=== PATIENT | male | born 1945 | race Caucasian/White ===

== ENCOUNTER 2021-11-25 12:41 | Outpatient (RCR) | payer MEDICARE, SELFPAY | END 2021-12-12 09:30 | disposition home or self-care (01) | LOC: HO.WCC 12:41 | PROVIDERS: PCP Internal Medicine; Visit Provider Physician Assistant | DX: E11.622 Type 2 diabetes mellitus with other skin ulcer (principal); L97.812 Non-pressure chronic ulcer of other part of right lower leg with fat layer exposed; I87.331 Chronic venous hypertension (idiopathic) with ulcer and inflammation of right lower extremity; E11.22 Type 2 diabetes mellitus with diabetic chronic kidney disease; I12.9 Hypertensive chronic kidney disease with stage 1 through stage 4 chronic kidney disease, or unspecified chronic kidney disease; N18.9 Chronic kidney disease, unspecified; L08.9 Local infection of the skin and subcutaneous tissue, unspecified; Z79.84 Long term (current) use of oral hypoglycemic drugs | CPT/HCPCS: 11042; 29580; 97597; 99211; 99212 ==

== ENCOUNTER 2022-08-22 07:20 | Inpatient (IN) | payer MEDICARE, SELFPAY ==
[2022-08-22] VITALS (10 sets, daily range): BP systolic 120–159; BP diastolic 66–83; PULSE 73–131; RESP 12–22; TEMP 36.6–38.4; O2SAT 92–98; BMI 36.9
--- NOTE | ~2022-08-22 | XR_ITS ---
EXAMINATION: XR HIP BI W PEL1V XR KNEE LT 2V XR KNEE RT 2V XR ANKLE LT 2V XR ANKLE RT 2V CLINICAL INFORMATION: Pain status post fall COMPARISON: None. TECHNIQUE: AP view of the pelvis and AP and frog-leg lateral views of each hip 2 views of each knee 3 views of each ankle FINDINGS: Pelvis/bilateral hips: No acute fracture or dislocation. Femoral heads are spherical. Moderate right hip joint space narrowing. Left hip joint space relatively preserved. Small acetabular and femoral collar marginal osteophytes. Pelvic ring intact. Mild bilateral sacroiliac arthrosis. Bilateral knees: No acute fracture or dislocation. Small tricompartmental marginal osteophytes. Moderate bilateral knee joint effusions. Diffuse soft tissue swelling/subcutaneous reticulation. Bilateral ankles: No acute fracture or dislocation. Ankle mortise is congruent. Talar dome intact. Small tibiotalar marginal osteophytes. Diffuse soft tissue swelling about both ankles. No ankle joint effusion. XR/XR ankle RT 2V IMPRESSION: * No acute fracture or dislocation. * Moderate bilateral knee joint effusions. * Degenerative changes as described. * Diffuse soft tissue swelling /edema throughout both lower extremity.
--- NOTE | ~2022-08-22 | XR_ITS ---
EXAMINATION: XR CHEST CLINICAL INFORMATION: Tachycardia. COMPARISON: None TECHNIQUE: Frontal view of the chest was obtained. FINDINGS: Mild linear markings are seen at the left lung base. The left upper lung field and right lung are clear. The heart and mediastinal structures are unremarkable. Small to moderate hiatal hernia. XR/XR chest 1V IMPRESSION: 1. Mild left basilar linear atelectasis versus scarring. No acute cardiopulmonary process. 2. Small to moderate hiatal hernia.
--- NOTE | ~2022-08-22 | XR_ITS ---
EXAMINATION: XR HIP BI W PEL1V XR KNEE LT 2V XR KNEE RT 2V XR ANKLE LT 2V XR ANKLE RT 2V CLINICAL INFORMATION: Pain status post fall COMPARISON: None. TECHNIQUE: AP view of the pelvis and AP and frog-leg lateral views of each hip 2 views of each knee 3 views of each ankle FINDINGS: Pelvis/bilateral hips: No acute fracture or dislocation. Femoral heads are spherical. Moderate right hip joint space narrowing. Left hip joint space relatively preserved. Small acetabular and femoral collar marginal osteophytes. Pelvic ring intact. Mild bilateral sacroiliac arthrosis. Bilateral knees: No acute fracture or dislocation. Small tricompartmental marginal osteophytes. Moderate bilateral knee joint effusions. Diffuse soft tissue swelling/subcutaneous reticulation. Bilateral ankles: No acute fracture or dislocation. Ankle mortise is congruent. Talar dome intact. Small tibiotalar marginal osteophytes. Diffuse soft tissue swelling about both ankles. No ankle joint effusion. XR/XR ankle LT 2V IMPRESSION: * No acute fracture or dislocation. * Moderate bilateral knee joint effusions. * Degenerative changes as described. * Diffuse soft tissue swelling /edema throughout both lower extremity.
--- NOTE | ~2022-08-22 | XR_ITS ---
EXAMINATION: XR HIP BI W PEL1V XR KNEE LT 2V XR KNEE RT 2V XR ANKLE LT 2V XR ANKLE RT 2V CLINICAL INFORMATION: Pain status post fall COMPARISON: None. TECHNIQUE: AP view of the pelvis and AP and frog-leg lateral views of each hip 2 views of each knee 3 views of each ankle FINDINGS: Pelvis/bilateral hips: No acute fracture or dislocation. Femoral heads are spherical. Moderate right hip joint space narrowing. Left hip joint space relatively preserved. Small acetabular and femoral collar marginal osteophytes. Pelvic ring intact. Mild bilateral sacroiliac arthrosis. Bilateral knees: No acute fracture or dislocation. Small tricompartmental marginal osteophytes. Moderate bilateral knee joint effusions. Diffuse soft tissue swelling/subcutaneous reticulation. Bilateral ankles: No acute fracture or dislocation. Ankle mortise is congruent. Talar dome intact. Small tibiotalar marginal osteophytes. Diffuse soft tissue swelling about both ankles. No ankle joint effusion. XR/XR knee RT 2V IMPRESSION: * No acute fracture or dislocation. * Moderate bilateral knee joint effusions. * Degenerative changes as described. * Diffuse soft tissue swelling /edema throughout both lower extremity.
--- NOTE | ~2022-08-22 | XR_ITS ---
EXAMINATION: XR HIP BI W PEL1V XR KNEE LT 2V XR KNEE RT 2V XR ANKLE LT 2V XR ANKLE RT 2V CLINICAL INFORMATION: Pain status post fall COMPARISON: None. TECHNIQUE: AP view of the pelvis and AP and frog-leg lateral views of each hip 2 views of each knee 3 views of each ankle FINDINGS: Pelvis/bilateral hips: No acute fracture or dislocation. Femoral heads are spherical. Moderate right hip joint space narrowing. Left hip joint space relatively preserved. Small acetabular and femoral collar marginal osteophytes. Pelvic ring intact. Mild bilateral sacroiliac arthrosis. Bilateral knees: No acute fracture or dislocation. Small tricompartmental marginal osteophytes. Moderate bilateral knee joint effusions. Diffuse soft tissue swelling/subcutaneous reticulation. Bilateral ankles: No acute fracture or dislocation. Ankle mortise is congruent. Talar dome intact. Small tibiotalar marginal osteophytes. Diffuse soft tissue swelling about both ankles. No ankle joint effusion. XR/XR knee LT 2V IMPRESSION: * No acute fracture or dislocation. * Moderate bilateral knee joint effusions. * Degenerative changes as described. * Diffuse soft tissue swelling /edema throughout both lower extremity.
--- NOTE | ~2022-08-22 | XR_ITS ---
EXAMINATION: XR HIP BI W PEL1V XR KNEE LT 2V XR KNEE RT 2V XR ANKLE LT 2V XR ANKLE RT 2V CLINICAL INFORMATION: Pain status post fall COMPARISON: None. TECHNIQUE: AP view of the pelvis and AP and frog-leg lateral views of each hip 2 views of each knee 3 views of each ankle FINDINGS: Pelvis/bilateral hips: No acute fracture or dislocation. Femoral heads are spherical. Moderate right hip joint space narrowing. Left hip joint space relatively preserved. Small acetabular and femoral collar marginal osteophytes. Pelvic ring intact. Mild bilateral sacroiliac arthrosis. Bilateral knees: No acute fracture or dislocation. Small tricompartmental marginal osteophytes. Moderate bilateral knee joint effusions. Diffuse soft tissue swelling/subcutaneous reticulation. Bilateral ankles: No acute fracture or dislocation. Ankle mortise is congruent. Talar dome intact. Small tibiotalar marginal osteophytes. Diffuse soft tissue swelling about both ankles. No ankle joint effusion. XR/XR hip BI w PEL1V IMPRESSION: * No acute fracture or dislocation. * Moderate bilateral knee joint effusions. * Degenerative changes as described. * Diffuse soft tissue swelling /edema throughout both lower extremity.
--- NOTE | 2022-08-22 08:02 | ECG_ITS ---
Test Reason : tachycardia Blood Pressure : / mmHG Vent. Rate : 131 BPM Atrial Rate : 131 BPM P-R Int : 122 ms QRS Dur : 098 ms QT Int : 330 ms P-R-T Axes : 045 -76 024 degrees QTc Int : 487 ms Poor data quality Sinus tachycardia Pulmonary disease pattern Left anterior fascicular block Abnormal ECG No previous ECGs available Referred By: Generic ED Physician Electronically Signed By:JESSICA YAP MD
--- NOTE | 2022-08-22 08:22 | ED.GENADULT ---
HPI - General Adult General Chief complaint: General Medical Stated complaint: WEAK,FEVER,LEG PAIN W/ FALL/DIFF AMB Time Seen by Provider: 08/22/22 08:02 Source: patient and EMS Mode of arrival: EMS Limitations: no limitations History of Present Illness HPI narrative: Patient is a 77 year old assigned male at with no reported medical history presenting to the emergency department today with a fever and general weakness. Patient states that starting this morning he has had a fever and felt generally more weak. Patient denies any dizziness, lightheadedness, abdominal pain, nausea, vomiting, chills, blurry vision, double vision, loss of vision, chest pain, difficulty breathing, shortness of breath, back pain, night sweats, pain with urination, increased urinary frequency, increased urinary urgency, blood in his urine or stool, syncope or a near syncopal episode, recent trauma or falls, bowel incontinence, bladder incontinence, bowel retention, bladder retention, or any other complaints at this time. Patient states that he normally uses his walker and today, he was unable to do so. Onset (ago): hour(s) Severity: mild Severity scale (1-10): 3 Relieving factors: none Exacerbating factors: none Associated symptoms: fever/chills and weakness Treatments prior to arrival: none Related Data Home Medications Medication Instructions Recorded Confirmed ammonium lactate 12 % lotion 1 applic topical DAILY PRN Dry Skin 08/22/22 08/22/22 ascorbic acid (vitamin C) 250 mg 250 mg PO DAILY 08/22/22 08/22/22 tablet (Vitamin C) atorvastatin 20 mg tablet 20 mg PO BEDTIME 08/22/22 08/22/22 cholecalciferol (vitamin D3) 25 25 mcg PO DAILY 08/22/22 08/22/22 mcg (1,000 unit) tablet divalproex 500 mg tablet,extended 1,500 mg PO BEDTIME 08/22/22 08/22/22 release 24 hr ferrous sulfate 324 mg (65 mg 324 mg PO DAILY 08/22/22 08/22/22 iron) tablet,delayed release levothyroxine 175 mcg tablet 175 mcg PO DAILY@0600 08/22/22 08/22/22 metformin 1,000 mg tablet 1,000 mg PO BID 08/22/22 08/22/22 omeprazole 20 mg capsule,delayed 20 mg PO DAILY@0630 08/22/22 08/22/22 release risperidone 2 mg tablet 2 mg PO BEDTIME 08/22/22 08/22/22 Allergies Allergy/AdvReac Type Severity Reaction Status Date / Time No Known Allergies Allergy Verified 08/22/22 08:22 Review of Systems Constitutional: Constitutional: Reports no additional constitutional complaints, Denies chills, Reports fever(s), Denies night sweats and Reports weakness Eyes: Eyes: Reports no additional eye complaints, Denies blurry vision, Denies change in vision, Denies diplopia, Denies eye discharge, Denies loss of vision and Denies eye pain ENT: Denies dizziness Cardiovascular: Cardiovascular: Reports no additional cardiovascular complaints, Denies chest pain, Denies lightheadedness, Denies Loss of Consciousness and Denies dyspnea Respiratory: Respiratory: Reports no additional respiratory complaints and Denies dyspnea Gastrointestinal: Gastrointestinal: Reports no additional gastrointestinal complaints, Denies abdominal pain, Denies melena, Denies hematochezia, Denies change in bowel habits and Denies change in stool character Genitourinary: Genitourinary: Reports no additional male genitourinary complaints, Denies hematuria, Denies oliguria, Denies difficulty urinating, Denies dysuria, Denies urinary frequency, Denies urinary hesitancy, Denies urinary incontinence and Denies urinary urgency Musculoskeletal: Musculoskeletal: Reports no additional musculoskeletal complaints, Denies numbness and Denies tingling Integumentary/Breasts: Comments: bilateral erythema and swelling to the dorsal aspect of both feet, specifically on the great toes Neurologic: Denies dizziness, Denies loss of vision, Denies numbness, Denies tingling and Reports weakness Psychiatric: Psychiatric: Reports no additional psychiatric complaints Endocrine: Endocrine: Reports no additional endocrine complaints Hematologic/Lymphatic: Hematologic/Lymphatic: Reports no additional hematologic/lymphatic complaints Allergic/Immunologic: Allergic/Immunologic: Reports no additional allergic/immunologic complaints [facility] Past Medical History Attestation statement: The following information was validated with the patient. Family History Family History Father Diabetes Maternal Grandmother Heart problem Social History Social History Alcohol intake: current Alcohol intake frequency: 0-2 drinks per day Smoked in Last 30 Days: No Use of substances other than those prescribed or required for medical reasons: No Advance Directives: Yes Advance Directives Information Provided: Yes Advance Directives on File: No Physical Exam ED Vital Signs: Vital Signs - 24 hr 08/22/22 07:19 08/22/22 07:28 08/22/22 07:35 Temperature 98.1 F 100.7 F H 100.7 F H Pulse Rate 73 129 H 131 H Respiratory Rate 13 18 22 H Blood Pressure 124/72 159/83 H 159/83 H Pulse Oximetry 98 92 93 Oxygen Delivery Method Room Air Room Air Room Air Oxygen Flow Rate 08/22/22 07:54 08/22/22 08:55 08/22/22 10:53 Temperature 101.1 F H 101.2 F H 98.7 F Pulse Rate 124 H 119 H Respiratory Rate 22 H 12 Blood Pressure 121/69 131/74 Pulse Oximetry 95 97 Oxygen Delivery Method Nasal Cannula Nasal Cannula Oxygen Flow Rate 2 2 BMI result Body Mass Index 36.9 Const General: cooperative, no acute distress, alert and awake Nutritional Appearance: well nourished Orientation/consciousness: patient oriented x3 Limitations: no limitations HENMT Head: Yes normal to inspection and Yes atraumatic Ears: hearing grossly normal bilaterally and external ears normal General nose exam: Normal external nose present, no nasal discharge noted and no epistaxis Face and sinus: Yes normal facial exam, No abrasion and No laceration Mouth: Normal oral and palatal mucosa present, no drooling and no muffled voice Eyes General: appearance normal, both eyes and all related structures Periorbital: periorbital findings normal Eyelids: Yes eyelids normal Conjunctivae: conjunctivae normal Pupils: Equal, round and reactive pupils present EOM: EOMs intact bilaterally Neck Neck: Yes normal visual inspection, Yes full ROM and Yes no lymphadenopathy Chest Chest palpation & inspection: normal inspection of the chest Resp Effort & Inspection: normal respiratory effort and able to speak in complete sentences Auscultation: clear to auscultation bilaterally Cardio Rate: tachycardic Rhythm: regular rhythm GI Inspection: Yes normal to inspection Neuro General: patient oriented x3 and moves all extremities Cranial nerves: Yes Equal, round and reactive pupils present Cognition (Neuro): normal cognition Motor exam (neuro): 5/5 motor strength present throughout Sensory Exam: Normal double simultaneous stimulation for sensation Coordination: [id number] test normal Extrem Other: bilateral erythema and swelling to the dorsal aspect of the feet, more so on the great toes General: Yes full ROM and Yes capillary refill normal Psych Appearance: grossly normal Mental Status: mental status grossly normal Affect: normal affect Attitude: cooperative Thought process: Normal thought process present Thought content: Normal thought content present Insight: Good insight present (Psych) Medications Administered Generic Name Dose Route Start Last Admin Trade Name Freq PRN Reason Stop Dose Admin Enoxaparin Sodium 40 mg 08/22/22 15:00 08/22/22 15:44 Enoxaparin Sodium 40 Mg/0.4 Ml Syringe SUBCUT 40 mg Q24H PRABHU Administration Vancomycin HCl 2,000 mg in 520 mls @ 260 mls/hr 08/22/22 16:00 08/22/22 15:47 Vancomycin/Ns IV 08/22/22 17:59 260 mls/hr ONCE ONE Administration Prednisone 40 mg 08/22/22 14:25 08/22/22 15:44 Prednisone 20 Mg Tablet PO 40 mg DAILY PRABHU Administration Sodium Chloride 3 ml 08/22/22 16:00 08/22/22 15:47 0.9 % Sodium Chloride Flush 3 Ml Syringe IVFLUSH 3 ml QSHIFT PRABHU Administration Discontinued Medications Generic Name Dose Route Start Last Admin Trade Name Freq PRN Reason Stop Dose Admin Acetaminophen 650 mg 08/22/22 08:21 08/22/22 08:28 Acetaminophen 325 Mg Tablet PO 08/22/22 08:22 650 mg ONCE ONE Administration Ceftriaxone Sodium 2 gm/ 50 mls @ 100 mls/hr 08/22/22 09:01 08/22/22 10:10 Sodium Chloride IV 08/22/22 09:30 Infused ONCE ONE Infusion Medical Decision Making Medical Decision Making [facility] Narrative: Patient is a 77 year old assigned male at with no reported medical history presenting to the emergency department today with increased weakness. Patient's physical exam showed tachycardia and bilateral dorsal redness of the feet. Patient's blood work showed an elevated WBC count of 12.1, an ESR of 63, a CRP of 20.61, a BNP of 209, an initial troponin of 108.1 wth a repeat of 136.3. Patient's urine showed no acute process. Patient's EKG was unremarkable. Patient's chest x-ray showed no acute process. At 0930, suspicion for sepsis occurred. IV abx, blood cultures, and lactic acid was ordered. Patient did not meet criteria for a sepsis fluid bolus given his lactic acid was only 1.8. I spoke to the hospitalist team who agreed to admission. I explained my physical exam findings as well as all test results to the patient. I answered all questions asked by the patient. Patient verbalized agreement and understanding with this treatment plan and admission. Differential Diagnoses: Differential diagnosis (sepsis, cellulitis of the feet) Differential Diagnosis: The differential diagnosis associated with the patient?s presentation includes: Consideration of admission/observation: Consideration of Admission/Observation (Consideration of admission / observation occurred and ultimately, admission was decided. ) Escalation of care admission/observation considered: Escalation of care including admission/observation considered Discussion of management with other physician/healthcare provider/other source (e.g., hospitalist, safety and health consultant, behavioral health): Discussion w/other physician/healthcare provider Management of the patient was discussed with: Hospitalist (agreed to hospital admission) Independent interpretation of EKG, rhythm strip, radiology study: Independent interp EKG,rhythm strip, radiology study (This is not my personal interpretation of this EKG. EKG was interpreted by Dr. Lund) I performed an independent interpretation of the: EKG Vent. Rate: 131 BPM ? ? Atrial Rate: 131 BPM P-R Int: 122 ms? QRS Dur: 098 ms QT Int: 330 ms ? ? ? P-R-T Axes: 045 -76 024 degrees QTc Int: 487 ms ? Poor data quality Sinus tachycardia Pulmonary disease pattern Left anterior fascicular block Abnormal ECG No previous ECGs available ? Electronically Signed By:HUY LUND MD Dictated By: Huy Lund MD Signed By: Electronically signed by Huy Lund MD 08/22/22 [id number] Discussion of test interpretation with radiology: Discussion of test interpretation with radiology (This result was not discussed directly with the radiologist however, this is their impression per their report. ) EXAMINATION: XR CHEST CLINICAL INFORMATION: Tachycardia. COMPARISON: None TECHNIQUE: Frontal view of the chest was obtained. FINDINGS: Mild linear markings are seen at the left lung base. The left upper lung field and right lung are clear. The heart and mediastinal structures are unremarkable. Small to moderate hiatal hernia. XR/XR chest 1V IMPRESSION: ? 1. Mild left basilar linear atelectasis versus scarring. No acute cardiopulmonary process. 2. Small to moderate hiatal hernia. Dictated By: Salvador Wilde MD Signed By: Electronically signed by Salvador Wilde MD 08/22/22 0852 Independent historian (e.g., spouse, EMS, friend): Independent historian (e.g., spouse, EMS, friend) Clinical information obtained from an independent historian. History obtained from or confirmed by: EMS Critical Care Time Critical Care Time Critical Care Time: Yes Total Critical Care Time: 30 Attestation: I spent 30 minutes of Critical Care Time with this patient. This does not include time spent on separately reported billable procedures. Discharge Plan Discharge Clinical Impression: Sepsis, Weakness Patient Disposition: Admitted As Inpatient
[2022-08-22] MEDS: Acetaminophen 325 MG TABLET 650 MG PO (08:28)
[2022-08-22 08:34] LABS: MANUAL DIFF FLAG NO
[2022-08-22 08:37] LABS: Basophils Absolute Auto 0.1 X10*3/uL (0.0-0.2); Basophils Percent Auto 0.5 % (0-2); Hematocrit 34.8 % (42.0-52.0); Hemoglobin 10.7 g/dl (14.0-18.0); Imm Gran Abs Auto 0.14 X10*3/uL (0.00-0.03); Imm Gran Pct Auto 1.2 % (0.0-0.4); Lymphocytes Absolute Auto 0.9 X10*3/uL (1.2-4.9); Lymphocytes Percent Auto 7.3 % (20-40); Mean Corpuscular HGB Conc 30.7 g/dl (31.0-36.0); Mean Corpuscular Hemoglobin 25.2 pg (27.0-33.0); Mean Corpuscular Volume 81.9 fL (80.0-98.0); Mean Platelet Volume 9.1 fL (9.4-12.4); Monocytes Absolute Auto 1.3 X10*3/uL (0.1-1.2); Monocytes Percent Auto 10.3 % (2-11); Neutrophils Absolute Auto 9.8 x10*3/uL (2.0-8.3); Neutrophils Percent Auto 80.7 % (45-73); Platelet Count 270 X10*3/uL (160-400); Red Blood Count 4.25 X10*6/uL (4.60-5.80); Red Cell Distribution Width 15.9 % (11.0-16.0); White Blood Count 12.1 X10*3/uL (4.8-10.8)
[2022-08-22 08:43] LABS: INTERNATIONAL NORM RATIO 1.1 (0.9-1.1); Prothrombin Time 12.5 SEC (10.0-13.1)
[2022-08-22 08:45] LABS: Partial Thromboplastin Time 26.4 SEC (26.0-36.4)
[2022-08-22 08:47] LABS: Lactic Acid 1.8 mmol/L (0.5-2.0)
[2022-08-22 08:52] LABS: Alanine Aminotransferase 13 U/L (0-40); Albumin Level 3.8 g/dL (3.5-5.0); Alkaline Phosphatase 67 U/L (39-117); Anion Gap 14 (12-20); Aspartate Amino Transferase 11 U/L (5-37); Bilirubin Total 1.3 mg/dL (0.0-1.0); Blood Urea Nitrogen 13 mg/dL (9-16); C Reactive Protein 20.61 mg/dL (< or = 0.50); Carbon Dioxide 28 mmol/L (22-29); Chloride 99 mmol/L (96-108); Creatinine Clr Calc Pharmacy 65.6; Estimated Glomerular Filt Rate > 60; Glucose Random 212 mg/dL (60-115); Lipase 11 U/L (8-78); Magnesium 1.7 mg/dL (1.6-2.6); Potassium 4.8 mmol/L (3.3-5.1); Sodium 136 mmol/L (135-145); Total Protein 6.4 g/dL (6.5-8.0)
--- NOTE | 2022-08-22 09:01 | PC.NURSE ---
PT IS A/O X 4 NO SOB/RAUL NOTED 02 SAT 92% ON R/A O2 APPLIED AT 2L/M VIA N/C 02 SAT 95%. SPEAKS IN FULL SENTENCES. LUNGS - SLIGHTLY DIMINISHED ALL LOBES. HEART SOUNDS REGULAR BUT TACHY (124). ABD ROUND OBESE, NON-TENDER SOFT. BX + 4 QUADS. AARON LOWER LEGS SWOLLEN WITH 3-4+ PITTING EDEMA, LULA, FOUL ODOUR. DRESSING REMOVED LARGE AMT OF YELLOW DRAINAGE NOTED. PT HAS VERY DRY FLAKY AARON LEGS. PT AWARE OF PLAN OF CARE.
[2022-08-22 09:18] LABS: Erythrocyte Sedimentation Rate 63 MM/HR (0-15)
[2022-08-22 09:21] LABS: Influenza A PCR NEGATIVE (Negative); Influenza B PCR NEGATIVE (Negative); Resp Syncy Virus RNA Qual PCR NEGATIVE (Negative); SARS COV2 PCR INHOUSE NEGATIVE (Negative)
--- NOTE | 2022-08-22 09:30 | PC.NURSE ---
jennifer weak pedal pulses via doppler.
[2022-08-22 09:35] LABS: B Type Natriuretic Peptide 209 pg/mL (<100)
[2022-08-22 09:37] LABS: Troponin-I High Sensitivity 108.1 ng/L (<3.5-35.0)
[2022-08-22] MEDS: cefTRIAXone sodium 2 GM in 0.9 % Sodium Chloride 50 ML IV (09:37)
[2022-08-22 10:53] LABS: Troponin-I High Sensitivity 136.3 ng/L (<3.5-35.0)
[2022-08-22 12:07] LABS: Appearance Urine Clear; Color Urine Yellow; Glucose Urine UA 500 mg/dL (Negative); Leukocyte Esterase Urine Negative (Negative); Nitrite Urine Negative (Negative); Specific Gravity - Urine 1.015 (1.005-1.025); UMIC TRIGGER UACC YES; Urine Blood Negative (Negative); Urine Ketones 15 mg/dL (Negative); Urine Protein 30 (1+) mg/dL (Neg-Trace)
[2022-08-22 12:10] LABS: Bacteria Urine None Seen (None Seen); Hyaline Casts Urine 0-2 /LPF (0-2); RBC Urine 0-2 /HPF (0-2); Squamous Epithelial Cell Urine 0-2 /HPF (0-2); WBC Urine 0-5 /HPF (0-5)
--- NOTE | 2022-08-22 12:10 | PC.NURSE ---
straight catheter removed from patient, 650ml drained. urine sample sent, patient bedding changed.
--- NOTE | 2022-08-22 13:29 | PHA.MEDREC ---
Pharmacy Consult ? Medication Reconciliation Pharmacy has completed the medication reconciliation. Patient knows most of his medications and states his doctor discontinued his lisinopril due to low blood pressure. Patient is diabetic but does not use insulin.
--- NOTE | 2022-08-22 14:50 | PM.IMHP ---
History of Present Illness Date of Service: 08/22/22 Attending physician on admission: Kevin Andujar Chief Complaint: Bilateral lower leg pain and redness Pt is a 77-year-old male with a PMH significant for bipolar disorder, DM2, hypothyroidism, HLD, HTN, GERD, and tardive dyskenisia who presents to the ED today with bilateral lower leg pain. Pt reports he was using his walker two days ago and when he went to sit he misjudged where the chair was and fell to the floor. Pt denies dizziness, lightheadedness, LOC, or striking his head. Pt complains of pain particularly in his ankles, but also knees and hips. He was unable to walk today due to pain and weakness, which prompted calling EMS. Pt denies F/C, N/V, abdominal pain. No chest pain/pressure, palpitations or SOB. Pt reports lower leg edema, which has been chronic. In the ED, pt was noted to have significant bilateral erythema and warmth of his lower legs and toes. Patient was febrile at 101.2, tachycardic with HR up to 131, and slightly tachypneic at 22. Labs were significant for WBC 12.1, ESR of 63, and CRP of 20.61. BNP was elevated at 209, and troponins were elevated at 108.1 and 136.3. CXR showed mild left basilar linear atelectasis versus scarring, and EKG showed sinus tachycardia with pulmonary disease pattern. Patient meets sepsis criteria but not severe sepsis. Patient was treated with ceftriaxone 2g but not given fluids due to elevated BNP and bilateral lower leg edema. He will be admitted for treatment of cellulitis and further workup. Review of Systems Review of Systems: Pt complains of bilateral ankle, knee, and hip pain Denies SOB No lightheadedness, dizziness, LOC or head strike No chest pain/pressure, SOB Yes all other systems are reviewed and are negative [facility] Family History Father Diabetes Maternal Grandmother Heart problem Social History Alcohol intake: current Alcohol intake frequency: 0-2 drinks per day Smoked in Last 30 Days: No Use of substances other than those prescribed or required for medical reasons: No Advance Directives: Yes Advance Directives Information Provided: Yes Advance Directives on File: No Meds Allergies Allergy/AdvReac Type Severity Reaction Status Date / Time No Known Allergies Allergy Verified 08/22/22 08:22 Active Medications: Current Medications Acetaminophen (Acetaminophen 325 Mg Tablet) 650 mg PO Q6H PRN PRN Reason: Pain, Mild (Pain Scale 1-3) Ascorbic Acid (Ascorbic Acid 250 Mg Tablet) 250 mg PO DAILY [facility] Atorvastatin Calcium (Atorvastatin Calcium 20 Mg Tablet) 20 mg PO BEDTIME [facility] Divalproex Sodium (Divalproex Sodium Er 500 Mg Tab.Er.24h) 1,500 mg PO BEDTIME [facility] Docusate Sodium (Docusate Sodium 100 Mg Capsule) 100 mg PO DAILY PRN PRN Reason: Constipation Enoxaparin Sodium (Enoxaparin Sodium 40 Mg/0.4 Ml Syringe) 40 mg SUBCUT Q24H [facility] Ferrous Sulfate (Ferrous Sulfate 324 Mg Tablet.) 324 mg PO DAILY [facility] Vancomycin HCl 1,000 mg/ (Sodium Chloride) 270 mls @ 270 mls/hr IV Q12H [facility] Levothyroxine Sodium (Levothyroxine Sodium 175 Mcg Tablet) 175 mcg PO DAILY@0600 [facility] Omeprazole (Omeprazole 20 Mg Capsule.) 20 mg PO DAILY@0630 [facility] Ondansetron HCl (Ondansetron Hcl 4 Mg/2 Ml Vial) 4 mg IVPUSH Q8H PRN PRN Reason: Nausea and Vomiting Pharmacy Consult (Consult Rx Perform Med Rec) 1 each MISCELLANE ONCE PRN PRN Reason: Consult order Pharmacy Consult (Consult Rx Vancomycin Dosing) 1 each MISCELLANE DAILY PRN PRN Reason: Consult order Prednisone (Prednisone 20 Mg Tablet) 40 mg PO DAILY [facility] Risperidone (Risperidone 2 Mg Tablet) 2 mg PO BEDTIME [facility] Sodium Chloride (0.9 % Sodium Chloride Flush 3 Ml Syringe) 3 ml IVFLUSH QSHIFT [facility] Vitamin D (Cholecalciferol (Vitamin D3) 25 Mcg Tablet) 25 mcg PO DAILY [facility] Home Medications Medication Instructions Recorded Confirmed Last Taken Type ammonium lactate 12 % lotion 1 applic topical DAILY PRN Dry Skin 08/22/22 08/22/22 Unknown History ascorbic acid (vitamin C) 250 mg 250 mg PO DAILY 08/22/22 08/22/22 08/21/22 History tablet (Vitamin C) atorvastatin 20 mg tablet 20 mg PO BEDTIME 08/22/22 08/22/22 08/21/22 History cholecalciferol (vitamin D3) 25 25 mcg PO DAILY 08/22/22 08/22/22 08/21/22 History mcg (1,000 unit) tablet divalproex 500 mg tablet,extended 1,500 mg PO BEDTIME 08/22/22 08/22/22 08/21/22 History release 24 hr ferrous sulfate 324 mg (65 mg 324 mg PO DAILY 08/22/22 08/22/22 08/21/22 History iron) tablet,delayed release levothyroxine 175 mcg tablet 175 mcg PO DAILY@0600 08/22/22 08/22/22 08/21/22 History metformin 1,000 mg tablet 1,000 mg PO BID 08/22/22 08/22/22 08/21/22 History omeprazole 20 mg capsule,delayed 20 mg PO DAILY@0630 08/22/22 08/22/22 08/21/22 History release risperidone 2 mg tablet 2 mg PO BEDTIME 08/22/22 08/22/22 08/21/22 History Physical Exam Vital Signs and Narrative: Vital Signs: Last Vital Signs Temp 98.9 F 08/22/22 14:45 Pulse 116 H 08/22/22 14:45 Resp 16 08/22/22 14:45 BP 131/78 08/22/22 14:45 Pulse Ox 97 08/22/22 14:45 O2 Del Method 08/22/22 14:45 O2 Flow Rate 2 08/22/22 14:45 BMI result Body Mass Index 36.9 Constitutional: Alert, in no acute distress. Mental Status: Oriented to person, place and time. Eyes: Pupils are equal, round, and reactive to light. Ear, Nose, and Throat: Oropharynx clear, mucous membranes moist. Ears and nose without deformities. Trachea midline. Respiratory: Bilateral diffuse rales noted. Cardiovascular: S1, S2 regular. No murmurs, rubs, or gallops. Gastrointestinal: Abdomen soft, non-tender, non-distended. Normal bowel sounds. Possible reducible, nontender umbilical hernia noted with palpation. Neurologic: Cranial nerves II-XI are grossly intact. NO focal neurological deficits. Moves all extremities spontaneously. Musculoskeletal: Ankles, knees, and hips tender to palpation bilaterally; left ankle elicited the most pain. No visible bruising or lesions of areas noted. Limited 1/5 acitve and passive ROM of ankles, knees, and hips. Extremities: Diffuse erythema of lower legs bilaterally, right worse than left. Erythema of left great toe and right second toe. Bilateral 2+ pitting edema. Psychiatric: Normal mood and affect. Results Labs CBC and Chem 7: 08/22/22 08:26 12 08:26 Labs: Laboratory Results - last 24 hr 08/22/22 08/22/22 08/22/22 08:26 08:26 08:26 MCV 81.9 MCH 25.2 L MCHC 30.7 L RDW 15.9 Plt Count 270 MPV 9.1 L Immature Gran % (Auto) 1.2 H Neut % (Auto) 80.7 H Lymph % (Auto) 7.3 L [place] % (Auto) 10.3 Eos % (Auto) 0.0 Baso % (Auto) 0.5 Lymph # (Auto) 0.9 L [place] # (Auto) 1.3 H Eos # (Auto) 0.0 Baso # (Auto) 0.1 Abs Immat Gran (auto) 0.14 H Absolute Neuts (auto) 9.8 H Absolute Nucleated RBC 0.000 Nucleated RBC % (auto) 0.0 ESR PT INR APTT Anion Gap 14 Estim Creat Clear Calc 65.6 Estimated GFR > 60 Random Glucose 212 H Lactic Acid 1.8 Calcium 9.0 Magnesium 1.7 Total Bilirubin 1.3 H AST 11 ALT 13 Alkaline Phosphatase 67 Total Creatine Kinase 70 Troponin I High Sens C-Reactive Protein 20.61 H B-Natriuretic Peptide Total Protein 6.4 L Albumin 3.8 Lipase 11 Urine Color Urine Appearance Urine pH Ur Specific [place] Urine Protein Urine Glucose (UA) Urine Ketones Urine Blood Urine Nitrite Ur Leukocyte Esterase Urine RBC Urine WBC Ur Squamous Epith Cells Urine Bacteria Hyaline Casts Influenza Type A (PCR) Influenza Type B (PCR) RSV RNA Qual (PCR) SARS-CoV-2 RNA (RT-PCR) 08/22/22 08/22/22 08/22/22 08: 08:26 08:26 MCV MCH MCHC RDW Plt Count MPV Immature Gran % (Auto) Neut % (Auto) Lymph % (Auto) [place] % (Auto) Eos % (Auto) Baso % (Auto) Lymph # (Auto) [place] # (Auto) Eos # (Auto) Baso # (Auto) Abs Immat Gran (auto) Absolute Neuts (auto) Absolute Nucleated RBC Nucleated RBC % (auto) ESR 63 H PT 12.5 INR 1.1 APTT 26.4 Anion Gap Estim Creat Clear Calc Estimated GFR Random Glucose Lactic Acid Calcium Magnesium Total Bilirubin AST ALT Alkaline Phosphatase Total Creatine Kinase Troponin I High Sens C-Reactive Protein B-Natriuretic Peptide Total Protein Albumin Lipase Urine Color Urine Appearance Urine pH Ur Specific [place] Urine Protein Urine Glucose (UA) Urine Ketones Urine Blood Urine Nitrite Ur Leukocyte Esterase Urine RBC Urine WBC Ur Squamous Epith Cells Urine Bacteria Hyaline Casts Influenza Type A (PCR) NEGATIVE Influenza Type B (PCR) NEGATIVE RSV RNA Qual (PCR) NEGATIVE SARS-CoV-2 RNA (RT-PCR) NEGATIVE 08/22/22 08/22/22 08/22/22 08:26 08:26 10:15 MCV MCH MCHC RDW Plt Count MPV Immature Gran % (Auto) Neut % (Auto) Lymph % (Auto) [place] % (Auto) Eos % (Auto) Baso % (Auto) Lymph # (Auto) [place] # (Auto) Eos # (Auto) Baso # (Auto) Abs Immat Gran (auto) Absolute Neuts (auto) Absolute Nucleated RBC Nucleated RBC % (auto) ESR PT INR APTT Anion Gap Estim Creat Clear Calc Estimated GFR Random Glucose Lactic Acid Calcium Magnesium Total Bilirubin AST ALT Alkaline Phosphatase Total Creatine Kinase Troponin I High Sens 108.1 H* 136.3 H* C-Reactive Protein B-Natriuretic Peptide 209 H Total Protein Albumin Lipase Urine Color Urine Appearance Urine pH Ur Specific [place] Urine Protein Urine Glucose (UA) Urine Ketones Urine Blood Urine Nitrite Ur Leukocyte Esterase Urine RBC Urine WBC Ur Squamous Epith Cells Urine Bacteria Hyaline Casts Influenza Type A (PCR) Influenza Type B (PCR) RSV RNA Qual (PCR) SARS-CoV-2 RNA (RT-PCR) 08/22/22 12:00 MCV MCH MCHC RDW Plt Count MPV Immature Gran % (Auto) Neut % (Auto) Lymph % (Auto) [place] % (Auto) Eos % (Auto) Baso % (Auto) Lymph # (Auto) [place] # (Auto) Eos # (Auto) Baso # (Auto) Abs Immat Gran (auto) Absolute Neuts (auto) Absolute Nucleated RBC Nucleated RBC % (auto) ESR PT INR APTT Anion Gap Estim Creat Clear Calc Estimated GFR Random Glucose Lactic Acid Calcium Magnesium Total Bilirubin AST ALT Alkaline Phosphatase Total Creatine Kinase Troponin I High Sens C-Reactive Protein B-Natriuretic Peptide Total Protein Albumin Lipase Urine Color Yellow Urine Appearance Clear Urine pH 6.0 Ur Specific [place] 1.015 Urine Protein 30 (1+) H Urine Glucose (UA) 500 H Urine Ketones 15 Urine Blood Negative Urine Nitrite Negative Ur Leukocyte Esterase Negative Urine RBC 0-2 Urine WBC 0-5 Ur Squamous Epith Cells 0-2 Urine Bacteria None Seen Hyaline Casts 0-2 Influenza Type A (PCR) Influenza Type B (PCR) RSV RNA Qual (PCR) SARS-CoV-2 RNA (RT-PCR) Imaging Radiologist's Impressions: Impressions Chest X-Ray 08/22/22 08:30 IMPRESSION: 1. Mild left basilar linear atelectasis versus scarring. No acute cardiopulmonary process. 2. Small to moderate hiatal hernia. Assessment and Plan (1) Sepsis: Status: Acute (2) Cellulitis of both lower extremities: Status: Acute (3) Diabetes mellitus type II, non insulin dependent: Status: Acute Plan Pt is a 77-year-old male with a PMH significant for bipolar disorder, DM2, hypothyroidism, HLD, HTN, GERD, and tardive dyskenisia who presents to the ED today with bilateral lower leg pain. In ED pt was noted to have significant bilateral erythema and warmth of his lower legs and toes. He will be admitted for treatment of cellulitis and further workup. # chronic venous stasis with superimposed cellulitis -- vanco IV -- prednisone 40mg PO daily for possible inflammatory response (elevated CRP, sed) -- ID consult # sepsis -- pt meets sepsis criteria: suspected infection with WBC, tachypnic, tachycardic, febrile -- does not meet severe sepsis criteria -- lactic acid 1.8 -- being treated with broad-spectrum abx -- monitor # leg pain s/p fall -- pt complains of bilateral ankle, knee, and hip pain after falling from his walker when he attempted to sit -- physical examination limited by limited ROM d/t pain -- x-ray of ankle, knee, and hip bilaterally to r/o fracture # tachycardia -- likely secondary to infectious process -- consider diltiazem drip if tachycardia persists -- monitor # bilateral edema -- pt no longer taking furosemide -- consider adding furosemide if edema persists # non-insulin diabetes -- hold metformin -- SSI # hypothyroidsim -- recently had levothyroxine dose increased -- check TSH -- continue home meds if TSH WNL # HLD -- continue home meds #HTN -- continue home meds # bipolar disorder -- continue home meds # GERD -- continue home meds Full code Attending: Dr. Andujar DVT Prophylaxis: Lovenox Due to need for IV antibiotics to treat cellulitis, pt will require a hospital stay of at least 2 nights. Quality Stroke Does the patient have a stroke diagnosis?: No VTE Prior VTE?: No VTE Risk Level:: Medical - moderate - high VTE Device Contraindication: Treatment Not Indicated VTE Drug Contraindication: N/A - Med Ordered
--- NOTE | 2022-08-22 15:08 | PHA.PROG ---
Admission Date/Time: August 22, 2022 14:14 Indication: skin Weight in k.223 kg Adjusted body weight in Kg: [place] body weight in Kg: Obesity Dosing Indication % IBW: Serum Creatinine - Last 168 Hours 08/22/22 08:26 Creatinine 1.17 Estimated CrCl and GFR - Last 168 Hours 08/22/22 08:26 Estim Creat Clear Calc 65.6 Estimated GFR > 60 Vancomycin Loading Dose: 2000mg x 1 Current Vancomycin Dosing Regimen: 1250mg Q24H Vancomycin Monitoring using AUC goal of 400 - 600 range with trough as surrogate marker: 494 mg/L Date and Time for next Vancomycin Level to be drawn: 08/25/22 @1400 Pharmacist Comments on Vancomycin Plan: Using obese model, will continue to monitor renal function Vancomycin dosing will take advantage of [email or web address] as a clinical decision support tool that uses Bayesian modeling to calculate individual patient's pharmacokinetic parameters and forecast the patient's drug concentration time course with the target goal AUC 24 range of 400 - 600 mg/L/hr.
[2022-08-22] MEDS: predniSONE 20 MG TABLET 40 MG PO (15:44)
[2022-08-22] MEDS: Enoxaparin Sodium 40 MG/0.4 ML SYRINGE SUBCUT (15:44)
[2022-08-22] MEDS: 0.9 % Sodium Chloride Flush 3 ML SYRINGE IVFLUSH (15:47)
[2022-08-22 16:22] LABS: Glucose, Whole Blood 180 mg/dL (60-115)
--- NOTE | 2022-08-22 17:26 | MHC.CM.PN ---
IMM 08/22. Lives alone. Has [employer] 3 hr/wk. Unsure of agency. Has RN and PT twice a week. Unsure of agency. ?[facility]. Uses [employer] delivery for groceries and [facility] for prescription delivery. Pt uses [employer] van for transportation. Uses walker and Wheelchair. States he has no help from family. States son/HCP Medardo Rivera ([phone]). No HCP on file. Fully vaccinated for Covid. Pfizer x2, Moderna x3 & Bival x1. D/C plan: home with existing services. Pt is not interested in STR. Did have fall 2 days ago. May need PT assessment. Pt will need transportation home. CM to follow for discharge planning.
[2022-08-22 20:55] LABS: Glucose, Whole Blood 315 mg/dL (60-115)
[2022-08-22] MEDS: Atorvastatin Calcium 20 MG TABLET PO (21:20)
[2022-08-22] MEDS: risperiDONE 2 MG TABLET PO (21:20)
[2022-08-22] MEDS: Divalproex Sodium ER 500 MG TAB.ER.24H 1500 MG PO (21:20)
[2022-08-22] MEDS: Insulin Lispro 100 UNIT/ML 3 ML VIAL SUBCUT (21:20)
[2022-08-23] MEDS: 0.9 % Sodium Chloride Flush 3 ML SYRINGE IVFLUSH ×3 (00:18→17:01)
[2022-08-23 03:12] VITALS: BP 122/70; PULSE 100; RESP 16; TEMP 36.9; O2SAT 97
[2022-08-23 05:53] LABS: Hematocrit 27.9 % (42.0-52.0); Hemoglobin 8.6 g/dl (14.0-18.0); Mean Corpuscular HGB Conc 30.8 g/dl (31.0-36.0); Mean Corpuscular Hemoglobin 25.5 pg (27.0-33.0); Mean Corpuscular Volume 82.8 fL (80.0-98.0); Mean Platelet Volume 9.1 fL (9.4-12.4); Platelet Count 228 X10*3/uL (160-400); Red Blood Count 3.37 X10*6/uL (4.60-5.80); Red Cell Distribution Width 15.7 % (11.0-16.0); White Blood Count 8.3 X10*3/uL (4.8-10.8)
[2022-08-23] MEDS: Levothyroxine Sodium 175 MCG TABLET PO (06:01)
[2022-08-23] MEDS: Omeprazole 20 MG CAPSULE.DR PO (06:01)
[2022-08-23 06:36] LABS: Anion Gap 11 (12-20); Blood Urea Nitrogen 18 mg/dL (9-16); Calcium 8.5 mg/dL (8.4-10.2); Carbon Dioxide 29 mmol/L (22-29); Chloride 104 mmol/L (96-108); Creatinine Clr Calc Pharmacy 74.6; Estimated Glomerular Filt Rate > 60; Glucose Random 169 mg/dL (60-115); Potassium 4.6 mmol/L (3.3-5.1); Sodium 139 mmol/L (135-145); Thyroid Stimulating Hormone 5.36 uIU/mL (0.32-4.0)
[2022-08-23 07:46] VITALS: BP 131/66; PULSE 88; RESP 18; TEMP 37.2; O2SAT 95
--- NOTE | 2022-08-23 07:52 | HE.PHANOTE ---
Vancomycin Dosing Renal function stable. Continue current regimen, expected AUC 526 with a trough of 16.9. Trough to be drawn 08/25 @ 1400. Jose HaynesD
[2022-08-23] MEDS: predniSONE 20 MG TABLET 40 MG PO (07:56)
[2022-08-23] MEDS: Insulin Lispro 100 UNIT/ML 3 ML VIAL SUBCUT ×4 (07:56→22:09)
[2022-08-23] MEDS: Cholecalciferol (Vitamin D3) 25 MCG TABLET PO (07:56)
[2022-08-23] MEDS: Ascorbic Acid 250 MG TABLET PO (07:57)
[2022-08-23] MEDS: Ferrous Sulfate 324 MG TABLET.DR PO (07:57)
[2022-08-23 08:02] LABS: Glucose, Whole Blood 160 mg/dL (60-115)
--- NOTE | 2022-08-23 09:16 | HO.PM.IMPN ---
Subjective Subjective Date of Service: 08/23/22 Interval History: Pt seen for f/u for cellulitis of bilateral lower legs Interval history: Pt seen resting comfortably in bed. Reports no acute concerns overnight. No leg pain at rest, though he has not yet attempted to walk. No F/C, N/V. Overall reports feeling fine. Review of Systems No leg pain at rest Denies F/C, N/V No SOB, lightheadedness, dizziness Review of Systems: Yes all other systems are reviewed and are negative Physical Exam Vital Signs: Vital Signs: Last Vital Signs Temp 98.9 F 08/23/22 07:46 Pulse 88 08/23/22 07:46 Resp 18 08/23/22 07:46 BP 131/66 08/23/22 07:46 Pulse Ox 95 08/23/22 07:46 O2 Del Method 08/23/22 07:46 O2 Flow Rate 2 08/22/22 23:55 BMI result Body Mass Index 36.9 General: AOx3, no acute distress Resp: CTA bilaterally CVS: S1, S2, RRR GI: +BS, NT, no distention. Reducible, non-tender umbilical hernia. Extremities: Diffuse erythema of lower legs bilaterally, right worse than left. Better than yesterday. Erythema of left great toe and right second toe, better than yesterday. Bilateral 2+ pitting edema. Neuro: Motor grossly intact Psych: Appropriate affect Objective Data Active Medications Acetaminophen (Acetaminophen 325 Mg Tablet) 650 mg PO Q6H PRN PRN Reason: Pain, Mild (Pain Scale 1-3) Ascorbic Acid (Ascorbic Acid 250 Mg Tablet) 250 mg PO DAILY [facility] Last Admin: 08/23/22 07:57 Dose: 250 mg Documented By: AUSTEN Atorvastatin Calcium (Atorvastatin Calcium 20 Mg Tablet) 20 mg PO BEDTIME [facility] Last Admin: 08/22/22 21:20 Dose: 20 mg Documented By: ELKIN Dextrose (Dextrose 50 % 25 Gm/50 Ml Syringe) 25 gm IVPUSH Q15M PRN; Protocol PRN Reason: per Hypoglycemia Standing Ord. Divalproex Sodium (Divalproex Sodium Er 500 Mg Tab.Er.24h) 1,500 mg PO BEDTIME [facility] Last Admin: 08/22/22 21:20 Dose: 1,500 mg Documented By: ELKIN Docusate Sodium (Docusate Sodium 100 Mg Capsule) 100 mg PO DAILY PRN PRN Reason: Constipation Enoxaparin Sodium (Enoxaparin Sodium 40 Mg/0.4 Ml Syringe) 40 mg SUBCUT Q24H [facility] Last Admin: 08/22/22 15:44 Dose: 40 mg Documented By: SOWMYA Ferrous Sulfate (Ferrous Sulfate 324 Mg Tablet.) 324 mg PO DAILY [facility] Last Admin: 08/23/22 07:57 Dose: 324 mg Documented By: AUSTEN Glucose (Glucose Gel 15 Gm Gel..Gram.) 15 gm PO Q15M PRN; Protocol PRN Reason: per Hypoglycemia Standing Ord. Vancomycin HCl 1,250 mg/ (Sodium Chloride) 250 mls @ 166.667 mls/hr IV Q24H [facility] Insulin Human Lispro (Insulin Lispro 100 Unit/Ml 3 Ml Vial) 0 unit SUBCUT QIDACHS [facility]; Protocol Last Admin: 08/23/22 07:56 Dose: 2 unit Documented By: AUSTEN Levothyroxine Sodium (Levothyroxine Sodium 175 Mcg Tablet) 175 mcg PO DAILY@0600 [facility] Last Admin: 08/23/22 06:01 Dose: 175 mcg Documented By: ELKIN Omeprazole (Omeprazole 20 Mg Capsule.) 20 mg PO DAILY@0630 [facility] Last Admin: 08/23/22 06:01 Dose: 20 mg Documented By: ELKIN Ondansetron HCl (Ondansetron Hcl 4 Mg/2 Ml Vial) 4 mg IVPUSH Q8H PRN PRN Reason: Nausea and Vomiting Pharmacy Consult (Consult Rx Perform Med Rec) 1 each MISCELLANE ONCE PRN PRN Reason: Consult order Pharmacy Consult (Consult Rx Vancomycin Dosing) 1 each MISCELLANE DAILY PRN PRN Reason: Consult order Prednisone (Prednisone 20 Mg Tablet) 40 mg PO DAILY [facility] Last Admin: 08/23/22 07:56 Dose: 40 mg Documented By: AUSTEN Risperidone (Risperidone 2 Mg Tablet) 2 mg PO BEDTIME [facility] Last Admin: 08/22/22 21:20 Dose: 2 mg Documented By: ELKIN Sodium Chloride (0.9 % Sodium Chloride Flush 3 Ml Syringe) 3 ml IVFLUSH QSHIFT [facility] Last Admin: 08/23/22 08:00 Dose: 3 ml Documented By: AUSTEN Vitamin D (Cholecalciferol (Vitamin D3) 25 Mcg Tablet) 25 mcg PO DAILY [facility] Last Admin: 08/23/22 07:56 Dose: 25 mcg Documented By: AUSTEN Labs CBC & Chem 7: 08/23/22 05:08 08/23/22 05:08 Labs: Laboratory Results - last 24 hr 08/22/22 08/22/22 08/22/22 08:26 08:26 08:26 MCV MCH MCHC RDW Plt Count MPV Absolute Nucleated RBC Nucleated RBC % (auto) ESR 63 H Anion Gap Estim Creat Clear Calc Estimated GFR POC Glucose Random Glucose Calcium Total Creatine Kinase 70 Troponin I High Sens B-Natriuretic Peptide TSH Urine Color Urine Appearance Urine pH Ur Specific [place] Urine Protein Urine Glucose (UA) Urine Ketones Urine Blood Urine Nitrite Ur Leukocyte Esterase Urine RBC Urine WBC Ur Squamous Epith Cells Urine Bacteria Hyaline Casts Influenza Type A (PCR) NEGATIVE Influenza Type B (PCR) NEGATIVE RSV RNA Qual (PCR) NEGATIVE SARS-CoV-2 RNA (RT-PCR) NEGATIVE 08/22/22 08/22/22 08/22/22 08:26 08:26 10:15 MCV MCH MCHC RDW Plt Count MPV Absolute Nucleated RBC Nucleated RBC % (auto) ESR Anion Gap Estim Creat Clear Calc Estimated GFR POC Glucose Random Glucose Calcium Total Creatine Kinase Troponin I High Sens 108.1 H* 136.3 H* B-Natriuretic Peptide 209 H TSH Urine Color Urine Appearance Urine pH Ur Specific [place] Urine Protein Urine Glucose (UA) Urine Ketones Urine Blood Urine Nitrite Ur Leukocyte Esterase Urine RBC Urine WBC Ur Squamous Epith Cells Urine Bacteria Hyaline Casts Influenza Type A (PCR) Influenza Type B (PCR) RSV RNA Qual (PCR) SARS-CoV-2 RNA (RT-PCR) 08/22/22 08/22/22 08/22/22 12:00 16:13 20:51 MCV MCH MCHC RDW Plt Count MPV Absolute Nucleated RBC Nucleated RBC % (auto) ESR Anion Gap Estim Creat Clear Calc Estimated GFR POC Glucose 180 H 315 H Random Glucose Calcium Total Creatine Kinase Troponin I High Sens B-Natriuretic Peptide TSH Urine Color Yellow Urine Appearance Clear Urine pH 6.0 Ur Specific [place] 1.015 Urine Protein 30 (1+) H Urine Glucose (UA) 500 H Urine Ketones 15 Urine Blood Negative Urine Nitrite Negative Ur Leukocyte Esterase Negative Urine RBC 0-2 Urine WBC 0-5 Ur Squamous Epith Cells 0-2 Urine Bacteria None Seen Hyaline Casts 0-2 Influenza Type A (PCR) Influenza Type B (PCR) RSV RNA Qual (PCR) SARS-CoV-2 RNA (RT-PCR) 08/23/22 08/23/22 08/23/22 05:08 05:08 05:08 MCV 82.8 MCH 25.5 L MCHC 30.8 L RDW 15.7 Plt Count 228 MPV 9.1 L Absolute Nucleated RBC 0.000 Nucleated RBC % (auto) 0.0 ESR Anion Gap 11 L Estim Creat Clear Calc 74.6 Cancelled Estimated GFR > 60 Cancelled POC Glucose Random Glucose 169 H Calcium 8.5 Total Creatine Kinase Troponin I High Sens B-Natriuretic Peptide TSH 5.36 H Urine Color Urine Appearance Urine pH Ur Specific [place] Urine Protein Urine Glucose (UA) Urine Ketones Urine Blood Urine Nitrite Ur Leukocyte Esterase Urine RBC Urine WBC Ur Squamous Epith Cells Urine Bacteria Hyaline Casts Influenza Type A (PCR) Influenza Type B (PCR) RSV RNA Qual (PCR) SARS-CoV-2 RNA (RT-PCR) 08/23/22 07:44 MCV MCH MCHC RDW Plt Count MPV Absolute Nucleated RBC Nucleated RBC % (auto) ESR Anion Gap Estim Creat Clear Calc Estimated GFR POC Glucose 160 H Random Glucose Calcium Total Creatine Kinase Troponin I High Sens B-Natriuretic Peptide TSH Urine Color Urine Appearance Urine pH Ur Specific [place] Urine Protein Urine Glucose (UA) Urine Ketones Urine Blood Urine Nitrite Ur Leukocyte Esterase Urine RBC Urine WBC Ur Squamous Epith Cells Urine Bacteria Hyaline Casts Influenza Type A (PCR) Influenza Type B (PCR) RSV RNA Qual (PCR) SARS-CoV-2 RNA (RT-PCR) Assessment and Plan (1) Cellulitis of both lower extremities: Status: Acute (2) Sepsis: Status: Acute (3) Weakness: Status: Acute Plan Pt is a 77-year-old male with a PMH significant for bipolar disorder, DM2, hypothyroidism, HLD, HTN, GERD, and tardive dyskenisia who presents to the ED today with bilateral lower leg pain. In ED pt was noted to have significant bilateral erythema and warmth of his lower legs and toes. He was admitted for treatment of cellulitis and further workup. # chronic venous stasis with superimposed cellulitis -- looking better than yesterday -- continue vanco IV -- continue prednisone 40mg PO daily for possible inflammatory response (elevated CRP, sed) -- ID consult ? # sepsis -- pt meets sepsis criteria: suspected infection with WBC, tachypnic, tachycardic, febrile -- does not meet severe sepsis criteria -- lactic acid 1.8 -- being treated with broad-spectrum abx -- monitor # leg pain s/p fall -- pt complains of bilateral ankle, knee, and hip pain after falling from his walker when he attempted to sit -- physical examination limited by limited ROM d/t pain -- x-ray of ankle, knee, and hip showed no acute fracture or dislocation # tachycardia -- likely secondary to infectious process -- HR now in 80s -- consider diltiazem drip if tachycardia returns -- monitor # bilateral edema -- pt no longer taking furosemide -- encourage walking once evaluated by PT # umbilical hernia -- reducible, non-tender, non-strangulated -- follow up with PCP # non-insulin diabetes -- hold metformin -- SSI # hypothyroidsim -- recently had levothyroxine dose increased -- TSH elevated at 5.36 -- continue home meds # HLD -- continue home meds #HTN -- continue home meds # bipolar disorder -- continue home meds # GERD -- continue home meds Full code Attending: Dr. Andujar DVT Prophylaxis: Lovenox Due to need for IV antibiotics to treat cellulitis, pt will require continued hospitalization. Quality Stroke Does the patient have a stroke diagnosis?: No VTE Prior VTE?: No VTE Risk Level:: Medical - moderate - high VTE Device Contraindication: Treatment Not Indicated VTE Drug Contraindication: N/A - Med Ordered
[2022-08-23 10:27] VITALS: BP 131/66; PULSE 88; O2SAT 95
[2022-08-23 10:49] VITALS: BP 132/75; PULSE 94; RESP 17; TEMP 37.2; O2SAT 89
[2022-08-23 11:38] LABS: Glucose, Whole Blood 250 mg/dL (60-115)
[2022-08-23 15:03] VITALS: BP 132/76; PULSE 100; RESP 20; TEMP 37.1; O2SAT 89
--- NOTE | 2022-08-23 15:19 | W.PM.IDCN ---
History of Present Illness Data of Consult Service Date: 08/23/22 Requesting physician: Kevin Andujar Primary Care Provider: Anatoly Palacios MD HPI Reason for consult: sepsis He presents with weakness and pain in legs. He has chills He has tachycardia and fever. He has bilateral erythema in legs Review of Systems Review of Systems: Yes all other systems are reviewed and are negative [facility] Family History Family History Father Diabetes Maternal Grandmother Heart problem Social History Social History Alcohol intake: current Alcohol intake frequency: 0-2 drinks per day Smoked in Last 30 Days: No Use of substances other than those prescribed or required for medical reasons: No Currently Displaying Signs/Symptoms of Drug Intoxication Withdrawal: No Advance Directives: Yes Advance Directives Information Provided: Yes Advance Directives on File: No service: No Current occupational status: retired [employer] Allergies Allergy/AdvReac Type Severity Reaction Status Date / Time No Known Allergies Allergy Verified 08/22/22 08:22 Active Medications: Current Medications Acetaminophen (Acetaminophen 325 Mg Tablet) 650 mg PO Q6H PRN PRN Reason: Pain, Mild (Pain Scale 1-3) Ascorbic Acid (Ascorbic Acid 250 Mg Tablet) 250 mg PO DAILY [facility] Last Admin: 08/23/22 07:57 Dose: 250 mg Atorvastatin Calcium (Atorvastatin Calcium 20 Mg Tablet) 20 mg PO BEDTIME [facility] Last Admin: 08/22/22 21:20 Dose: 20 mg Dextrose (Dextrose 50 % 25 Gm/50 Ml Syringe) 25 gm IVPUSH Q15M PRN; Protocol PRN Reason: per Hypoglycemia Standing Ord. Divalproex Sodium (Divalproex Sodium Er 500 Mg Tab.Er.24h) 1,500 mg PO BEDTIME [facility] Last Admin: 08/22/22 21:20 Dose: 1,500 mg Docusate Sodium (Docusate Sodium 100 Mg Capsule) 100 mg PO DAILY PRN PRN Reason: Constipation Enoxaparin Sodium (Enoxaparin Sodium 40 Mg/0.4 Ml Syringe) 40 mg SUBCUT Q24H [facility] Last Admin: 08/22/22 15:44 Dose: 40 mg Ferrous Sulfate (Ferrous Sulfate 324 Mg Tablet.Dr) 324 mg PO DAILY [facility] Last Admin: 08/23/22 07:57 Dose: 324 mg Glucose (Glucose Gel 15 Gm Gel..Gram.) 15 gm PO Q15M PRN; Protocol PRN Reason: per Hypoglycemia Standing Ord. Vancomycin HCl 1,250 mg/ (Sodium Chloride) 250 mls @ 166.667 mls/hr IV Q24H [facility] Insulin Human Lispro (Insulin Lispro 100 Unit/Ml 3 Ml Vial) 0 unit SUBCUT QIDACHS [facility]; Protocol Last Admin: 08/23/22 12:49 Dose: 4 unit Levothyroxine Sodium (Levothyroxine Sodium 175 Mcg Tablet) 175 mcg PO DAILY@0600 [facility] Last Admin: 08/23/22 06:01 Dose: 175 mcg Omeprazole (Omeprazole 20 Mg Capsule.Dr) 20 mg PO DAILY@0630 [facility] Last Admin: 08/23/22 06:01 Dose: 20 mg Ondansetron HCl (Ondansetron Hcl 4 Mg/2 Ml Vial) 4 mg IVPUSH Q8H PRN PRN Reason: Nausea and Vomiting Pharmacy Consult (Consult Rx Perform Med Rec) 1 each MISCELLANE ONCE PRN PRN Reason: Consult order Pharmacy Consult (Consult Rx Vancomycin Dosing) 1 each MISCELLANE DAILY PRN PRN Reason: Consult order Prednisone (Prednisone 20 Mg Tablet) 40 mg PO DAILY [facility] Last Admin: 08/23/22 07:56 Dose: 40 mg Risperidone (Risperidone 2 Mg Tablet) 2 mg PO BEDTIME [facility] Last Admin: 08/22/22 21:20 Dose: 2 mg Sodium Chloride (0.9 % Sodium Chloride Flush 3 Ml Syringe) 3 ml IVFLUSH QSHIFT [facility] Last Admin: 08/23/22 08:00 Dose: 3 ml Vitamin D (Cholecalciferol (Vitamin D3) 25 Mcg Tablet) 25 mcg PO DAILY [facility] Last Admin: 08/23/22 07:56 Dose: 25 mcg Home Medications Medication Instructions Recorded Confirmed Last Taken Type ammonium lactate 12 % lotion 1 applic topical DAILY PRN Dry Skin 08/22/22 08/22/22 Unknown History ascorbic acid (vitamin C) 250 mg 250 mg PO DAILY 08/22/22 08/22/22 08/21/22 History tablet (Vitamin C) atorvastatin 20 mg tablet 20 mg PO BEDTIME 08/22/22 08/22/22 08/21/22 History cholecalciferol (vitamin D3) 25 25 mcg PO DAILY 08/22/22 08/22/22 08/21/22 History mcg (1,000 unit) tablet divalproex 500 mg tablet,extended 1,500 mg PO BEDTIME 08/22/22 08/22/22 08/21/22 History release 24 hr ferrous sulfate 324 mg (65 mg 324 mg PO DAILY 08/22/22 08/22/22 08/21/22 History iron) tablet,delayed release levothyroxine 175 mcg tablet 175 mcg PO DAILY@0600 08/22/22 08/22/22 08/21/22 History metformin 1,000 mg tablet 1,000 mg PO BID 08/22/22 08/22/22 08/21/22 History omeprazole 20 mg capsule,delayed 20 mg PO DAILY@0630 08/22/22 08/22/22 08/21/22 History release risperidone 2 mg tablet 2 mg PO BEDTIME 08/22/22 08/22/22 08/21/22 History Physical Exam Vital Signs: Vital Signs: Last Vital Signs Temp 98.7 F 08/23/22 15:03 Pulse 100 08/23/22 15:03 Resp 20 08/23/22 15:03 BP 132/76 08/23/22 15:03 Pulse Ox 89 L 08/23/22 15:03 O2 Del Method 08/23/22 15:03 O2 Flow Rate 2 08/22/22 23:55 BMI result Body Mass Index 36.9 Const: General: cooperative HEENT: Head: Yes normal to inspection Face and sinus: Yes normal facial exam Mouth: Normal oral and palatal mucosa present Teeth and gingiva: dentition normal Eyes: General: appearance normal, both eyes and all related structures Pupils: Equal, round and reactive pupils present Resp: Effort & Inspection: normal respiratory effort Cardio: Rate: regular rate Rhythm: regular rhythm GI: Palpation (GI): Soft to palpation and nontender : General: Yes no CVA tenderness Back/Spine/Pelvis: Back: no CVA tenderness Skin: General skin exam: no rashes or lesions noted Neuro: General: moves all extremities Cranial nerves: Yes Equal, round and reactive pupils present Extrem: Other: redness right more than left venous stasis changes General: Yes normal to inspection Psych: Appearance: grossly normal Results Labs CBC & Chem 7: 08/23/22 05:08 08/23/22 05:08 Labs: Short CBC 08/23/22 Range/Units 05:08 WBC 8.3 (4.8-10.8) X10*3/uL Hgb 8.6 L (14.0-18.0) g/dl Hct 27.9 L (42.0-52.0) % Plt Count 228 (160-400) X10*3/uL BMP 08/23/22 08/23/22 05:08 05:08 Sodium 139 Potassium 4.6 Chloride 104 Carbon Dioxide 29 BUN 18 H Creatinine 1.03 Cancelled Calcium 8.5 Microbiology Microbiology Results: Microbiology 08/22/22 09:12 Blood - Venous Blood Culture - Preliminary No growth after 24 hours. 08/22/22 08:26 Blood - Venous Blood Culture - Preliminary No growth after 24 hours. Assessment and Plan (1) Cellulitis of both lower extremities: Status: Acute Some purulence so possible MRSA (2) Sepsis: Status: Acute Plan Vancomycin for now Await blood cultures agree steroids inflammatory topical best around legs Possible po Doxycycline for 10 d outpatient.
[2022-08-23 15:45] LABS: Glucose, Whole Blood 254 mg/dL (60-115)
[2022-08-23] MEDS: Enoxaparin Sodium 40 MG/0.4 ML SYRINGE SUBCUT (17:00)
[2022-08-23] MEDS: vancomycin HCL 1,250 MG in 0.9 % Sodium Chloride 250 ML 166.67 MG IV (17:01)
[2022-08-23 19:09] VITALS: BP 149/80; PULSE 105; RESP 18; TEMP 37.1; O2SAT 91
[2022-08-23 20:24] LABS: Glucose, Whole Blood 245 mg/dL (60-115)
[2022-08-23] MEDS: Divalproex Sodium ER 500 MG TAB.ER.24H 1500 MG PO (22:09)
[2022-08-23] MEDS: risperiDONE 2 MG TABLET PO (22:09)
[2022-08-23] MEDS: Atorvastatin Calcium 20 MG TABLET PO (22:09)
[2022-08-24] VITALS: BP 118/61; PULSE 100; RESP 18; TEMP 37.1; O2SAT 92
[2022-08-24] MEDS: 0.9 % Sodium Chloride Flush 3 ML SYRINGE IVFLUSH ×2 (00:05→09:33)
[2022-08-24 03:39] VITALS: BP 134/74; PULSE 102; RESP 18; TEMP 37.2; O2SAT 92
[2022-08-24 06:09] LABS: Estimated Glomerular Filt Rate > 60
[2022-08-24] MEDS: Omeprazole 20 MG CAPSULE.DR PO (06:10)
[2022-08-24] MEDS: Levothyroxine Sodium 175 MCG TABLET PO (06:10)
[2022-08-24 07:35] VITALS: BP 159/96; PULSE 95; RESP 17; TEMP 36.9; O2SAT 93
--- NOTE | 2022-08-24 07:42 | HE.PHANOTE ---
REBEKAH RAMSEY CONTINUE CURRENT DOSE NEXT TROUGH DUE @0800 GU[facility]
[2022-08-24 07:45] LABS: Glucose, Whole Blood 135 mg/dL (60-115)
[2022-08-24] MEDS: Ferrous Sulfate 324 MG TABLET.DR PO (09:32)
[2022-08-24] MEDS: Ascorbic Acid 250 MG TABLET PO (09:33)
[2022-08-24] MEDS: predniSONE 20 MG TABLET 40 MG PO (09:33)
[2022-08-24] MEDS: Cholecalciferol (Vitamin D3) 25 MCG TABLET PO (09:33)
[2022-08-24 11:23] VITALS: BP 132/81; PULSE 111
[2022-08-24] MEDS: Insulin Lispro 100 UNIT/ML 3 ML VIAL SUBCUT ×2 (11:33→16:59)
[2022-08-24 11:34] LABS: Glucose, Whole Blood 198 mg/dL (60-115)
--- NOTE | 2022-08-24 11:42 | PM.DS ---
DS: Providers Provider Date of Service: 08/24/22 Date of admission: 08/22/22 14:14 Primary care physician: Anatoly Palacios MD Consults: 08/22/22 14:19 Consult to Infectious Diseases Routine Consulting Provider: Eugenie Bourgeois Reason for consultation: Bilateral lower leg cellulitis Has provider been notified: No DS: Diagnosis Discharge Diagnosis (1) Cellulitis of both lower extremities: Status: Acute (2) Sepsis: Status: Acute DS: Summary Hospital Course Hospital Course: from initial hpi: Chief Complaint: Bilateral lower leg pain and redness Pt is a 77-year-old male with a PMH significant for bipolar disorder, DM2, hypothyroidism, HLD, HTN, GERD, and tardive dyskenisia who presents to the ED today with bilateral lower leg pain. Pt reports he was using his walker two days ago and when he went to sit he misjudged where the chair was and fell to the floor. Pt denies dizziness, lightheadedness, LOC, or striking his head. Pt complains of pain particularly in his ankles, but also knees and hips. He was unable to walk today due to pain and weakness, which prompted calling EMS. Pt denies F/C, N/V, abdominal pain. No chest pain/pressure, palpitations or SOB. Pt reports lower leg edema, which has been chronic. In the ED, pt was noted to have significant bilateral erythema and warmth of his lower legs and toes.? Patient was febrile at 101.2, tachycardic with HR up to 131, and slightly tachypneic at 22. Labs were significant for WBC 12.1, ESR of 63, and CRP of 20.61.? BNP was elevated at 209, and troponins were elevated at 108.1 and 136.3.? CXR showed mild left basilar linear atelectasis versus scarring, and EKG showed sinus tachycardia with pulmonary disease pattern.? Patient meets sepsis criteria but not severe sepsis.? Patient was treated with ceftriaxone 2g but not given fluids due to elevated BNP and bilateral lower leg edema. He will be admitted for treatment of cellulitis and further workup.? hospital course: Patient was admitted for sepsis secondary to bilateral lower extremity cellulitis in the background of chronic venous stasis. He was treated with IV vancomycin and sepsis resolved. Blood cultures were negative. He was seen by infectious disease recommended 10 days of doxycycline. He was also seen by wound care recommended Xeroform dressing with the elastic compression. There is also concern of possible acute inflammatory arthritis, patient was started on prednisone with improvement and will continue for 5 more days. For his diabetes he was continued on insulin. For hypothyroidism he was continue on Synthroid. Hyperlipidemia he was continued on statin. For mood disorder he was continued on Depakote And Risperdal. For GERD he was continued on PPI. patient was seen by physical therapy [facility]. patient expected to require less than 30 days at SNF Time Spent with Patient Time attestation: Total time spent providing and/or coordinating discharge services: Discharge coordination time: Greater than 30 minutes Quality: Safe Use of Opioids Does Pt have an Active Cancer Diagnosis on the Problem List?: No Quality: Stroke Does the patient have a stroke diagnosis?: No Physical Exam Vital Signs: Vital Signs: Last Vital Signs Temp 98.4 F 08/24/22 07:35 Pulse 111 H 08/24/22 11:23 Resp 17 08/24/22 07:35 BP 132/81 08/24/22 11:23 Pulse Ox 93 08/24/22 07:35 O2 Del Method 08/24/22 07:35 O2 Flow Rate 2 08/22/22 23:55 BMI result Body Mass Index 36.9 General: AO X 3, no acute distress Resp: CTA bilateral, no accessory muscles used CVS: S1,S2,RRR GI: soft, non tender, non distended Neuro: motor grossly intact, alert Psych: appropriate affect, appropriate insight bilateral lymphedema with much improved erythema and tenderness DS: Data Data Completed and Pending Labs on day of discharge: Laboratory Results - last 24 hr 08/23/22 08/23/22 08/24/22 15:06 19:11 05:40 Creatinine 1.13 Estim Creat Clear Calc 68.0 Estimated GFR > 60 POC Glucose 254 H 245 H 08/24/22 08/24/22 07:33 11:21 Creatinine Estim Creat Clear Calc Estimated GFR POC Glucose 135 H 198 H Preliminary micro results at discharge 08/22/22 09:12 Blood Culture - Preliminary Blood - Venous No growth after 48 hours. 08/22/22 08:26 Blood Culture - Preliminary Blood - Venous No growth after 48 hours. Discharge Plan Discharge Anticipated Discharge Date/Time: 08/24/22 11:40 Patient Disposition: Xfer SNF Discharge Diagnosis: cellulitis Referrals: Anatoly Palacios MD [Primary Care Provider] - 1 Week Discharge Medications: New prednisone 20 mg Tablet 40 mg PO DAILY Qty: 10 0RF doxycycline hyclate 100 mg capsule 100 mg PO BID Qty: 10 0RF Continued levothyroxine 175 mcg tablet 175 mcg PO DAILY@0600 atorvastatin 20 mg tablet 20 mg PO BEDTIME ammonium lactate 12 % lotion 1 applic topical DAILY PRN (Reason: Dry Skin) risperidone 2 mg tablet 2 mg PO BEDTIME metformin 1,000 mg tablet 1,000 mg PO BID divalproex 500 mg tablet extended release 24 hr 1,500 mg PO BEDTIME omeprazole 20 mg capsule,delayed release(DR/EC) 20 mg PO DAILY@0630 ascorbic acid (vitamin C) [Vitamin C] 250 mg Tablet 250 mg PO DAILY cholecalciferol (vitamin D3) 25 mcg (1,000 unit) Tablet 25 mcg PO DAILY ferrous sulfate 324 mg (65 mg iron) Tablet,Delayed Release (Dr/Ec) 324 mg PO DAILY Discharge Orders: Discharge Order (Routine); Ordered 08/24/22 Ordered By: Kevin Andujar Diet: Advance to usual diet Activity on Discharge: As tolerated Stand Alone Forms: Patient Portal Discharge page Care Plan Goals: recovery Health Concerns: venous stasis with cellulitis, inflammatory arthritis Plan of Treatment: 10 days doxy, local care - xeroform with gauze wrap and elastic dressings bilateral 5 more days of prednisone Assessment: see above
--- NOTE | 2022-08-24 11:54 | HO.PM.IMPN ---
Subjective Subjective Date of Service: 08/24/22 Interval History: cc: leg pain interval history: improved Cardiovascular Cardiovascular: Reports no additional cardiovascular complaints Respiratory Respiratory: Reports no additional respiratory complaints Physical Exam Vital Signs: Vital Signs: Last Vital Signs Temp 98.4 F 08/24/22 07:35 Pulse 111 H 08/24/22 11:23 Resp 17 08/24/22 07:35 BP 132/81 08/24/22 11:23 Pulse Ox 93 08/24/22 07:35 O2 Del Method 08/24/22 07:35 O2 Flow Rate 2 08/22/22 23:55 BMI result Body Mass Index 36.9 General: AO X 3, no acute distress Resp: CTA bilateral, no accessory muscles used CVS: S1,S2,RRR GI: soft, non tender, non distended Neuro: motor grossly intact, alert Psych: appropriate affect, appropriate insight bilateral lymphedema with much improved erythema and tenderness Objective Data Active Medications Acetaminophen (Acetaminophen 325 Mg Tablet) 650 mg PO Q6H PRN PRN Reason: Pain, Mild (Pain Scale 1-3) Ascorbic Acid (Ascorbic Acid 250 Mg Tablet) 250 mg PO DAILY [facility] Last Admin: 08/24/22 09:33 Dose: 250 mg Documented By: LEXUS Atorvastatin Calcium (Atorvastatin Calcium 20 Mg Tablet) 20 mg PO BEDTIME [facility] Last Admin: 08/23/22 22:09 Dose: 20 mg Documented By: JANA Dextrose (Dextrose 50 % 25 Gm/50 Ml Syringe) 25 gm IVPUSH Q15M PRN; Protocol PRN Reason: per Hypoglycemia Standing Ord. Divalproex Sodium (Divalproex Sodium Er 500 Mg Tab.Er.24h) 1,500 mg PO BEDTIME [facility] Last Admin: 08/23/22 22:09 Dose: 1,500 mg Documented By: JANA Docusate Sodium (Docusate Sodium 100 Mg Capsule) 100 mg PO DAILY PRN PRN Reason: Constipation Enoxaparin Sodium (Enoxaparin Sodium 40 Mg/0.4 Ml Syringe) 40 mg SUBCUT Q24H [facility] Last Admin: 08/23/22 17:00 Dose: 40 mg Documented By: JANA Ferrous Sulfate (Ferrous Sulfate 324 Mg Tablet.Dr) 324 mg PO DAILY [facility] Last Admin: 08/24/22 09:32 Dose: 324 mg Documented By: LEXUS Glucose (Glucose Gel 15 Gm Gel..Gram.) 15 gm PO Q15M PRN; Protocol PRN Reason: per Hypoglycemia Standing Ord. Vancomycin HCl 1,250 mg/ (Sodium Chloride) 250 mls @ 166.667 mls/hr IV Q24H [facility] Last Infusion: 08/23/22 18:52 Dose: 0 mls/hr Documented By: JANA Insulin Human Lispro (Insulin Lispro 100 Unit/Ml 3 Ml Vial) 0 unit SUBCUT QIDACHS [facility]; Protocol Last Admin: 08/24/22 11:33 Dose: 2 unit Documented By: LEXUS Levothyroxine Sodium (Levothyroxine Sodium 175 Mcg Tablet) 175 mcg PO DAILY@0600 [facility] Last Admin: 08/24/22 06:10 Dose: 175 mcg Documented By: MYNOR Omeprazole (Omeprazole 20 Mg Capsule.) 20 mg PO DAILY@0630 [facility] Last Admin: 08/24/22 06:10 Dose: 20 mg Documented By: MYNOR Ondansetron HCl (Ondansetron Hcl 4 Mg/2 Ml Vial) 4 mg IVPUSH Q8H PRN PRN Reason: Nausea and Vomiting Pharmacy Consult (Consult Rx Perform Med Rec) 1 each MISCELLANE ONCE PRN PRN Reason: Consult order Pharmacy Consult (Consult Rx Vancomycin Dosing) 1 each MISCELLANE DAILY PRN PRN Reason: Consult order Prednisone (Prednisone 20 Mg Tablet) 40 mg PO DAILY [facility] Last Admin: 08/24/22 09:33 Dose: 40 mg Documented By: LEXUS Risperidone (Risperidone 2 Mg Tablet) 2 mg PO BEDTIME [facility] Last Admin: 08/23/22 22:09 Dose: 2 mg Documented By: JANA Sodium Chloride (0.9 % Sodium Chloride Flush 3 Ml Syringe) 3 ml IVFLUSH QSHIFT [facility] Last Admin: 08/24/22 09:33 Dose: 3 ml Documented By: LEXUS Vitamin D (Cholecalciferol (Vitamin D3) 25 Mcg Tablet) 25 mcg PO DAILY [facility] Last Admin: 08/24/22 09:33 Dose: 25 mcg Documented By: LEXUS Labs CBC & Chem 7: 08/23/22 05:08 08/24/22 05:40 Labs: Laboratory Results - last 24 hr 12/07/22 12/07/22 12/08/22 15:06 19:11 05:40 Estim Creat Clear Calc 68.0 Estimated GFR > 60 POC Glucose 254 H 245 H 08/24/22 08/24/22 07:33 11:21 Estim Creat Clear Calc Estimated GFR POC Glucose 135 H 198 H Microbiology Microbiology Results: Microbiology 08/22/22 09:12 Blood Culture - Preliminary Blood - Venous No growth after 48 hours. 08/22/22 08:26 Blood Culture - Preliminary Blood - Venous No growth after 48 hours. Assessment and Plan (1) Cellulitis of both lower extremities: Status: Acute (2) Sepsis: Status: Acute (3) Weakness: Status: Acute Plan 77-year-old male with a PMH significant for bipolar disorder, DM2, hypothyroidism, HLD, HTN, GERD, and tardive dyskenisia who presented to the ED with bilateral lower leg pain Sepsis due to bilateral lower extremity cellulitis superimposed on chronic venous stasis with possible component of inflammatory arthritis. Sepsis resolved continue IV vancomycin while inpatient, transition to p.o. doxycycline for 10 days on discharge continue prednisone local care with xeroform, gauze, elastic dressing blood cultures negative DM inuslin hypohtyroid synthroid hld statin bipolar disorder depakote, risperdal GERD ppi obesity weight loss Full code DVT Prophylaxis: Lovenox reason for continued hospitalization:awaiting snf bed Quality Stroke Does the patient have a stroke diagnosis?: No VTE Prior VTE?: No VTE Risk Level:: Medical - moderate - high VTE Device Contraindication: Treatment Not Indicated VTE Drug Contraindication: N/A - Med Ordered
[2022-08-24 13:41] VITALS: BP 132/81; PULSE 111
--- NOTE | 2022-08-24 13:46 | MHC.CM.PN ---
[facility] TO TRANSPORT PATIENT TO [facility] FOR [address]00 TODAY FACILITY IS PATIENT'S ONLY GIVEN CHOICE RN, PATIENT, AND UNIT AWARE OF PLAN. IMM 08/22 PREVIOUSLY COMPLETED.
[2022-08-24] MEDS: Enoxaparin Sodium 40 MG/0.4 ML SYRINGE SUBCUT (14:29)
[2022-08-24 15:23] VITALS: BP 141/85; PULSE 88; RESP 18; TEMP 37.3; O2SAT 99
[2022-08-24 16:25] LABS: Glucose, Whole Blood 196 mg/dL (60-115)
== END 2022-08-24 17:35 | disposition skilled nursing facility (03) | DRG 872 ==
LOC: HO.ED 10:52 → HO.EDOVER 14:58 → HO.S3 20:05
PROVIDERS: Physician Assistant Medical; Admitting Provider Student in an Organized Health Care Education/Training Program; Emergency Provider Emergency Medicine; PCP Internal Medicine; Visit Provider Internal Medicine
DX: A41.9 Sepsis, unspecified organism (principal); L03.115 Cellulitis of right lower limb; L03.116 Cellulitis of left lower limb; F31.9 Bipolar disorder, unspecified; I87.323 Chronic venous hypertension (idiopathic) with inflammation of bilateral lower extremity; K42.9 Umbilical hernia without obstruction or gangrene; E03.9 Hypothyroidism, unspecified; E11.9 Type 2 diabetes mellitus without complications; I10 Essential (primary) hypertension; E78.5 Hyperlipidemia, unspecified; K21.9 Gastro-esophageal reflux disease without esophagitis; Z20.822 Contact with and (suspected) exposure to COVID-19; Z79.84 Long term (current) use of oral hypoglycemic drugs; Z79.890 Hormone replacement therapy; Z79.899 Other long term (current) drug therapy
CPT/HCPCS: 0241U; 36415; 71045; 73521; 73560; 73600; 80048; 80053; 81001; 82550; 82565; 82947; 83605; 83690; 83735; 83880; 84443; 84484; 85025; 85027; 85610; 85652; 85730; 86140; 87040; 93005; 97110; 97162; 97530; 99285; J0696; J1650; J3370

== ENCOUNTER 2022-09-09 17:39 | Inpatient (IN) | payer MEDICARE, SELFPAY ==
--- NOTE | ~2022-09-09 | US_ITS ---
EXAMINATION: US VENOUS WITH DOPPLER UPPER EXTREMITY, LEFT CLINICAL INFORMATION: Follow-up DVT COMPARISON: Previous exam 09/09/2022 TECHNIQUE: Ultrasound of the upper extremity is performed using compression sonography and color and pulse Doppler flow with assessment of augmentation of flow. There is also imaging and Doppler assessment of the jugular and subclavian veins. Spectral analysis with color-flow imaging is performed. FINDINGS: The left internal jugular, subclavian, axillary, brachial, basilic and cephalic veins are patent. Radial and ulnar veins in the forearm are patent. There is no DVT. US/US venous duplex UE LT IMPRESSION: No DVT demonstrated in the left upper extremity.
--- NOTE | 2022-09-09 17:58 | ED.EXTPRO ---
HPI - Extremity Problem General Chief complaint: General Medical Stated complaint: hand swelling Time Seen by Provider: 09/09/22 17:47 Source: patient and EMS Mode of arrival: EMS Limitations: no limitations History of Present Illness HPI Narrative: 77-year-old male presents via EMS for 3 days left hand swelling. He does not report any injury, and noted that his hand has been increasing in size over the past 3 days. He does report recent admission for bilateral lower extremity cellulitis. MD Complaint: extremity pain and extremity swelling Onset (ago): day(s) (3) Pain Consistency: constant Location: left and upper extremity Severity scale (1-10): 6 Quality: aching Relieving factors: nothing Exacerbating factors: range of motion and palpation Associated symptoms: denies other symptoms Context: recent illness Related Data Home Medications Medication Instructions Recorded Confirmed ammonium lactate 12 % lotion 1 applic topical DAILY PRN Dry Skin 08/22/22 09/09/22 ascorbic acid (vitamin C) 250 mg 250 mg PO DAILY 08/22/22 09/09/22 tablet (Vitamin C) atorvastatin 20 mg tablet 20 mg PO BEDTIME 08/22/22 09/09/22 cholecalciferol (vitamin D3) 25 25 mcg PO DAILY 08/22/22 09/09/22 mcg (1,000 unit) tablet divalproex 500 mg tablet,extended 1,500 mg PO BEDTIME 08/22/22 09/09/22 release 24 hr ferrous sulfate 324 mg (65 mg 324 mg PO DAILY 08/22/22 09/09/22 iron) tablet,delayed release levothyroxine 175 mcg tablet 175 mcg PO DAILY@0600 08/22/22 09/09/22 metformin 1,000 mg tablet 1,000 mg PO BID 08/22/22 09/09/22 omeprazole 20 mg capsule,delayed 20 mg PO DAILY@0630 08/22/22 09/09/22 release risperidone 2 mg tablet 2 mg PO BEDTIME 08/22/22 09/09/22 Allergies Allergy/AdvReac Type Severity Reaction Status Date / Time No Known Allergies Allergy Verified 08/22/22 08:22 Review of Systems Review of Systems: Constitutional: No Fever, No Chills Cardiovascular: No Chest Pain, No SOB Respiratory: No Cough, No Dyspnea Gastrointestinal: No Nausea, No Vomiting, No Diarrhea, No abdominal Pain Genitourinary: No Dysuria, No Hematuria Musculoskeletal: positive left hand swelling and pain, No Myalgias, No Joint Swelling Skin: No Skin lacerations, No rash, positive redness to bilateral lower extremities Neuro: No Weakness, No Numbness, No Paresthesias, No Loss of Consciousness, No Dizziness, No Headache Yes all other systems are reviewed and are negative [facility] Past Medical History Attestation statement: The following information was validated with the patient. Source: old records reviewed Family History Family History Father Diabetes Maternal Grandmother Heart problem Social History Social History Alcohol intake: former Smoked in Last 30 Days: No Advance Directives: Yes Advance Directives on File: Yes Advance Directives Date on File: 08/25/22 service: No Current occupational status: retired Physical Exam Vital Signs: Vital Signs: Last Vital Signs Temp 98.4 F 09/09/22 18:05 Pulse 114 H 09/09/22 18:05 Resp 18 09/09/22 18:05 BP 144/76 H 09/09/22 18:05 Pulse Ox 97 09/09/22 18:05 O2 Del Method 09/09/22 18:05 BMI result Body Mass Index 35.6 Appearance: Alert. Oriented X3. No acute distress. Eyes: Pupils equal, round and reactive to light. ENT: Pharynx normal. Neck: Normal inspection. Neck supple. CVS: Tachycardic heart rate and rhythm. Respiratory: No respiratory distress. Breath sounds normal. Abdomen: Soft and nontender. Obese. Skin: Skin warm and dry. Bilateral lower extremity cellulitis. Redness to the left hand. Normal skin turgor. Extremities: +3 pitting edema to bilateral lower extremities. Dry flaking skin. Cellulitis to the bilateral lower extremities. Left hand swollen to the midforearm. Erythematous. Decreased range of motion to the left hand digits secondary to fluid retention. Neuro: No motor deficit. No sensory deficit. Cranial nerves 2-12 intact. Course Course Course Narrative: 77-year-old male presents via EMS for swelling to the left hand that started approximately 3 days ago. States the swelling has gradually increased, he does not report any injuries or falls. Was recently admitted on 08/22/2022 for bilateral lower extremity cellulitis and sepsis. He was given vancomycin and ceftriaxone while inpatient, and discharged on a course of doxycycline which he states he has completed. He does not report any other medical concerns at this time, denies chest pain or pressure, palpitations, shortness of breath, fevers, chills, nausea and vomiting. Will order lab values, DVT study for the left upper extremity, lactic and cultures. 19:25 chest x-ray suspicious for mild vascular congestion, no acute findings. Lab values indicate H&H of 10.5/35.1, consistent with his prior values, troponin of 42.5 which is a significant decrease from his prior admission. BNP 144, again lower than his prior values. I do not feel that this patient requires diuretic at this time. COVID RSV negative. 21:00 discussion with hospitalist, plan of care to admit for cellulitis. 21:27 positive for DVT nonocclusive thrombus in the brachial vein. Will start Eliquis. I did update hospitalist. Consultations Consultation #1: Alexi Time: 20:00 Medications Administered Discontinued Medications Generic Name Dose Route Start Last Admin Trade Name Freq PRN Reason Stop Dose Admin Apixaban 10 mg 09/09/22 21:30 09/09/22 21:43 Apixaban 5 Mg Tablet PO 09/09/22 21:31 10 mg ONCE ONE Administration Ceftriaxone Sodium 1 gm/ 50 mls @ 100 mls/hr 09/09/22 19:32 09/09/22 20:58 Sodium Chloride IV 09/09/22 20:01 Infused ONCE ONE Infusion Vancomycin HCl 2,000 mg in 520 mls @ 260 mls/hr 09/09/22 19:35 09/09/22 20:55 Vancomycin/Ns IV 09/09/22 21:34 260 mls/hr ONCE ONE Administration Medical Decision Making Differential Diagnosis Differential Diagnoses: The differential diagnosis associated with the presentation includes Cellulitis, DVT, edema, abscess Admission/Observation Consideration of admission/observation: Escalation of care including admission/observation considered Patient will be admitted Consult Healthcare Provider Management of the patient was discussed with: Hospitalist Lab Data MDM Lab Attestation statement: I reviewed the patient's lab results. Result Diagrams: 09/09/22 18:32 09/09/22 18:32 Labs: Lab Results 12/24/22 12/24/22 12/24/22 Range/Units 18:32 18:32 18:32 WBC 9.3 (4.8-10.8) X10*3/uL RBC 4.34 L D (4.60-5.80) X10*6/uL Hgb 10.5 L D (14.0-18.0) g/dl Hct 35.1 L D (42.0-52.0) % MCV 80.9 (80.0-98.0) fL MCH 24.2 L (27.0-33.0) pg MCHC 29.9 L (31.0-36.0) g/dl RDW 16.5 H (11.0-16.0) % Plt Count 271 (160-400) X10*3/uL MPV 9.1 L (9.4-12.4) fL Immature Gran % (Auto) 1.6 H (0.0-0.4) % Neut % (Auto) 74.7 H (45-73) % Lymph % (Auto) 13.4 L (20-40) % Will % (Auto) 8.4 (2-11) % Eos % (Auto) 1.4 (0-4) % Baso % (Auto) 0.5 (0-2) % Lymph # (Auto) 1.3 (1.2-4.9) X10*3/uL Will # (Auto) 0.8 (0.1-1.2) X10*3/uL Eos # (Auto) 0.1 (0.0-0.4) X10*3/uL Baso # (Auto) 0.1 (0.0-0.2) X10*3/uL Abs Immat Gran (auto) 0.15 H (0.00-0.03) X10*3/uL Absolute Neuts (auto) 7.0 (2.0-8.3) x10*3/uL Absolute Nucleated RBC 0.000 (0.0-0.012) X10*3/uL Nucleated RBC % (auto) 0.0 (0.0-0.2) /100WBC PT (10.0-13.1) SEC INR (0.9-1.1) APTT 30.5 (26.0-36.4) SEC Sodium 140 (135-145) mmol/L Potassium 4.7 (3.3-5.1) mmol/L Chloride 101 (96-108) mmol/L Carbon Dioxide 30 H (22-29) mmol/L Anion Gap 14 (12-20) BUN 18 H (9-16) mg/dL Creatinine 1.10 (0.5-1.4) mg/dL Estim Creat Clear Calc 68.6 Estimated GFR > 60 Random Glucose 120 H (60-115) mg/dL Lactic Acid (0.5-2.0) mmol/L Calcium 9.4 D (8.4-10.2) mg/dL Magnesium 1.6 (1.6-2.6) mg/dL Total Bilirubin 0.3 (0.0-1.0) mg/dL Direct Bilirubin < 0.2 (0.0-0.5) mg/dL AST 10 (5-37) U/L ALT 11 (0-40) U/L Alkaline Phosphatase 54 (39-117) U/L Troponin I High Sens (<3.5-35.0) ng/L B-Natriuretic Peptide (<100) pg/mL Total Protein 6.3 L (6.5-8.0) g/dL Albumin 3.7 (3.5-5.0) g/dL Lipase 8 (8-78) U/L Influenza Type A (PCR) (Negative) Influenza Type B (PCR) (Negative) RSV RNA Qual (PCR) (Negative) SARS-CoV-2 RNA (RT-PCR) (Negative) 09/09/22 09/09/22 09/09/22 Range/Units 18:32 18:32 18:32 WBC (4.8-10.8) X10*3/uL RBC (4.60-5.80) X10*6/uL Hgb (14.0-18.0) g/dl Hct (42.0-52.0) % MCV (80.0-98.0) fL MCH (27.0-33.0) pg MCHC (31.0-36.0) g/dl RDW (11.0-16.0) % Plt Count (160-400) X10*3/uL MPV (9.4-12.4) fL Immature Gran % (Auto) (0.0-0.4) % Neut % (Auto) (45-73) % Lymph % (Auto) (20-40) % Will % (Auto) (2-11) % Eos % (Auto) (0-4) % Baso % (Auto) (0-2) % Lymph # (Auto) (1.2-4.9) X10*3/uL Will # (Auto) (0.1-1.2) X10*3/uL Eos # (Auto) (0.0-0.4) X10*3/uL Baso # (Auto) (0.0-0.2) X10*3/uL Abs Immat Gran (auto) (0.00-0.03) X10*3/uL Absolute Neuts (auto) (2.0-8.3) x10*3/uL Absolute Nucleated RBC (0.0-0.012) X10*3/uL Nucleated RBC % (auto) (0.0-0.2) /100WBC PT 11.3 (10.0-13.1) SEC INR 1.0 (0.9-1.1) APTT (26.0-36.4) SEC Sodium (135-145) mmol/L Potassium (3.3-5.1) mmol/L Chloride (96-108) mmol/L Carbon Dioxide (22-29) mmol/L Anion Gap (12-20) BUN (9-16) mg/dL Creatinine (0.5-1.4) mg/dL Estim Creat Clear Calc Estimated GFR Random Glucose (60-115) mg/dL Lactic Acid 1.0 (0.5-2.0) mmol/L Calcium (8.4-10.2) mg/dL Magnesium (1.6-2.6) mg/dL Total Bilirubin (0.0-1.0) mg/dL Direct Bilirubin (0.0-0.5) mg/dL AST (5-37) U/L ALT (0-40) U/L Alkaline Phosphatase (39-117) U/L Troponin I High Sens 42.5 H D (<3.5-35.0) ng/L B-Natriuretic Peptide (<100) pg/mL Total Protein (6.5-8.0) g/dL Albumin (3.5-5.0) g/dL Lipase (8-78) U/L Influenza Type A (PCR) (Negative) Influenza Type B (PCR) (Negative) RSV RNA Qual (PCR) (Negative) SARS-CoV-2 RNA (RT-PCR) (Negative) 09/09/22 09/09/22 Range/Units 18:32 18:32 WBC (4.8-10.8) X10*3/uL RBC (4.60-5.80) X10*6/uL Hgb (14.0-18.0) g/dl Hct (42.0-52.0) % MCV (80.0-98.0) fL MCH (27.0-33.0) pg MCHC (31.0-36.0) g/dl RDW (11.0-16.0) % Plt Count (160-400) X10*3/uL MPV (9.4-12.4) fL Immature Gran % (Auto) (0.0-0.4) % Neut % (Auto) (45-73) % Lymph % (Auto) (20-40) % Will % (Auto) (2-11) % Eos % (Auto) (0-4) % Baso % (Auto) (0-2) % Lymph # (Auto) (1.2-4.9) X10*3/uL Will # (Auto) (0.1-1.2) X10*3/uL Eos # (Auto) (0.0-0.4) X10*3/uL Baso # (Auto) (0.0-0.2) X10*3/uL Abs Immat Gran (auto) (0.00-0.03) X10*3/uL Absolute Neuts (auto) (2.0-8.3) x10*3/uL Absolute Nucleated RBC (0.0-0.012) X10*3/uL Nucleated RBC % (auto) (0.0-0.2) /100WBC PT (10.0-13.1) SEC INR (0.9-1.1) APTT (26.0-36.4) SEC Sodium (135-145) mmol/L Potassium (3.3-5.1) mmol/L Chloride (96-108) mmol/L Carbon Dioxide (22-29) mmol/L Anion Gap (12-20) BUN (9-16) mg/dL Creatinine (0.5-1.4) mg/dL Estim Creat Clear Calc Estimated GFR Random Glucose (60-115) mg/dL Lactic Acid (0.5-2.0) mmol/L Calcium (8.4-10.2) mg/dL Magnesium (1.6-2.6) mg/dL Total Bilirubin (0.0-1.0) mg/dL Direct Bilirubin (0.0-0.5) mg/dL AST (5-37) U/L ALT (0-40) U/L Alkaline Phosphatase (39-117) U/L Troponin I High Sens (<3.5-35.0) ng/L B-Natriuretic Peptide 144 H (<100) pg/mL Total Protein (6.5-8.0) g/dL Albumin (3.5-5.0) g/dL Lipase (8-78) U/L Influenza Type A (PCR) NEGATIVE (Negative) Influenza Type B (PCR) NEGATIVE (Negative) RSV RNA Qual (PCR) NEGATIVE (Negative) SARS-CoV-2 RNA (RT-PCR) NEGATIVE (Negative) Independent Interpretation I performed an independent interpretation of an: EKG and Plain X-Ray Interpretation: EKG reviewed, no ST elevation or depression. No indication of ischemia. Radiology Impression Discussion of test interpretation with radiology: I have reviewed the radiologist's reading. Radiologist Impression: EXAMINATION: XR CHEST CLINICAL INFORMATION: Edema COMPARISON: Chest radiograph 08/22/2022 TECHNIQUE: Frontal view of the chest was obtained. FINDINGS: Tortuosity of the thoracic aorta is noted. A retrocardiac density which may represent a hiatal hernia is noted. No effusions or pneumothoraces visualized. Diffuse pulmonary vascular indistinctness is noted along with prominence of the minor fissure. No focal pulmonary consolidation. XR/XR chest 1V IMPRESSION: 1.? Findings suspicious for mild pulmonary vascular congestion. No focal pulmonary consolidation. 2.? Retrocardiac density which may represent a hiatal hernia. ? EXAMINATION:? US VENOUS WITH DOPPLER UPPER EXTREMITY, LEFT CLINICAL INFORMATION:? Hand swelling COMPARISON:? None TECHNIQUE: Ultrasound of the upper extremity is performed using compression sonography and color and pulse Doppler flow with assessment of augmentation of flow. There is also imaging and Doppler assessment of the jugular and subclavian veins. Spectral analysis with color-flow imaging is performed. FINDINGS: Variously normal grayscale, color, spectral and grayscale compression views of the left internal jugular, left subclavian, left axillary left psoas, left cephalic left radial and left ulnar veins is noted. Image 14 demonstrates possible incompressible thrombus within a a nondominant second distal brachial vein. Color flow is noted in this region. No subcutaneous edema or discrete fluid collections identified. US/US venous duplex UE LT IMPRESSION: Borderline finding suspicious for a possible focal nonocclusive thrombus within the distal segment of a second left brachial vein. No additional venous thrombus noted elsewhere within the left upper extremity. ? This critical result was discussed with KATHLEEN Serrano by telephone at 09/09/2022 9:27 PM and it was ascertained that the content and urgency of the report was understood at the time of direct communication. ? Independent Historian Clinical information obtained from an independent historian. History obtained from or confirmed by: EMS External Record Review External record reviewed: Inpatient record and Outpatient record Prescription Management I considered prescription management with: Antibiotic Chronic Conditions Patient?s care impacted by: Diabetes and Hypertension Discharge Plan Discharge Clinical Impression: Cellulitis, DVT (deep venous thrombosis) Patient Disposition: Admitted As Inpatient
--- NOTE | 2022-09-09 17:59 | ECG_ITS ---
Test Reason : EDEMA Blood Pressure : / mmHG Vent. Rate : 115 BPM Atrial Rate : 115 BPM P-R Int : 144 ms QRS Dur : 084 ms QT Int : 348 ms P-R-T Axes : 042 -20 019 degrees QTc Int : 481 ms Sinus tachycardia with occasional Premature ventricular complexes Otherwise normal ECG When compared with ECG of 22-AUG-2022 08:15, Premature ventricular complexes are now Present Left anterior fascicular block is no longer Present Referred By: Africa Adan Electronically Signed By:Shaun Tanner
[2022-09-09 18:05] VITALS: BP 144/76; BP 180/108; PULSE 114; PULSE 122; RESP 18; TEMP 36.9; O2SAT 97; BMI 35.6
[2022-09-09 18:42] LABS: MANUAL DIFF FLAG NO
--- NOTE | 2022-09-09 18:45 | PC.NURSE ---
patient a/ox4 . javierrla . heart rate regular and tachycardic at 114 beats per minute . breathing even and unlabored . lungs clear throughout . left hand red and swollen with 1 plus pitting edema , warm to touch . bilaterally below the knee on patient legs the skin is red and warm to touch , patient reports that it is chronic issue . patient has continues tremors that he also says is chromic . abdomen is soft , positive bowel sounds throughout . patient placed on cardiac specialist . IV. placed in right a.c . labs sent . patient aware of plan of care .
[2022-09-09 18:48] LABS: Basophils Absolute Auto 0.1 X10*3/uL (0.0-0.2); Basophils Percent Auto 0.5 % (0-2); Eosinophils Absolute Auto 0.1 X10*3/uL (0.0-0.4); Eosinophils Percent Auto 1.4 % (0-4); Hematocrit 35.1 % (42.0-52.0); Hemoglobin 10.5 g/dl (14.0-18.0); Imm Gran Abs Auto 0.15 X10*3/uL (0.00-0.03); Imm Gran Pct Auto 1.6 % (0.0-0.4); Lymphocytes Absolute Auto 1.3 X10*3/uL (1.2-4.9); Lymphocytes Percent Auto 13.4 % (20-40); Mean Corpuscular HGB Conc 29.9 g/dl (31.0-36.0); Mean Corpuscular Hemoglobin 24.2 pg (27.0-33.0); Mean Corpuscular Volume 80.9 fL (80.0-98.0); Mean Platelet Volume 9.1 fL (9.4-12.4); Monocytes Absolute Auto 0.8 X10*3/uL (0.1-1.2); Monocytes Percent Auto 8.4 % (2-11); Neutrophils Percent Auto 74.7 % (45-73); Platelet Count 271 X10*3/uL (160-400); Red Blood Count 4.34 X10*6/uL (4.60-5.80); Red Cell Distribution Width 16.5 % (11.0-16.0); White Blood Count 9.3 X10*3/uL (4.8-10.8)
[2022-09-09 18:56] LABS: Prothrombin Time 11.3 SEC (10.0-13.1)
[2022-09-09 18:58] LABS: Partial Thromboplastin Time 30.5 SEC (26.0-36.4)
[2022-09-09 19:02] LABS: Alanine Aminotransferase 11 U/L (0-40); Albumin Level 3.7 g/dL (3.5-5.0); Alkaline Phosphatase 54 U/L (39-117); Anion Gap 14 (12-20); Aspartate Amino Transferase 10 U/L (5-37); Bilirubin Direct < 0.2 mg/dL (0.0-0.5); Bilirubin Total 0.3 mg/dL (0.0-1.0); Blood Urea Nitrogen 18 mg/dL (9-16); Calcium 9.4 mg/dL (8.4-10.2); Carbon Dioxide 30 mmol/L (22-29); Chloride 101 mmol/L (96-108); Creatinine Clr Calc Pharmacy 68.6; Estimated Glomerular Filt Rate > 60; Glucose Random 120 mg/dL (60-115); Lipase 8 U/L (8-78); Magnesium 1.6 mg/dL (1.6-2.6); Potassium 4.7 mmol/L (3.3-5.1); Sodium 140 mmol/L (135-145); Total Protein 6.3 g/dL (6.5-8.0)
[2022-09-09 19:09] LABS: B Type Natriuretic Peptide 144 pg/mL (<100); Troponin-I High Sensitivity 42.5 ng/L (<3.5-35.0)
[2022-09-09 19:33] LABS: Influenza A PCR NEGATIVE (Negative); Influenza B PCR NEGATIVE (Negative); Resp Syncy Virus RNA Qual PCR NEGATIVE (Negative); SARS COV2 PCR INHOUSE NEGATIVE (Negative)
--- NOTE | 2022-09-09 23:33 | PC.NURSE ---
next dose of abx due at 2300. Vanco is still running, d/t positional issues. Will hang cefazolin upon completion of vanco. Pt. resting in bed. Condom catheter in place.
[2022-09-10] MEDS: ceFAZolin Sodium/Dextrose,Iso 2 GM/50 ML PIGGYBACK IV ×4 (00:53→22:32)
[2022-09-10 02:19] VITALS: BP 141/80; PULSE 114; RESP 16; O2SAT 99
--- NOTE | 2022-09-10 02:29 | PC.NURSE ---
Pt. sleeping at this time. Pt. will be going to [facility] bed [id number]. Report called and given to CARRIE Talamantes.
[2022-09-10 04:00] VITALS: BP 147/68; PULSE 65; RESP 20; TEMP 36.7; O2SAT 95
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
[2022-09-10 07:12] LABS: MANUAL DIFF FLAG NO
[2022-09-10 07:19] LABS: Basophils Percent Auto 0.4 % (0-2); Eosinophils Absolute Auto 0.1 X10*3/uL (0.0-0.4); Eosinophils Percent Auto 1.1 % (0-4); Hematocrit 31.3 % (42.0-52.0); Hemoglobin 9.6 g/dl (14.0-18.0); Imm Gran Abs Auto 0.12 X10*3/uL (0.00-0.03); Imm Gran Pct Auto 1.4 % (0.0-0.4); Lymphocytes Absolute Auto 1.1 X10*3/uL (1.2-4.9); Mean Corpuscular HGB Conc 30.7 g/dl (31.0-36.0); Mean Corpuscular Hemoglobin 24.6 pg (27.0-33.0); Mean Corpuscular Volume 80.3 fL (80.0-98.0); Mean Platelet Volume 9.7 fL (9.4-12.4); Monocytes Absolute Auto 0.6 X10*3/uL (0.1-1.2); Monocytes Percent Auto 7.4 % (2-11); Neutrophils Absolute Auto 6.4 x10*3/uL (2.0-8.3); Neutrophils Percent Auto 76.7 % (45-73); Platelet Count 246 X10*3/uL (160-400); Red Cell Distribution Width 16.8 % (11.0-16.0); White Blood Count 8.4 X10*3/uL (4.8-10.8)
[2022-09-10 07:43] LABS: Anion Gap 13 (12-20); Blood Urea Nitrogen 18 mg/dL (9-16); Calcium 8.7 mg/dL (8.4-10.2); Carbon Dioxide 27 mmol/L (22-29); Chloride 104 mmol/L (96-108); Creatinine Clr Calc Pharmacy 72.5; Estimated Glomerular Filt Rate > 60; Glucose Random 150 mg/dL (60-115); Potassium 4.2 mmol/L (3.3-5.1); Sodium 140 mmol/L (135-145)
[2022-09-10 08:00] VITALS: BP 153/87; PULSE 106; RESP 18; TEMP 37.2; O2SAT 92
[2022-09-10] MEDS: Ferrous Sulfate 324 MG TABLET.DR PO (08:27)
[2022-09-10] MEDS: Apixaban 5 MG TABLET 10 MG PO ×2 (08:28→20:43)
[2022-09-10] MEDS: Omeprazole 20 MG CAPSULE.DR PO (08:28)
[2022-09-10] MEDS: Ascorbic Acid 250 MG TABLET PO (08:28)
[2022-09-10] MEDS: Levothyroxine Sodium 175 MCG TABLET PO (08:28)
[2022-09-10] MEDS: Cholecalciferol (Vitamin D3) 25 MCG TABLET PO (08:28)
[2022-09-10] MEDS: 0.9 % Sodium Chloride Flush 3 ML SYRINGE IVFLUSH ×3 (08:30→19:52)
--- NOTE | 2022-09-10 08:37 | HO.PM.IMPN ---
Subjective Subjective Date of Service: 09/10/22 Interval History: cc: left hand swelling and redness interval history: no new complaints Cardiovascular Cardiovascular: Reports no additional cardiovascular complaints Respiratory Respiratory: Reports no additional respiratory complaints Physical Exam Vital Signs: Vital Signs: Last Vital Signs Temp 99.0 F 09/10/22 08:00 Pulse 106 H 09/10/22 08:00 Resp 18 09/10/22 08:00 BP 153/87 H 09/10/22 08:00 Pulse Ox 92 09/10/22 08:00 O2 Del Method 09/10/22 08:00 BMI result Body Mass Index 35.6 General: AO X 3, no acute distress Resp: CTA bilateral, no accessory muscles used CVS: S1,S2,RRR GI: soft, non tender, non distended Neuro: motor grossly intact, alert Psych: appropriate affect, appropriate insight LUE hand swelling centered around 2nd mtp, erythema bilateral le swelling and erythema Objective Data Active Medications Acetaminophen (Acetaminophen 325 Mg Tablet) 650 mg PO Q6H PRN PRN Reason: Pain, Mild (Pain Scale 1-3) Apixaban (Apixaban 5 Mg Tablet) 10 mg PO BID [facility] Stop: 09/16/22 21:01 Last Admin: 09/10/22 08:28 Dose: 10 mg Documented By: BETHANY Ascorbic Acid (Ascorbic Acid 250 Mg Tablet) 250 mg PO DAILY [facility] Last Admin: 09/10/22 08:28 Dose: 250 mg Documented By: BETHANY Atorvastatin Calcium (Atorvastatin Calcium 20 Mg Tablet) 20 mg PO BEDTIME [facility] Dextrose (Dextrose 50 % 25 Gm/50 Ml Syringe) 25 gm IVPUSH Q15M PRN; Protocol PRN Reason: per Hypoglycemia Standing Ord. Divalproex Sodium (Divalproex Sodium Er 500 Mg Tab.Er.24h) 1,500 mg PO BEDTIME [facility] Docusate Sodium (Docusate Sodium 100 Mg Capsule) 100 mg PO DAILY PRN PRN Reason: Constipation Ferrous Sulfate (Ferrous Sulfate 324 Mg Tablet.) 324 mg PO DAILY [facility] Last Admin: 09/10/22 08:27 Dose: 324 mg Documented By: BETHANY Furosemide (Furosemide 40 Mg/4 Ml Vial) 40 mg IVPUSH BID@0900,1800 [facility]; Protocol Glucose (Glucose Gel 15 Gm Gel..Gram.) 15 gm PO Q15M PRN; Protocol PRN Reason: per Hypoglycemia Standing Ord. Cefazolin Sodium/Dextrose (Ancef) 2 gm in 50 mls @ 100 mls/hr IV Q8H [facility] Last Infusion: 09/10/22 07:22 Dose: 0 mls/hr Documented By: BETHANY Insulin Human Lispro (Insulin Lispro 100 Unit/Ml 3 Ml Vial) 0.1 - 10 unit SUBCUT QIDACHS [facility]; Protocol Last Admin: 09/10/22 08:11 Dose: Not Given Documented By: BETHANY Non-Admin Reason: No Insulin Coverage Lactic Acid (Ammonium Lactate 12 % Lotion 226 Gm Bottle) 1 appl TOPICAL DAILY PRN; Protocol PRN Reason: Dry Skin Levothyroxine Sodium (Levothyroxine Sodium 175 Mcg Tablet) 175 mcg PO DAILY@0600 [facility] Last Admin: 09/10/22 08:28 Dose: 175 mcg Documented By: BETHANY Lisinopril (Lisinopril 10 Mg Tablet) 10 mg PO DAILY [facility]; Protocol Methylprednisolone Sodium Succinate (Methylprednisolone Sod Succ 40 Mg/Ml Vial) 40 mg IVPUSH ONCE ONE Stop: 09/10/22 08:35 Omeprazole (Omeprazole 20 Mg Capsule.Dr) 20 mg PO DAILY@0630 [facility] Last Admin: 09/10/22 08:28 Dose: 20 mg Documented By: BETHANY Ondansetron HCl (Ondansetron Hcl 4 Mg/2 Ml Vial) 4 mg IVPUSH Q8H PRN PRN Reason: Nausea and Vomiting Prednisone (Prednisone 20 Mg Tablet) 40 mg PO DAILY [facility] Risperidone (Risperidone 2 Mg Tablet) 2 mg PO BEDTIME [facility] Sodium Chloride (0.9 % Sodium Chloride Flush 3 Ml Syringe) 3 ml IVFLUSH QSHIFT [facility] Last Admin: 09/10/22 08:30 Dose: 3 ml Documented By: BETHANY Vitamin D (Cholecalciferol (Vitamin D3) 25 Mcg Tablet) 25 mcg PO DAILY [facility] Last Admin: 09/10/22 08:28 Dose: 25 mcg Documented By: BETHANY Labs CBC & Chem 7: 09/10/22 06:17 09/10/22 06:17 Labs: Laboratory Results - last 24 hr 09/09/22 09/09/22 09/09/22 18:32 18:32 18:32 MCV 80.9 MCH 24.2 L MCHC 29.9 L RDW 16.5 H Plt Count 271 MPV 9.1 L Immature Gran % (Auto) 1.6 H Neut % (Auto) 74.7 H Lymph % (Auto) 13.4 L [place] % (Auto) 8.4 Eos % (Auto) 1.4 Baso % (Auto) 0.5 Lymph # (Auto) 1.3 [place] # (Auto) 0.8 Eos # (Auto) 0.1 Baso # (Auto) 0.1 Abs Immat Gran (auto) 0.15 H Absolute Neuts (auto) 7.0 Absolute Nucleated RBC 0.000 Nucleated RBC % (auto) 0.0 PT INR APTT 30.5 Anion Gap 14 Estim Creat Clear Calc 68.6 Estimated GFR > 60 POC Glucose Random Glucose 120 H Lactic Acid Calcium 9.4 D Magnesium 1.6 Total Bilirubin 0.3 Direct Bilirubin < 0.2 AST 10 ALT 11 Alkaline Phosphatase 54 Troponin I High Sens B-Natriuretic Peptide Total Protein 6.3 L Albumin 3.7 Lipase 8 Influenza Type A (PCR) Influenza Type B (PCR) RSV RNA Qual (PCR) SARS-CoV-2 RNA (RT-PCR) 09/09/22 09/09/22 09/09/22 18:32 18:32 18:32 MCV MCH MCHC RDW Plt Count MPV Immature Gran % (Auto) Neut % (Auto) Lymph % (Auto) [place] % (Auto) Eos % (Auto) Baso % (Auto) Lymph # (Auto) [place] # (Auto) Eos # (Auto) Baso # (Auto) Abs Immat Gran (auto) Absolute Neuts (auto) Absolute Nucleated RBC Nucleated RBC % (auto) PT 11.3 INR 1.0 APTT Anion Gap Estim Creat Clear Calc Estimated GFR POC Glucose Random Glucose Lactic Acid 1.0 Calcium Magnesium Total Bilirubin Direct Bilirubin AST ALT Alkaline Phosphatase Troponin I High Sens 42.5 H D B-Natriuretic Peptide Total Protein Albumin Lipase Influenza Type A (PCR) Influenza Type B (PCR) RSV RNA Qual (PCR) SARS-CoV-2 RNA (RT-PCR) 09/09/22 09/09/22 09/10/22 18:32 18:32 06:17 MCV 80.3 MCH 24.6 L MCHC 30.7 L RDW 16.8 H Plt Count 246 MPV 9.7 Immature Gran % (Auto) 1.4 H Neut % (Auto) 76.7 H Lymph % (Auto) 13.0 L [place] % (Auto) 7.4 Eos % (Auto) 1.1 Baso % (Auto) 0.4 Lymph # (Auto) 1.1 L [place] # (Auto) 0.6 Eos # (Auto) 0.1 Baso # (Auto) 0.0 Abs Immat Gran (auto) 0.12 H Absolute Neuts (auto) 6.4 Absolute Nucleated RBC 0.000 Nucleated RBC % (auto) 0.0 PT INR APTT Anion Gap Estim Creat Clear Calc Estimated GFR POC Glucose Random Glucose Lactic Acid Calcium Magnesium Total Bilirubin Direct Bilirubin AST ALT Alkaline Phosphatase Troponin I High Sens B-Natriuretic Peptide 144 H Total Protein Albumin Lipase Influenza Type A (PCR) NEGATIVE Influenza Type B (PCR) NEGATIVE RSV RNA Qual (PCR) NEGATIVE SARS-CoV-2 RNA (RT-PCR) NEGATIVE 09/10/22 09/10/22 06:17 07:56 MCV MCH MCHC RDW Plt Count MPV Immature Gran % (Auto) Neut % (Auto) Lymph % (Auto) [place] % (Auto) Eos % (Auto) Baso % (Auto) Lymph # (Auto) [place] # (Auto) Eos # (Auto) Baso # (Auto) Abs Immat Gran (auto) Absolute Neuts (auto) Absolute Nucleated RBC Nucleated RBC % (auto) PT INR APTT Anion Gap 13 Estim Creat Clear Calc 72.5 Estimated GFR > 60 POC Glucose 144 H Random Glucose 150 H Lactic Acid Calcium 8.7 D Magnesium Total Bilirubin Direct Bilirubin AST ALT Alkaline Phosphatase Troponin I High Sens B-Natriuretic Peptide Total Protein Albumin Lipase Influenza Type A (PCR) Influenza Type B (PCR) RSV RNA Qual (PCR) SARS-CoV-2 RNA (RT-PCR) Assessment and Plan (1) Cellulitis: Status: Acute Plan 77-year-old male with a PMH significant for bipolar disorder, DM2, hypothyroidism, HLD, HTN, GERD, and tardive dyskenisia who presented with LUE swelling and ertyhema, found to have possible left brachial vein DVT. LUE swelling possible left brachial vein DVT - started eliquis 10mg bid 7 days, then 5mg bid (09/17/22) suspect component of inflammatory arthritis - empiric steroids no sepsis, possible superimposed bacterial celulitis - empiric ancef bilateral lower extremity edema doubt cellulitis likely venous stasis with dermaittis compression therapy likely some component of acute on chronic diastolic chf - will diurese with iv lasix, monitor lytes DM insulin obesity weight loss hypothyroid synthroid bipolar depakore, risperdal gerd ppi full code reason for continued hospitalization: iv diuresis, monitor for decompensation. Time Spent With Patient Time: Total time managing care of this patient today ____ minutes. Quality Stroke Does the patient have a stroke diagnosis?: No VTE Prior VTE?: No VTE Risk Level:: Medical - moderate - high VTE Device Contraindication: Treatment Not Indicated VTE Drug Contraindication: N/A - Med Ordered
[2022-09-10] MEDS: lisinopriL 10 MG TABLET PO (09:23)
[2022-09-10] MEDS: Furosemide 40 MG/4 ML VIAL IVPUSH ×2 (09:23→16:51)
--- NOTE | 2022-09-10 09:59 | MHC.CM.PN ---
IMM DELIVERED PT IS IN FROM [facility] FOR STR, WOULD LIKE TO RETURN ON DC. RETURN REFERRAL SENT. USES A ROLLATOR FOR MOBILITY. + HCP +COVID [facility] [address] ETIENNE DP: PT WOULD LIKE TO RETURN TO [facility] FOR STR, WILL TRANSPORT VIA BLS. CM WILL CONTINUE TO FOLLOW.
[2022-09-10] MEDS: Insulin Lispro 100 UNIT/ML 3 ML VIAL SUBCUT ×3 (12:03→20:38)
[2022-09-10 15:30] VITALS: BP 124/74; PULSE 105; RESP 20; TEMP 36.4; O2SAT 95
[2022-09-10 19:46] VITALS: BP 122/72; PULSE 108; RESP 20; TEMP 36.8; O2SAT 95
[2022-09-10 22:42] LABS: Appearance Urine Clear; Color Urine Yellow; Glucose Urine UA 250 mg/dL (Negative); Leukocyte Esterase Urine Small (1+) (Negative); Nitrite Urine Negative (Negative); UMIC TRIGGER UACC YES; Urine Blood Negative (Negative); Urine Ketones Negative (Negative); Urine Protein Trace mg/dL (Neg-Trace)
[2022-09-10 22:53] LABS: Bacteria Urine None Seen (None Seen); Hyaline Casts Urine 0-2 /LPF (0-2); Squamous Epithelial Cell Urine 0-2 /HPF (0-2); UACC Culture Trigger YES; WBC Urine 0-5 /HPF (0-5)
[2022-09-11 03:46] VITALS: BP 135/71; PULSE 94; RESP 20; TEMP 36.3; O2SAT 93
[2022-09-11] MEDS: Omeprazole 20 MG CAPSULE.DR PO (05:09)
[2022-09-11] MEDS: Levothyroxine Sodium 175 MCG TABLET PO (05:09)
[2022-09-11] MEDS: Acetaminophen 325 MG TABLET 650 MG PO (05:09)
[2022-09-11] MEDS: ceFAZolin Sodium/Dextrose,Iso 2 GM/50 ML PIGGYBACK IV ×3 (05:55→22:13)
[2022-09-11 06:33] LABS: Hematocrit 30.7 % (42.0-52.0); Hemoglobin 9.3 g/dl (14.0-18.0); Mean Corpuscular HGB Conc 30.3 g/dl (31.0-36.0); Mean Corpuscular Hemoglobin 24.3 pg (27.0-33.0); Mean Corpuscular Volume 80.4 fL (80.0-98.0); Mean Platelet Volume 9.5 fL (9.4-12.4); Platelet Count 244 X10*3/uL (160-400); Red Blood Count 3.82 X10*6/uL (4.60-5.80); Red Cell Distribution Width 16.8 % (11.0-16.0); White Blood Count 8.3 X10*3/uL (4.8-10.8)
[2022-09-11 06:47] LABS: Anion Gap 12 (12-20); Blood Urea Nitrogen 20 mg/dL (9-16); C Reactive Protein 9.72 mg/dL (< or = 0.50); Calcium 8.5 mg/dL (8.4-10.2); Carbon Dioxide 32 mmol/L (22-29); Chloride 100 mmol/L (96-108); Creatinine Clr Calc Pharmacy 63.4; Estimated Glomerular Filt Rate 60; Glucose Fasting 130 mg/dL (60-99); Potassium 3.8 mmol/L (3.3-5.1); Sodium 140 mmol/L (135-145)
[2022-09-11 07:13] VITALS: BP 123/60; PULSE 94; RESP 18; TEMP 36.6; O2SAT 97
[2022-09-11] MEDS: Ascorbic Acid 250 MG TABLET PO (08:35)
[2022-09-11] MEDS: Apixaban 5 MG TABLET 10 MG PO ×2 (08:35→22:12)
[2022-09-11] MEDS: predniSONE 20 MG TABLET 40 MG PO (08:35)
[2022-09-11] MEDS: Cholecalciferol (Vitamin D3) 25 MCG TABLET PO (08:35)
[2022-09-11] MEDS: lisinopriL 10 MG TABLET PO (08:35)
[2022-09-11] MEDS: Furosemide 40 MG/4 ML VIAL IVPUSH ×2 (08:36→18:13)
[2022-09-11] MEDS: 0.9 % Sodium Chloride Flush 3 ML SYRINGE IVFLUSH ×3 (08:36→23:42)
[2022-09-11] MEDS: Ferrous Sulfate 324 MG TABLET.DR PO (08:36)
--- NOTE | 2022-09-11 08:36 | HO.PM.IMPN ---
Subjective Subjective Date of Service: 09/11/22 Interval History: cc: left hand swelling and redness interval history: initial significant improvement, now with pain again after overuse Cardiovascular Cardiovascular: Reports no additional cardiovascular complaints Respiratory Respiratory: Reports no additional respiratory complaints Physical Exam Vital Signs: Vital Signs: Last Vital Signs Temp 97.9 F 09/11/22 07:13 Pulse 94 09/11/22 07:13 Resp 18 09/11/22 07:13 BP 123/60 09/11/22 07:13 Pulse Ox 97 09/11/22 07:13 O2 Del Method 09/11/22 07:13 BMI result Body Mass Index 35.6 General: AO X 3, no acute distress Resp: CTA bilateral, no accessory muscles used CVS: S1,S2,RRR GI: soft, non tender, non distended Neuro: motor grossly intact, alert Psych: appropriate affect, appropriate insight LUE hand swelling centered around 2nd mtp, erythema bilateral le swelling and erythema - much improved Objective Data Active Medications Acetaminophen (Acetaminophen 325 Mg Tablet) 650 mg PO Q6H PRN PRN Reason: Pain, Mild (Pain Scale 1-3) Last Admin: 09/11/22 05:09 Dose: 650 mg Documented By: DA Apixaban (Apixaban 5 Mg Tablet) 10 mg PO BID [facility] Stop: 09/16/22 21:01 Last Admin: 09/11/22 08:35 Dose: 10 mg Documented By: LEXUS Ascorbic Acid (Ascorbic Acid 250 Mg Tablet) 250 mg PO DAILY [facility] Last Admin: 09/11/22 08:35 Dose: 250 mg Documented By: LEXUS Atorvastatin Calcium (Atorvastatin Calcium 20 Mg Tablet) 20 mg PO BEDTIME [facility] Last Admin: 09/10/22 20:43 Dose: 20 mg Documented By: DA Dextrose (Dextrose 50 % 25 Gm/50 Ml Syringe) 25 gm IVPUSH Q15M PRN; Protocol PRN Reason: per Hypoglycemia Standing Ord. Divalproex Sodium (Divalproex Sodium Er 500 Mg Tab.Er.24h) 1,500 mg PO BEDTIME [facility] Last Admin: 09/10/22 20:43 Dose: 1,500 mg Documented By: DA Docusate Sodium (Docusate Sodium 100 Mg Capsule) 100 mg PO DAILY PRN PRN Reason: Constipation Ferrous Sulfate (Ferrous Sulfate 324 Mg Tablet.Dr) 324 mg PO DAILY [facility] Last Admin: 09/11/22 08:36 Dose: 324 mg Documented By: LEXUS Furosemide (Furosemide 40 Mg/4 Ml Vial) 40 mg IVPUSH BID@0900,1800 [facility]; Protocol Last Admin: 09/11/22 08:36 Dose: 40 mg Documented By: LEXUS Glucose (Glucose Gel 15 Gm Gel..Gram.) 15 gm PO Q15M PRN; Protocol PRN Reason: per Hypoglycemia Standing Ord. Cefazolin Sodium/Dextrose (Ancef) 2 gm in 50 mls @ 100 mls/hr IV Q8H [facility] Last Infusion: 09/11/22 06:42 Dose: 0 mls/hr Documented By: DA Ibuprofen (Ibuprofen 400 Mg Tablet) 400 mg PO ONCE ONE Stop: 09/11/22 08:35 Insulin Human Lispro (Insulin Lispro 100 Unit/Ml 3 Ml Vial) 0.1 - 10 unit SUBCUT QIDACHS [facility]; Protocol Last Admin: 09/11/22 07:33 Dose: Not Given Documented By: LEXUS Non-Admin Reason: No Insulin Coverage Lactic Acid (Ammonium Lactate 12 % Lotion 226 Gm Bottle) 1 appl TOPICAL DAILY PRN; Protocol PRN Reason: Dry Skin Levothyroxine Sodium (Levothyroxine Sodium 175 Mcg Tablet) 175 mcg PO DAILY@0600 [facility] Last Admin: 09/11/22 05:09 Dose: 175 mcg Documented By: DA Lisinopril (Lisinopril 10 Mg Tablet) 10 mg PO DAILY [facility]; Protocol Last Admin: 09/11/22 08:35 Dose: 10 mg Documented By: LEXUS Omeprazole (Omeprazole 20 Mg Demetrius.) 20 mg PO DAILY@0630 [facility] Last Admin: 09/11/22 05:09 Dose: 20 mg Documented By: DA Ondansetron HCl (Ondansetron Hcl 4 Mg/2 Ml Vial) 4 mg IVPUSH Q8H PRN PRN Reason: Nausea and Vomiting Prednisone (Prednisone 20 Mg Tablet) 40 mg PO DAILY [facility] Last Admin: 09/11/22 08:35 Dose: 40 mg Documented By: LEXUS Risperidone (Risperidone 2 Mg Tablet) 2 mg PO BEDTIME [facility] Last Admin: 09/10/22 20:43 Dose: 2 mg Documented By: HO.CHOIP Sodium Chloride (0.9 % Sodium Chloride Flush 3 Ml Syringe) 3 ml IVFLUSH QSHIFT [facility] Last Admin: 09/11/22 08:36 Dose: 3 ml Documented By: LEXUS Vitamin D (Cholecalciferol (Vitamin D3) 25 Mcg Tablet) 25 mcg PO DAILY [facility] Last Admin: 09/11/22 08:35 Dose: 25 mcg Documented By: LEXUS Labs CBC & Chem 7: 09/11/22 05:21 09/11/22 05:21 Labs: Laboratory Results - last 24 hr 09/10/22 09/10/22 09/10/22 11:05 16:38 19:50 MCV MCH MCHC RDW Plt Count MPV Absolute Nucleated RBC Nucleated RBC % (auto) Anion Gap Estim Creat Clear Calc Estimated GFR POC Glucose 274 H 235 H 260 H Fasting Glucose Calcium C-Reactive Protein Urine Color Urine Appearance Urine pH Ur Specific [place] Urine Protein Urine Glucose (UA) Urine Ketones Urine Blood Urine Nitrite Ur Leukocyte Esterase Urine RBC Urine WBC Ur Squamous Epith Cells Urine Bacteria Hyaline Casts Urine Yeast 09/10/22 09/11/22 09/11/22 21:27 05:21 05:21 MCV 80.4 MCH 24.3 L MCHC 30.3 L RDW 16.8 H Plt Count 244 MPV 9.5 Absolute Nucleated RBC 0.000 Nucleated RBC % (auto) 0.0 Anion Gap 12 Estim Creat Clear Calc 63.4 Estimated GFR 60 POC Glucose Fasting Glucose 130 H Calcium 8.5 C-Reactive Protein 9.72 H Urine Color Yellow Urine Appearance Clear Urine pH 7.0 Ur Specific [place] 1.010 Urine Protein Trace Urine Glucose (UA) 250 H Urine Ketones Negative Urine Blood Negative Urine Nitrite Negative Ur Leukocyte Esterase Small (1+) H Urine RBC 3-5 H Urine WBC 0-5 Ur Squamous Epith Cells 0-2 Urine Bacteria None Seen Hyaline Casts 0-2 Urine Yeast Present 09/11/22 07:10 MCV MCH MCHC RDW Plt Count MPV Absolute Nucleated RBC Nucleated RBC % (auto) Anion Gap Estim Creat Clear Calc Estimated GFR POC Glucose 131 H Fasting Glucose Calcium C-Reactive Protein Urine Color Urine Appearance Urine pH Ur Specific [place] Urine Protein Urine Glucose (UA) Urine Ketones Urine Blood Urine Nitrite Ur Leukocyte Esterase Urine RBC Urine WBC Ur Squamous Epith Cells Urine Bacteria Hyaline Casts Urine Yeast Microbiology Microbiology Results: Microbiology 09/09/22 18:32 Blood Culture - Preliminary Blood - Venous No growth after 24 hours. 09/09/22 18:32 Blood Culture - Preliminary Blood - Venous No growth after 24 hours. Assessment and Plan (1) Cellulitis: Status: Acute Plan 77-year-old male with a PMH significant for bipolar disorder, DM2, hypothyroidism, HLD, HTN, GERD, and tardive dyskenisia who presented with LUE swelling and ertyhema, found to have possible left brachial vein DVT. LUE swelling possible left brachial vein DVT - started eliquis 10mg bid 7 days, then 5mg bid (09/17/22) - will repeat doppler 09/12/22 to confirm though suspect component of inflammatory arthritis - empiric steroids no sepsis, possible superimposed bacterial celulitis - empiric ancef bilateral lower extremity edema doubt cellulitis likely venous stasis with dermaittis compression therapy likely some component of acute on chronic diastolic chf - will diurese with iv lasix, monitor lytes DM insulin obesity weight loss hypothyroid synthroid bipolar depakore, risperdal gerd ppi full code reason for continued hospitalization: iv diuresis, monitor for decompensation. Time Spent With Patient Time: Total time managing care of this patient today ____ minutes. Quality Stroke Does the patient have a stroke diagnosis?: No VTE Prior VTE?: No VTE Risk Level:: Medical - moderate - high VTE Device Contraindication: Treatment Not Indicated VTE Drug Contraindication: N/A - Med Ordered
--- NOTE | 2022-09-11 09:16 | MHC.CLN ---
NUTRITION CONSULT FOR SKIN/CELLULITIS. NO PRESSURE AREAS. DIET=DIABETIC 1800 KCAL. NO ADDITIONAL NUTRITION INTERVENTIONS AT THIS TIME.
[2022-09-11] MEDS: Insulin Lispro 100 UNIT/ML 3 ML VIAL SUBCUT ×3 (11:37→20:31)
--- NOTE | 2022-09-11 12:48 | MHC.CM.PN ---
PLAN IS REPEAT U/S ON WEDNESDAY 09/12 AND RETURN TO [facility] MADE AWARE IN [facility]
[2022-09-11 15:50] VITALS: BP 132/64; PULSE 96; RESP 18; TEMP 37.1; O2SAT 95
[2022-09-11 19:33] VITALS: BP 124/68; PULSE 78; RESP 18; TEMP 36.3; O2SAT 97
[2022-09-12 03:17] VITALS: BP 126/71; PULSE 90; RESP 16; TEMP 36.4; O2SAT 95
[2022-09-12] MEDS: Omeprazole 20 MG CAPSULE.DR PO (06:08)
[2022-09-12] MEDS: Levothyroxine Sodium 175 MCG TABLET PO (06:08)
[2022-09-12] MEDS: ceFAZolin Sodium/Dextrose,Iso 2 GM/50 ML PIGGYBACK IV (06:10)
[2022-09-12] MEDS: Acetaminophen 325 MG TABLET 650 MG PO (06:44)
[2022-09-12 07:19] VITALS: BP 116/68; PULSE 91; RESP 18; TEMP 35.7; O2SAT 92
[2022-09-12 07:24] LABS: Glucose, Whole Blood 141 mg/dL (60-115)
[2022-09-12] MEDS: Apixaban 5 MG TABLET 10 MG PO (08:34)
[2022-09-12] MEDS: predniSONE 20 MG TABLET 40 MG PO (08:34)
[2022-09-12] MEDS: Ferrous Sulfate 324 MG TABLET.DR PO (08:34)
[2022-09-12] MEDS: Cholecalciferol (Vitamin D3) 25 MCG TABLET PO (08:34)
[2022-09-12] MEDS: Ascorbic Acid 250 MG TABLET PO (08:34)
[2022-09-12] MEDS: Furosemide 40 MG/4 ML VIAL IVPUSH (08:34)
[2022-09-12] MEDS: lisinopriL 10 MG TABLET PO (08:34)
[2022-09-12] MEDS: 0.9 % Sodium Chloride Flush 3 ML SYRINGE IVFLUSH (08:34)
--- NOTE | 2022-09-12 11:37 | P.DS_ITS ---
DS: Providers Provider Date of Service: 09/12/22 Date of admission: 09/09/22 22:04 Primary care physician: Anatoly Palacios MD DS: Diagnosis Discharge Diagnosis (1) Cellulitis: Status: Acute DS: Summary Hospital Course Hospital Course: from initial hpi: Chief Complaint: left arm swelling ?this is a pleasant 77-year-old male with past medical history of diabetes, tardive kg a, bipolar disorder, HLD, HTN, GERD, who was discharged from the hospital on 08/24 after being managed for cellulitis and was discharged home with doxycycline returns with complaints of left upper extremity swelling.? Patient reports that his symptoms started about 3 days ago, he has swelling in his hand the way to the elbow, reports redness,? And pain is his hand.? He reports no acute complaints with his legs.? Denies any fever, no chills, denies any abdominal pain nausea or vomiting, no diarrhea constipation, no urinary .? On arrival to the ED patient hemodynamically stable with an elevated blood pressure and heart rate of 114 Labs are significant for? WBC count of 9.3, hemoglobin of 10.5, hematocrit 35.1 which is around his baseline, troponin of 42.5, BNP of 144, ?left upper extremity venous duplex shows borderline size finding suspicious for possible focal not exclusive thrombus within the distal segment of a 2nd left brachial vein, with no additional venous thrombus noticed elsewhere hospital course:: Patient was admitted for left upper extremity swelling, initially thought to be due to left brachial vein DVT and was started on Eliquis, however repeat Doppler on discharge shows that this was actually nerve bundle and anticoagulation has been discontinued. Patient appears to have acute inflammatory arthritis. He was started on steroids and had significant improvement. He will be discharged on a 10 day taper. For his bilateral lower extremity edema with venous stasis and dermatitis with possible superimposed bacterial cellulitis, With acute on chronic diastolic CHF. He was diuresed with IV Lasix, given IV Ancef, compression therapy recommended. Patient had significant improvement will be discharged on empiric 5 days of doxycycline and Keflex, he will continue on maintenance Lasix. He should continue compression therapy. For his diabetes he will continue insulin. For obesity weight loss recommended. For hypothyroidism he was continue on Synthroid. For bipolar disorders continue on Depakote and Risperdal. For his GERD he was continued on PPI. Patient is feeling better will be [facility]. expected to require less than 30 days. Time Spent with Patient Time attestation: Total time managing care of this patient today ____ minutes. Discharge coordination time: Greater than 30 minutes Quality: Safe Use of Opioids Does Pt have an Active Cancer Diagnosis on the Problem List?: No Quality: Stroke Does the patient have a stroke diagnosis?: No Physical Exam Vital Signs: Vital Signs: Last Vital Signs Temp 96.2 F L 09/12/22 07:19 Pulse 91 09/12/22 07:19 Resp 18 09/12/22 07:19 BP 116/68 09/12/22 07:19 Pulse Ox 92 09/12/22 07:19 O2 Del Method 09/12/22 07:19 BMI result Body Mass Index 35.6 General: AO X 3, no acute distress Resp: CTA bilateral, no accessory muscles used CVS: S1,S2,RRR GI: soft, non tender, non distended Neuro: motor grossly intact, alert Psych: appropriate affect, appropriate insight 2+ bilateral LE edema with chornic skin changes left 2nd digit edema with much improved ROM, ertyhema DS: Data Data Completed and Pending Labs on day of discharge: Laboratory Results - last 24 hr 09/11/22 09/11/22 09/12/22 15:53 19:36 07:17 POC Glucose 240 H 276 H 141 H Preliminary micro results at discharge 09/09/22 18:32 Blood Culture - Preliminary Blood - Venous No growth after 48 hours. 09/09/22 18:32 Blood Culture - Preliminary Blood - Venous No growth after 48 hours. Discharge Plan Discharge Anticipated Discharge Date/Time: 09/12/22 11:21 Patient Disposition: Xfer SNF Discharge Diagnosis: gout flare, stasis dermatitis, celulitis [facility] - 1 Week Anatoly Palacios MD [Primary Care Provider] - 1 Week Discharge Medications: New prednisone 20 mg Tablet 40 mg PO DAILY Qty: 15 0RF Rx Instructions: 40mg daily for 5 days, then 20mg daily for 5 days furosemide [Lasix] 40 mg tablet 40 mg PO DAILY Qty: 30 0RF doxycycline hyclate 100 mg capsule 100 mg PO BID Qty: 10 0RF cephalexin 500 mg capsule 500 mg PO Q12H Qty: 10 0RF Continued levothyroxine 175 mcg tablet 175 mcg PO DAILY@0600 atorvastatin 20 mg tablet 20 mg PO BEDTIME ammonium lactate 12 % lotion 1 applic topical DAILY PRN (Reason: Dry Skin) risperidone 2 mg tablet 2 mg PO BEDTIME metformin 1,000 mg tablet 1,000 mg PO BID divalproex 500 mg tablet extended release 24 hr 1,500 mg PO BEDTIME omeprazole 20 mg capsule,delayed release(DR/EC) 20 mg PO DAILY@0630 ascorbic acid (vitamin C) [Vitamin C] 250 mg Tablet 250 mg PO DAILY cholecalciferol (vitamin D3) 25 mcg (1,000 unit) Tablet 25 mcg PO DAILY ferrous sulfate 324 mg (65 mg iron) Tablet,Delayed Release (Dr/Ec) 324 mg PO DAILY lisinopril 10 mg tablet 1 tab PO DAILY Discharge Orders: Discharge Order (Routine); Ordered 09/12/22 Ordered By: Kevin Andujar Diet: Low salt diet Activity on Discharge: As tolerated Stand Alone Forms: Patient Portal Discharge page Care Plan Goals: recovery Health Concerns: see above Plan of Treatment: prednisone taper, start maintance lasix, empiric 5 days antibiotics Assessment: see above
--- NOTE | 2022-09-12 11:51 | MHC.CM.PN ---
ANTIC PT TO BE MEDICALLY CLEARED TO RETURN TO [facility] AT 1:30PM
[2022-09-12 12:29] LABS: Glucose, Whole Blood 225 mg/dL (60-115)
[2022-09-12] MEDS: Insulin Lispro 100 UNIT/ML 3 ML VIAL SUBCUT (12:29)
== END 2022-09-12 14:30 | disposition skilled nursing facility (03) | DRG 553 ==
LOC: HO.ED 22:26 → HO.EDOVER 22:32 → HO.S3 09-10 02:12
PROVIDERS: Nurse Practitioner Family; Admitting Provider Internal Medicine; Emergency Provider Internal Medicine; PCP Internal Medicine; Visit Provider Internal Medicine
DX: M19.042 Primary osteoarthritis, left hand (principal); I50.33 Acute on chronic diastolic (congestive) heart failure; L03.114 Cellulitis of left upper limb; F31.9 Bipolar disorder, unspecified; K21.9 Gastro-esophageal reflux disease without esophagitis; E03.9 Hypothyroidism, unspecified; E66.9 Obesity, unspecified; E78.5 Hyperlipidemia, unspecified; E11.9 Type 2 diabetes mellitus without complications; I87.2 Venous insufficiency (chronic) (peripheral); Z20.822 Contact with and (suspected) exposure to COVID-19; Z68.35 Body mass index [BMI] 35.0-35.9, adult; Z79.82 Long term (current) use of aspirin; Z79.899 Other long term (current) drug therapy
CPT/HCPCS: 0241U; 36415; 71045; 80048; 80076; 81001; 82947; 83605; 83690; 83735; 83880; 84484; 85025; 85027; 85610; 85730; 86140; 87040; 87086; 93005; 93971; 99285; J0690; J0696; J1940; J2920; J3370

== ENCOUNTER 2022-12-04 23:45 | Inpatient (IN) | payer MEDICARE, SELFPAY ==
--- NOTE | ~2022-12-04 | NM_ITS ---
EXAMINATION: PULMONARY PERFUSION STUDY CLINICAL INFORMATION: Tachycardia, shortness of breath-unclear etiology. COMPARISON: No previous lung scan no previous lung scan is available for comparison. A radiographs of the chest dated 12/05/2022 is a most recent available for comparison. TECHNIQUE: Following the intravenous injection of 4.0 mCi Tc-99m MAA, the lungs were imaged in the anterior and posterior, left and right lateral and MARY, LUIS, LPO, and RPO projections using a gamma scintillation camera. FINDINGS: No segmental perfusion defects are present. There is homogeneous distribution of activity bilaterally. There are no focal anatomic appearing perfusion defects present. The cardiac silhouette is moderately dilated. NM/NM pul perfusion IMPRESSION: Very low probability of pulmonary embolism. Cardiomegaly.
--- NOTE | ~2022-12-04 | US_ITS ---
EXAMINATION: US VENOUS ULTRASOUND WITH DOPPLER LOWER EXTREMITY, BILATERAL CLINICAL INFORMATION: Shortness of breath, edema COMPARISON: 09/12/2022 TECHNIQUE: Ultrasound of the deep veins is performed from the hip to the calf with compression sonography and color and pulse Doppler assessment. Spectral analysis with color-flow imaging is performed. FINDINGS: RIGHT: There is normal venous compression and respiratory variation and augmented flow. The visualized common femoral vein, superficial femoral vein, profunda femoral vein, popliteal vein, and the trifurcation region shows no evidence of deep venous thrombosis. There is no significant popliteal fossa cyst. LEFT: There is normal venous compression and respiratory variation and augmented flow. The visualized common femoral vein, superficial femoral vein, profunda femoral vein, popliteal vein, and the trifurcation region shows no evidence of deep venous thrombosis. There is no significant popliteal fossa cyst. Diffuse soft tissue edema is evident in the right and left lower extremity subcutaneous tissues. US/US venous duplex LE BI IMPRESSION: 1. Diffuse bilateral lower extremity subcutaneous edema. 2. No evidence of deep vein thrombosis in the right or left femoral popliteal system.
--- NOTE | ~2022-12-04 | XR_ITS ---
EXAMINATION: XR CHEST CLINICAL INFORMATION: Shortness of breath. COMPARISON: 09/09/2022 TECHNIQUE: Frontal view of the chest was obtained. FINDINGS: The lungs are well expanded. Bronchial wall thickening. No dense consolidation. No edema or effusion. No pneumothorax. The cardiomediastinal silhouette remains prominent. XR/XR chest 1V IMPRESSION: No dense consolidation. Bronchial wall thickening can be seen with a small airways process such as asthma or atypical/viral infection.
[2022-12-04 23:48] VITALS: BP 136/80; PULSE 113; O2SAT 96; BMI 28.7
[2022-12-05] VITALS (7 sets, daily range): BP systolic 120–138; BP diastolic 72–90; PULSE 66–116; RESP 14–20; TEMP 36.4–37; O2SAT 86–98
--- NOTE | 2022-12-05 00:41 | PC.NURSE ---
Pt. sleeping in bed, no distress noted. Pt. is arousable to voice. Respirations are even and unlabored. Will continue to monitor.
--- OUTSIDE RECORDS SUMMARY | 2022-12-05 01:17 | XMS_ITS ---
:1945 Author Care Team Providers Name Role Phone EDITH ETIENNE MD Primary Care Provider [phone] Allergies Code Code System Name Reaction Severity Status Onset NKDA ? Medications Name Status Start Date Stop Date ? ? ammonium lactate 12 % lotion Active ? Not available atorvastatin 20 mg tablet Active ? Not av ailable divalproex ER 500 mg tablet,extended release 24 hr Active ? Not available doxycycline hyclate 100 mg tablet Completed ? 05/21/2022 TAKE 1 TABLET BY MOUTH TWICE A DAY FOR 7 DAYS furosemide 40 mg tablet Active ? Not avai lable levothyroxine 150 mcg tablet Active ? Not available lisinopril 10 mg tablet Active ? Not avai lable lisinopril 20 mg tablet Completed ? 05/27/20 22 metformin 1,000 mg tablet Active ? Not av ailable mupirocin 2 % topical ointment Active ? N ot available omeprazole 20 mg capsule,delayed release Active ? Not available risperidone 2 mg tablet Active ? Not avai lable Problems None recorded. Procedures Notes: bowel resection Results Lab Results None recorded. Past Encounters Encounter Date Diagnosis Provider 05/29/2022 Local Infection of Wound Ofeliachilo santacruz NP, S: [address], [place] [address], Ph. [address]/27/2022 Type 2 Diabetes Mellitus with Maria A parkinson [employer] APPRENTICE: [address] Peripheral Angiopathy; Multiple [address] , [place], [place] Wounds of Lower Leg; Noncompliance , Ph. [phone] with Medication Regimen; Essential Hypertension; Alcohol Abuse 05/21/2022 Bilateral Lower Limb Edema; Low Blood Ke jeanna Johnson PA: [address], Pressure; [place] [address], Ph. [phone] Social History Tobacco Smoking Status Never Smoker Vaccine List Notes: COVID x2, booster x 2 Plan of Care Patient Instructions Thank you for your visit with [facility] today. You were seen today for treatment of a wound. Please seek immediate medical attention if you develop increased pain, redness, or swelling of your wou nd. Also, you should be evaluated if the wound becomes warm to the touch, or if there is a cloudy, yellow-brown discharge from the wound. There is always the possibility of a hidden tendon injury or for eign object in the wound. If you have pr oblems moving your arm or leg, or if you see red streaks up the arm or leg, seek immediate medical attention. If you develop any new or worsening symp toms and need after hours care, please go to nearest ER and/or call 911. If you have additional concerns or develop a change in your condition between 8am-10pm, mumtaz nolan [facility] to help navigate your care. -You were seen today for bilateral lowe r extremity swelling and open wounds on right lower leg -You need to restart your lasix daily as ordered -Elevate legs in bed minimum 3-4 times a day for 15 minutes. -Decrease amount of salt and sugar intak e; decrease amount of daily alcohol to improve blood sugars and help with healing -We ordered mupirocin cream to be applie d topically to all open areas with dressing changes -We will return in 2 days for wound chec k/dressing change until [facility] can arrive for wound care -Call PCP for follow up 5-7 days, sooner if any increased redness, drainage, pain, fever continue daily dressing changes try to elevate your feet higher than you r heart to help decrease swelling try to wear some kind of compression sto cking/wrap to help with swelling Contact your primary care on Sunday Discuss blood pressure and blood pressur e medications Stop taking lisinopril 20mg. Your blood pressure is too low for this dose Repeat blood pressure in a week Follow up right away if not feeling well -shortness of breath, fatigue, dizziness, chest pain-these can be signs of low blood pressure discuss water pill with primary care. I do not recommend starting furosemide right now (your blood pressure is too low) discuss wound care again. Home wound car e would be great if available Reminders Provider Appointments None recorded. ? ? Lab None recorded. ? ? Referral None recorded. ? ? Procedures None recorded. ? ? Surgeries None recorded. ? ? Imaging None recorded. ? ? Vitals 05/27/2022 10:41AM D06 Established Patient Blood Pressure 108/62 mm[Hg] 05/21/2022 01:07PM D06 New Patient Blood Pressure (1) 106/64 mm[Hg] (2) 90/50 mm[Hg]
[2022-12-05 04:13] LABS: MANUAL DIFF FLAG NO
[2022-12-05 04:14] LABS: Basophils Percent Auto 0.6 % (0-2); Eosinophils Absolute Auto 0.1 X10*3/uL (0.0-0.4); Eosinophils Percent Auto 1.9 % (0-4); Hematocrit 35.3 % (42.0-52.0); Hemoglobin 10.9 g/dl (14.0-18.0); Imm Gran Abs Auto 0.04 X10*3/uL (0.00-0.03); Imm Gran Pct Auto 0.6 % (0.0-0.4); Lymphocytes Absolute Auto 1.5 X10*3/uL (1.2-4.9); Lymphocytes Percent Auto 22.9 % (20-40); Mean Corpuscular HGB Conc 30.9 g/dl (31.0-36.0); Mean Corpuscular Hemoglobin 25.6 pg (27.0-33.0); Mean Corpuscular Volume 83.1 fL (80.0-98.0); Mean Platelet Volume 8.2 fL (9.4-12.4); Monocytes Absolute Auto 0.8 X10*3/uL (0.1-1.2); Monocytes Percent Auto 11.5 % (2-11); Neutrophils Absolute Auto 4.2 x10*3/uL (2.0-8.3); Neutrophils Percent Auto 62.5 % (45-73); Platelet Count 184 X10*3/uL (160-400); Red Blood Count 4.25 X10*6/uL (4.60-5.80); Red Cell Distribution Width 19.4 % (11.0-16.0); White Blood Count 6.7 X10*3/uL (4.8-10.8)
[2022-12-05 04:32] LABS: Alanine Aminotransferase 24 U/L (0-40); Albumin Level 3.3 g/dL (3.5-5.0); Alkaline Phosphatase 62 U/L (39-117); Anion Gap 15 (12-20); Aspartate Amino Transferase 62 U/L (5-37); Bilirubin Total 0.7 mg/dL (0.0-1.0); Blood Urea Nitrogen 15 mg/dL (9-16); Calcium 8.6 mg/dL (8.4-10.2); Carbon Dioxide 30 mmol/L (22-29); Chloride 99 mmol/L (96-108); Creatinine Clr Calc Pharmacy 60.7; Estimated Glomerular Filt Rate 60; Ethanol < 10 mg/dL; Glucose Random 133 mg/dL (60-115); Sodium 140 mmol/L (135-145); Total Protein 5.6 g/dL (6.5-8.0)
--- NOTE | 2022-12-05 06:04 | ECG_ITS ---
Test Reason : DYSPNEA Blood Pressure : / mmHG Vent. Rate : 117 BPM Atrial Rate : 117 BPM P-R Int : 158 ms QRS Dur : 088 ms QT Int : 342 ms P-R-T Axes : 048 -49 026 degrees QTc Int : 477 ms Poor data quality Sinus tachycardia with Premature supraventricular complexes Left axis deviation Anterior infarct , age undetermined Abnormal ECG When compared with ECG of 09-SEP-2022 20:14, Poor data quality in current ECG precludes serial comparison Referred By: Tuan Hatfield Electronically Signed By:JESSICA YAP MD
--- NOTE | 2022-12-05 06:04 | ED.WEAKNESS ---
HPI - Weakness General Chief complaint: ETOH/Substance Use Stated complaint: ETOH USE,BLE SWELLING PER EMS Time Seen by Provider: 12/05/22 05:50 Source: patient Mode of arrival: EMS Limitations: no limitations History of Present Illness HPI Narrative: 77-year-old male who presents emergency department for evaluation of weakness and inability to walk. The patient states that yesterday afternoon he had gradual onset of weakness to his lower extremities to the point where he was no longer able to walk. He states that his lower extremities have become increasingly more swollen and there are no leaking fluid. He states that his lower extremities are always red but he believes the redness is worse and the leakage of fluid is also worse. The patient does admit to drinking alcohol. He states he drinks 3-4 beers per day his last drink was last night at 20:00 hours. Patient states he has had similar problems in the past and has been admitted for infections of his lower extremities. In reviewing the hospitalist notes, the patient was admitted on 09/09/2022 until 09/12/2022. Patient was treated for bilateral lower extremity edema with venous stasis and dermatitis with possible superimposed bacterial cellulitis and acute on chronic diastolic CHF. He was diuresed with IV Lasix, given IV Ancef, compression therapy with significant improvement will be discharged on empiric 5 days of doxycycline and Keflex. He denied fever, chills, rhinorrhea, sore throat, cough, chest pain. He states that he feels short of breath. He denied nausea, vomiting, diarrhea. He denied frequency, urgency or dysuria. Related Data Home Medications Medication Instructions Recorded Confirmed ammonium lactate 12 % lotion 1 applic topical DAILY PRN Dry Skin 08/22/22 09/09/22 ascorbic acid (vitamin C) 250 mg 250 mg PO DAILY 08/22/22 09/09/22 tablet (Vitamin C) atorvastatin 20 mg tablet 20 mg PO BEDTIME 08/22/22 09/09/22 cholecalciferol (vitamin D3) 25 25 mcg PO DAILY 08/22/22 09/09/22 mcg (1,000 unit) tablet divalproex 500 mg tablet,extended 1,500 mg PO BEDTIME 08/22/22 09/09/22 release 24 hr ferrous sulfate 324 mg (65 mg 324 mg PO DAILY 08/22/22 09/09/22 iron) tablet,delayed release levothyroxine 175 mcg tablet 175 mcg PO DAILY@0600 08/22/22 09/09/22 metformin 1,000 mg tablet 1,000 mg PO BID 08/22/22 09/09/22 omeprazole 20 mg capsule,delayed 20 mg PO DAILY@0630 08/22/22 09/09/22 release risperidone 2 mg tablet 2 mg PO BEDTIME 08/22/22 09/09/22 lisinopril 10 mg tablet 1 tab PO DAILY 09/10/22 09/10/22 Previous Rx's Medication Instructions Recorded cephalexin 500 mg capsule 500 mg PO Q12H #10 caps 09/12/22 doxycycline hyclate 100 mg capsule 100 mg PO BID #10 caps 09/12/22 furosemide 40 mg tablet (Lasix) 40 mg PO DAILY #30 tabs 09/12/22 prednisone 20 mg tablet 40 mg PO DAILY #15 tabs 09/12/22 Allergies Allergy/AdvReac Type Severity Reaction Status Date / Time No Known Allergies Allergy Verified 08/22/22 08:22 Review of Systems Review of Systems: Yes all other systems are reviewed and are negative [facility] Past Medical History [facility] Narrative: Social history: The patient denies tobacco use. He states that he drinks 3-4 beers per day with his last drink being at 20:00 last night. Denies drug use. Medical History Bipolar 1 disorder Diabetes mellitus type II, non insulin dependent GERD (gastroesophageal reflux disease) HLD (hyperlipidemia) HTN (hypertension) Tardive dyskinesia Family History Family History Father Diabetes Maternal Grandmother Heart problem Social History Social History Household Members: None Housing: Apartment Do you presently have visiting nurse or other home services: Yes Alcohol intake: current Alcohol intake frequency: 0-2 drinks per day Patient Tobacco Use Status: Never used Tobacco Smoked in Last 30 Days: No e-Cigarette/Vaping Use: Never Used Use of substances other than those prescribed or required for medical reasons: No Advance Directives: Yes Advance Directives on File: Yes Advance Directives Date on File: 08/25/22 service: No Current occupational status: retired Physical Exam Vital Signs: Vital Signs: Last Vital Signs Temp 98.4 F 12/05/22 07:40 Pulse 114 H 12/05/22 07:40 Resp 14 12/05/22 07:40 BP 129/81 12/05/22 07:40 Pulse Ox 92 12/05/22 07:40 O2 Del Method 12/05/22 07:40 BMI result Body Mass Index 28.7 Const: Other: Elderly male patient, he is disheveled, his clothes are on clean and it looks like he has his socks for multiple days in a row. He is awake and alert and able to answer questions without difficulty. HEENT: Head: Yes normal to inspection, Yes normocephalic and Yes atraumatic Ears: external ears normal General nose exam: Normal external nose present Face and sinus: Yes normal facial exam Mouth: Normal oral and palatal mucosa present Throat: Yes posterior oropharynx normal Eyes: General: appearance normal, both eyes and all related structures Pupils: Equal, round and reactive pupils present Neck: Neck: Yes normal visual inspection, Yes no lymphadenopathy, Yes trachea midline and Yes supple Chest: Chest palpation & inspection: normal inspection of the chest and normal palpation of entire chest wall Resp: Effort & Inspection: normal respiratory effort and able to speak in complete sentences Auscultation: clear to auscultation bilaterally Cardio: Rate: regular rate Rhythm: regular rhythm Heart sounds: S1 normal heart sound present, S2 normal heart sound present and no murmurs GI: Inspection: Yes normal to inspection and Yes obesity Palpation (GI): Soft to palpation, nontender and no guarding Auscultation: normal bowel sounds : General: Yes no CVA tenderness Back/Spine/Pelvis: Back: no CVA tenderness Skin: General skin exam: no rashes or lesions noted Neuro: Cranial nerves: Yes CN's II-XII intact bilaterally and Yes Equal, round and reactive pupils present Cognition (Neuro): normal cognition Extrem: Other: Patient's lower extremity have 1+ pitting edema which is bilaterally symmetric, he has erythema from his knees down to his feet Psych: Appearance: grossly normal Speech and movement: Normal speech and movement present Affect: normal affect Attitude: cooperative Medications Administered Discontinued Medications Generic Name Dose Route Start Last Admin Trade Name Freq PRN Reason Stop Dose Admin Furosemide 60 mg 12/05/22 06:11 12/05/22 06:46 Furosemide 100 Mg/10 Ml Vial IVPUSH 12/05/22 06:12 60 mg ONCE ONE Administration Protocol Cefazolin Sodium 2 gm/ Sodium 50 mls @ 100 mls/hr 12/05/22 06:04 12/05/22 06:40 Chloride IV 12/05/22 06:33 100 mls/hr ONCE ONE Administration Medical Decision Making Medical Decision Making [facility] Narrative: 77-year-old male who presents emergency department for evaluation of unable to walk and increased swelling with weeping wounds to his lower extremities. Patient states that the symptoms started yesterday morning and got progressively worse. Patient has had similar presentations in the past and was admitted in August 2022 and treated with diuretics and IV antibiotics. Paramedics felt the patient was intoxicated however patient's alcohol level was below detectable limits. CBC, CMP, BNP, CRP, ESR, PT/INR, PTT, urinalysis, ethanol level. Patient was ordered to get Lasix 60 mg IV and Ancef 2 g IV. 0836: My interpretation of patient's laboratory evaluation is as follows: WBC normal 6700. Anemia H&H 10.9 and 35.3-chronic. Coags normal. Bicarb elevated 30. Glucose elevated 133. Lactic acid normal 1.4. BNP elevated 140. CRP elevated 6.8. ESR elevated 22. Urinalysis negative. ETOH below the legal limit. COVID-19, influenza and RSV were negative. Patient's labs are consistent the patient being fluid overloaded and cellulitis of his lower extremities. I will discuss admission with the covering hospitalist. Differential Diagnosis Differential diagnosis includes but is not limited to cellulitis, peripheral edema secondary to fluid overload, electrolyte abnormality, alcohol intoxication Consult Healthcare Provider Management of the patient was discussed with: Hospitalist (Kourtney Santos) Lab Data [facility] Lab Attestation statement: I reviewed the patient's lab results. Please see [facility] for my discussion 12/05/22 04:08 12/05/22 04:08 Labs: Lab Results 12/05/22 12/05/22 12/05/22 Range/Units 04:08 04:08 06:29 WBC 6.7 (4.8-10.8) X10*3/uL RBC 4.25 L (4.60-5.80) X10*6/uL Hgb 10.9 L (14.0-18.0) g/dl Hct 35.3 L (42.0-52.0) % MCV 83.1 (80.0-98.0) fL MCH 25.6 L (27.0-33.0) pg MCHC 30.9 L (31.0-36.0) g/dl RDW 19.4 H (11.0-16.0) % Plt Count 184 (160-400) X10*3/uL MPV 8.2 L (9.4-12.4) fL Immature Gran % (Auto) 0.6 H (0.0-0.4) % Neut % (Auto) 62.5 (45-73) % Lymph % (Auto) 22.9 (20-40) % [place] % (Auto) 11.5 H (2-11) % Eos % (Auto) 1.9 (0-4) % Baso % (Auto) 0.6 (0-2) % Lymph # (Auto) 1.5 (1.2-4.9) X10*3/uL [place] # (Auto) 0.8 (0.1-1.2) X10*3/uL Eos # (Auto) 0.1 (0.0-0.4) X10*3/uL Baso # (Auto) 0.0 (0.0-0.2) X10*3/uL Abs Immat Gran (auto) 0.04 H (0.00-0.03) X10*3/uL Absolute Neuts (auto) 4.2 (2.0-8.3) x10*3/uL Absolute Nucleated RBC 0.000 (0.0-0.012) X10*3/uL Nucleated RBC % (auto) 0.0 (0.0-0.2) /100WBC ESR 22 H (0-15) MM/HR PT (10.0-13.1) SEC INR (0.9-1.1) APTT (26.0-36.4) SEC Sodium 140 (135-145) mmol/L Potassium 4.0 (3.3-5.1) mmol/L Chloride 99 (96-108) mmol/L Carbon Dioxide 30 H (22-29) mmol/L Anion Gap 15 (12-20) BUN 15 (9-16) mg/dL Creatinine 1.19 (0.5-1.4) mg/dL Estim Creat Clear Calc 60.7 Estimated GFR 60 POC Glucose (60-115) mg/dL Random Glucose 133 H (60-115) mg/dL Lactic Acid (0.5-2.0) mmol/L Calcium 8.6 (8.4-10.2) mg/dL Total Bilirubin 0.7 (0.0-1.0) mg/dL AST 62 H (5-37) U/L ALT 24 (0-40) U/L Alkaline Phosphatase 62 (39-117) U/L C-Reactive Protein (< or = 0.50) mg/dL B-Natriuretic Peptide (<100) pg/mL Total Protein 5.6 L (6.5-8.0) g/dL Albumin 3.3 L (3.5-5.0) g/dL Urine Color Urine Appearance Urine pH (5.0-9.0) Ur Specific [place] (1.005-1.025) Urine Protein (Neg-Trace) mg/dL Urine Glucose (UA) (Negative) mg/dL Urine Ketones (Negative) mg/dL Urine Blood (Negative) Urine Nitrite (Negative) Ur Leukocyte Esterase (Negative) Ethyl Alcohol < 10 mg/dL 12/05/22 12/05/22 12/05/22 Range/Units 06:29 06:29 06:29 WBC (4.8-10.8) X10*3/uL RBC (4.60-5.80) X10*6/uL Hgb (14.0-18.0) g/dl Hct (42.0-52.0) % MCV (80.0-98.0) fL MCH (27.0-33.0) pg MCHC (31.0-36.0) g/dl RDW (11.0-16.0) % Plt Count (160-400) X10*3/uL MPV (9.4-12.4) fL Immature Gran % (Auto) (0.0-0.4) % Neut % (Auto) (45-73) % Lymph % (Auto) (20-40) % [place] % (Auto) (2-11) % Eos % (Auto) (0-4) % Baso % (Auto) (0-2) % Lymph # (Auto) (1.2-4.9) X10*3/uL [place] # (Auto) (0.1-1.2) X10*3/uL Eos # (Auto) (0.0-0.4) X10*3/uL Baso # (Auto) (0.0-0.2) X10*3/uL Abs Immat Gran (auto) (0.00-0.03) X10*3/uL Absolute Neuts (auto) (2.0-8.3) x10*3/uL Absolute Nucleated RBC (0.0-0.012) X10*3/uL Nucleated RBC % (auto) (0.0-0.2) /100WBC ESR (0-15) MM/HR PT 10.8 (10.0-13.1) SEC INR 0.9 (0.9-1.1) APTT 27.9 (26.0-36.4) SEC Sodium (135-145) mmol/L Potassium (3.3-5.1) mmol/L Chloride (96-108) mmol/L Carbon Dioxide (22-29) mmol/L Anion Gap (12-20) BUN (9-16) mg/dL Creatinine (0.5-1.4) mg/dL Estim Creat Clear Calc Estimated GFR POC Glucose (60-115) mg/dL Random Glucose (60-115) mg/dL Lactic Acid 1.4 (0.5-2.0) mmol/L Calcium (8.4-10.2) mg/dL Total Bilirubin (0.0-1.0) mg/dL AST (5-37) U/L ALT (0-40) U/L Alkaline Phosphatase (39-117) U/L C-Reactive Protein 6.80 H (< or = 0.50) mg/dL B-Natriuretic Peptide (<100) pg/mL Total Protein (6.5-8.0) g/dL Albumin (3.5-5.0) g/dL Urine Color Urine Appearance Urine pH (5.0-9.0) Ur Specific [place] (1.005-1.025) Urine Protein (Neg-Trace) mg/dL Urine Glucose (UA) (Negative) mg/dL Urine Ketones (Negative) mg/dL Urine Blood (Negative) Urine Nitrite (Negative) Ur Leukocyte Esterase (Negative) Ethyl Alcohol mg/dL 12/05/22 12/05/22 12/05/22 Range/Units 06:29 07:44 07:51 WBC (4.8-10.8) X10*3/uL RBC (4.60-5.80) X10*6/uL Hgb (14.0-18.0) g/dl Hct (42.0-52.0) % MCV (80.0-98.0) fL MCH (27.0-33.0) pg MCHC (31.0-36.0) g/dl RDW (11.0-16.0) % Plt Count (160-400) X10*3/uL MPV (9.4-12.4) fL Immature Gran % (Auto) (0.0-0.4) % Neut % (Auto) (45-73) % Lymph % (Auto) (20-40) % [place] % (Auto) (2-11) % Eos % (Auto) (0-4) % Baso % (Auto) (0-2) % Lymph # (Auto) (1.2-4.9) X10*3/uL [place] # (Auto) (0.1-1.2) X10*3/uL Eos # (Auto) (0.0-0.4) X10*3/uL Baso # (Auto) (0.0-0.2) X10*3/uL Abs Immat Gran (auto) (0.00-0.03) X10*3/uL Absolute Neuts (auto) (2.0-8.3) x10*3/uL Absolute Nucleated RBC (0.0-0.012) X10*3/uL Nucleated RBC % (auto) (0.0-0.2) /100WBC ESR (0-15) MM/HR PT (10.0-13.1) SEC INR (0.9-1.1) APTT (26.0-36.4) SEC Sodium (135-145) mmol/L Potassium (3.3-5.1) mmol/L Chloride (96-108) mmol/L Carbon Dioxide (22-29) mmol/L Anion Gap (12-20) BUN (9-16) mg/dL Creatinine (0.5-1.4) mg/dL Estim Creat Clear Calc Estimated GFR POC Glucose 143 H (60-115) mg/dL Random Glucose (60-115) mg/dL Lactic Acid (0.5-2.0) mmol/L Calcium (8.4-10.2) mg/dL Total Bilirubin (0.0-1.0) mg/dL AST (5-37) U/L ALT (0-40) U/L Alkaline Phosphatase (39-117) U/L C-Reactive Protein (< or = 0.50) mg/dL B-Natriuretic Peptide 140 H (<100) pg/mL Total Protein (6.5-8.0) g/dL Albumin (3.5-5.0) g/dL Urine Color Yellow Urine Appearance Clear Urine pH 5.5 (5.0-9.0) Ur Specific [place] 1.010 (1.005-1.025) Urine Protein Negative (Neg-Trace) mg/dL Urine Glucose (UA) Negative (Negative) mg/dL Urine Ketones Trace (Negative) mg/dL Urine Blood Negative (Negative) Urine Nitrite Negative (Negative) Ur Leukocyte Esterase Negative (Negative) Ethyl Alcohol mg/dL Independent Interpretation I performed an independent interpretation of an: EKG Interpretation: My independent interpretation patient's 12 EKG done at 06:24 hours is as follows: Sinus tachycardia with rate of 117, normal [place] interval, QRS duration, prolonged QTC interval of 477 milliseconds, wandering baseline in the for and the 5 making it difficult to interpret, no ST segment elevation, no ST segment depression, no PACs, no PVCs My independent interpretation patient's chest x-ray is as follows: No acute disease Radiology Impression Discussion of test interpretation with radiology: I have reviewed the radiologist's reading. Radiologist Impression: Chest x-ray one view IMPRESSION: No dense consolidation. Bronchial wall thickening can be seen with a small airways process such as asthma or atypical/viral infection. Dictated By:Sher Su MDSigned By:<Electronically signed by Sher Su MD in [place]>12/05/22 0618 External Record Review External record reviewed: Inpatient record Chronic Conditions Patient?s care impacted by: Diabetes Discharge Plan Discharge Patient Disposition: Admitted As Inpatient Prescriptions: No Action levothyroxine 175 mcg tablet 175 mcg PO DAILY@0600 atorvastatin 20 mg tablet 20 mg PO BEDTIME ammonium lactate 12 % lotion 1 applic topical DAILY PRN (Reason: Dry Skin) risperidone 2 mg tablet 2 mg PO BEDTIME metformin 1,000 mg tablet 1,000 mg PO BID divalproex 500 mg tablet extended release 24 hr 1,500 mg PO BEDTIME omeprazole 20 mg capsule,delayed release(DR/EC) 20 mg PO DAILY@0630 ascorbic acid (vitamin C) [Vitamin C] 250 mg Tablet 250 mg PO DAILY cholecalciferol (vitamin D3) 25 mcg (1,000 unit) Tablet 25 mcg PO DAILY ferrous sulfate 324 mg (65 mg iron) Tablet,Delayed Release (Dr/Ec) 324 mg PO DAILY lisinopril 10 mg tablet 1 tab PO DAILY prednisone 20 mg Tablet 40 mg PO DAILY Qty: 15 0RF Rx Instructions: 40mg daily for 5 days, then 20mg daily for 5 days furosemide [Lasix] 40 mg tablet 40 mg PO DAILY Qty: 30 0RF doxycycline hyclate 100 mg capsule 100 mg PO BID Qty: 10 0RF cephalexin 500 mg capsule 500 mg PO Q12H Qty: 10 0RF Interventions: [place]-Suicide Risk Severity Scale Last Done: 12/05/22 07:50
[2022-12-05] MEDS: Furosemide 100 MG/10 ML VIAL 60 MG IVPUSH (06:46)
[2022-12-05 06:48] LABS: Lactic Acid 1.4 mmol/L (0.5-2.0)
[2022-12-05 06:51] LABS: INTERNATIONAL NORM RATIO 0.9 (0.9-1.1); Prothrombin Time 10.8 SEC (10.0-13.1)
[2022-12-05 06:53] LABS: Partial Thromboplastin Time 27.9 SEC (26.0-36.4)
[2022-12-05 07:00] LABS: B Type Natriuretic Peptide 140 pg/mL (<100)
--- NOTE | 2022-12-05 07:02 | PC.NURSE ---
pt alert and oriented, skin pwd, respirations even but slightly labored, ls clear, sating at 94% on room air. pt bilateral lower extremities reddish/swollen/scaly/weeping. pt does report drinking daily some beers and wine, last drink was yesterday, no visible tremor at this time, denies pain/nausea is slightly tachy on the monitor about 113.
--- NOTE | 2022-12-05 07:08 | PC.NURSE ---
Late entry: Pt's lab came back and pt. not intoxicated initially reported. Pt. has redness in lower extremities. IV line placed, labs drawn and medicated per NOV. EKG completed and pt. on phototypesetting equipment monitor.
[2022-12-05 07:25] LABS: Erythrocyte Sedimentation Rate 22 MM/HR (0-15)
[2022-12-05 07:57] LABS: Glucose, Whole Blood 143 mg/dL (60-115)
[2022-12-05 08:01] LABS: Appearance Urine Clear; Color Urine Yellow; Glucose Urine UA Negative (Negative); Leukocyte Esterase Urine Negative (Negative); Nitrite Urine Negative (Negative); PH 5.5 (5.0-9.0); Urine Blood Negative (Negative); Urine Ketones Trace mg/dL (Negative); Urine Protein Negative (Neg-Trace)
--- NOTE | 2022-12-05 09:02 | PC.NURSE ---
pt's oxygen level dropped down to 86% on room air, pt put on nasal naccual at 2l and now satting at 98%
--- NOTE | 2022-12-05 09:43 | P.HPHOSP_ITS ---
History of Present Illness Date of Service: 12/05/22 Chief Complaint: weakness and cellulitis of the legs 77-year-old male with a medical history of bipolar disorder, diabetes, GERD, hyperlipidemia, hypertension, chronic lower extremities venous stasis, and recurent cellulitis of the lower extremities presented today with weakness since the day before and is progressively worsening until patient was unable to walk, even with a walker. Additionally, the lower extremities have been swollen, with increased erythema ), and are weeping fluid. BNP level is 140, CRP was elevated at 6.8, and ESR was elevated at 22. He admits to drinking up to 4 beers daily, alcohol level was normal and he has no sings of symptoms of alchol withdrawal. This is 3rd admission since August for similar presenation. ED treatment = Lasix 60 mg IV and Ancef 2 g IV was administered. There is no fever or chills Review of Systems Review of Systems: Gen: no fever Resp: no sob, no cough CV: no chest, no HYDE, no leg edema GI: No n/v, no abd pain Neuro: No confusion skin--redness of both [facility] Medical History Bipolar 1 disorder Diabetes mellitus type II, non insulin dependent GERD (gastroesophageal reflux disease) HLD (hyperlipidemia) HTN (hypertension) Tardive dyskinesia Family History Father Diabetes Maternal Grandmother Heart problem Social History Household Members: None Housing: Apartment Do you presently have visiting nurse or other home services: Yes Alcohol intake: current Alcohol intake frequency: 0-2 drinks per day Patient Tobacco Use Status: Never used Tobacco Smoked in Last 30 Days: No e-Cigarette/Vaping Use: Never Used Use of substances other than those prescribed or required for medical reasons: No Advance Directives: Yes Advance Directives on File: Yes Advance Directives Date on File: 08/25/22 service: No Current occupational status: retired Meds Allergies Allergy/AdvReac Type Severity Reaction Status Date / Time No Known Allergies Allergy Verified 08/22/22 08:22 Active Medications: Current Medications Pharmacy Consult (Consult Rx Perform Med Rec) 1 each MISCELLANE ONCE PRN PRN Reason: Consult order Home Medications Medication Instructions Recorded Confirmed Last Taken Type ascorbic acid (vitamin C) 250 mg 250 mg PO DAILY 08/22/22 12/05/22 12/04/22 History tablet (Vitamin C) atorvastatin 20 mg tablet 20 mg PO BEDTIME 08/22/22 12/05/22 12/04/22 History cholecalciferol (vitamin D3) 25 25 mcg PO DAILY 08/22/22 12/05/22 12/04/22 History mcg (1,000 unit) tablet divalproex 500 mg tablet,extended 1,500 mg PO BEDTIME 08/22/22 12/05/22 12/04/22 History release 24 hr ferrous sulfate 324 mg (65 mg 324 mg PO DAILY 08/22/22 12/05/22 12/04/22 History iron) tablet,delayed release levothyroxine 175 mcg tablet 175 mcg PO DAILY@0600 08/22/22 12/05/22 12/04/22 History metformin 1,000 mg tablet 1,000 mg PO BID 08/22/22 12/05/22 12/04/22 History omeprazole 20 mg capsule,delayed 20 mg PO DAILY@0630 08/22/22 12/05/22 12/04/22 History release risperidone 2 mg tablet 2 mg PO BEDTIME 08/22/22 12/05/22 12/04/22 History Physical Exam Vital Signs and Narrative: Vital Signs: Last Vital Signs Temp 98.4 F 12/05/22 07:40 Pulse 114 H 12/05/22 07:40 Resp 14 12/05/22 07:40 BP 129/81 12/05/22 07:40 Pulse Ox 86 L 12/05/22 09:01 O2 Del Method 12/05/22 09:01 BMI result Body Mass Index 28.7 Const: Other: Constitutional:?Alert, in no acute distress. Mental Status:?Oriented to person, place and time. Eyes:?Pupils are equal, round, and reactive to light. Ear, Nose, and Throat:?Oropharynx clear, mucous membranes moist. Ears and nose without deformities. Trachea midline. Respiratory:?Bilateral diffuse rales noted. Cardiovascular:?S1, S2 regular. No murmurs, rubs, or gallops. Gastrointestinal:?Abdomen soft, non-tender, non-distended. Normal bowel sounds. Possible reducible, nontender umbilical hernia noted with palpation. Neurologic:?Cranial nerves II-XI are grossly intact. NO focal neurological deficits. Moves all extremities spontaneously. Skin: Extremities:?Diffuse erythema of lower legs bilaterally, right worse than left. Bilateral 2+ pitting edema. Psychiatric:?Normal mood and affect. Results Labs 12/05/22 04:08 12/05/22 04:08 Labs: Laboratory Results - last 24 hr 12/05/22 12/05/22 12/05/22 04:08 04:08 06:29 MCV 83.1 MCH 25.6 L MCHC 30.9 L RDW 19.4 H Plt Count 184 MPV 8.2 L Immature Gran % (Auto) 0.6 H Neut % (Auto) 62.5 Lymph % (Auto) 22.9 [place] % (Auto) 11.5 H Eos % (Auto) 1.9 Baso % (Auto) 0.6 Lymph # (Auto) 1.5 [place] # (Auto) 0.8 Eos # (Auto) 0.1 Baso # (Auto) 0.0 Abs Immat Gran (auto) 0.04 H Absolute Neuts (auto) 4.2 Absolute Nucleated RBC 0.000 Nucleated RBC % (auto) 0.0 ESR 22 H PT INR APTT Anion Gap 15 Estim Creat Clear Calc 60.7 Estimated GFR 60 POC Glucose Random Glucose 133 H Lactic Acid Calcium 8.6 Total Bilirubin 0.7 AST 62 H ALT 24 Alkaline Phosphatase 62 C-Reactive Protein B-Natriuretic Peptide Total Protein 5.6 L Albumin 3.3 L Urine Color Urine Appearance Urine pH Ur Specific [place] Urine Protein Urine Glucose (UA) Urine Ketones Urine Blood Urine Nitrite Ur Leukocyte Esterase Ethyl Alcohol < 10 12/05/22 12/05/22 12/05/22 06:29 06:29 06:29 MCV MCH MCHC RDW Plt Count MPV Immature Gran % (Auto) Neut % (Auto) Lymph % (Auto) [place] % (Auto) Eos % (Auto) Baso % (Auto) Lymph # (Auto) [place] # (Auto) Eos # (Auto) Baso # (Auto) Abs Immat Gran (auto) Absolute Neuts (auto) Absolute Nucleated RBC Nucleated RBC % (auto) ESR PT 10.8 INR 0.9 APTT 27.9 Anion Gap Estim Creat Clear Calc Estimated GFR POC Glucose Random Glucose Lactic Acid 1.4 Calcium Total Bilirubin AST ALT Alkaline Phosphatase C-Reactive Protein 6.80 H B-Natriuretic Peptide Total Protein Albumin Urine Color Urine Appearance Urine pH Ur Specific [place] Urine Protein Urine Glucose (UA) Urine Ketones Urine Blood Urine Nitrite Ur Leukocyte Esterase Ethyl Alcohol 12/05/22 12/05/22 12/05/22 06:29 07:44 07:51 MCV MCH MCHC RDW Plt Count MPV Immature Gran % (Auto) Neut % (Auto) Lymph % (Auto) [place] % (Auto) Eos % (Auto) Baso % (Auto) Lymph # (Auto) [place] # (Auto) Eos # (Auto) Baso # (Auto) Abs Immat Gran (auto) Absolute Neuts (auto) Absolute Nucleated RBC Nucleated RBC % (auto) ESR PT INR APTT Anion Gap Estim Creat Clear Calc Estimated GFR POC Glucose 143 H Random Glucose Lactic Acid Calcium Total Bilirubin AST ALT Alkaline Phosphatase C-Reactive Protein B-Natriuretic Peptide 140 H Total Protein Albumin Urine Color Yellow Urine Appearance Clear Urine pH 5.5 Ur Specific [place] 1.010 Urine Protein Negative Urine Glucose (UA) Negative Urine Ketones Trace Urine Blood Negative Urine Nitrite Negative Ur Leukocyte Esterase Negative Ethyl Alcohol Imaging Radiologist's Impressions: Impressions Chest X-Ray 12/05/22 06:14 IMPRESSION: No dense consolidation. Bronchial wall thickening can be seen with a small airways process such as asthma or atypical/viral infection. Assessment and Plan (1) Bilateral cellulitis of lower leg: Status: Acute (2) Cellulitis: Status: Acute (3) Fluid overload: Status: Acute (4) Edema, peripheral: Status: Acute Plan 77-year-old male with a PMH significant for bipolar disorder, DM2, hypothyroidism, HLD, HTN, GERD, and tardive dyskenisia who presents to the ED today with bilateral lower leg pain. In ED pt was noted to have significant bilateral erythema and warmth of his lower legs and toes. He will be admitted for treatment of cellulitis and further workup. # chronic venous stasis with superimposed cellulitis of the legs -Got Ancef in ED, will continue on IV Doxy (had good result with it last time - prednisone 20mg PO daily for possible inflammatory response (elevated CRP, sed) # hypothyroidsim--Levothyroxine # bilateral edema--Not due to heart failure, d/t chronic venous stasis,Lasix PO # non-insulin diabetes -continue metformin, SSI # HLD - continue home meds #HTN - continue home meds # bipolar disorde-- continue home meds # GERD - continue home meds DVT Prophylaxis: Lovenox Due to need for IV antibiotics to treat cellulitis, pt will require a hospital stay of at least 2 nights. Time Spent With Patient Time: Total time managing care of this patient today ____ minutes. Quality Stroke Does the patient have a stroke diagnosis?: No VTE Prior VTE?: No VTE Risk Level:: Medical - moderate - high VTE Device Contraindication: Procedure Contraindicated VTE Drug Contraindication: N/A - Med Ordered
[2022-12-05 10:22] LABS: COVID-19 Test Negative (Negative); IDNOW Serial# BCCEAD1C
--- NOTE | 2022-12-05 10:29 | PHA.MEDREC ---
Pharmacy Consult ? Medication Reconciliation Pharmacy has completed the medication reconciliation. Patient reports that he is still taking lasix even though claim history last report it being fill 01/2022. Patient also reported he is no longer on lisinopril because it BP is good. Tessie Jimenes, PharmD
[2022-12-05 10:35] LABS: IDNOW Serial# 55D5AD1C; Influenza A Negative (Negative); Influenza B2 Negative (Negative)
[2022-12-05] MEDS: Enoxaparin Sodium 40 MG/0.4 ML SYRINGE SUBCUT (11:12)
[2022-12-05] MEDS: predniSONE 20 MG TABLET PO (11:12)
[2022-12-05] MEDS: Doxycycline Hyclate 100 MG in 0.9 % Sodium Chloride 250 ML 166.67 MG IV (13:23)
--- NOTE | 2022-12-05 16:43 | MHC.CM.PN ---
CM attempted to meet with patient, but patient was sleeping soundly, snoring. Will assess for discharge planning when patient wakes. CM will follow.
--- NOTE | 2022-12-05 18:08 | MHC.CM.PN ---
Addendum entered by Dimple Chan 12/05/22 18:59: PASSR level 1 negative. Screened out. Uploaded into Care Port. Original Note: IMM 12/05. CM met with admitted patient with bed 352 pending. A&Ox4. Lives alone. Uses a walker. [facility] and [facility]. States he is comfortable at home and has enough help. HCP on file. HCP/son Medardo Rivera ([phone]). Pt is fully vax with Pfizer and Moderna. Bival 06/04/22. Pt has been unable to ambulate with walker due to leg swelling. D/C plan: home vs STR. Will need PT. Pt agreeable if recommended. [facility] is [facility]. Agreeable to local referrals. [facility] Referrals placed in Care Port. If pt goes home, son will provide transport. CM will follow for discharge planning.
--- NOTE | 2022-12-05 18:14 | PC.NURSE ---
report given to med/otolaryngology surgeon
[2022-12-05] MEDS: 0.9 % Sodium Chloride Flush 3 ML SYRINGE IVFLUSH (19:25)
[2022-12-05 23:08] LABS: Glucose, Whole Blood 265 mg/dL (60-115)
[2022-12-06] MEDS: Doxycycline Hyclate 100 MG in 0.9 % Sodium Chloride 250 ML 166.67 MG IV ×2 (00:17→12:17)
[2022-12-06 03:20] VITALS: BP 139/76; PULSE 102; RESP 16; TEMP 36.1; O2SAT 98
[2022-12-06 07:06] VITALS: BP 143/90; PULSE 101; RESP 18; TEMP 36.6; O2SAT 100
[2022-12-06 07:54] LABS: Glucose, Whole Blood 142 mg/dL (60-115)
[2022-12-06] MEDS: predniSONE 20 MG TABLET PO (08:58)
[2022-12-06] MEDS: 0.9 % Sodium Chloride Flush 3 ML SYRINGE IVFLUSH ×3 (08:59→21:37)
[2022-12-06 11:12] LABS: Glucose, Whole Blood 218 mg/dL (60-115)
[2022-12-06] MEDS: Enoxaparin Sodium 40 MG/0.4 ML SYRINGE SUBCUT (12:17)
--- NOTE | 2022-12-06 13:26 | HO.PM.IMPN ---
Subjective Subjective Date of Service: 12/06/22 Interval History: cellulitis of the legs Review of Systems dry ch chnages on legs and mild redness no fevers Physical Exam Vital Signs: Vital Signs: Last Vital Signs Temp 98 F 12/06/22 07:06 Pulse 101 H 12/06/22 07:06 Resp 18 12/06/22 07:06 BP 143/90 H 12/06/22 07:06 Pulse Ox 100 12/06/22 07:06 O2 Del Method 12/06/22 07:06 O2 Flow Rate 2 12/06/22 07:06 BMI result Body Mass Index 28.7 Appearance: Alert.? Oriented X3.? not in distress.? cvs: rrr, [id number] , no murmur res: clear to auscultation ,no rhonchii or wheezing abd: no rebound or guarding ,nt, bs present. ext pulses present ,mild redness , no dscharge ,ch changes. neuro: axo3 , nonfocal. Objective Data Active Medications Acetaminophen (Acetaminophen 325 Mg Tablet) 650 mg PO Q6H PRN PRN Reason: Pain, Mild (Pain Scale 1-3) Enoxaparin Sodium (Enoxaparin Sodium 40 Mg/0.4 Ml Syringe) 40 mg SUBCUT Q24H [facility] Last Admin: 12/06/22 12:17 Dose: 40 mg Documented By: MAICOL Doxycycline Hyclate 100 mg/ (Sodium Chloride) 250 mls @ 166.67 mls/hr IV Q12H [facility] Last Admin: 12/06/22 12:17 Dose: 166.67 mls/hr Documented By: MAICOL Morphine Sulfate (Morphine Sulfate 2 Mg/Ml Cartridge) 2 mg IVPUSH Q6H PRN; Protocol PRN Reason: Pain, Severe (Pain Scale 7-10) Pharmacy Consult (Consult Rx Perform Med Rec) 1 each MISCELLANE ONCE PRN PRN Reason: Consult order Prednisone (Prednisone 20 Mg Tablet) 20 mg PO DAILY [facility] Last Admin: 12/06/22 08:58 Dose: 20 mg Documented By: MAICOL Sodium Chloride (0.9 % Sodium Chloride Flush 3 Ml Syringe) 3 ml IVFLUSH QSHIFT [facility] Last Admin: 12/06/22 08:59 Dose: 3 ml Documented By: MAICOL Labs 12/05/22 04:08 12/05/22 04:08 Labs: Laboratory Results - last 24 hr 12/05/22 12/06/22 12/06/22 22:39 07:51 11:08 POC Glucose 265 H 142 H 218 H Microbiology Microbiology Results: Microbiology 12/05/22 06:29 Blood Culture - Preliminary Blood - Venous No growth after 24 hours. 12/05/22 06:29 Blood Culture - Preliminary Blood - Venous No growth after 24 hours. Assessment and Plan (1) Edema, peripheral: Status: Acute (2) Bilateral cellulitis of lower leg: Status: Acute Plan 77-year-old male with a PMH significant for bipolar disorder, DM2, hypothyroidism, HLD, HTN, GERD, and tardive dyskenisia who presents to the ED today with bilateral lower leg pain. In ED pt was noted to have significant bilateral erythema and warmth of his lower legs and toes. He will be admitted for treatment of cellulitis and further workup. chronic venous stasis with superimposed cellulitis of the legs -Got Ancef in ED, will continue on IV Doxy (had good result with it last time - prednisone 20mg PO daily for possible inflammatory response (elevated CRP, sed) Id eval hypothyroidsim--Levothyroxine bilateral edema--Not due to heart failure, d/t chronic venous stasis,Lasix PO non-insulin diabetes-continue metformin, SSI HLD? - continue home meds HTN - continue home meds bipolar disorde-- continue home meds GERD - continue home meds PT eval for generalised weakness. DVT Prophylaxis: Lovenox inpatient need : IV antibiotics to treat cellulitis, Id eval. Time Spent With Patient Time: Total time managing care of this patient today ____ minutes. Quality Stroke Does the patient have a stroke diagnosis?: No VTE Prior VTE?: No VTE Risk Level:: Medical - moderate - high VTE Device Contraindication: N/A - Device Ordered VTE Drug Contraindication: N/A - Med Ordered
[2022-12-06 14:43] VITALS: PULSE 101; O2SAT 100
[2022-12-06 15:32] VITALS: BP 139/75; PULSE 104; RESP 16; TEMP 36.6; O2SAT 96
[2022-12-06 19:57] VITALS: BP 134/74; PULSE 96; RESP 16; TEMP 36.1; O2SAT 96
[2022-12-06] MEDS: risperiDONE 2 MG TABLET PO (22:19)
[2022-12-06] MEDS: Divalproex Sodium ER 500 MG TAB.ER.24H 1500 MG PO (22:19)
[2022-12-07] MEDS: Doxycycline Hyclate 100 MG in 0.9 % Sodium Chloride 250 ML 166.67 MG IV ×2 (00:25→13:11)
[2022-12-07 03:32] VITALS: BP 127/68; PULSE 102; RESP 16; TEMP 36.5; O2SAT 94
[2022-12-07] MEDS: Omeprazole 20 MG CAPSULE.DR PO (06:48)
[2022-12-07] MEDS: Levothyroxine Sodium 175 MCG TABLET PO (06:49)
[2022-12-07 07:55] VITALS: BP 127/57; PULSE 55; RESP 18; TEMP 37; O2SAT 93
[2022-12-07] MEDS: Cholecalciferol (Vitamin D3) 25 MCG TABLET PO (08:14)
[2022-12-07] MEDS: predniSONE 20 MG TABLET PO (08:14)
[2022-12-07] MEDS: 0.9 % Sodium Chloride Flush 3 ML SYRINGE IVFLUSH ×3 (08:15→19:38)
[2022-12-07] MEDS: Ferrous Sulfate 324 MG TABLET.DR PO (08:15)
[2022-12-07] MEDS: Ascorbic Acid 250 MG TABLET PO (08:15)
[2022-12-07 09:47] VITALS: BP 127/57; PULSE 55; O2SAT 93
[2022-12-07] MEDS: Enoxaparin Sodium 40 MG/0.4 ML SYRINGE SUBCUT (13:11)
--- NOTE | 2022-12-07 14:56 | HO.PM.IMPN ---
Subjective Subjective Date of Service: 12/07/22 Interval History: cellulitis of the legs Review of Systems dry ch chnages on legs and mild redness no fevers Physical Exam Vital Signs: Vital Signs: Last Vital Signs Temp 98.6 F 12/07/22 07:55 Pulse 55 12/07/22 09:47 Resp 18 12/07/22 07:55 BP 127/57 L 12/07/22 09:47 Pulse Ox 93 12/07/22 09:47 O2 Del Method Nasal Cannula 12/07/22 07:55 O2 Flow Rate 2 12/07/22 07:55 BMI result Body Mass Index 28.7 Appearance: Alert.? Oriented X3.? not in distress.? cvs: rrr, [id number] , no murmur res: clear to auscultation ,no rhonchii or wheezing abd: no rebound or guarding ,nt, bs present. ext pulses present ,mild redness , no dscharge ,ch changes. neuro: axo3 , nonfocal. Objective Data Active Medications Acetaminophen (Acetaminophen 325 Mg Tablet) 650 mg PO Q6H PRN PRN Reason: Pain, Mild (Pain Scale 1-3) Ascorbic Acid (Ascorbic Acid 250 Mg Tablet) 250 mg PO DAILY [facility] Last Admin: 12/07/22 08:15 Dose: 250 mg Documented By: MAICOL Atorvastatin Calcium (Atorvastatin Calcium 20 Mg Tablet) 20 mg PO BEDTIME [facility] Divalproex Sodium (Divalproex Sodium Er 500 Mg Tab.Er.24h) 1,500 mg PO BEDTIME [facility] Last Admin: 12/06/22 22:19 Dose: 1,500 mg Documented By: DA Enoxaparin Sodium (Enoxaparin Sodium 40 Mg/0.4 Ml Syringe) 40 mg SUBCUT Q24H [facility] Last Admin: 12/07/22 13:11 Dose: 40 mg Documented By: MAICOL Ferrous Sulfate (Ferrous Sulfate 324 Mg Tablet.) 324 mg PO DAILY [facility] Last Admin: 12/07/22 08:15 Dose: 324 mg Documented By: MAICOL Doxycycline Hyclate 100 mg/ (Sodium Chloride) 250 mls @ 166.67 mls/hr IV Q12H [facility] Last Admin: 12/07/22 13:11 Dose: 166.67 mls/hr Documented By: MAICOL Levothyroxine Sodium (Levothyroxine Sodium 175 Mcg Tablet) 175 mcg PO DAILY@0600 [facility] Last Admin: 12/07/22 06:49 Dose: 175 mcg Documented By: DA Morphine Sulfate (Morphine Sulfate 2 Mg/Ml Cartridge) 2 mg IVPUSH Q6H PRN; Protocol PRN Reason: Pain, Severe (Pain Scale 7-10) Omeprazole (Omeprazole 20 Mg Capsule.Dr) 20 mg PO DAILY@0630 [facility] Last Admin: 12/07/22 06:48 Dose: 20 mg Documented By: DA Pharmacy Consult (Consult Rx Perform Med Rec) 1 each MISCELLANE ONCE PRN PRN Reason: Consult order Prednisone (Prednisone 20 Mg Tablet) 20 mg PO DAILY [facility] Last Admin: 12/07/22 08:14 Dose: 20 mg Documented By: MAICOL Risperidone (Risperidone 2 Mg Tablet) 2 mg PO BEDTIME [facility] Last Admin: 12/06/22 22:19 Dose: 2 mg Documented By: DA Sodium Chloride (0.9 % Sodium Chloride Flush 3 Ml Syringe) 3 ml IVFLUSH QSHIFT [facility] Last Admin: 12/07/22 08:15 Dose: 3 ml Documented By: MAICOL Vitamin D (Cholecalciferol (Vitamin D3) 25 Mcg Tablet) 25 mcg PO DAILY [facility] Last Admin: 12/07/22 08:14 Dose: 25 mcg Documented By: MAICOL Labs 12/05/22 04:08 12/05/22 04:08 Microbiology Microbiology Results: Microbiology 12/05/22 06:29 Blood Culture - Preliminary Blood - Venous No growth after 48 hours. 12/05/22 06:29 Blood Culture - Preliminary Blood - Venous No growth after 48 hours. Assessment and Plan (1) Edema, peripheral: Status: Acute (2) Bilateral cellulitis of lower leg: Status: Acute Plan 77-year-old male with a PMH significant for bipolar disorder, DM2, hypothyroidism, HLD, HTN, GERD, and tardive dyskenisia who presents to the ED today with bilateral lower leg pain. In ED pt was noted to have significant bilateral erythema and warmth of his lower legs and toes. He will be admitted for treatment of cellulitis and further workup. chronic venous stasis with superimposed cellulitis of the legs -Got Ancef in ED, will continue on IV Doxy (had good result with it last time - prednisone 20mg PO daily for possible inflammatory response (elevated CRP, sed) Id eval hypothyroidsim--Levothyroxine bilateral edema--Not due to heart failure, d/t chronic venous stasis,Lasix PO non-insulin diabetes-continue metformin, SSI HLD? - continue home meds HTN - continue home meds bipolar disorde-- continue home meds GERD - continue home meds PT eval for generalised weakness. DVT Prophylaxis: Lovenox inpatient need : IV antibiotics to treat cellulitis. Time Spent With Patient Time: Total time managing care of this patient today ____ minutes. Quality Stroke Does the patient have a stroke diagnosis?: No VTE Prior VTE?: No VTE Risk Level:: Medical - moderate - high VTE Device Contraindication: N/A - Device Ordered VTE Drug Contraindication: N/A - Med Ordered
[2022-12-07 15:15] VITALS: BP 142/88; PULSE 99; RESP 18; TEMP 36.5; O2SAT 97
[2022-12-07 19:13] VITALS: BP 154/88; PULSE 101; RESP 18; TEMP 36.5; O2SAT 96
[2022-12-07] MEDS: risperiDONE 2 MG TABLET PO (20:39)
[2022-12-07] MEDS: Atorvastatin Calcium 20 MG TABLET PO (20:39)
[2022-12-07] MEDS: Divalproex Sodium ER 500 MG TAB.ER.24H 1500 MG PO (20:40)
[2022-12-08] MEDS: Doxycycline Hyclate 100 MG in 0.9 % Sodium Chloride 250 ML 166.67 MG IV ×3 (00:09→23:59)
[2022-12-08 03:55] VITALS: BP 125/81; PULSE 100; RESP 17; TEMP 36.5; O2SAT 95
[2022-12-08] MEDS: Levothyroxine Sodium 175 MCG TABLET PO (05:51)
[2022-12-08] MEDS: Omeprazole 20 MG CAPSULE.DR PO (05:51)
[2022-12-08 07:54] VITALS: BP 134/80; PULSE 106; RESP 18; TEMP 36.7; O2SAT 94
[2022-12-08] MEDS: Ferrous Sulfate 324 MG TABLET.DR PO (08:01)
[2022-12-08] MEDS: Cholecalciferol (Vitamin D3) 25 MCG TABLET PO (08:01)
[2022-12-08] MEDS: 0.9 % Sodium Chloride Flush 3 ML SYRINGE IVFLUSH ×2 (08:01→20:55)
[2022-12-08] MEDS: predniSONE 20 MG TABLET PO (08:01)
[2022-12-08] MEDS: Furosemide 20 MG/2 ML VIAL IVPUSH ×2 (08:01→18:12)
[2022-12-08] MEDS: Ascorbic Acid 250 MG TABLET PO (08:01)
[2022-12-08 08:25] LABS: Anion Gap 11 (12-20); Blood Urea Nitrogen 18 mg/dL (9-16); Calcium 8.5 mg/dL (8.4-10.2); Carbon Dioxide 34 mmol/L (22-29); Chloride 102 mmol/L (96-108); Creatinine Clr Calc Pharmacy 66.9; Estimated Glomerular Filt Rate > 60; Glucose Random 139 mg/dL (60-115); Potassium 4.3 mmol/L (3.3-5.1); Sodium 143 mmol/L (135-145)
[2022-12-08] MEDS: Enoxaparin Sodium 40 MG/0.4 ML SYRINGE SUBCUT (11:54)
--- NOTE | 2022-12-08 12:01 | MHC.CM.PN ---
Addendum entered by Marcela Kay 12/08/22 13:35: DC BEING HELD UNTIL TOMORROW PT AND SON NOTIFIED Addendum entered by Marcela Kay 12/08/22 12:27: FOLLOW UP IMM DELIVERED [facility] BLS ARRANGED FOR 130 Addendum entered by Marcela Kay 12/08/22 12:08: CM MET WITH PT WHO IS EXCITED TO GO TO [facility] HE IS AWARE HE WILL DC THIS AFTERNOON AND ASKS THAT HIS SON BE INFORMED CM CALLED PTS SON, MONI [phone] AND PROVIDED UPDATE Original Note: PT WILL DC TO [facility] TODAY FOR STR VIA BLS
[2022-12-08 13:43] LABS: D Dimer High Sensitivity 527 NG/ML
--- NOTE | 2022-12-08 14:56 | P.PNIM_ITS ---
Subjective Subjective Date of Service: 12/09/22 Interval History: tachycardia ,? bodelrine sats Review of Systems Denies any chest pain or shortness of breath or abdominal pain or nausea vomiting Has leg edema and borderline saturation, taper oxygen. Physical Exam Vital Signs: Vital Signs: Last Vital Signs Temp 98.0 F 12/08/22 07:54 Pulse 106 H 12/08/22 07:54 Resp 18 12/08/22 07:54 BP 134/80 12/08/22 07:54 Pulse Ox 94 12/08/22 07:54 O2 Del Method Nasal Cannula 12/08/22 07:54 O2 Flow Rate 2.5 12/08/22 07:54 BMI result Body Mass Index 28.7 Appearance: Alert.? Oriented X3.?tachycardia cvs: rrr, [id number] . res: clear to auscultation ,no rhonchii or wheezing abd: no rebound or guarding ,nt, bs present. ext pulses present ,mild redness , no dscharge ,ch changes. neuro: axo3 , nonfocal. Objective Data Active Medications Acetaminophen (Acetaminophen 325 Mg Tablet) 650 mg PO Q6H PRN PRN Reason: Pain, Mild (Pain Scale 1-3) Ascorbic Acid (Ascorbic Acid 250 Mg Tablet) 250 mg PO DAILY [facility] Last Admin: 12/08/22 08:01 Dose: 250 mg Documented By: JINA Atorvastatin Calcium (Atorvastatin Calcium 20 Mg Tablet) 20 mg PO BEDTIME [facility] Last Admin: 12/07/22 20:39 Dose: 20 mg Documented By: OLYA Divalproex Sodium (Divalproex Sodium Er 500 Mg Tab.Er.24h) 1,500 mg PO BEDTIME [facility] Last Admin: 12/07/22 20:40 Dose: 1,500 mg Documented By: OLYA Enoxaparin Sodium (Enoxaparin Sodium 40 Mg/0.4 Ml Syringe) 40 mg SUBCUT Q24H [facility] Last Admin: 12/08/22 11:54 Dose: 40 mg Documented By: JINA Ferrous Sulfate (Ferrous Sulfate 324 Mg Tablet.) 324 mg PO DAILY [facility] Last Admin: 12/08/22 08:01 Dose: 324 mg Documented By: JINA Doxycycline Hyclate 100 mg/ (Sodium Chloride) 250 mls @ 166.67 mls/hr IV Q12H [facility] Last Infusion: 12/08/22 13:26 Dose: 0 mls/hr Documented By: JINA Levothyroxine Sodium (Levothyroxine Sodium 175 Mcg Tablet) 175 mcg PO DAILY@0600 [facility] Last Admin: 12/08/22 05:51 Dose: 175 mcg Documented By: TAMARA Morphine Sulfate (Morphine Sulfate 2 Mg/Ml Cartridge) 2 mg IVPUSH Q6H PRN; Protocol PRN Reason: Pain, Severe (Pain Scale 7-10) Omeprazole (Omeprazole 20 Mg Capsule.) 20 mg PO DAILY@0630 [facility] Last Admin: 12/08/22 05:51 Dose: 20 mg Documented By: TAMARA Pharmacy Consult (Consult Rx Perform Med Rec) 1 each MISCELLANE ONCE PRN PRN Reason: Consult order Prednisone (Prednisone 20 Mg Tablet) 20 mg PO DAILY [facility] Last Admin: 12/08/22 08:01 Dose: 20 mg Documented By: JINA Risperidone (Risperidone 2 Mg Tablet) 2 mg PO BEDTIME [facility] Last Admin: 12/07/22 20:39 Dose: 2 mg Documented By: OLYA Sodium Chloride (0.9 % Sodium Chloride Flush 3 Ml Syringe) 3 ml IVFLUSH QSHIFT [facility] Last Admin: 12/08/22 08:01 Dose: 3 ml Documented By: JINA Vitamin D (Cholecalciferol (Vitamin D3) 25 Mcg Tablet) 25 mcg PO DAILY [facility] Last Admin: 12/08/22 08:01 Dose: 25 mcg Documented By: JINA Labs 12/05/22 04:08 12/08/22 07:55 Labs: Laboratory Results - last 24 hr 12/08/22 12/08/22 07:55 13:28 D-Dimer High Sensitivty 527 Anion Gap 11 L Estim Creat Clear Calc 66.9 Estimated GFR > 60 Random Glucose 139 H Calcium 8.5 Assessment and Plan (1) Edema, peripheral: Status: Acute (2) Fluid overload: Status: Acute (3) Bilateral cellulitis of lower leg: Status: Acute (4) Cellulitis: Status: Acute (5) CHF (congestive heart failure): Status: Acute Plan 77-year-old male with a PMH significant for bipolar disorder, DM2, hypothyroidism, HLD, HTN, GERD, and tardive dyskenisia who presents to the ED today with bilateral lower leg pain. In ED pt was noted to have significant bilateral erythema and warmth of his lower legs and toes. He will be admitted for treatment of cellulitis and further workup. chronic venous stasis with superimposed cellulitis of the legs -Got Ancef in ED, will continue on IV Doxy (had good result with it last time - prednisone 20mg PO daily for possible inflammatory response (elevated CRP, sed) ?hypothyroidsim--Levothyroxine ?bilateral edema--Not due to heart failure, d/t chronic venous stasis,Lasix PO ?non-insulin diabetes-continue metformin, SSI ?HLD? - continue home meds HTN - continue home meds ?bipolar disorde-- continue home meds GERD - continue home meds possible acute hypoxemic respiratory failure possible mild chf etiology unclear(no echo available) -given iv lasix ,tachycardia /boderline sats : ddimer mild elevated high , dvt and v/q scan seems negative tachycardia improving BNP elevated, leg swelling Diuresing well, hypoxia improving. Monitor I&O, daily weights For the CHF workup outpatient. PT eval for generalised weakness. DVT Prophylaxis: Lovenox inpatient need : IV antibiotics to treat cellulitis, need iv diuresis for chf . Time Spent With Patient Time: Total time managing care of this patient today ____ minutes. Quality Stroke Does the patient have a stroke diagnosis?: No VTE Prior VTE?: No VTE Risk Level:: Medical - moderate - high VTE Device Contraindication: N/A - Device Ordered VTE Drug Contraindication: N/A - Med Ordered
[2022-12-08 15:04] VITALS: BP 135/88; PULSE 103; RESP 18; TEMP 36.3; O2SAT 96
[2022-12-08 16:04] VITALS: BP 139/80; PULSE 88; RESP 18; TEMP 36.5; O2SAT 95
[2022-12-08 19:12] VITALS: BP 133/81; PULSE 90; RESP 18; TEMP 36.7; O2SAT 91
[2022-12-08] MEDS: Divalproex Sodium ER 500 MG TAB.ER.24H 1500 MG PO (20:55)
[2022-12-08] MEDS: risperiDONE 2 MG TABLET PO (20:55)
[2022-12-08] MEDS: Atorvastatin Calcium 20 MG TABLET PO (20:55)
--- NOTE | 2022-12-08 21:00 | PC.NURSE ---
Pt rhythm per [employer]IM[employer] TICKET CHECKER:Roberta, is ventricular bigeminy with frequent PACs. Provider Dr. Truong notified, labs ordered, awaiting result. Pt denies chest pain, fainting or dizziness, respiration is even, non-labored, resting comfortably. Pt has no concerns at this time and aware of plan of care. Will continue to monitor.
[2022-12-08 21:57] LABS: Anion Gap 13 (12-20); Blood Urea Nitrogen 23 mg/dL (9-16); Calcium 8.9 mg/dL (8.4-10.2); Carbon Dioxide 36 mmol/L (22-29); Chloride 97 mmol/L (96-108); Creatinine Clr Calc Pharmacy 58.7; Estimated Glomerular Filt Rate 57; Glucose Random 222 mg/dL (60-115); Magnesium 1.8 mg/dL (1.6-2.6); Potassium 4.3 mmol/L (3.3-5.1); Sodium 142 mmol/L (135-145)
[2022-12-09 03:47] VITALS: BP 104/60; PULSE 89; RESP 22; TEMP 37.5; O2SAT 96
[2022-12-09] MEDS: Omeprazole 20 MG CAPSULE.DR PO (05:23)
[2022-12-09 06:00] VITALS: BMI 35.2
[2022-12-09] MEDS: Levothyroxine Sodium 175 MCG TABLET PO (06:20)
[2022-12-09 07:13] VITALS: BP 113/90; PULSE 83; RESP 26; TEMP 36.4; O2SAT 93
[2022-12-09 07:55] VITALS: BP 112/69; PULSE 93; RESP 16; TEMP 36.5; O2SAT 92
[2022-12-09] MEDS: 0.9 % Sodium Chloride Flush 3 ML SYRINGE IVFLUSH (08:11)
--- NOTE | 2022-12-09 08:21 | PC.NURSE ---
Pt o2 saturation 83-87% on room air, increased to 1L NC, 93-94%,. MD Winchester aware.
[2022-12-09] MEDS: Ferrous Sulfate 324 MG TABLET.DR PO (08:32)
[2022-12-09] MEDS: Ascorbic Acid 250 MG TABLET PO (08:32)
[2022-12-09] MEDS: predniSONE 20 MG TABLET PO (08:32)
[2022-12-09] MEDS: Cholecalciferol (Vitamin D3) 25 MCG TABLET PO (08:33)
--- NOTE | 2022-12-09 10:44 | PM.DS ---
DS: Providers Provider Date of Service: 12/09/22 Date of admission: 12/05/22 10:37 Date of discharge: 12/09/22 Primary care physician: Anatoly Palacios MD DS: Diagnosis Discharge Diagnosis (1) Edema, peripheral: Status: Acute (2) Bilateral cellulitis of lower leg: Status: Acute DS: Summary Hospital Course Hospital Course: 77-year-old male with a medical history of bipolar disorder, diabetes, GERD, hyperlipidemia, hypertension, chronic lower extremities venous stasis, and recurent cellulitis of the lower extremities presented today with weakness since the day before and is? progressively worsening until patient was unable to walk, even with a walker. Additionally, the lower extremities have been swollen, with increased erythema ), and are weeping fluid. BNP level is 140, CRP was elevated at 6.8, and ESR was elevated at 22. He admits to drinking up to 4 beers daily, alcohol level was normal? and he has no sings of symptoms of alchol withdrawal.? This is 3rd admission since August for similar presenation. ED treatment = Lasix 60 mg IV and? Ancef 2 g IV was administered.? There is no fever or chills Hospital course: 77 y/o M was admitted for lower extremity cellulitis possible early mild superimposed cellulitis on chronic venostasis changes on lower legs. Patient was started on IV doxycycline seems to be improved significantly, switched to p.o. doxycycline upon discharge. Also was given small dose of steroids for inflammatory response. Blood culture negative, no fever, no leukocytosis. complete course of antibiotics ,taper steriods ( which were given for inflamatory response). possible mild chf-already on lasix, consider further work outpatient possible echo. consider addinn BLELA inhibitor outpatient if blood pressures and renal function allows .chf education given moniter daily weights , consider adjusting lasix outpatient if weight gain2 lb more in a week. hypoxia multifactorial : mild chf ,deconditioning : seems improving , continue lasix , taper oxygen slowly in rehab. v/q scan low probabilty and venous dupplex legs negative.tachycardia improved currently sats 96% on 1 liter nc( checked with staff before discharge). Follow-up outpatient with bmp and further workup. Plan: complete antibiotics,leg elevation continue lasix , consider outpatient workup for chf,taper oxygen slowly moniter bmp closely Time Spent with Patient Time attestation: Total time managing care of this patient today ____ minutes. Discharge coordination time: Greater than 30 minutes Quality: Safe Use of Opioids Does Pt have an Active Cancer Diagnosis on the Problem List?: No Quality: Stroke Does the patient have a stroke diagnosis?: No Physical Exam Vital Signs: Vital Signs: Last Vital Signs Temp 97.7 F 12/09/22 07:55 Pulse 93 12/09/22 07:55 Resp 16 12/09/22 07:55 BP 112/69 12/09/22 07:55 Pulse Ox 92 12/09/22 07:55 O2 Del Method Nasal Cannula 12/09/22 07:55 O2 Flow Rate 2 12/09/22 07:55 BMI result Body Mass Index 35.2 Appearance: Alert.? Oriented X3.? cvs: rrr, [id number] . res: clear to auscultation ,no rhonchii or wheezing abd: no rebound or guarding ,nt, bs present. ext pulses present ,mild redness , no dscharge ,ch changes. neuro: axo3 , nonfocal. DS: Data Data Completed and Pending Labs on day of discharge: Laboratory Results - last 24 hr 12/08/22 12/08/22 13:28 21:24 D-Dimer High Sensitivty 527 Sodium 142 Potassium 4.3 Chloride 97 Carbon Dioxide 36 H Anion Gap 13 BUN 23 H Creatinine 1.23 Estim Creat Clear Calc 58.7 Estimated GFR 57 Random Glucose 222 H Calcium 8.9 Magnesium 1.8 Preliminary micro results at discharge 12/05/22 06:29 Blood Culture - Preliminary Blood - Venous No growth after 48 hours. 12/05/22 06:29 Blood Culture - Preliminary Blood - Venous No growth after 48 hours. Imaging Chest x-ray: Radiologist's impression: ITS Impressions Chest X-Ray 12/05/22 06:14 IMPRESSION: No dense consolidation. Bronchial wall thickening can be seen with a small airways process such as asthma or atypical/viral infection. Pulmonary Perfusion Imaging 12/08/22 14:30 IMPRESSION: Very low probability of pulmonary embolism. Cardiomegaly. Venous Duplex 12/08/22 17:59 IMPRESSION: 1. Diffuse bilateral lower extremity subcutaneous edema. 2. No evidence of deep vein thrombosis in the right or left femoral popliteal system. Discharge Plan Discharge Anticipated Discharge Date/Time: 12/08/22 11:58 Patient Disposition: Xfer SNF Discharge Diagnosis: cellulitis,chf Referrals: [facility] [Outside] - 1 Week Anatoly Palacios MD [Primary Care Provider] - 1 Week Discharge Medications: New doxycycline hyclate 100 mg capsule 100 mg PO BID Qty: 10 0RF prednisone 10 mg tablet 10 mg PO DAILY Qty: 4 0RF Continued levothyroxine 175 mcg tablet 175 mcg PO DAILY@0600 atorvastatin 20 mg tablet 20 mg PO BEDTIME risperidone 2 mg tablet 2 mg PO BEDTIME metformin 1,000 mg tablet 1,000 mg PO BID divalproex 500 mg tablet extended release 24 hr 1,500 mg PO BEDTIME omeprazole 20 mg capsule,delayed release(DR/EC) 20 mg PO DAILY@0630 ascorbic acid (vitamin C) [Vitamin C] 250 mg Tablet 250 mg PO DAILY cholecalciferol (vitamin D3) 25 mcg (1,000 unit) Tablet 25 mcg PO DAILY ferrous sulfate 324 mg (65 mg iron) Tablet,Delayed Release (Dr/Ec) 324 mg PO DAILY furosemide [Lasix] 40 mg tablet 40 mg PO DAILY Qty: 30 0RF Discharge Orders: Discharge Order (Routine); Ordered 12/09/22 Ordered By: Kiko Winchester Diet: Advance to usual diet Activity on Discharge: As tolerated Stand Alone Forms: Patient Portal Discharge page Care Plan Goals: Patient was admitted for lower extremity cellulitis possible early mild superimposed cellulitis on chronic venostasis changes on lower legs. Patient was started on IV doxycycline seems to be improved significantly, switched to p.o. doxycycline upon discharge. Also was given small dose of steroids for inflammatory response. Blood culture negative, no fever, no leukocytosis. complete course of antibiotics ,taper steriods ( which were given for inflamatory response). possible mild chf-already on lasix, consider further work outpatient possible echo. consider addinn BELLA inhibitor outpatient if blood pressures and renal function allows .chf education given moniter daily weights , consider adjusting lasix outpatient if weight gain2 lb more in a week. hypoxia multifactorial : mild chf ,deconditioning : seems improving , continue lasix , taper oxygen slowly in rehab. v/q scan low probabilty and venous dupplex legs negative. Follow-up outpatient with bmp and further workup. Health Concerns: As above. Plan of Treatment: As above. Assessment: As above. Patient Instructions: Heart Failure (DC), Cellulitis (DC)
[2022-12-09 10:48] VITALS: BP 124/73
[2022-12-09 10:51] VITALS: O2SAT 96
[2022-12-09] MEDS: Enoxaparin Sodium 40 MG/0.4 ML SYRINGE SUBCUT (10:54)
[2022-12-09] MEDS: Furosemide 40 MG TABLET PO (10:54)
--- NOTE | 2022-12-09 11:02 | MHC.CM.PN ---
PT WILL DC TO [facility] TODAY VIA [facility] AT 1300 PT AND SON, MONI INFORMED AND AGREEABLE.
[2022-12-09 13:07] VITALS: BP 131/85; PULSE 100; RESP 20; O2SAT 95
== END 2022-12-09 13:30 | disposition skilled nursing facility (03) | DRG 603 ==
LOC: HO.ED 12-05 08:51 → HO.EDOVER 12-05 10:44 → HO.S3 12-05 16:42
PROVIDERS: Internal Medicine; Admitting Provider Internal Medicine; Emergency Provider Emergency Medicine Emergency Medical Services; PCP Internal Medicine; Visit Provider Internal Medicine
DX: L03.116 Cellulitis of left lower limb (principal); I50.32 Chronic diastolic (congestive) heart failure; L03.115 Cellulitis of right lower limb; F31.9 Bipolar disorder, unspecified; I87.323 Chronic venous hypertension (idiopathic) with inflammation of bilateral lower extremity; E66.9 Obesity, unspecified; Z68.35 Body mass index [BMI] 35.0-35.9, adult; K21.9 Gastro-esophageal reflux disease without esophagitis; I11.0 Hypertensive heart disease with heart failure; E78.5 Hyperlipidemia, unspecified; E11.9 Type 2 diabetes mellitus without complications; Z20.822 Contact with and (suspected) exposure to COVID-19; Z79.84 Long term (current) use of oral hypoglycemic drugs; Z79.890 Hormone replacement therapy; Z79.899 Other long term (current) drug therapy
CPT/HCPCS: 36415; 71045; 78580; 80048; 80053; 81003; 82077; 82947; 83605; 83735; 83880; 85025; 85379; 85610; 85652; 85730; 86140; 87040; 87502; 87635; 93005; 93970; 97110; 97116; 97162; 99285; A9540; J0690; J1650; J1940

== ENCOUNTER 2023-05-25 12:31 | Emergency (ER) | payer MEDICARE, SELFPAY ==
--- NOTE | ~2023-05-25 | XR_ITS ---
EXAMINATION: XR CHEST CLINICAL INFORMATION: Shortness of breath COMPARISON: 09/09/2022 and 12/05/2022 TECHNIQUE: Frontal view of the chest was obtained. FINDINGS: Lungs are well expanded and without evidence of acute disease. No pulmonary consolidation or pleural effusion. Cardiac silhouette is chronically mildly enlarged. There appears to be a moderate-sized hiatal hernia, unchanged compared to 09/09/2022. Pulmonary vascular pattern is normal. 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 XR/XR chest 1V IMPRESSION: No acute cardiopulmonary abnormality.
--- NOTE | ~2023-05-25 | US_ITS ---
EXAMINATION: US VENOUS ULTRASOUND WITH DOPPLER LOWER EXTREMITY, BILATERAL CLINICAL INFORMATION: Left lower extremity edema. COMPARISON: Bilateral lower extremity DVT study done on 12/08/2022. TECHNIQUE: Ultrasound of the deep veins is performed from the hip to the calf with compression sonography and color and pulse Doppler assessment. Spectral analysis with color-flow imaging is performed. FINDINGS: RIGHT: There is normal venous compression and respiratory variation and augmented flow. The visualized common femoral vein, superficial femoral vein, profunda femoral vein, popliteal vein, and the trifurcation region shows no evidence of deep venous thrombosis. There is no significant popliteal fossa cyst. Evidence of calf edema. LEFT: There is normal venous compression and respiratory variation and augmented flow. The visualized common femoral vein, superficial femoral vein, profunda femoral vein, popliteal vein, and the trifurcation region shows no evidence of deep venous thrombosis. There is no significant popliteal fossa cyst. Evidence of calf edema. If the patient's symptoms persist, followup ultrasound in 5 days 7 days might be of value to exclude proximal propagation from a non-visualized calf vein. US/US venous duplex LE BI IMPRESSION: No DVT demonstrated in the bilateral lower extremity. Bilateral calf edema (right greater than left).
[2023-05-25 12:41] VITALS: BP 110/68; BP 150/82; PULSE 90; PULSE 97; RESP 17; TEMP 36.6; O2SAT 94; BMI 40.8
[2023-05-25 13:24] LABS: MANUAL DIFF FLAG NO
--- NOTE | 2023-05-25 13:29 | ED.GENADULT ---
HPI - General Adult General Chief complaint: General Medical Stated complaint: edema in ankles Time Seen by Provider: 05/25/23 12:45 Source: patient and EMS Mode of arrival: EMS Limitations: other (Poor historian) History of Present Illness HPI narrative: 78 year old male history of CHF, presenting to the emergency department with lower extremity swelling to bilateral lower extremities worsening over the past few days as well as worsening redness, patient states his right lower extremity is worse than his left. He reports he has a known infection he seen at home by wound care and nursing, he states he does not know if he is on antibiotics. He reports his nurse told me to come into the emergency department for IV antibiotics if cellulitis went past black line. Patient denies fevers, chills, numbness, tingling my headache, vision changes, dizziness, weakness, chest pain, shortness of breath. Related Data Home Medications Medication Instructions Recorded Confirmed ascorbic acid (vitamin C) 250 mg 250 mg PO DAILY 08/22/22 12/05/22 tablet (Vitamin C) atorvastatin 20 mg tablet 20 mg PO BEDTIME 08/22/22 12/05/22 cholecalciferol (vitamin D3) 25 25 mcg PO DAILY 08/22/22 12/05/22 mcg (1,000 unit) tablet divalproex 500 mg tablet,extended 1,500 mg PO BEDTIME 08/22/22 12/05/22 release 24 hr ferrous sulfate 324 mg (65 mg 324 mg PO DAILY 08/22/22 12/05/22 iron) tablet,delayed release levothyroxine 175 mcg tablet 175 mcg PO DAILY@0600 08/22/22 12/05/22 metformin 1,000 mg tablet 1,000 mg PO BID 08/22/22 12/05/22 omeprazole 20 mg capsule,delayed 20 mg PO DAILY@0630 08/22/22 12/05/22 release risperidone 2 mg tablet 2 mg PO BEDTIME 08/22/22 12/05/22 Previous Rx's Medication Instructions Recorded furosemide 40 mg tablet (Lasix) 40 mg PO DAILY #30 tabs 09/12/22 doxycycline hyclate 100 mg capsule 100 mg PO BID #10 caps 12/09/22 prednisone 10 mg tablet 10 mg PO DAILY #4 tabs 12/09/22 cephalexin 500 mg tablet 500 mg PO Q6H 10 days #40 tabs 05/25/23 doxycycline hyclate 100 mg capsule 100 mg PO BID 10 days #20 caps 05/25/23 Allergies Allergy/AdvReac Type Severity Reaction Status Date / Time No Known Allergies Allergy Verified 08/22/22 08:22 Review of Systems Review of Systems: Constitutional : No Weight loss, No Fever, No Chills, No Fatigue, No Malaise ENT/Mouth : No sore throat, No Rhinorrhea Eyes: No Eye Pain, No Swelling, No Redness Cardiovascular : No Chest Pain, No SOB, No Dyspnea on Exertion, No Orthopnea, + Edema, No Palpitations Respiratory : No Cough, No Sputum, No Wheezing Gastrointestinal : No Nausea, No Vomiting, No Diarrhea, No Constipation, No abdominal Pain, No Hematochezia, No Melena Genitourinary : No Dysuria, No Urinary Frequency, No Hematuria, Musculoskeletal : No joint pain, No Myalgias, No Joint Swelling Skin : No Skin Lesions, No rash, + cellulitis Neuro : No Weakness, No Numbness, No Dizziness, No Headache Psych : No Anxiety/Panic, No Depression All other systems reviewed and are negative Yes all other systems are reviewed and are negative [facility] Past Medical History Attestation statement: The following information was validated with the patient. Source: old records reviewed and nursing notes reviewed Medical History Diabetes mellitus type II, non insulin dependent Tardive dyskinesia Bipolar 1 disorder HLD (hyperlipidemia) HTN (hypertension) GERD (gastroesophageal reflux disease) Family History Family History Father Diabetes Maternal Grandmother Heart problem Social History Social History Household Members: None Housing: Other Housing Other:: [facility] Do you presently have visiting nurse or other home services: No ([facility] 3x week house clearing) Alcohol intake: current Alcohol intake frequency: 0-2 drinks per day Patient Tobacco Use Status: Never used Tobacco e-Cigarette/Vaping Use: Never Used Second Hand Smoke Exposure: No Advance Directives: Yes Advance Directives on File: Yes Advance Directives Date on File: 08/25/22 service: No Current occupational status: retired Physical Exam ED Vital Signs: Vital Signs - 24 hr 05/25/23 12:41 05/25/23 14:40 Temperature 97.9 F Pulse Rate 97 98 Respiratory Rate 17 20 Blood Pressure 110/68 128/76 Pulse Oximetry 94 94 Oxygen Delivery Method Room Air Room Air BMI result Body Mass Index 40.8 vss Appearance: Alert.? Oriented X3.? No acute distress.? Head: Normocephalic, atraumatic, no step-offs or deformities Eyes: Pupils equal, round and reactive to light.? CVS: Normal heart rate and rhythm.? Pulses normal.? Respiratory: No respiratory distress.? Breath sounds normal.? Abdomen: Soft and nontender.? Skin: Skin warm and dry.? Normal skin color.? Normal skin turgor.? + cellulitis to bilateral lower extremities, worse to right lower extremity from the foot up to the knee, normal sensation distally. Palpable pulses 2+ dorsalis pedis, anterior tibialis and posterior tibialis equal bilateral. Normal capillary refill. Extremities: 1+ b/l pitting edema from the knee down .? No calf ttp. Global weakness. Neuro: Oriented X 3.? No motor deficit.? No sensory deficit. CN 2-12 intact Course Reevaluation(s) Reevaluation #1: CBC hemolyzed. Chemistry with elevated anion gap likely secondary to ethanol, BUN elevated at 20, likely secondary to poor p.o. intake/dehydration. Troponin 85, will repeat at the 3 hour elizabeth. BNP 196, this appears to be around patient's baseline. Ethanol level 41. Chest x-ray no acute cardiopulmonary abnormalities. Pending repeat CBC & trop Time: 14:22 Reevaluation #2: CBC unremarkable. Repeat troponin pending. Sign out tonight provider Xiomara OLIVEIRA pending repeat trop and reeval Time: 15:49 Medical Decision Making Medical Decision Making [facility] Narrative: 1332 78-year-old male presents with worsening cellulitis right lower extremity, and worsening swelling. Patient does report drinking this morning Physical exam significant for cellulitis of bilateral lower extremities. No signs of neurovascular compromise. This is likely cellulitis with venous insufficiency and chronic wounds, unlikely osteomyelitis, will rule out CHF. Unlikely arterial occlusion, threat to Brennan, neurovascular compromise. No signs of pneumonia, PE, ACS. Will rule out acute alcohol intoxication. I do not suspect DVT. Plan at this time labs, imaging. Differential Diagnosis Differential Diagnoses: The differential diagnosis associated with the presentation includes This is likely cellulitis with venous insufficiency and chronic wounds, unlikely osteomyelitis, will rule out CHF. Unlikely arterial occlusion, threat to Brennan, neurovascular compromise. No signs of pneumonia, PE, ACS. Will rule out acute alcohol intoxication. I do not suspect DVT. Admission/Observation Consideration of admission/observation: Escalation of care including admission/observation considered Lab Data 05/25/23 13:16 05/25/23 13:16 Labs: Lab Results 05/25/23 05/25/23 Range/Units 13:16 13:54 WBC 5.9 (4.8-10.8) X10*3/uL RBC 4.15 L (4.60-5.80) X10*6/uL Hgb 12.0 L (14.0-18.0) g/dl Hct 37.7 L (42.0-52.0) % MCV 90.8 (80.0-98.0) fL MCH 28.9 (27.0-33.0) pg MCHC 31.8 (31.0-36.0) g/dl RDW 15.4 (11.0-16.0) % Plt Count 154 L D (160-400) X10*3/uL MPV 9.2 L (9.4-12.4) fL Immature Gran % (Auto) 2.0 H (0.0-0.4) % Neut % (Auto) 57.8 (45-73) % Lymph % (Auto) 24.2 (20-40) % Starr % (Auto) 10.0 (2-11) % Eos % (Auto) 5.3 H (0-4) % Baso % (Auto) 0.7 (0-2) % Lymph # (Auto) 1.4 (1.2-4.9) X10*3/uL Starr # (Auto) 0.6 (0.1-1.2) X10*3/uL Eos # (Auto) 0.3 (0.0-0.4) X10*3/uL Baso # (Auto) 0.0 (0.0-0.2) X10*3/uL Abs Immat Gran (auto) 0.12 H (0.00-0.03) X10*3/uL Absolute Neuts (auto) 3.4 (2.0-8.3) x10*3/uL Absolute Nucleated RBC 0.000 (0.0-0.012) X10*3/uL Nucleated RBC % (auto) 0.0 (0.0-0.2) /100WBC D-Dimer High Sensitivty 299 NG/ML Sodium 140 (135-145) mmol/L Potassium 4.4 D (3.3-5.1) mmol/L Chloride 95 L (96-108) mmol/L Carbon Dioxide 28 (22-29) mmol/L Anion Gap 21 H (12-20) BUN 20 H (9-16) mg/dL Creatinine 1.22 (0.5-1.4) mg/dL Estim Creat Clear Calc 65.3 Estimated GFR 58 Random Glucose 122 H (60-115) mg/dL Calcium 9.5 (8.4-10.2) mg/dL Magnesium 2.1 (1.6-2.6) mg/dL Total Bilirubin 0.3 (0.0-1.0) mg/dL AST 12 (5-37) U/L ALT 12 (0-40) U/L Alkaline Phosphatase 46 (39-117) U/L Troponin I High Sens 85.0 H (<3.5-35.0) ng/L B-Natriuretic Peptide 196 H (<100) pg/mL Total Protein 6.2 L (6.5-8.0) g/dL Albumin 3.5 (3.5-5.0) g/dL Ethyl Alcohol 41 mg/dL Critical Care Time Critical Care Time Critical Care Time: No Discharge Plan Discharge Clinical Impression: Cellulitis Patient Disposition: Home, Self-Care Instructions: Cellulitis (ED) Additional Instructions: Take your medications as prescribed. If you were prescribed antibiotics today, it is important that you take your medication to their entirety, do not skip any doses, do not finish them early. Follow-up with your primary care provider this week. Return to the emergency department with new or worsening symptoms. Such as fevers, chills, chest pain, shortness of breath, nausea, vomiting, dizziness, headache, vision changes, lethargy In case of emergency call 911 Prescriptions: New cephalexin 500 mg tablet 500 mg PO Q6H 10 Days Qty: 40 0RF doxycycline hyclate 100 mg capsule 100 mg PO BID 10 Days Qty: 20 0RF No Action levothyroxine 175 mcg tablet 175 mcg PO DAILY@0600 atorvastatin 20 mg tablet 20 mg PO BEDTIME risperidone 2 mg tablet 2 mg PO BEDTIME metformin 1,000 mg tablet 1,000 mg PO BID divalproex 500 mg tablet extended release 24 hr 1,500 mg PO BEDTIME omeprazole 20 mg capsule,delayed release(DR/EC) 20 mg PO DAILY@0630 ascorbic acid (vitamin C) [Vitamin C] 250 mg Tablet 250 mg PO DAILY cholecalciferol (vitamin D3) 25 mcg (1,000 unit) Tablet 25 mcg PO DAILY ferrous sulfate 324 mg (65 mg iron) Tablet,Delayed Release (Dr/Ec) 324 mg PO DAILY furosemide [Lasix] 40 mg tablet 40 mg PO DAILY Qty: 30 0RF doxycycline hyclate 100 mg capsule 100 mg PO BID Qty: 10 0RF prednisone 10 mg tablet 10 mg PO DAILY Qty: 4 0RF Referrals: Anatoly Palacios MD [Primary Care Provider] - 2 days
[2023-05-25 13:49] LABS: Alanine Aminotransferase 12 U/L (0-40); Albumin Level 3.5 g/dL (3.5-5.0); Alkaline Phosphatase 46 U/L (39-117); Anion Gap 21 (12-20); Aspartate Amino Transferase 12 U/L (5-37); Bilirubin Total 0.3 mg/dL (0.0-1.0); Blood Urea Nitrogen 20 mg/dL (9-16); Calcium 9.5 mg/dL (8.4-10.2); Carbon Dioxide 28 mmol/L (22-29); Chloride 95 mmol/L (96-108); Creatinine Clr Calc Pharmacy 65.3; Estimated Glomerular Filt Rate 58; Glucose Random 122 mg/dL (60-115); Magnesium 2.1 mg/dL (1.6-2.6); Potassium 4.4 mmol/L (3.3-5.1); Sodium 140 mmol/L (135-145); Total Protein 6.2 g/dL (6.5-8.0)
[2023-05-25 13:50] LABS: B Type Natriuretic Peptide 196 pg/mL (<100)
[2023-05-25 14:15] LABS: D Dimer High Sensitivity 299 NG/ML; Ethanol 41 mg/dL
[2023-05-25 14:40] VITALS: BP 128/76; PULSE 98; RESP 20; O2SAT 94
[2023-05-25 15:08] LABS: Basophils Percent Auto 0.7 % (0-2); Eosinophils Absolute Auto 0.3 X10*3/uL (0.0-0.4); Eosinophils Percent Auto 5.3 % (0-4); Hematocrit 37.7 % (42.0-52.0); Imm Gran Abs Auto 0.12 X10*3/uL (0.00-0.03); Lymphocytes Absolute Auto 1.4 X10*3/uL (1.2-4.9); Lymphocytes Percent Auto 24.2 % (20-40); Mean Corpuscular HGB Conc 31.8 g/dl (31.0-36.0); Mean Corpuscular Hemoglobin 28.9 pg (27.0-33.0); Mean Corpuscular Volume 90.8 fL (80.0-98.0); Mean Platelet Volume 9.2 fL (9.4-12.4); Monocytes Absolute Auto 0.6 X10*3/uL (0.1-1.2); Neutrophils Absolute Auto 3.4 x10*3/uL (2.0-8.3); Neutrophils Percent Auto 57.8 % (45-73); Platelet Count 154 X10*3/uL (160-400); Red Blood Count 4.15 X10*6/uL (4.60-5.80); Red Cell Distribution Width 15.4 % (11.0-16.0); White Blood Count 5.9 X10*3/uL (4.8-10.8)
[2023-05-25 16:55] LABS: Troponin-I High Sensitivity 77.7 ng/L (<3.5-35.0)
[2023-05-25 18:35] VITALS: BP 134/72; PULSE 98; RESP 18; O2SAT 94
[2023-05-25] MEDS: cephALEXin 500 MG CAPSULE PO (18:37)
[2023-05-25] MEDS: Doxycycline Monohydrate 100 MG CAPSULE PO (18:37)
== END 2023-05-25 21:49 | disposition home or self-care (01) ==
PROVIDERS: Physician Assistant; Emergency Provider Emergency Medicine; PCP Internal Medicine
DX: L03.116 Cellulitis of left lower limb (principal); L03.115 Cellulitis of right lower limb; F10.90 Alcohol use, unspecified, uncomplicated; Y90.2 Blood alcohol level of 40-59 mg/100 ml; E11.9 Type 2 diabetes mellitus without complications; I10 Essential (primary) hypertension; E78.5 Hyperlipidemia, unspecified; R60.0 Localized edema; Z79.84 Long term (current) use of oral hypoglycemic drugs; Z79.899 Other long term (current) drug therapy
CPT/HCPCS: 36415; 71045; 80053; 80307; 83735; 83880; 84484; 85025; 85379; 93970; 99283; 99284

== ENCOUNTER 2023-06-21 11:08 | Inpatient (IN) | payer MEDICARE, OTHER, SELFPAY ==
[2023-06-21 11:20] VITALS: BP 119/56; BP 129/73; PULSE 102; PULSE 106; RESP 18; TEMP 36.8; O2SAT 94; O2SAT 95; BMI 41.9
--- NOTE | 2023-06-21 11:47 | ED.GENADULT ---
HPI - General Adult General Chief complaint: General Medical Stated complaint: VNA STS FLUID OVERLOAD,NON MED COMPLIANT Time Seen by Provider: 06/21/23 11:30 Source: patient Limitations: no limitations History of Present Illness HPI narrative: This is a 78 years old with chronic venous stasis disease of the lower extremity sent here for evaluation by the VNA because decreased motility increasing edema. Denies any fever chills vomiting and diarrhea. Denies any chest pain shortness of breath. Onset (ago): month(s) Location: lower extremity Radiation: non-radiation Severity: moderate Quality: burning Pain Consistency: constant Relieving factors: none Exacerbating factors: none Related Data Home Medications Medication Instructions Recorded Confirmed atorvastatin 20 mg tablet 20 mg PO BEDTIME 08/22/22 06/21/23 cholecalciferol (vitamin D3) 25 25 mcg PO DAILY 08/22/22 06/21/23 mcg (1,000 unit) tablet divalproex 500 mg tablet,extended 1,500 mg PO BEDTIME 08/22/22 06/21/23 release 24 hr ferrous sulfate 324 mg (65 mg 324 mg PO DAILY 08/22/22 06/21/23 iron) tablet,delayed release metformin 1,000 mg tablet 1,000 mg PO BID 08/22/22 06/21/23 omeprazole 20 mg capsule,delayed 20 mg PO DAILY@0630 08/22/22 06/21/23 release risperidone 2 mg tablet 2 mg PO BEDTIME 08/22/22 06/21/23 acetaminophen 500 mg tablet 1,000 mg PO TID PRN Mild Pain 06/21/23 06/21/23 (Scale Score 1-4) ammonium lactate 12 % lotion 1 appl topical DAILY 06/21/23 06/21/23 ascorbic acid (vitamin C) 1,000 mg 1,000 mg PO DAILY 06/21/23 06/21/23 tablet furosemide 40 mg tablet 80 mg PO DAILY 06/21/23 06/21/23 furosemide 40 mg tablet (Lasix) 40 mg PO DAILY@1400 06/21/23 06/21/23 glipizide 5 mg tablet, extended 5 mg PO DAILY 06/21/23 06/21/23 release 24 hr levothyroxine 200 mcg tablet 200 mcg PO DAILY 06/21/23 06/21/23 magnesium oxide 400 mg PO DAILY 06/21/23 06/21/23 mecobalamin (vitamin B12) 1,000 1,000 mcg PO DAILY 06/21/23 06/21/23 mcg chewable tablet metoprolol succinate 50 mg 50 mg PO DAILY 06/21/23 06/21/23 tablet,extended release 24 hr polyethylene glycol 3350 17 gram 17 g PO DAILY PRN Constipation 06/21/23 06/21/23 oral powder packet (Miralax) Allergies Allergy/AdvReac Type Severity Reaction Status Date / Time No Known Allergies Allergy Verified 08/22/22 08:22 Review of Systems Eyes: Eyes: Reports no additional eye complaints ENT: Reports system reviewed and no additional complaints, except as documented Cardiovascular: Cardiovascular: Reports no additional cardiovascular complaints Gastrointestinal: Gastrointestinal: Reports no additional gastrointestinal complaints [facility] Past Medical History [facility] Narrative: Chronic venous stasis lower extremity Medical History Diabetes mellitus type II, non insulin dependent Tardive dyskinesia Bipolar 1 disorder HLD (hyperlipidemia) HTN (hypertension) GERD (gastroesophageal reflux disease) Family History Family History Father Diabetes Maternal Grandmother Heart problem Social History Social History Household Members: None Housing: Other Housing Other:: [facility] Do you presently have visiting nurse or other home services: No ([facility] elder care 3x week house clearing) Alcohol intake: current Alcohol intake frequency: 3 or more drinks per day Patient Tobacco Use Status: Never used Tobacco Smoked in Last 30 Days: No e-Cigarette/Vaping Use: Never Used Second Hand Smoke Exposure: No Use of substances other than those prescribed or required for medical reasons: No Advance Directives: Yes Advance Directives on File: Yes Advance Directives Date on File: 08/25/22 service: No Current occupational status: retired Physical Exam ED Vital Signs: Vital Signs - 24 hr 06/21/23 11:20 06/21/23 14:22 06/21/23 15:18 Temperature 98.2 F Pulse Rate 106 H 106 H 126 H Respiratory Rate 18 20 Blood Pressure 119/56 L 119/56 L 132/75 Pulse Oximetry 94 94 94 Oxygen Delivery Method Room Air Room Air BMI result Body Mass Index 41.9 Const Other: He looks well is not toxic-appearing General: cooperative Nutritional Appearance: well nourished Orientation/consciousness: patient oriented x3 HENMT Head: Yes normal to inspection Face and sinus: Yes normal facial exam Neck Neck: Yes normal visual inspection Chest Chest palpation & inspection: normal inspection of the chest Resp Effort & Inspection: normal respiratory effort Auscultation: clear to auscultation bilaterally Cardio Jugular venous distension: no JVD Rate: regular rate Rhythm: regular rhythm GI Inspection: Yes normal to inspection Percussion: Yes normal to percussion Skin General skin exam: no rashes or lesions noted and elasticity normal Lesions: no lesions Rashes: no rashes Neuro General: patient oriented x3 Cranial nerves: Yes CN's II-XII intact bilaterally Extrem Other: Patient has 3+ edema bilaterally of the lower extreme Course Reevaluation(s) Reevaluation #1: SEEN BY PT RECOMMEND ACUTE REHAB,TROPI NOTED PT HAS CHRONIC ELEVATED TROPONIN. I DO NOT THINK HE HAS INFECTION AFEBRILE AND NORMAL WBC Time: 15:07 Reevaluation #2: OFF SHIFT NOW SIGNED OUT TO DR HILTON,CARE TRANSFER TO DR HILTON Time: 16:15 Medications Administered Discontinued Medications Generic Name Dose Route Start Last Admin Trade Name Freq PRN Reason Stop Dose Admin Furosemide 40 mg 06/21/23 15:09 06/21/23 15:16 Furosemide 40 Mg Tablet PO 06/21/23 15:10 40 mg ONCE ONE Administration Protocol Medical Decision Making Medical Decision Making [facility] Narrative: PATIENT PRESENTED WITH LOWER EXTREMITY EDEMA, HE HAS HISTORY OF CHRONIC EDEMA HE IS HAVING PROBLEMS AMBULATING. WILL CHECK LABS WILL CONSULT PT Differential Diagnosis Differential Diagnoses: The differential diagnosis associated with the presentation includes RENAL FAILURE/CHF Lab Data 06/21/23 13:07 06/21/23 13:07 Labs: Lab Results 06/21/23 06/21/23 06/21/23 Range/Units 11:40 13:07 13:10 WBC 6.6 (4.8-10.8) X10*3/uL RBC 4.05 L (4.60-5.80) X10*6/uL Hgb 11.9 L (14.0-18.0) g/dl Hct 37.1 L (42.0-52.0) % MCV 91.6 (80.0-98.0) fL MCH 29.4 (27.0-33.0) pg MCHC 32.1 (31.0-36.0) g/dl RDW 16.3 H (11.0-16.0) % Plt Count 158 L (160-400) X10*3/uL MPV 8.6 L (9.4-12.4) fL Immature Gran % (Auto) 3.0 H (0.0-0.4) % Neut % (Auto) 61.7 (45-73) % Lymph % (Auto) 19.5 L (20-40) % Baca % (Auto) 10.5 (2-11) % Eos % (Auto) 4.5 H (0-4) % Baso % (Auto) 0.8 (0-2) % Lymph # (Auto) 1.3 (1.2-4.9) X10*3/uL Baca # (Auto) 0.7 (0.1-1.2) X10*3/uL Eos # (Auto) 0.3 (0.0-0.4) X10*3/uL Baso # (Auto) 0.1 (0.0-0.2) X10*3/uL Abs Immat Gran (auto) 0.20 H (0.00-0.03) X10*3/uL Absolute Neuts (auto) 4.1 (2.0-8.3) x10*3/uL Absolute Nucleated RBC 0.000 (0.0-0.012) X10*3/uL Nucleated RBC % (auto) 0.0 (0.0-0.2) /100WBC Sodium 143 (135-145) mmol/L Potassium 4.2 (3.3-5.1) mmol/L Chloride 95 L (96-108) mmol/L Carbon Dioxide 31 H (22-29) mmol/L Anion Gap 21 H (12-20) BUN 18 H (9-16) mg/dL Creatinine 1.21 (0.5-1.4) mg/dL Estim Creat Clear Calc 66.8 Estimated GFR 58 POC Glucose 126 H (60-115) mg/dL Random Glucose 125 H (60-115) mg/dL Calcium 9.9 (8.4-10.2) mg/dL Total Bilirubin 0.5 (0.0-1.0) mg/dL AST 22 (5-37) U/L ALT 20 (0-40) U/L Alkaline Phosphatase 53 (39-117) U/L Troponin I High Sens 82.7 H (<3.5-35.0) ng/L C-Reactive Protein 1.66 H (< or = 0.50) mg/dL B-Natriuretic Peptide 181 H (<100) pg/mL Total Protein 6.7 (6.5-8.0) g/dL Albumin 3.6 (3.5-5.0) g/dL COVID-19 ([facility]) (Negative) COVID-19 Clin Com 06/21/23 Range/Units 15:47 WBC (4.8-10.8) X10*3/uL RBC (4.60-5.80) X10*6/uL Hgb (14.0-18.0) g/dl Hct (42.0-52.0) % MCV (80.0-98.0) fL MCH (27.0-33.0) pg MCHC (31.0-36.0) g/dl RDW (11.0-16.0) % Plt Count (160-400) X10*3/uL MPV (9.4-12.4) fL Immature Gran % (Auto) (0.0-0.4) % Neut % (Auto) (45-73) % Lymph % (Auto) (20-40) % Baca % (Auto) (2-11) % Eos % (Auto) (0-4) % Baso % (Auto) (0-2) % Lymph # (Auto) (1.2-4.9) X10*3/uL Baca # (Auto) (0.1-1.2) X10*3/uL Eos # (Auto) (0.0-0.4) X10*3/uL Baso # (Auto) (0.0-0.2) X10*3/uL Abs Immat Gran (auto) (0.00-0.03) X10*3/uL Absolute Neuts (auto) (2.0-8.3) x10*3/uL Absolute Nucleated RBC (0.0-0.012) X10*3/uL Nucleated RBC % (auto) (0.0-0.2) /100WBC Sodium (135-145) mmol/L Potassium (3.3-5.1) mmol/L Chloride (96-108) mmol/L Carbon Dioxide (22-29) mmol/L Anion Gap (12-20) BUN (9-16) mg/dL Creatinine (0.5-1.4) mg/dL Estim Creat Clear Calc Estimated GFR POC Glucose (60-115) mg/dL Random Glucose (60-115) mg/dL Calcium (8.4-10.2) mg/dL Total Bilirubin (0.0-1.0) mg/dL AST (5-37) U/L ALT (0-40) U/L Alkaline Phosphatase (39-117) U/L Troponin I High Sens (<3.5-35.0) ng/L C-Reactive Protein (< or = 0.50) mg/dL B-Natriuretic Peptide (<100) pg/mL Total Protein (6.5-8.0) g/dL Albumin (3.5-5.0) g/dL COVID-19 ([facility]) Negative (Negative) COVID-19 Clin Com See Note Discharge Plan Discharge Clinical Impression: Bilateral lower extremity edema, Edema, peripheral, Troponin I above reference range Patient Disposition: Still a Patient Prescriptions: No Action atorvastatin 20 mg tablet 20 mg PO BEDTIME risperidone 2 mg tablet 2 mg PO BEDTIME metformin 1,000 mg tablet 1,000 mg PO BID divalproex 500 mg tablet extended release 24 hr 1,500 mg PO BEDTIME omeprazole 20 mg capsule,delayed release(DR/EC) 20 mg PO DAILY@0630 cholecalciferol (vitamin D3) 25 mcg (1,000 unit) Tablet 25 mcg PO DAILY ferrous sulfate 324 mg (65 mg iron) Tablet,Delayed Release (Dr/Ec) 324 mg PO DAILY furosemide 40 mg tablet 80 mg PO DAILY ascorbic acid (vitamin C) 1,000 mg Tablet 1,000 mg PO DAILY ammonium lactate 12 % Lotion 1 appl TOPICAL DAILY polyethylene glycol 3350 [Miralax] 17 gram Powder In Packet 17 g PO DAILY PRN (Reason: Constipation) metoprolol succinate 50 mg tablet extended release 24 hr 50 mg PO DAILY glipizide 5 mg tablet extended release 24hr 5 mg PO DAILY acetaminophen 500 mg Tablet 1,000 mg PO TID PRN (Reason: Mild Pain (Scale Score 1-4)) levothyroxine 200 mcg tablet 200 mcg PO DAILY magnesium oxide 400 mg magnesium Tablet 400 mg PO DAILY mecobalamin (vitamin B12) 1,000 mcg Tablet,Chewable 1,000 mcg PO DAILY furosemide [Lasix] 40 mg tablet 40 mg PO DAILY@1400
[2023-06-21 13:42] LABS: Alanine Aminotransferase 20 U/L (0-40); Albumin Level 3.6 g/dL (3.5-5.0); Alkaline Phosphatase 53 U/L (39-117); Anion Gap 21 (12-20); Aspartate Amino Transferase 22 U/L (5-37); Bilirubin Total 0.5 mg/dL (0.0-1.0); Blood Urea Nitrogen 18 mg/dL (9-16); C Reactive Protein 1.66 mg/dL (< or = 0.50); Calcium 9.9 mg/dL (8.4-10.2); Carbon Dioxide 31 mmol/L (22-29); Chloride 95 mmol/L (96-108); Creatinine Clr Calc Pharmacy 66.8; Estimated Glomerular Filt Rate 58; Glucose Random 125 mg/dL (60-115); Potassium 4.2 mmol/L (3.3-5.1); Sodium 143 mmol/L (135-145); Total Protein 6.7 g/dL (6.5-8.0)
[2023-06-21 13:43] LABS: B Type Natriuretic Peptide 181 pg/mL (<100)
[2023-06-21 13:49] LABS: Troponin-I High Sensitivity 82.7 ng/L (<3.5-35.0)
[2023-06-21 14:22] VITALS: BP 119/56; PULSE 106; O2SAT 94
--- NOTE | 2023-06-21 14:59 | MHC.CM.ED ---
Received case management consult from Dr Francis. Patient came to the ER due to weakness. Work up essentially negative. Physical therapy eval completed. Rehab is recommended. Patient has not been inpatient in any facility in the past 30 days. Referrals made to all 3 acute rehabs. Received telephone call from Kevan of [facility]. Patient is active with [facility]. Patient tends to be non-compliant with medications. Kevan was at patient's home today and saw how weak patient was. Received telephone call from Shelbi of [facility]. Shelbi was also at patient's house to witness how weak patient was. Both were reassured rehab would be pursued. Continue to monitor for d/c needs.
[2023-06-21 15:18] VITALS: BP 132/75; PULSE 126; RESP 20; O2SAT 94
--- NOTE | 2023-06-21 16:13 | PHA.MEDREC ---
Pharmacy Consult ? Medication Reconciliation Pharmacy has completed the medication reconciliation. Recevied list from [facility]. Patient not adherent to his medications. Tessie Jimenes, JoseD
[2023-06-21 16:46] VITALS: BP 113/64; PULSE 102; RESP 17; O2SAT 93
--- NOTE | 2023-06-21 16:47 | PC.NURSE ---
pt refused IV lasix. reports he took 80mg before coming in, then was given 40mg by RN. did not want another 40mg. pt felt it was too much. aware
--- NOTE | 2023-06-21 18:30 | PC.NURSE ---
pt eating dinner at this time
--- NOTE | 2023-06-21 19:00 | PC.NURSE ---
This adjusto writer operator assumed care of this Pt at 1900. Pt A&Ox3, denies any pain, reports BLL swelling with increase weakness. BLL are wrapped, weeping yellow fluid, Pt reports getting legs wrapped twice/week. Pt requesting repositioning, using urinal, pt reports using walker at home for immobilization. Updated on plan of care.
[2023-06-21 19:21] VITALS: BP 132/71; PULSE 107; RESP 20; TEMP 36.8; O2SAT 92
--- NOTE | 2023-06-21 20:10 | PC.NURSE ---
Pt reports he does not need ammonium lactate lotion my legs get wrapped twice per week (Mondays/Fridays) and that is when I use the lotion .
--- NOTE | 2023-06-21 20:29 | PC.NURSE ---
RN to RN report given to Marianne, pt will be transported to Overflow room 2, pt has been updated on plan of care.
[2023-06-21 21:39] VITALS: BP 119/62; PULSE 102; RESP 22; TEMP 36.2; O2SAT 91
[2023-06-22 05:26] VITALS: BP 143/77; PULSE 107; RESP 16; TEMP 36.6; O2SAT 92
--- NOTE | 2023-06-22 12:55 | MHC.CM.ED ---
Patient remains in ER overflow. Denied by all 3 acute rehab. Patient is a max assist of 2 for transfers. Patient still has edema. Patient discussed with Kat WANG. Kat will discuss admission with hospitalist. Apparently patient refused IV lasix yesterday. Met with patient in regards to discharge planning. Patient is agreeable to IV lasix and admission. Patient would like to go to [facility] for STR. He has been to other facilities in the past and have not had good experiences. Referral made for [facility] in [facility]. Patient is active with [facility]. They are aware of admission. Continue to monitor for d/c needs.
--- NOTE | 2023-06-22 13:58 | PM.IMHP ---
History of Present Illness Date of Service: 06/22/23 Attending physician on admission: Kiko Winchester Chief Complaint: ble edema 78-year-old male with history of pyk-swdbsfm-[id number] type 2 diabetes, history of tardive dyskinesia, bipolar disorder, hyperlipidemia, hypertension, GERD, chronic venous stasis dermatitis, and alcohol use disorder presented to the ED yesterday at the recommendation of VNA for evaluation of increased BLE edema with decreased mobility. The patient reports he has had longstanding BLE edema >1 year but has had some increase in the last few weeks. Denies any reina, sob at rest, orthopnea, PND, or chest pain. He has noted decreased ability to ambulate and transfer independently for several weeks due to weakness in the BLE. Ambulates with a walker at home. Reports compliane with PO lasix. In the ED, patient tachycardic ranging 102-126, vitals otherwise stable. No hypoxia. There is no leukocytosis. Has a stable normocytic anemia. Renal function baseline, electrolyte levels normal except CO2 of 31, consistent with baseline. Troponins elevated but flat at 82.7 and 85. CRP 1.66. BNP 181. Repeat labs pending. CXR showed mild cardiomegaly with pulmonary vascular congestion. Has had multiple venous duplex studies of the bilateral lower extremities which have been negative for DVT, most recently 05/25. He has never undergone echocardiogram. In the ED, IV Lasix was recommended but patient refused and was instead continued on p.o. and recommended for short-term rehab. Unfortunately, after PT evaluation, patient is a 2 person assist with recommendation for acute rehab and requires inpatient admission for further evaluation and treatment for mild CHF exacerbation. Review of Systems Review of Systems: General: No fevers, malaise, unintentional weight loss HEENT: No blurred vision, diplopia. No sore throat, nasal congestion, rhinorrhea, sinus pain, ear pain Cardiovascular: No chest pain, palpitations. +BLE edema Respiratory: No shortness of breath, wheezing, cough GI: No abdominal pain, nausea, vomiting, diarrhea, constipation, melena, hematochezia : No dysuria, hematuria, increased urinary frequency, decreased urinary output MSK: No myalgia, back pain Neuro: No headaches, paresthesias. +BLE weakness Skin: No rashes or lesions [facility] Medical History Chronic venous stasis dermatitis Diabetes mellitus type II, non insulin dependent Tardive dyskinesia Bipolar 1 disorder HLD (hyperlipidemia) HTN (hypertension) GERD (gastroesophageal reflux disease) Family History Father Diabetes Maternal Grandmother Heart problem Social History Household Members: None Housing: Other Housing Other:: [facility] Do you presently have visiting nurse or other home services: No ([facility] care 3x week house clearing) Alcohol intake: current Alcohol intake frequency: 3 or more drinks per day Patient Tobacco Use Status: Never used Tobacco Smoked in Last 30 Days: No e-Cigarette/Vaping Use: Never Used Second Hand Smoke Exposure: No Use of substances other than those prescribed or required for medical reasons: No Advance Directives: Yes Advance Directives on File: Yes Advance Directives Date on File: 08/25/22 service: No Current occupational status: retired [employer] Allergies Allergy/AdvReac Type Severity Reaction Status Date / Time No Known Allergies Allergy Verified 06/21/23 19:53 Active Medications: Current Medications Acetaminophen (Acetaminophen 325 Mg Tablet) 650 mg PO TID PRN PRN Reason: Mild Pain (Scale Score 1-4) Ascorbic Acid (Ascorbic Acid 500 Mg Tablet) 1,000 mg PO DAILY [facility] Last Admin: 06/22/23 08:03 Dose: 1,000 mg Atorvastatin Calcium (Atorvastatin Calcium 20 Mg Tablet) 20 mg PO BEDTIME [facility] Last Admin: 06/21/23 20:52 Dose: 20 mg Cyanocobalamin (Cyanocobalamin (Vitamin B-12) 1,000 Mcg Tablet) 1,000 mcg PO DAILY [facility] Last Admin: 06/22/23 08:03 Dose: 1,000 mcg Divalproex Sodium (Divalproex Sodium Er 500 Mg Tab.Er.24h) 1,500 mg PO BEDTIME [facility] Last Admin: 06/21/23 20:52 Dose: 1,500 mg Docusate Sodium (Docusate Sodium 100 Mg Capsule) 100 mg PO DAILY PRN PRN Reason: Constipation Enoxaparin Sodium (Enoxaparin Sodium 40 Mg/0.4 Ml Syringe) 40 mg SUBCUT Q24H [facility] Ferrous Sulfate (Ferrous Sulfate 324 Mg Tablet.) 324 mg PO DAILY [facility] Last Admin: 06/22/23 08:01 Dose: 324 mg Furosemide (Furosemide 40 Mg Tablet) 40 mg PO DAILY ONE; Protocol Stop: 06/22/23 15:10 Furosemide (Furosemide 40 Mg Tablet) 80 mg PO DAILY [facility]; Protocol Last Admin: 06/22/23 08:03 Dose: 80 mg Furosemide (Furosemide 40 Mg/4 Ml Vial) 40 mg IVPUSH BID [facility]; Protocol Glipizide (Glipizide Xl 5 Mg Tab.Er.24) 5 mg PO DAILY [facility] Last Admin: 06/22/23 08:02 Dose: 5 mg Lactic Acid (Ammonium Lactate 12 % Lotion 226 Gm Bottle) 1 appl TOPICAL DAILY [facility]; Protocol Last Admin: 06/21/23 20:10 Dose: Not Given Levothyroxine Sodium (Levothyroxine Sodium 200 Mcg Tablet) 200 mcg PO DAILY@0600 [facility] Last Admin: 06/22/23 05:34 Dose: 200 mcg Magnesium Oxide (Magnesium Oxide 400 Mg Tablet) 400 mg PO DAILY [facility] Last Admin: 06/22/23 08:02 Dose: 400 mg Metformin HCl (Metformin Hcl 1,000 Mg Tablet) 1,000 mg PO BID [facility] Last Admin: 06/22/23 08:02 Dose: 1,000 mg Metoprolol Succinate (Metoprolol Succinate Er 50 Mg Tab.Er.24h) 50 mg PO DAILY [facility]; Protocol Last Admin: 06/22/23 08:02 Dose: 50 mg Omeprazole (Omeprazole 20 Mg Capsule.) 20 mg PO DAILY@0630 [facility] Last Admin: 06/22/23 05:34 Dose: 20 mg Ondansetron HCl (Ondansetron Hcl 4 Mg/2 Ml Vial) 4 mg IVPUSH Q8H PRN PRN Reason: Nausea and Vomiting Polyethylene Glycol (Polyethylene Glycol 3350 17 Gm Powd.Pack) 17 gm PO DAILY PRN PRN Reason: Constipation Risperidone (Risperidone 2 Mg Tablet) 2 mg PO BEDTIME [facility] Last Admin: 06/21/23 20:52 Dose: 2 mg Sodium Chloride (0.9 % Sodium Chloride Flush 3 Ml Syringe) 3 ml IVFLUSH QSHIFT [facility] Vitamin D (Cholecalciferol (Vitamin D3) 25 Mcg Tablet) 25 mcg PO DAILY [facility] Last Admin: 06/22/23 08:01 Dose: 25 mcg Home Medications Medication Instructions Recorded Confirmed Last Taken Type atorvastatin 20 mg tablet 20 mg PO BEDTIME 08/22/22 06/21/23 12/04/22 History cholecalciferol (vitamin D3) 25 25 mcg PO DAILY 08/22/22 06/21/23 12/04/22 History mcg (1,000 unit) tablet divalproex 500 mg tablet,extended 1,500 mg PO BEDTIME 08/22/22 06/21/23 12/04/22 History release 24 hr ferrous sulfate 324 mg (65 mg 324 mg PO DAILY 08/22/22 06/21/23 12/04/22 History iron) tablet,delayed release metformin 1,000 mg tablet 1,000 mg PO BID 08/22/22 06/21/23 12/04/22 History omeprazole 20 mg capsule,delayed 20 mg PO DAILY@0630 08/22/22 06/21/23 12/04/22 History release risperidone 2 mg tablet 2 mg PO BEDTIME 08/22/22 06/21/23 12/04/22 History acetaminophen 500 mg tablet 1,000 mg PO TID PRN Mild Pain 06/21/23 06/21/23 Unknown History (Scale Score 1-4) ammonium lactate 12 % lotion 1 appl topical DAILY 06/21/23 06/21/23 Unknown History ascorbic acid (vitamin C) 1,000 mg 1,000 mg PO DAILY 06/21/23 06/21/23 Unknown History tablet furosemide 40 mg tablet 80 mg PO DAILY 06/21/23 06/21/23 Unknown History furosemide 40 mg tablet (Lasix) 40 mg PO DAILY@1400 06/21/23 06/21/23 Unknown History glipizide 5 mg tablet, extended 5 mg PO DAILY 06/21/23 06/21/23 Unknown History release 24 hr levothyroxine 200 mcg tablet 200 mcg PO DAILY 06/21/23 06/21/23 Unknown History magnesium oxide 400 mg PO DAILY 06/21/23 06/21/23 Unknown History mecobalamin (vitamin B12) 1,000 1,000 mcg PO DAILY 06/21/23 06/21/23 Unknown History mcg chewable tablet metoprolol succinate 50 mg 50 mg PO DAILY 06/21/23 06/21/23 Unknown History tablet,extended release 24 hr polyethylene glycol 3350 17 gram 17 g PO DAILY PRN Constipation 06/21/23 06/21/23 Unknown History oral powder packet (Miralax) Physical Exam Vital Signs and Narrative: Vital Signs: Last Vital Signs Temp 97.8 F 06/22/23 05:26 Pulse 107 H 06/22/23 05:26 Resp 16 06/22/23 05:26 BP 143/77 H 06/22/23 05:26 Pulse Ox 92 06/22/23 05:26 O2 Del Method Room Air 06/22/23 05:26 BMI result Body Mass Index 41.9 Constitutional - Awake and Alert, No apparent distress Eyes - PERRLA, EOMI Cardiovascular - S1S2, RRR, 2+ ble edema Respiratory - Normal lung expansion, Normal respiratory effort, No respiratory distress, CTA bilaterally Gastrointestinal - NT / ND; +BS; No rebound or guarding Extremities - no calf tenderness bilaterally, thickened mildly erythematous skin with shallow ulcerations with serous weeping and swelling of the bilateral feet Skin - Warm/Dry Neurological - Alert & oriented x3, 4/5 strength BUE and BLE Psychological - Appropriate affect Results Labs 06/21/23 13:07 06/21/23 13:07 Labs: Laboratory Results - last 24 hr 06/21/23 15:47 COVID-19 ([facility]) Negative COVID-19 Clin Com See Note Assessment and Plan (1) CHF (congestive heart failure): Status: Acute Plan 78-year-old male with history of nbo-ulkxkcy-rqkogpmaj type 2 diabetes, history of tardive dyskinesia, bipolar disorder, hyperlipidemia, hypertension, GERD, chronic venous stasis dermatitis, and alcohol use disorder admitted for further management of mild chf exacerbation and ble weakness #Mild CHF exacerbation -no prior formal diagnosis -cxr shows pulmonary congestion, BNP elevated -IV lasix 40mg BID x 1 day. Reassess fluid status and transition to PO one appropriate -cardiac diet -strict I&O -and daily weights -echocardiogram # chronic venous stasis dermatitis -likely contributing to bilateral lower extremity edema -no evidence of infection -negative DVT studies historically -continue Lasix as above # toz-uzmlcqa-vhyhinfrt type 2 diabetes -height glipizide metformin -continue diabetic diet -POC glucose # hypertension -reasonably controlled -continue metoprolol # bipolar disorder -continue home meds # alcohol use disorder -no evidence of acute withdrawal, monitor on CIWA -addiction medicine consult -p.o. thiamine folic acid DVT prophylaxis-Lovenox Full code Patient requires inpatient stay at least 2 midnights for management of CHF exacerbation requiring IV diuresis, echocardiogram, and will require placement to acute rehab per physical therapy recommendations as patient is 2 person assist with decreased mobility from baseline. Time Spent With Patient Time: Total time managing care of this patient today ____ minutes. Quality Stroke Does the patient have a stroke diagnosis?: No VTE Prior VTE?: No VTE Risk Level:: Medical - moderate - high VTE Device Contraindication: Treatment Not Indicated VTE Drug Contraindication: N/A - Med Ordered
[2023-06-22 15:18] VITALS: BP 124/66; PULSE 103; RESP 18; TEMP 36.5; O2SAT 92
[2023-06-22 15:21] LABS: Anion Gap 22 (12-20); Blood Urea Nitrogen 21 mg/dL (9-16); Calcium 9.2 mg/dL (8.4-10.2); Carbon Dioxide 30 mmol/L (22-29); Chloride 96 mmol/L (96-108); Creatinine Clr Calc Pharmacy 55.7; Estimated Glomerular Filt Rate 47; Glucose Random 112 mg/dL (60-115); Potassium 3.9 mmol/L (3.3-5.1); Sodium 144 mmol/L (135-145)
[2023-06-22 16:00] VITALS: BP 139/78; PULSE 83; RESP 18; TEMP 36.6; O2SAT 93
--- NOTE | 2023-06-22 16:03 | PC.NURSE ---
report given to regina carranza. pt aware of plan of care.
[2023-06-22 19:19] VITALS: BP 150/78; PULSE 92; RESP 18; TEMP 36.9
[2023-06-22 23:19] VITALS: BP 123/82; PULSE 100; RESP 16; TEMP 36.6; O2SAT 94
[2023-06-23] VITALS (9 sets, daily range): BP systolic 124–165; BP diastolic 55–90; PULSE 86–122; RESP 16–24; TEMP 36.4–37.3; O2SAT 93–100
[2023-06-23 05:35] LABS: MANUAL DIFF FLAG NO
[2023-06-23 05:36] LABS: Basophils Percent Auto 0.5 % (0-2); Eosinophils Absolute Auto 0.3 X10*3/uL (0.0-0.4); Eosinophils Percent Auto 4.1 % (0-4); Hematocrit 37.6 % (42.0-52.0); Hemoglobin 11.8 g/dl (14.0-18.0); Imm Gran Abs Auto 0.15 X10*3/uL (0.00-0.03); Imm Gran Pct Auto 2.5 % (0.0-0.4); Lymphocytes Absolute Auto 1.1 X10*3/uL (1.2-4.9); Lymphocytes Percent Auto 17.3 % (20-40); Mean Corpuscular HGB Conc 31.4 g/dl (31.0-36.0); Mean Corpuscular Hemoglobin 28.8 pg (27.0-33.0); Mean Corpuscular Volume 91.7 fL (80.0-98.0); Mean Platelet Volume 8.5 fL (9.4-12.4); Monocytes Absolute Auto 0.6 X10*3/uL (0.1-1.2); Monocytes Percent Auto 10.1 % (2-11); Neutrophils Percent Auto 65.5 % (45-73); Platelet Count 141 X10*3/uL (160-400); Red Cell Distribution Width 16.6 % (11.0-16.0); White Blood Count 6.1 X10*3/uL (4.8-10.8)
[2023-06-23 05:55] LABS: Anion Gap 16 (12-20); Blood Urea Nitrogen 20 mg/dL (9-16); Calcium 9.5 mg/dL (8.4-10.2); Carbon Dioxide 34 mmol/L (22-29); Chloride 96 mmol/L (96-108); Creatinine Clr Calc Pharmacy 62.2; Estimated Glomerular Filt Rate 54; Glucose Random 130 mg/dL (60-115); Potassium 3.5 mmol/L (3.3-5.1); Sodium 142 mmol/L (135-145)
--- NOTE | 2023-06-23 08:55 | PC.NURSE ---
Vitals taken this morning by student nurse, This nurse was notified that patients oxygen saturation was in the mid 80's on room air. O2 at 2L via NC applied, patients oxygen saturation recovered to 94%. Patient stated that he choked on water this morning when taking a sip, has a new intermittent non-productive cough and expiratory wheezing, MD Dr. Winchester notified of new symptoms, no new orders at this time. Patient denies any SOB or difficulty breathing, is alert and oriented with no signs of distress.
--- NOTE | 2023-06-23 11:04 | HO.PM.IMPN ---
Subjective Subjective Date of Service: 06/23/23 Interval History: possible mild chf ,generalised wekness Review of Systems no fevers moving alls ext has legs soarness Physical Exam Vital Signs: Vital Signs: Last Vital Signs Temp 97.6 F 06/23/23 07:28 Pulse 122 H 06/23/23 09:19 Resp 20 06/23/23 07:28 BP 165/77 H 06/23/23 09:19 Pulse Ox 95 06/23/23 09:19 O2 Del Method Nasal Cannula 06/23/23 09:19 O2 Flow Rate 2 06/23/23 09:19 BMI result Body Mass Index 41.9 Appearance: Alert.? Oriented X3.? not in distress.? cvs: rrr( mild tachy), [id number] res: clear to auscultation ,no rhonchii or wheezing abd: no rebound or guarding ,nt, bs present. ext : wrapped ,moves all ext ,lower ext soarness /has venostasis. neuro: axo3 , nonfocal. Objective Data Active Medications Acetaminophen (Acetaminophen 325 Mg Tablet) 650 mg PO TID PRN PRN Reason: Mild Pain (Scale Score 1-4) Ascorbic Acid (Ascorbic Acid 500 Mg Tablet) 1,000 mg PO DAILY [facility] Last Admin: 06/23/23 09:24 Dose: 1,000 mg Documented By: ANUM Atorvastatin Calcium (Atorvastatin Calcium 20 Mg Tablet) 20 mg PO BEDTIME [facility] Last Admin: 06/22/23 20:54 Dose: 20 mg Documented By: ERIN Cyanocobalamin (Cyanocobalamin (Vitamin B-12) 1,000 Mcg Tablet) 1,000 mcg PO DAILY [facility] Last Admin: 06/23/23 09:25 Dose: 1,000 mcg Documented By: ANUM Dextrose (Dextrose 50 % 25 Gm/50 Ml Syringe) 25 gm IVPUSH Q15M PRN; Protocol PRN Reason: per Hypoglycemia Standing Ord. Divalproex Sodium (Divalproex Sodium Er 500 Mg Tab.Er.24h) 1,500 mg PO BEDTIME [facility] Last Admin: 06/22/23 20:54 Dose: 1,500 mg Documented By: ERIN Docusate Sodium (Docusate Sodium 100 Mg Capsule) 100 mg PO DAILY PRN PRN Reason: Constipation Enoxaparin Sodium (Enoxaparin Sodium 40 Mg/0.4 Ml Syringe) 40 mg SUBCUT Q24H [facility] Last Admin: 06/22/23 16:24 Dose: 40 mg Documented By: PER Ferrous Sulfate (Ferrous Sulfate 324 Mg Tablet.) 324 mg PO DAILY [facility] Last Admin: 06/23/23 09:24 Dose: 324 mg Documented By: ANUM Folic Acid (Folic Acid 1 Mg Tablet) 1 mg PO DAILY [facility] Last Admin: 06/23/23 09:25 Dose: 1 mg Documented By: ANUM Furosemide (Furosemide 20 Mg/2 Ml Vial) 20 mg IVPUSH BID@0900,1800 [facility]; Protocol Glucose (Glucose Gel 15 Gm Gel..Gram.) 15 gm PO Q15M PRN; Protocol PRN Reason: per Hypoglycemia Standing Ord. Insulin Human Lispro (Insulin Lispro 100 Unit/Ml 3 Ml Vial) 0 unit SUBCUT QIDACHS [facility]; Protocol Last Admin: 06/23/23 07:42 Dose: Not Given Documented By: SHARON Non-Admin Reason: No Insulin Coverage Lactic Acid (Ammonium Lactate 12 % Lotion 226 Gm Bottle) 1 appl TOPICAL DAILY [facility]; Protocol Last Admin: 06/23/23 10:45 Dose: 1 appl Documented By: ANUM Levothyroxine Sodium (Levothyroxine Sodium 200 Mcg Tablet) 200 mcg PO DAILY@0600 [facility] Last Admin: 06/23/23 05:03 Dose: 200 mcg Documented By: ERIN Magnesium Oxide (Magnesium Oxide 400 Mg Tablet) 400 mg PO DAILY [facility] Last Admin: 06/23/23 09:25 Dose: 400 mg Documented By: ANUM Metoprolol Succinate (Metoprolol Succinate Er 50 Mg Tab.Er.24h) 50 mg PO DAILY [facility]; Protocol Last Admin: 06/23/23 09:26 Dose: 50 mg Documented By: ANUM Omeprazole (Omeprazole 20 Mg Capsule.) 20 mg PO DAILY@0630 [facility] Last Admin: 06/23/23 05:03 Dose: 20 mg Documented By: ERIN Ondansetron HCl (Ondansetron Hcl 4 Mg/2 Ml Vial) 4 mg IVPUSH Q8H PRN PRN Reason: Nausea and Vomiting Polyethylene Glycol (Polyethylene Glycol 3350 17 Gm Powd.Pack) 17 gm PO DAILY PRN PRN Reason: Constipation Last Admin: 06/23/23 03:06 Dose: 17 gm Documented By: ERIN Risperidone (Risperidone 2 Mg Tablet) 2 mg PO BEDTIME [facility] Last Admin: 06/22/23 20:54 Dose: 2 mg Documented By: ERIN Sodium Chloride (0.9 % Sodium Chloride Flush 3 Ml Syringe) 3 ml IVFLUSH QSHIFT [facility] Last Admin: 06/23/23 09:27 Dose: 3 ml Documented By: ANUM Thiamine HCl (Thiamine Hcl 100 Mg Tablet) 100 mg PO DAILY [facility] Last Admin: 06/23/23 09:26 Dose: 100 mg Documented By: ANUM Vitamin D (Cholecalciferol (Vitamin D3) 25 Mcg Tablet) 25 mcg PO DAILY [facility] Last Admin: 06/23/23 09:25 Dose: 25 mcg Documented By: ANUM Labs 06/23/23 04:57 06/23/23 04:57 Labs: Laboratory Results - last 24 hr 06/22/23 06/22/23 06/22/23 14:20 14:30 16:52 MCV MCH MCHC RDW Plt Count MPV Immature Gran % (Auto) Neut % (Auto) Lymph % (Auto) [place] % (Auto) Eos % (Auto) Baso % (Auto) Lymph # (Auto) [place] # (Auto) Eos # (Auto) Baso # (Auto) Abs Immat Gran (auto) Absolute Neuts (auto) Absolute Nucleated RBC Nucleated RBC % (auto) Anion Gap 22 H Estim Creat Clear Calc 55.7 Estimated GFR 47 POC Glucose 103 Random Glucose 112 Calcium 9.2 D Magnesium B-Natriuretic Peptide 214 H 06/22/23 06/23/23 06/23/23 20:07 04:57 07:27 MCV 91.7 MCH 28.8 MCHC 31.4 RDW 16.6 H Plt Count 141 L MPV 8.5 L Immature Gran % (Auto) 2.5 H Neut % (Auto) 65.5 Lymph % (Auto) 17.3 L [place] % (Auto) 10.1 Eos % (Auto) 4.1 H Baso % (Auto) 0.5 Lymph # (Auto) 1.1 L [place] # (Auto) 0.6 Eos # (Auto) 0.3 Baso # (Auto) 0.0 Abs Immat Gran (auto) 0.15 H Absolute Neuts (auto) 4.0 Absolute Nucleated RBC 0.000 Nucleated RBC % (auto) 0.0 Anion Gap 16 Estim Creat Clear Calc 62.2 Estimated GFR 54 POC Glucose 157 H 140 H Random Glucose 130 H Calcium 9.5 Magnesium 2.0 B-Natriuretic Peptide Assessment and Plan (1) Bilateral lower extremity edema: Status: Acute (2) CHF (congestive heart failure): Status: Acute Plan 78-year-old male with history of [id number]-emldzisyp type 2 diabetes, history of tardive dyskinesia, bipolar disorder, hyperlipidemia, hypertension, GERD, chronic venous stasis dermatitis, and alcohol use disorder admitted for further management of mild chf exacerbation and ble weakness Mild CHF exacerbation-possible HFpEF: elevated bnp ,some sob ,cxr -shows pulm congestion also mild trop elevation likely due to chf. echocardiogram: Normal left ventricular cavity size. There is moderately increased left ventricular wall thickness. Diastolic function is indeterminate on the basis of available data. Difficult to assess LVEF/ wall motion in spite of contrast; possibly low normal with LVEF 50-55%. cardiac diet strict I&O: 1.8 liter negative daily weights( 124.9 kg on admit -baseline unclear but bmi is up from 40 to 42) IV lasix 20mg BID x 1 day. chronic venous stasis dermatitis-likely contributing to bilateral lower extremity edema no evidence of infection,negative DVT studies historically continue Lasix as above hqt-[id number] type 2 diabetes height glipizide metformin continue diabetic diet POC glucose hypertension reasonably controlled continue metoprolol bipolar disorder-continue home meds alcohol use disorder-no evidence of acute withdrawal, monitor on [facility] addiction medicine consult p.o. thiamine folic acid generalised weakness/functional decline -going for 1.5 year as per patient son pt -recomended rehab DVT prophylaxis-Lovenox Full code ongoing inpatient need - CHF exacerbation requiring IV diuresis, echocardiogram, and will require placement to rehab per physical therapy recommendations as patient is 2 person assist with decreased mobility from baseline. Time Spent With Patient Time: Total time managing care of this patient today ____ minutes. Quality Stroke Does the patient have a stroke diagnosis?: No VTE Prior VTE?: No VTE Risk Level:: Medical - moderate - high VTE Device Contraindication: Treatment Not Indicated VTE Drug Contraindication: N/A - Med Ordered
--- NOTE | 2023-06-23 13:19 | MHC.RECOVRN ---
T/w met with pt to discuss recovery goals r/t his AUD. Pt declining recovery services, BRENT, at this time. States I think I have a handle on it . Pt declining resources.
--- NOTE | 2023-06-23 14:36 | MHC.CM.PN ---
PT REPORTS HE LIVES ALONE AND IS INDEPENDENT WITH PERSONAL CARE HE REPORTS HE IS ACTIVE WITH [facility] AND [facility] FOR [facility]ARE PARTNER AND [facility] PT REPORTS HE USES A WALKER FOR DME HCP ON FILE PCP [facility] DELIVERED DCP: [facility], [facility] IS [facility]ERRED [facility], THEY ARE FOLLOWING BLS TRANSPORT
[2023-06-24] VITALS (8 sets, daily range): BP systolic 115–145; BP diastolic 67–87; PULSE 70–101; RESP 14–20; TEMP 36.1–36.9; O2SAT 93–94
[2023-06-24 06:06] LABS: Anion Gap 15 (12-20); Blood Urea Nitrogen 21 mg/dL (9-16); Calcium 9.5 mg/dL (8.4-10.2); Carbon Dioxide 35 mmol/L (22-29); Chloride 96 mmol/L (96-108); Creatinine Clr Calc Pharmacy 56.5; Estimated Glomerular Filt Rate 48; Glucose Random 153 mg/dL (60-115); Potassium 3.8 mmol/L (3.3-5.1); Sodium 142 mmol/L (135-145)
[2023-06-24 06:09] LABS: B Type Natriuretic Peptide 390 pg/mL (<100)
--- NOTE | 2023-06-24 10:10 | HO.PM.IMPN ---
Subjective Subjective Date of Service: 06/24/23 Interval History: chf,mild chano or ckd ? Review of Systems has some sob earlier this morning as per staff-denies any sobafterwards has soarness in leg and knee right Physical Exam Vital Signs: Vital Signs: Last Vital Signs Temp 98.3 F 06/24/23 07:11 Pulse 87 06/24/23 07:11 Resp 20 06/24/23 07:11 BP 121/67 06/24/23 07:11 Pulse Ox 93 06/24/23 07:11 O2 Del Method Nasal Cannula 06/24/23 07:11 O2 Flow Rate 2 06/24/23 07:11 BMI result Body Mass Index 41.9 Appearance: Alert.? Oriented X3.? not in distress.? cvs: rrr, [id number] res: air entry fair ,no rales or wheezing abd: no rebound or guarding ,nt, bs present. ext : wrapped ,moves all ext ,lower ext soarness /has venostasis. neuro: axo3 , nonfocal. Objective Data Active Medications Acetaminophen (Acetaminophen 325 Mg Tablet) 650 mg PO TID PRN PRN Reason: Mild Pain (Scale Score 1-4) Ascorbic Acid (Ascorbic Acid 500 Mg Tablet) 1,000 mg PO DAILY [facility] Last Admin: 06/24/23 08:24 Dose: 1,000 mg Documented By: SHARON Atorvastatin Calcium (Atorvastatin Calcium 20 Mg Tablet) 20 mg PO BEDTIME [facility] Last Admin: 06/23/23 20:54 Dose: 20 mg Documented By: ERIN Cyanocobalamin (Cyanocobalamin (Vitamin B-12) 1,000 Mcg Tablet) 1,000 mcg PO DAILY [facility] Last Admin: 06/24/23 08:24 Dose: 1,000 mcg Documented By: SHARON Dextrose (Dextrose 50 % 25 Gm/50 Ml Syringe) 25 gm IVPUSH Q15M PRN; Protocol PRN Reason: per Hypoglycemia Standing Ord. Divalproex Sodium (Divalproex Sodium Er 500 Mg Tab.Er.24h) 1,500 mg PO BEDTIME [facility] Last Admin: 06/23/23 20:54 Dose: 1,500 mg Documented By: ERIN Docusate Sodium (Docusate Sodium 100 Mg Capsule) 100 mg PO DAILY PRN PRN Reason: Constipation Enoxaparin Sodium (Enoxaparin Sodium 40 Mg/0.4 Ml Syringe) 40 mg SUBCUT Q24H [facility] Last Admin: 06/23/23 14:30 Dose: 40 mg Documented By: GEORGI-GINA Ferrous Sulfate (Ferrous Sulfate 324 Mg Tablet.) 324 mg PO DAILY [facility] Last Admin: 06/24/23 08:24 Dose: 324 mg Documented By: SHARON Folic Acid (Folic Acid 1 Mg Tablet) 1 mg PO DAILY [facility] Last Admin: 06/24/23 08:24 Dose: 1 mg Documented By: SHARON Furosemide (Furosemide 20 Mg/2 Ml Vial) 20 mg IVPUSH BID@0900,1800 [facility]; Protocol Last Admin: 06/24/23 08:24 Dose: 20 mg Documented By: SHARON Glucose (Glucose Gel 15 Gm Gel..Gram.) 15 gm PO Q15M PRN; Protocol PRN Reason: per Hypoglycemia Standing Ord. Insulin Human Lispro (Insulin Lispro 100 Unit/Ml 3 Ml Vial) 0 unit SUBCUT QIDACHS [facility]; Protocol Last Admin: 06/24/23 07:36 Dose: Not Given Documented By: SHARON Non-Admin Reason: No Insulin Coverage Lactic Acid (Ammonium Lactate 12 % Lotion 226 Gm Bottle) 1 appl TOPICAL DAILY [facility]; Protocol Last Admin: 06/24/23 08:24 Dose: 1 appl Documented By: SHARON Levothyroxine Sodium (Levothyroxine Sodium 200 Mcg Tablet) 200 mcg PO DAILY@0600 [facility] Last Admin: 06/24/23 05:55 Dose: 200 mcg Documented By: ERIN Magnesium Oxide (Magnesium Oxide 400 Mg Tablet) 400 mg PO DAILY [facility] Last Admin: 06/24/23 08:24 Dose: 400 mg Documented By: SHARON Metoprolol Tartrate (Metoprolol Tartrate 25 Mg Tablet) 25 mg PO QID [facility]; Protocol Last Admin: 06/24/23 08:24 Dose: 25 mg Documented By: SHARON Omeprazole (Omeprazole 20 Mg Capsule.) 20 mg PO DAILY@0630 [facility] Last Admin: 06/24/23 05:55 Dose: 20 mg Documented By: ERIN Ondansetron HCl (Ondansetron Hcl 4 Mg/2 Ml Vial) 4 mg IVPUSH Q8H PRN PRN Reason: Nausea and Vomiting Polyethylene Glycol (Polyethylene Glycol 3350 17 Gm Powd.Pack) 17 gm PO DAILY PRN PRN Reason: Constipation Last Admin: 06/23/23 03:06 Dose: 17 gm Documented By: ERIN Pregabalin (Pregabalin 50 Mg Capsule) 50 mg PO DAILY [facility] Last Admin: 06/24/23 09:20 Dose: 50 mg Documented By: SHARON Risperidone (Risperidone 2 Mg Tablet) 2 mg PO BEDTIME [facility] Last Admin: 06/23/23 20:54 Dose: 2 mg Documented By: ERIN Sodium Chloride (0.9 % Sodium Chloride Flush 3 Ml Syringe) 3 ml IVFLUSH QSHIFT [facility] Last Admin: 06/24/23 08:24 Dose: 3 ml Documented By: SHARON Thiamine HCl (Thiamine Hcl 100 Mg Tablet) 100 mg PO DAILY [facility] Last Admin: 06/24/23 08:24 Dose: 100 mg Documented By: SHARON Vitamin D (Cholecalciferol (Vitamin D3) 25 Mcg Tablet) 25 mcg PO DAILY [facility] Last Admin: 06/24/23 08:24 Dose: 25 mcg Documented By: SHARON Labs 06/23/23 04:57 06/24/23 04:52 Labs: Laboratory Results - last 24 hr 06/23/23 06/23/23 06/23/23 11:01 16:21 20:00 Anion Gap Estim Creat Clear Calc Estimated GFR POC Glucose 212 H 171 H 201 H Random Glucose Calcium B-Natriuretic Peptide 06/24/23 06/24/23 04:52 07:14 Anion Gap 15 Estim Creat Clear Calc 56.5 Estimated GFR 48 POC Glucose 144 H Random Glucose 153 H Calcium 9.5 B-Natriuretic Peptide 390 H Assessment and Plan (1) Bilateral lower extremity edema: Status: Acute (2) CHF (congestive heart failure): Status: Acute Plan 78-year-old male with history of xji-veoucum-drmsbbwel type 2 diabetes, history of tardive dyskinesia, bipolar disorder, hyperlipidemia, hypertension, GERD, chronic venous stasis dermatitis, and alcohol use disorder admitted for further management of mild chf exacerbation and ble weakness Mild CHF exacerbation-possible HFpEF: found to have elevated bnp ,some sob ,cxr -shows pulm congestion also mild trop elevation likely due to chf. cxr (06/24/23) -seems normal bnp trending up strict I&O: 2.3 liter negative he still feels some sob as per staff echocardiogram: Normal left ventricular cavity size. There is moderately increased left ventricular wall thickness. Diastolic function is indeterminate on the basis of available data. Difficult to assess LVEF/ wall motion in spite of contrast; possibly low normal with LVEF 50-55%. cardiac diet daily weights( 124.9 kg on admit -baseline unclear but bmi is up from 40 to 42) IV lasix 20mg BID x 1 day. chronic venous stasis dermatitis-likely contributing to bilateral lower extremity edema no evidence of infection,negative DVT studies(06/23/23) added knee xray continue Lasix as above [id number] type 2 diabetes height glipizide metformin continue diabetic diet POC glucose hypertension reasonably controlled continue metoprolol bipolar disorder-continue home meds alcohol use disorder-no evidence of acute withdrawal, monitor on [facility] addiction medicine consult p.o. thiamine folic acid generalised weakness/functional decline -going for 1.5 year as per patient son pt -recomended rehab chano vs ckd 3: urinating well will check pvr's moniter renal function/electrolytes added ua /electrolye s nephrology eval DVT prophylaxis-Lovenox Full code ongoing inpatient need - CHF exacerbation requiring IV diuresis, chano on ckd -need electrolytes /renal function monitering,and will require placement to rehab per physical therapy recommendations as patient is 2 person assist with decreased mobility from baseline. Time Spent With Patient Time: Total time managing care of this patient today ____ minutes. Quality Stroke Does the patient have a stroke diagnosis?: No VTE Prior VTE?: No VTE Risk Level:: Medical - moderate - high VTE Device Contraindication: Treatment Not Indicated VTE Drug Contraindication: N/A - Med Ordered
--- NOTE | 2023-06-24 11:25 | PM.CNNEP ---
History of Present Illness Reason for Consult Consult date: 06/24/23 Chief Complaint Chief complaint: chf exacerbation bie weakness History of Present Illness Narrative: Mr. Danie Rivera is a 78-year-old gentleman with past medical history of [id number] type 2 diabetes, history of tardive dyskinesia, bipolar disorder, hyperlipidemia, hypertension, GERD, chronic venous stasis dermatitis, and alcohol use disorder who presented for increase LE edema. The patient reports chronic edema for the last year. He denies any reina, sob at rest, orthopnea, PND, or chest pain. CXR showed mild cardiomegaly without pulmonary vascular congestion. Review of Systems Eyes: Reports no additional eye complaints Reports system reviewed and no additional complaints, except as documented Cardiovascular: Reports no additional cardiovascular complaints Gastrointestinal: Reports no additional gastrointestinal complaints PMFSH Past Medical History Medical History Chronic venous stasis dermatitis Diabetes mellitus type II, non insulin dependent Tardive dyskinesia Bipolar 1 disorder HLD (hyperlipidemia) HTN (hypertension) GERD (gastroesophageal reflux disease) Family History Family History Father Diabetes Maternal Grandmother Heart problem Social History Social History Household Members: None Housing: House Housing Other:: [facility] Do you presently have visiting nurse or other home services: No ([facility] elder care 3x week house clearing) Alcohol intake: current Alcohol intake frequency: 3 or more drinks per day Patient Tobacco Use Status: Never used Tobacco e-Cigarette/Vaping Use: Never Used Second Hand Smoke Exposure: No Advance Directives Date on File: 08/25/22 service: No Current occupational status: retired [employer] Allergies Allergy/AdvReac Type Severity Reaction Status Date / Time No Known Allergies Allergy Verified 06/21/23 19:53 Active Medications: Current Medications Acetaminophen (Acetaminophen 325 Mg Tablet) 650 mg PO TID PRN PRN Reason: Mild Pain (Scale Score 1-4) Ascorbic Acid (Ascorbic Acid 500 Mg Tablet) 1,000 mg PO DAILY [facility] Last Admin: 06/24/23 08:24 Dose: 1,000 mg Atorvastatin Calcium (Atorvastatin Calcium 20 Mg Tablet) 20 mg PO BEDTIME [facility] Last Admin: 06/23/23 20:54 Dose: 20 mg Cyanocobalamin (Cyanocobalamin (Vitamin B-12) 1,000 Mcg Tablet) 1,000 mcg PO DAILY [facility] Last Admin: 06/24/23 08:24 Dose: 1,000 mcg Dextrose (Dextrose 50 % 25 Gm/50 Ml Syringe) 25 gm IVPUSH Q15M PRN; Protocol PRN Reason: per Hypoglycemia Standing Ord. Divalproex Sodium (Divalproex Sodium Er 500 Mg Tab.Er.24h) 1,500 mg PO BEDTIME [facility] Last Admin: 06/23/23 20:54 Dose: 1,500 mg Docusate Sodium (Docusate Sodium 100 Mg Capsule) 100 mg PO DAILY PRN PRN Reason: Constipation Enoxaparin Sodium (Enoxaparin Sodium 40 Mg/0.4 Ml Syringe) 40 mg SUBCUT Q24H [facility] Last Admin: 06/23/23 14:30 Dose: 40 mg Ferrous Sulfate (Ferrous Sulfate 324 Mg Tablet.) 324 mg PO DAILY [facility] Last Admin: 06/24/23 08:24 Dose: 324 mg Folic Acid (Folic Acid 1 Mg Tablet) 1 mg PO DAILY [facility] Last Admin: 06/24/23 08:24 Dose: 1 mg Glucose (Glucose Gel 15 Gm Gel..Gram.) 15 gm PO Q15M PRN; Protocol PRN Reason: per Hypoglycemia Standing Ord. Insulin Human Lispro (Insulin Lispro 100 Unit/Ml 3 Ml Vial) 0 unit SUBCUT QIDACHS [facility]; Protocol Last Admin: 06/24/23 07:36 Dose: Not Given Lactic Acid (Ammonium Lactate 12 % Lotion 226 Gm Bottle) 1 appl TOPICAL DAILY [facility]; Protocol Last Admin: 06/24/23 08:24 Dose: 1 appl Levothyroxine Sodium (Levothyroxine Sodium 200 Mcg Tablet) 200 mcg PO DAILY@0600 [facility] Last Admin: 06/24/23 05:55 Dose: 200 mcg Magnesium Oxide (Magnesium Oxide 400 Mg Tablet) 400 mg PO DAILY [facility] Last Admin: 06/24/23 08:24 Dose: 400 mg Metoprolol Tartrate (Metoprolol Tartrate 25 Mg Tablet) 25 mg PO QID [facility]; Protocol Last Admin: 06/24/23 08:24 Dose: 25 mg Omeprazole (Omeprazole 20 Mg Capsule.) 20 mg PO DAILY@0630 [facility] Last Admin: 06/24/23 05:55 Dose: 20 mg Ondansetron HCl (Ondansetron Hcl 4 Mg/2 Ml Vial) 4 mg IVPUSH Q8H PRN PRN Reason: Nausea and Vomiting Polyethylene Glycol (Polyethylene Glycol 3350 17 Gm Powd.Pack) 17 gm PO DAILY PRN PRN Reason: Constipation Last Admin: 06/23/23 03:06 Dose: 17 gm Pregabalin (Pregabalin 50 Mg Capsule) 50 mg PO DAILY [facility] Last Admin: 06/24/23 09:20 Dose: 50 mg Risperidone (Risperidone 2 Mg Tablet) 2 mg PO BEDTIME [facility] Last Admin: 06/23/23 20:54 Dose: 2 mg Sodium Chloride (0.9 % Sodium Chloride Flush 3 Ml Syringe) 3 ml IVFLUSH QSHIFT [facility] Last Admin: 06/24/23 08:24 Dose: 3 ml Thiamine HCl (Thiamine Hcl 100 Mg Tablet) 100 mg PO DAILY [facility] Last Admin: 06/24/23 08:24 Dose: 100 mg Vitamin D (Cholecalciferol (Vitamin D3) 25 Mcg Tablet) 25 mcg PO DAILY [facility] Last Admin: 06/24/23 08:24 Dose: 25 mcg Home Medications Medication Instructions Recorded Confirmed Last Taken Type atorvastatin 20 mg tablet 20 mg PO BEDTIME 08/22/22 06/21/23 12/04/22 History cholecalciferol (vitamin D3) 25 25 mcg PO DAILY 08/22/22 06/21/23 12/04/22 History mcg (1,000 unit) tablet divalproex 500 mg tablet,extended 1,500 mg PO BEDTIME 08/22/22 06/21/23 12/04/22 History release 24 hr ferrous sulfate 324 mg (65 mg 324 mg PO DAILY 08/22/22 06/21/23 12/04/22 History iron) tablet,delayed release metformin 1,000 mg tablet 1,000 mg PO BID 08/22/22 06/21/23 12/04/22 History omeprazole 20 mg capsule,delayed 20 mg PO DAILY@0630 08/22/22 06/21/23 12/04/22 History release risperidone 2 mg tablet 2 mg PO BEDTIME 08/22/22 06/21/23 12/04/22 History acetaminophen 500 mg tablet 1,000 mg PO TID PRN Mild Pain 06/21/23 06/21/23 Unknown History (Scale Score 1-4) ammonium lactate 12 % lotion 1 appl topical DAILY 06/21/23 06/21/23 Unknown History ascorbic acid (vitamin C) 1,000 mg 1,000 mg PO DAILY 06/21/23 06/21/23 Unknown History tablet furosemide 40 mg tablet 80 mg PO DAILY 06/21/23 06/21/23 Unknown History furosemide 40 mg tablet (Lasix) 40 mg PO DAILY@1400 06/21/23 06/21/23 Unknown History glipizide 5 mg tablet, extended 5 mg PO DAILY 06/21/23 06/21/23 Unknown History release 24 hr levothyroxine 200 mcg tablet 200 mcg PO DAILY 06/21/23 06/21/23 Unknown History magnesium oxide 400 mg PO DAILY 06/21/23 06/21/23 Unknown History mecobalamin (vitamin B12) 1,000 1,000 mcg PO DAILY 06/21/23 06/21/23 Unknown History mcg chewable tablet metoprolol succinate 50 mg 50 mg PO DAILY 06/21/23 06/21/23 Unknown History tablet,extended release 24 hr polyethylene glycol 3350 17 gram 17 g PO DAILY PRN Constipation 06/21/23 06/21/23 Unknown History oral powder packet (Miralax) Physical Exam Vital Signs: Last Vital Signs Temp 98.3 F 06/24/23 07:11 Pulse 87 06/24/23 07:11 Resp 20 06/24/23 07:11 BP 121/67 06/24/23 07:11 Pulse Ox 93 06/24/23 07:11 O2 Del Method Nasal Cannula 06/24/23 07:11 O2 Flow Rate 2 06/24/23 07:11 BMI result Body Mass Index 41.9 Const Other: He looks well is not toxic-appearing General: cooperative Nutritional Appearance: well nourished Orientation/consciousness: patient oriented x3 HEENT Head: Yes normal to inspection Face and sinus: Yes normal facial exam Neck Neck: Yes normal visual inspection Chest Chest palpation & inspection: normal inspection of the chest Resp Effort & Inspection: normal respiratory effort Auscultation: clear to auscultation bilaterally Cardio Jugular venous distension: no JVD Rate: regular rate Rhythm: regular rhythm GI Inspection: Yes normal to inspection Percussion: Yes normal to percussion Skin General skin exam: no rashes or lesions noted and elasticity normal Lesions: no lesions Rashes: no rashes Neuro General: patient oriented x3 Cranial nerves: Yes CN's II-XII intact bilaterally Extrem Other: Patient has 3+ edema bilaterally of the lower extreme Results Lab Results 06/23/23 04:57 06/24/23 04:52 Lab results: Chemistry 06/21/23 06/22/23 06/23/23 13:07 14:20 04:57 Sodium 143 144 142 Potassium 4.2 3.9 3.5 Carbon Dioxide 31 H 30 H 34 H BUN 18 H 21 H 20 H Creatinine 1.21 1.45 H 1.30 Calcium 9.9 9.2 D 9.5 06/24/23 04:52 Sodium 142 Potassium 3.8 Carbon Dioxide 35 H BUN 21 H Creatinine 1.43 H Calcium 9.5 Hematology 06/21/23 06/23/23 13:07 04:57 WBC 6.6 6.1 Hgb 11.9 L 11.8 L Plt Count 158 L 141 L Assessment and Plan (1) Bilateral lower extremity edema: Status: Acute (2) CHF (congestive heart failure): Status: Acute Plan Mr. Danie Rivera is a 78-year-old gentleman with past medical history of [id number] type 2 diabetes, history of tardive dyskinesia, bipolar disorder, hyperlipidemia, hypertension, GERD, chronic venous stasis dermatitis, and alcohol use disorder who presented for increase LE edema. The patient reports chronic edema for the last year. 1. Undiagnosed CKD CKD with baseline Cr 1.2-1.3mg/dL U/A historically bland 2. Volume / HTN Chronic lymphedema no evidence of CHF 3. High bicarb ABG done today showed Metabolic ALK with good resp comp Plan: - stop diuretics - tomorrow consider torsemide 40mg daily instead of his usualy POlasix - renal panel daily. Time Spent With Patient Time: Total time managing care of this patient today ____ minutes. Procedures Date of Service Date of Service: 06/24/23
[2023-06-25 07:08] VITALS: BP 121/78; PULSE 90; RESP 20; TEMP 36.3; O2SAT 97
[2023-06-25 11:10] VITALS: PULSE 86; RESP 18; O2SAT 97
--- NOTE | 2023-06-25 12:21 | PM.CNPUL ---
History of Present Illness History of Present Illness Consult date: 06/25/23 Chief complaint: Hypoxia Narrative: 78-year-old gentleman, lifetime nonsmoker with underlying history of morbid obesity, obesity hyperventilation, bipolar disorder, diabetes mellitus, diastolic dysfunction admitted 10 09/21/2022 with exacerbation of underlying diastolic congestive heart failure with dyspnea and worsening lower extremity edema. He was treated with IV diuretic with significant improvement in his symptoms and FiO2 requirements. Pulmonary evaluation was requested. At the time of my evaluation patient is on room air saturating 94%. He denies any pulmonary related concerns or complaints at this time. Review of Systems Constitutional: Constitutional: Denies daytime sleepiness, Denies excessive sweating, Denies fatigue, Denies fever(s), Denies lethargy, Denies malaise, Denies night sweats, Denies snoring and Denies weight loss Eyes: Eyes: Denies blurry vision and Denies itchy eyes ENT: Denies nasal congestion, Denies post nasal drip, Denies sinus pain, Denies sinus pressure and Denies other ( Thrush) Cardiovascular: Cardiovascular: Denies chest pain, Reports pedal edema, Denies dyspnea, Reports dyspnea on exertion, Reports orthopnea and Reports paroxysmal nocturnal dyspnea Respiratory: Respiratory: Denies cough, Denies hemoptysis, Denies excessive phlegm production, Denies dyspnea, Reports dyspnea on exertion, Denies snoring and Denies wheezing Gastrointestinal: Gastrointestinal: Denies abdominal pain and Denies heartburn Musculoskeletal: Musculoskeletal: Denies myalgias, Denies arthralgias and Denies joint swelling Integumentary/Breasts: Skin/Breast: Denies rash Neurologic: Denies memory loss and Denies seizure-like activity Psychiatric: Psychiatric: Denies abnormal sleep pattern, Denies anxiety and Denies memory loss Endocrine: Endocrine: Denies excessive sweating, Denies fatigue and Denies heat intolerance Hematologic/Lymphatic: Hematologic/Lymphatic: Denies easy bruising Allergic/Immunologic: Allergic/Immunologic: Denies itchy eyes, Denies seasonal rhinorrhea and Denies wheezing PMFSH Past Medical History Medical History Chronic venous stasis dermatitis Diabetes mellitus type II, non insulin dependent Tardive dyskinesia Bipolar 1 disorder HLD (hyperlipidemia) HTN (hypertension) GERD (gastroesophageal reflux disease) Family History Family History Father Diabetes Maternal Grandmother Heart problem Social History Social History Household Members: None Housing: House Housing Other:: senior housing [facility] Do you presently have visiting nurse or other home services: No ([facility] 3x week house clearing) Alcohol intake: current Alcohol intake frequency: 3 or more drinks per day Patient Tobacco Use Status: Never used Tobacco e-Cigarette/Vaping Use: Never Used Second Hand Smoke Exposure: No Advance Directives Date on File: 08/25/22 service: No Current occupational status: retired [employer] Allergies Allergy/AdvReac Type Severity Reaction Status Date / Time No Known Allergies Allergy Verified 06/21/23 19:53 Active Medications: Current Medications Acetaminophen (Acetaminophen 325 Mg Tablet) 650 mg PO TID PRN PRN Reason: Mild Pain (Scale Score 1-4) Acetazolamide (Acetazolamide 250 Mg Tablet) 375 mg PO BID [facility] Albuterol/Ipratropium (Albuterol/Iprat 2.5/0.5mg 3 Ml Ampul.Neb) 3 ml INHALE RQ4H WHILE AWAKE [facility] Last Admin: 06/25/23 11:07 Dose: 3 ml Albuterol/Ipratropium (Albuterol/Iprat 2.5/0.5mg 3 Ml Ampul.Neb) 3 ml INHALE Q3H PRN PRN Reason: Sob Ascorbic Acid (Ascorbic Acid 500 Mg Tablet) 1,000 mg PO DAILY [facility] Last Admin: 06/25/23 08:24 Dose: 1,000 mg Atorvastatin Calcium (Atorvastatin Calcium 20 Mg Tablet) 20 mg PO BEDTIME [facility] Last Admin: 06/24/23 21:02 Dose: 20 mg Cyanocobalamin (Cyanocobalamin (Vitamin B-12) 1,000 Mcg Tablet) 1,000 mcg PO DAILY [facility] Last Admin: 06/25/23 08:24 Dose: 1,000 mcg Dextrose (Dextrose 50 % 25 Gm/50 Ml Syringe) 25 gm IVPUSH Q15M PRN; Protocol PRN Reason: per Hypoglycemia Standing Ord. Divalproex Sodium (Divalproex Sodium Er 500 Mg Tab.Er.24h) 1,500 mg PO BEDTIME [facility] Last Admin: 06/24/23 21:02 Dose: 1,500 mg Docusate Sodium (Docusate Sodium 100 Mg Capsule) 100 mg PO DAILY PRN PRN Reason: Constipation Enoxaparin Sodium (Enoxaparin Sodium 40 Mg/0.4 Ml Syringe) 40 mg SUBCUT Q24H [facility] Last Admin: 06/24/23 13:04 Dose: 40 mg Ferrous Sulfate (Ferrous Sulfate 324 Mg Tablet.) 324 mg PO DAILY [facility] Last Admin: 06/25/23 08:24 Dose: 324 mg Folic Acid (Folic Acid 1 Mg Tablet) 1 mg PO DAILY [facility] Last Admin: 06/25/23 08:25 Dose: 1 mg Glucose (Glucose Gel 15 Gm Gel..Gram.) 15 gm PO Q15M PRN; Protocol PRN Reason: per Hypoglycemia Standing Ord. Insulin Human Lispro (Insulin Lispro 100 Unit/Ml 3 Ml Vial) 0 unit SUBCUT QIDACHS [facility]; Protocol Last Admin: 06/25/23 12:21 Dose: 2 unit Lactic Acid (Ammonium Lactate 12 % Lotion 226 Gm Bottle) 1 appl TOPICAL DAILY [facility]; Protocol Last Admin: 06/25/23 08:25 Dose: 1 appl Levothyroxine Sodium (Levothyroxine Sodium 200 Mcg Tablet) 200 mcg PO DAILY@0600 [facility] Last Admin: 06/25/23 06:02 Dose: 200 mcg Magnesium Oxide (Magnesium Oxide 400 Mg Tablet) 400 mg PO DAILY [facility] Last Admin: 06/25/23 08:24 Dose: 400 mg Metoprolol Tartrate (Metoprolol Tartrate 25 Mg Tablet) 25 mg PO QID [facility]; Protocol Last Admin: 06/25/23 08:24 Dose: 25 mg Omeprazole (Omeprazole 20 Mg Capsule.) 20 mg PO DAILY@0630 [facility] Last Admin: 06/25/23 06:02 Dose: 20 mg Ondansetron HCl (Ondansetron Hcl 4 Mg/2 Ml Vial) 4 mg IVPUSH Q8H PRN PRN Reason: Nausea and Vomiting Polyethylene Glycol (Polyethylene Glycol 3350 17 Gm Powd.Pack) 17 gm PO DAILY PRN PRN Reason: Constipation Last Admin: 06/23/23 03:06 Dose: 17 gm Pregabalin (Pregabalin 50 Mg Capsule) 50 mg PO DAILY [facility] Last Admin: 06/25/23 08:24 Dose: 50 mg Risperidone (Risperidone 2 Mg Tablet) 2 mg PO BEDTIME [facility] Last Admin: 06/24/23 21:02 Dose: 2 mg Sodium Chloride (0.9 % Sodium Chloride Flush 3 Ml Syringe) 3 ml IVFLUSH QSHIFT [facility] Last Admin: 06/25/23 08:24 Dose: 3 ml Thiamine HCl (Thiamine Hcl 100 Mg Tablet) 100 mg PO DAILY [facility] Last Admin: 06/25/23 08:24 Dose: 100 mg Vitamin D (Cholecalciferol (Vitamin D3) 25 Mcg Tablet) 25 mcg PO DAILY [facility] Last Admin: 06/25/23 08:24 Dose: 25 mcg Home Medications Medication Instructions Recorded Confirmed Last Taken Type atorvastatin 20 mg tablet 20 mg PO BEDTIME 08/22/22 06/21/23 12/04/22 History cholecalciferol (vitamin D3) 25 25 mcg PO DAILY 08/22/22 06/21/23 12/04/22 History mcg (1,000 unit) tablet divalproex 500 mg tablet,extended 1,500 mg PO BEDTIME 08/22/22 06/21/23 12/04/22 History release 24 hr ferrous sulfate 324 mg (65 mg 324 mg PO DAILY 08/22/22 06/21/23 12/04/22 History iron) tablet,delayed release metformin 1,000 mg tablet 1,000 mg PO BID 08/22/22 06/21/23 12/04/22 History omeprazole 20 mg capsule,delayed 20 mg PO DAILY@0630 08/22/22 06/21/23 12/04/22 History release risperidone 2 mg tablet 2 mg PO BEDTIME 08/22/22 06/21/23 12/04/22 History acetaminophen 500 mg tablet 1,000 mg PO TID PRN Mild Pain 06/21/23 06/21/23 Unknown History (Scale Score 1-4) ammonium lactate 12 % lotion 1 appl topical DAILY 06/21/23 06/21/23 Unknown History ascorbic acid (vitamin C) 1,000 mg 1,000 mg PO DAILY 06/21/23 06/21/23 Unknown History tablet furosemide 40 mg tablet 80 mg PO DAILY 06/21/23 06/21/23 Unknown History furosemide 40 mg tablet (Lasix) 40 mg PO DAILY@1400 06/21/23 06/21/23 Unknown History glipizide 5 mg tablet, extended 5 mg PO DAILY 06/21/23 06/21/23 Unknown History release 24 hr levothyroxine 200 mcg tablet 200 mcg PO DAILY 06/21/23 06/21/23 Unknown History magnesium oxide 400 mg PO DAILY 06/21/23 06/21/23 Unknown History mecobalamin (vitamin B12) 1,000 1,000 mcg PO DAILY 06/21/23 06/21/23 Unknown History mcg chewable tablet metoprolol succinate 50 mg 50 mg PO DAILY 06/21/23 06/21/23 Unknown History tablet,extended release 24 hr polyethylene glycol 3350 17 gram 17 g PO DAILY PRN Constipation 06/21/23 06/21/23 Unknown History oral powder packet (Miralax) Physical Exam Vital Signs: Vital Signs: Last Vital Signs Temp 97.4 F 06/25/23 07:08 Pulse 86 06/25/23 11:10 Resp 18 06/25/23 11:10 BP 121/78 06/25/23 07:08 Pulse Ox 97 06/25/23 07:08 O2 Del Method Nasal Cannula 06/25/23 07:08 O2 Flow Rate 2 06/25/23 07:08 BMI result Body Mass Index 41.9 Const: General: no acute distress and alert Nutritional Appearance: obese Orientation/consciousness: Other orientation findings ( oriented) HEENT: Head: Yes atraumatic Eyes: General: appearance normal, both eyes and all related structures Sclerae: sclerae normal EOM: EOMs intact bilaterally Neck: Neck: Yes supple Lymphatic: no lymphadenopathy noted Resp: Effort & Inspection: normal respiratory effort and no use of accessory muscles Auscultation: clear to auscultation bilaterally Cardio: Rate: regular rate Rhythm: regular rhythm Heart sounds: no gallops, no murmurs and no rubs Skin: General skin exam: other ( warm) Extrem: General: No clubbing, No cyanosis and Yes edema (3+ bilateral) Results Laboratory Findings 06/23/23 04:57 06/24/23 04:52 Abnormal lab findings: Abnormal Labs 06/21/23 06/21/23 06/21/23 11:40 13:07 13:10 RBC 4.05 L Hgb 11.9 L Hct 37.1 L RDW 16.3 H Plt Count 158 L MPV 8.6 L Immature Gran % (Auto) 3.0 H Lymph % (Auto) 19.5 L Eos % (Auto) 4.5 H Lymph # (Auto) Abs Immat Gran (auto) 0.20 H ABG pH at Pt Temp ABG pCO2 at Pt Temp ABG pO2 at Pt Temp ABG HCO3 Chloride 95 L Carbon Dioxide 31 H Anion Gap 21 H BUN 18 H Creatinine POC Glucose 126 H Random Glucose 125 H Troponin I High Sens 82.7 H C-Reactive Protein 1.66 H B-Natriuretic Peptide 181 H Urine Protein Urine Glucose (UA) Ur Leukocyte Esterase Urine WBC 06/21/23 06/22/23 06/22/23 16:07 14:20 14:30 RBC Hgb Hct RDW Plt Count MPV Immature Gran % (Auto) Lymph % (Auto) Eos % (Auto) Lymph # (Auto) Abs Immat Gran (auto) ABG pH at Pt Temp ABG pCO2 at Pt Temp ABG pO2 at Pt Temp ABG HCO3 Chloride Carbon Dioxide 30 H Anion Gap 22 H BUN 21 H Creatinine 1.45 H POC Glucose Random Glucose Troponin I High Sens 85.0 H C-Reactive Protein B-Natriuretic Peptide 214 H Urine Protein Urine Glucose (UA) Ur Leukocyte Esterase Urine WBC 06/22/23 06/23/23 06/23/23 20:07 04:57 07:27 RBC 4.10 L Hgb 11.8 L Hct 37.6 L RDW 16.6 H Plt Count 141 L MPV 8.5 L Immature Gran % (Auto) 2.5 H Lymph % (Auto) 17.3 L Eos % (Auto) 4.1 H Lymph # (Auto) 1.1 L Abs Immat Gran (auto) 0.15 H ABG pH at Pt Temp ABG pCO2 at Pt Temp ABG pO2 at Pt Temp ABG HCO3 Chloride Carbon Dioxide 34 H Anion Gap BUN 20 H Creatinine POC Glucose 157 H 140 H Random Glucose 130 H Troponin I High Sens C-Reactive Protein B-Natriuretic Peptide Urine Protein Urine Glucose (UA) Ur Leukocyte Esterase Urine WBC 06/23/23 06/23/23 06/23/23 11:01 16:21 20:00 RBC Hgb Hct RDW Plt Count MPV Immature Gran % (Auto) Lymph % (Auto) Eos % (Auto) Lymph # (Auto) Abs Immat Gran (auto) ABG pH at Pt Temp ABG pCO2 at Pt Temp ABG pO2 at Pt Temp ABG HCO3 Chloride Carbon Dioxide Anion Gap BUN Creatinine POC Glucose 212 H 171 H 201 H Random Glucose Troponin I High Sens C-Reactive Protein B-Natriuretic Peptide Urine Protein Urine Glucose (UA) Ur Leukocyte Esterase Urine WBC 06/24/23 06/24/23 06/24/23 04:52 07:14 11:02 RBC Hgb Hct RDW Plt Count MPV Immature Gran % (Auto) Lymph % (Auto) Eos % (Auto) Lymph # (Auto) Abs Immat Gran (auto) ABG pH at Pt Temp ABG pCO2 at Pt Temp ABG pO2 at Pt Temp ABG HCO3 Chloride Carbon Dioxide 35 H Anion Gap BUN 21 H Creatinine 1.43 H POC Glucose 144 H 260 H Random Glucose 153 H Troponin I High Sens C-Reactive Protein B-Natriuretic Peptide 390 H Urine Protein Urine Glucose (UA) Ur Leukocyte Esterase Urine WBC 06/24/23 06/24/23 06/24/23 11:08 16:12 17:39 RBC Hgb Hct RDW Plt Count MPV Immature Gran % (Auto) Lymph % (Auto) Eos % (Auto) Lymph # (Auto) Abs Immat Gran (auto) ABG pH at Pt Temp 7.47 H ABG pCO2 at Pt Temp 54 H ABG pO2 at Pt Temp 76 L ABG HCO3 40 H Chloride Carbon Dioxide Anion Gap BUN Creatinine POC Glucose 228 H Random Glucose Troponin I High Sens C-Reactive Protein B-Natriuretic Peptide Urine Protein 30 (1+) H Urine Glucose (UA) 250 H Ur Leukocyte Esterase Small (1+) H Urine WBC 21-50 H 06/24/23 06/24/23 06/25/23 20:17 20:34 07:12 RBC Hgb Hct RDW Plt Count MPV Immature Gran % (Auto) Lymph % (Auto) Eos % (Auto) Lymph # (Auto) Abs Immat Gran (auto) ABG pH at Pt Temp ABG pCO2 at Pt Temp ABG pO2 at Pt Temp ABG HCO3 Chloride Carbon Dioxide Anion Gap BUN Creatinine POC Glucose > 600 H* 243 H 146 H Random Glucose Troponin I High Sens C-Reactive Protein B-Natriuretic Peptide Urine Protein Urine Glucose (UA) Ur Leukocyte Esterase Urine WBC 06/25/23 11:06 RBC Hgb Hct RDW Plt Count MPV Immature Gran % (Auto) Lymph % (Auto) Eos % (Auto) Lymph # (Auto) Abs Immat Gran (auto) ABG pH at Pt Temp ABG pCO2 at Pt Temp ABG pO2 at Pt Temp ABG HCO3 Chloride Carbon Dioxide Anion Gap BUN Creatinine POC Glucose 186 H Random Glucose Troponin I High Sens C-Reactive Protein B-Natriuretic Peptide Urine Protein Urine Glucose (UA) Ur Leukocyte Esterase Urine WBC Assessment and Plan (1) Obesity with alveolar hypoventilation: Status: Acute (2) Diastolic CHF, acute on chronic: Status: Acute Plan Impression: 78-year-old gentleman admitted with acute on chronic diastolic congestive heart failure with pulmonary edema and underlying obesity hypoventilation syndrome, now improving with diuresis, and no longer requiring supplemental oxygen. Recommendations: Agree with further diuresis. Consider utilization of Diamox recent 5 twice a day. No evidence of underlying COPD. Underlying obesity hypoventilation syndrome. Time Spent With Patient Time: Total time managing care of this patient today ____ minutes. Procedures Date of Service Date of Service: 06/25/23
--- NOTE | 2023-06-25 13:10 | PM.PNNEP ---
Subjective Subjective Date of Service: 06/25/23 Interval history: CR unchanged diuretics held alkalosis better Physical Exam Vital Signs: Vital Signs: Last Vital Signs Temp 97.4 F 06/25/23 07:08 Pulse 86 06/25/23 11:10 Resp 18 06/25/23 11:10 BP 121/78 06/25/23 07:08 Pulse Ox 97 06/25/23 07:08 O2 Del Method Nasal Cannula 06/25/23 07:08 O2 Flow Rate 2 06/25/23 07:08 BMI result Body Mass Index 41.9 Const: Other: He looks well is not toxic-appearing General: cooperative Nutritional Appearance: well nourished Orientation/consciousness: patient oriented x3 HEENT: Head: Yes normal to inspection Face and sinus: Yes normal facial exam Neck: Neck: Yes normal visual inspection Chest: Chest palpation & inspection: normal inspection of the chest Resp: Effort & Inspection: normal respiratory effort Auscultation: clear to auscultation bilaterally Cardio: Jugular venous distension: no JVD Rate: regular rate Rhythm: regular rhythm GI: Inspection: Yes normal to inspection Percussion: Yes normal to percussion Skin: General skin exam: no rashes or lesions noted and elasticity normal Lesions: no lesions Rashes: no rashes Neuro: General: patient oriented x3 Cranial nerves: Yes CN's II-XII intact bilaterally Extrem: Other: Patient has 3+ edema bilaterally of the lower extreme Objective Data Labs 06/23/23 04:57 06/25/23 09:06 Labs: Laboratory Results - last 24 hr 06/24/23 06/24/23 06/24/23 16:12 17:39 20:17 Sodium Potassium Chloride Carbon Dioxide Anion Gap BUN Creatinine Estim Creat Clear Calc Estimated GFR POC Glucose 228 H > 600 H* Random Glucose Calcium Urine Color Yellow Urine Appearance Clear Urine pH 6.0 Ur Specific [place] 1.020 Urine Protein 30 (1+) H Urine Glucose (UA) 250 H Urine Ketones Trace Urine Blood Negative Urine Nitrite Negative Ur Leukocyte Esterase Small (1+) H Urine RBC 0-2 Urine WBC 21-50 H Ur Squamous Epith Cells 0-2 Urine Bacteria None Seen Hyaline Casts 0-2 Ur Random Sodium 22.0 Ur Random Potassium 47.9 Ur Random Chloride < 20.0 06/24/23 06/25/23 06/25/23 20:34 07:12 09:06 Sodium 139 Potassium 3.7 Chloride 93 L Carbon Dioxide 32 H Anion Gap 18 BUN 33 H Creatinine 1.58 H Estim Creat Clear Calc 51.1 Estimated GFR 43 POC Glucose 243 H 146 H Random Glucose 203 H Calcium 9.9 Urine Color Urine Appearance Urine pH Ur Specific [place] Urine Protein Urine Glucose (UA) Urine Ketones Urine Blood Urine Nitrite Ur Leukocyte Esterase Urine RBC Urine WBC Ur Squamous Epith Cells Urine Bacteria Hyaline Casts Ur Random Sodium Ur Random Potassium Ur Random Chloride 06/25/23 11:06 Sodium Potassium Chloride Carbon Dioxide Anion Gap BUN Creatinine Estim Creat Clear Calc Estimated GFR POC Glucose 186 H Random Glucose Calcium Urine Color Urine Appearance Urine pH Ur Specific [place] Urine Protein Urine Glucose (UA) Urine Ketones Urine Blood Urine Nitrite Ur Leukocyte Esterase Urine RBC Urine WBC Ur Squamous Epith Cells Urine Bacteria Hyaline Casts Ur Random Sodium Ur Random Potassium Ur Random Chloride Procedures Date of Service Date of Service: 06/25/23 Assessment & Plan Assessment and plan (1) Bilateral lower extremity edema: Status: Acute (2) CHF (congestive heart failure): Status: Acute Plan Mr. Danie Rivera is a 78-year-old gentleman with past medical history of [id number] type 2 diabetes, history of tardive dyskinesia, bipolar disorder, hyperlipidemia, hypertension, GERD, chronic venous stasis dermatitis, and alcohol use disorder who presented for increase LE edema. The patient reports chronic edema for the last year. 1. Undiagnosed CKD CKD with baseline Cr 1.2-1.3mg/dL U/A historically bland 2. Volume / HTN Chronic lymphedema no evidence of CHF 3. High bicarb ABG done 06/24/23 showed Metabolic ALK with good resp comp Plan: - continue to hold diuretics. - will give 0.9% saline at 125cc/hr x1 liter today - renal panel dialy. Time Spent With Patient Time: Total time managing care of this patient today ____ minutes. Progress Note: Quality Stroke Does the patient have a stroke diagnosis?: No
--- NOTE | 2023-06-25 13:20 | HO.PM.IMPN ---
Subjective Subjective Date of Service: 06/25/23 Interval History: chf,mild chano or ckd ? Review of Systems sob somewhat improving has similar Physical Exam Vital Signs: Vital Signs: Last Vital Signs Temp 97.4 F 06/25/23 07:08 Pulse 86 06/25/23 11:10 Resp 18 06/25/23 11:10 BP 121/78 06/25/23 07:08 Pulse Ox 97 06/25/23 07:08 O2 Del Method Nasal Cannula 06/25/23 07:08 O2 Flow Rate 2 06/25/23 07:08 BMI result Body Mass Index 41.9 Appearance: Alert.? Oriented X3.? not in distress.? cvs: rrr, [id number] res: air entry fair ,no rales or wheezing abd: no rebound or guarding ,nt, bs present. ext : wrapped ,moves all ext ,lower ext soarness /has venostasis,has edema ?chronic neuro: axo3 , nonfocal. Objective Data Active Medications Acetaminophen (Acetaminophen 325 Mg Tablet) 650 mg PO TID PRN PRN Reason: Mild Pain (Scale Score 1-4) Acetazolamide (Acetazolamide 250 Mg Tablet) 375 mg PO BID [facility] Albuterol/Ipratropium (Albuterol/Iprat 2.5/0.5mg 3 Ml Ampul.Neb) 3 ml INHALE RQ4H WHILE AWAKE [facility] Last Admin: 06/25/23 11:07 Dose: 3 ml Documented By: JOSE Albuterol/Ipratropium (Albuterol/Iprat 2.5/0.5mg 3 Ml Ampul.Neb) 3 ml INHALE Q3H PRN PRN Reason: Sob Ascorbic Acid (Ascorbic Acid 500 Mg Tablet) 1,000 mg PO DAILY [facility] Last Admin: 06/25/23 08:24 Dose: 1,000 mg Documented By: SHARON Atorvastatin Calcium (Atorvastatin Calcium 20 Mg Tablet) 20 mg PO BEDTIME [facility] Last Admin: 06/24/23 21:02 Dose: 20 mg Documented By: OLYA Cyanocobalamin (Cyanocobalamin (Vitamin B-12) 1,000 Mcg Tablet) 1,000 mcg PO DAILY [facility] Last Admin: 06/25/23 08:24 Dose: 1,000 mcg Documented By: SHARON Dextrose (Dextrose 50 % 25 Gm/50 Ml Syringe) 25 gm IVPUSH Q15M PRN; Protocol PRN Reason: per Hypoglycemia Standing Ord. Divalproex Sodium (Divalproex Sodium Er 500 Mg Tab.Er.24h) 1,500 mg PO BEDTIME [facility] Last Admin: 06/24/23 21:02 Dose: 1,500 mg Documented By: OLYA Docusate Sodium (Docusate Sodium 100 Mg Capsule) 100 mg PO DAILY PRN PRN Reason: Constipation Enoxaparin Sodium (Enoxaparin Sodium 40 Mg/0.4 Ml Syringe) 40 mg SUBCUT Q24H [facility] Last Admin: 06/24/23 13:04 Dose: 40 mg Documented By: SHARON Ferrous Sulfate (Ferrous Sulfate 324 Mg Tablet.Dr) 324 mg PO DAILY [facility] Last Admin: 06/25/23 08:24 Dose: 324 mg Documented By: SHARON Folic Acid (Folic Acid 1 Mg Tablet) 1 mg PO DAILY [facility] Last Admin: 06/25/23 08:25 Dose: 1 mg Documented By: SHARON Glucose (Glucose Gel 15 Gm Gel..Gram.) 15 gm PO Q15M PRN; Protocol PRN Reason: per Hypoglycemia Standing Ord. Sodium Chloride (Ns) 1,000 mls @ 125 mls/hr IVCONT .Q8H [facility] Stop: 06/25/23 21:14 Insulin Human Lispro (Insulin Lispro 100 Unit/Ml 3 Ml Vial) 0 unit SUBCUT QIDACHS [facility]; Protocol Last Admin: 06/25/23 12:21 Dose: 2 unit Documented By: FRANCISCO Lactic Acid (Ammonium Lactate 12 % Lotion 226 Gm Bottle) 1 appl TOPICAL DAILY [facility]; Protocol Last Admin: 06/25/23 08:25 Dose: 1 appl Documented By: SHARON Levothyroxine Sodium (Levothyroxine Sodium 200 Mcg Tablet) 200 mcg PO DAILY@0600 [facility] Last Admin: 06/25/23 06:02 Dose: 200 mcg Documented By: OLYA Magnesium Oxide (Magnesium Oxide 400 Mg Tablet) 400 mg PO DAILY [facility] Last Admin: 06/25/23 08:24 Dose: 400 mg Documented By: SHARON Metoprolol Tartrate (Metoprolol Tartrate 25 Mg Tablet) 25 mg PO QID [facility]; Protocol Last Admin: 06/25/23 08:24 Dose: 25 mg Documented By: SHARON Omeprazole (Omeprazole 20 Mg Capsule.) 20 mg PO DAILY@0630 [facility] Last Admin: 06/25/23 06:02 Dose: 20 mg Documented By: OLYA Ondansetron HCl (Ondansetron Hcl 4 Mg/2 Ml Vial) 4 mg IVPUSH Q8H PRN PRN Reason: Nausea and Vomiting Polyethylene Glycol (Polyethylene Glycol 3350 17 Gm Powd.Pack) 17 gm PO DAILY PRN PRN Reason: Constipation Last Admin: 06/23/23 03:06 Dose: 17 gm Documented By: JACQUELINEM Pregabalin (Pregabalin 50 Mg Capsule) 50 mg PO DAILY [facility] Last Admin: 06/25/23 08:24 Dose: 50 mg Documented By: SHARON Risperidone (Risperidone 2 Mg Tablet) 2 mg PO BEDTIME [facility] Last Admin: 06/24/23 21:02 Dose: 2 mg Documented By: OLYA Sodium Chloride (0.9 % Sodium Chloride Flush 3 Ml Syringe) 3 ml IVFLUSH QSHIFT [facility] Last Admin: 06/25/23 08:24 Dose: 3 ml Documented By: SHARON Thiamine HCl (Thiamine Hcl 100 Mg Tablet) 100 mg PO DAILY [facility] Last Admin: 06/25/23 08:24 Dose: 100 mg Documented By: SHRAON Vitamin D (Cholecalciferol (Vitamin D3) 25 Mcg Tablet) 25 mcg PO DAILY [facility] Last Admin: 06/25/23 08:24 Dose: 25 mcg Documented By: SHARON Labs 06/23/23 04:57 06/25/23 09:06 Labs: Laboratory Results - last 24 hr 06/24/23 06/24/23 06/24/23 16:12 17:39 20:17 Anion Gap Estim Creat Clear Calc Estimated GFR POC Glucose 228 H > 600 H* Random Glucose Calcium Urine Color Yellow Urine Appearance Clear Urine pH 6.0 Ur Specific [place] 1.020 Urine Protein 30 (1+) H Urine Glucose (UA) 250 H Urine Ketones Trace Urine Blood Negative Urine Nitrite Negative Ur Leukocyte Esterase Small (1+) H Urine RBC 0-2 Urine WBC 21-50 H Ur Squamous Epith Cells 0-2 Urine Bacteria None Seen Hyaline Casts 0-2 Ur Random Sodium 22.0 Ur Random Potassium 47.9 Ur Random Chloride < 20.0 06/24/23 06/25/23 06/25/23 20:34 07:12 09:06 Anion Gap 18 Estim Creat Clear Calc 51.1 Estimated GFR 43 POC Glucose 243 H 146 H Random Glucose 203 H Calcium 9.9 Urine Color Urine Appearance Urine pH Ur Specific [place] Urine Protein Urine Glucose (UA) Urine Ketones Urine Blood Urine Nitrite Ur Leukocyte Esterase Urine RBC Urine WBC Ur Squamous Epith Cells Urine Bacteria Hyaline Casts Ur Random Sodium Ur Random Potassium Ur Random Chloride 06/25/23 11:06 Anion Gap Estim Creat Clear Calc Estimated GFR POC Glucose 186 H Random Glucose Calcium Urine Color Urine Appearance Urine pH Ur Specific [place] Urine Protein Urine Glucose (UA) Urine Ketones Urine Blood Urine Nitrite Ur Leukocyte Esterase Urine RBC Urine WBC Ur Squamous Epith Cells Urine Bacteria Hyaline Casts Ur Random Sodium Ur Random Potassium Ur Random Chloride Assessment and Plan (1) Bilateral lower extremity edema: Status: Acute (2) CHF (congestive heart failure): Status: Acute Plan 78-year-old male with history of [id number] type 2 diabetes, history of tardive dyskinesia, bipolar disorder, hyperlipidemia, hypertension, GERD, chronic venous stasis dermatitis, and alcohol use disorder admitted for further management of mild chf exacerbation and ble weakness Mild CHF exacerbation-possible HFpEF: found to have elevated bnp ,some sob ,cxr -shows pulm congestion also mild trop elevation likely due to chf. cxr (06/24/23) -seems normal bnp trending up strict I&O: 2.6 liter negative he still feels some sob as per staff echocardiogram: Normal left ventricular cavity size. There is moderately increased left ventricular wall thickness. Diastolic function is indeterminate on the basis of available data. Difficult to assess LVEF/ wall motion in spite of contrast; possibly low normal with LVEF 50-55%. cardiac diet daily weights( 124.9 kg on admit -baseline unclear but bmi is up from 40 to 42) seen by pulm -recomended to continue diuresis with dimaox. chronic venous stasis dermatitis-likely contributing to bilateral lower extremity edema no evidence of infection,negative DVT studies(06/23/23) knee xray-we have called radiology to read it . continue Lasix as above [id number] type 2 diabetes height glipizide metformin continue diabetic diet POC glucose hypertension reasonably controlled continue metoprolol bipolar disorder-continue home meds alcohol use disorder-no evidence of acute withdrawal, monitor on [facility] addiction medicine consult p.o. thiamine folic acid generalised weakness/functional decline -going for 1.5 year as per patient son pt -recomended rehab [facility]ano vs ckd 3: urinating well pvr's fine moniter renal function/electrolytes ua /electrolye noted -mild proteinuria ( insetting of htn/dm) nephrology eval patient has asymptomatic pyuria : added urine culture avoid antibiotics for now -await cultures. DVT prophylaxis-Lovenox Full code ongoing inpatient need - CHF exacerbation requiring IV diuresis, chano on ckd -need electrolytes /renal function monitering,and will require placement to rehab per physical therapy recommendations as patient is 2 person assist with decreased mobility from baseline. Time Spent With Patient Time: Total time managing care of this patient today ____ minutes. Quality Stroke Does the patient have a stroke diagnosis?: No VTE Prior VTE?: No VTE Risk Level:: Medical - moderate - high VTE Device Contraindication: Treatment Not Indicated VTE Drug Contraindication: N/A - Med Ordered
[2023-06-25 14:52] VITALS: PULSE 79; RESP 20; O2SAT 87
[2023-06-25 15:30] VITALS: BP 123/58; PULSE 98; RESP 20; TEMP 36.8; O2SAT 90
[2023-06-25 19:17] VITALS: PULSE 98; RESP 20; O2SAT 92
[2023-06-25 19:31] VITALS: BP 111/68; PULSE 95; RESP 18; TEMP 36.6; O2SAT 95
[2023-06-26] VITALS (7 sets, daily range): BP systolic 114–125; BP diastolic 57–74; PULSE 92–112; RESP 16–24; TEMP 36.1–37.2; O2SAT 90–95; BMI 40.5
--- NOTE | 2023-06-26 15:10 | MHC.CM.PN ---
Addendum entered by Marcela Kay 06/26/23 15:35: [facility] HAS REVIEWED PT EVAL AND INDICATED THEY ARE UNABLE TO ACCEPT PT UNTIL HE IS ABLE TO PARTICIPATE WITH THERAPY Original Note: PT NOT YET CLEARED FOR DC PTS PREFERRED SNF, N, IS STILL FOLLOWING UPDATES SENT VIA [employer]!
--- NOTE | 2023-06-26 16:13 | HO.PM.IMPN ---
Subjective Subjective Date of Service: 06/26/23 Review of Systems somnolent easily arousable, denies pain offers no acute complaints at baseline 2 L of oxygen currently at 4 L, was unable to participate with physical therapy due to somnolence. Constitutional all other system reviewed and negative Physical Exam Vital Signs: Vital Signs: Last Vital Signs Temp 97.0 F 06/26/23 15:51 Pulse 112 H 06/26/23 15:51 Resp 21 H 06/26/23 15:51 BP 122/62 06/26/23 15:51 Pulse Ox 92 06/26/23 15:51 O2 Del Method Nasal Cannula 06/26/23 15:51 O2 Flow Rate 4 06/26/23 15:51 BMI result Body Mass Index 40.5 Const: Other: General somnolent but arousable, and in no acute distress. Neck supple no JVD. CVS regular rate rhythm, Respiratory lungs clear to auscultation, no respiratory distress, no wheeze, no rhonchi. Gastrointestinal abdomen soft,obese, non tender, bowel sounds audible, no guarding , no rigidity. Extremities bilateral ankle deformity,non pitting edema Neuro nonfocal, moving all 4 extremity ,speech clear, somnolent arousable to verbal stimuli. Objective Data Active Medications Acetaminophen (Acetaminophen 325 Mg Tablet) 650 mg PO TID PRN PRN Reason: Mild Pain (Scale Score 1-4) Acetazolamide (Acetazolamide 250 Mg Tablet) 375 mg PO BID [facility] Last Admin: 06/26/23 08:21 Dose: 375 mg Documented By: JAYNE Albuterol/Ipratropium (Albuterol/Iprat 2.5/0.5mg 3 Ml Ampul.Neb) 3 ml INHALE RQ4H WHILE AWAKE [facility] Last Admin: 06/26/23 15:48 Dose: 3 ml Documented By: ANGELIC Albuterol/Ipratropium (Albuterol/Iprat 2.5/0.5mg 3 Ml Ampul.Neb) 3 ml INHALE Q3H PRN PRN Reason: Sob Ascorbic Acid (Ascorbic Acid 500 Mg Tablet) 1,000 mg PO DAILY [facility] Last Admin: 06/26/23 08:20 Dose: 1,000 mg Documented By: JAYNE Atorvastatin Calcium (Atorvastatin Calcium 20 Mg Tablet) 20 mg PO BEDTIME [facility] Last Admin: 06/25/23 20:54 Dose: 20 mg Documented By: OLYA Cyanocobalamin (Cyanocobalamin (Vitamin B-12) 1,000 Mcg Tablet) 1,000 mcg PO DAILY [facility] Last Admin: 06/26/23 08:22 Dose: 1,000 mcg Documented By: JAYNE Dextrose (Dextrose 50 % 25 Gm/50 Ml Syringe) 25 gm IVPUSH Q15M PRN; Protocol PRN Reason: per Hypoglycemia Standing Ord. Divalproex Sodium (Divalproex Sodium Er 500 Mg Tab.Er.24h) 1,500 mg PO BEDTIME [facility] Last Admin: 06/25/23 20:55 Dose: 1,500 mg Documented By: OLYA Docusate Sodium (Docusate Sodium 100 Mg Capsule) 100 mg PO DAILY PRN PRN Reason: Constipation Enoxaparin Sodium (Enoxaparin Sodium 40 Mg/0.4 Ml Syringe) 40 mg SUBCUT Q24H [facility] Last Admin: 06/26/23 15:12 Dose: 40 mg Documented By: JAYNE Ferrous Sulfate (Ferrous Sulfate 324 Mg Tablet.Dr) 324 mg PO DAILY [facility] Last Admin: 06/26/23 08:22 Dose: 324 mg Documented By: JAYNE Folic Acid (Folic Acid 1 Mg Tablet) 1 mg PO DAILY [facility] Last Admin: 06/26/23 08:22 Dose: 1 mg Documented By: JAYNE Glucose (Glucose Gel 15 Gm Gel..Gram.) 15 gm PO Q15M PRN; Protocol PRN Reason: per Hypoglycemia Standing Ord. Insulin Human Lispro (Insulin Lispro 100 Unit/Ml 3 Ml Vial) 0 unit SUBCUT QIDACHS [facility]; Protocol Last Admin: 06/26/23 14:59 Dose: Not Given Documented By: JAYNE Non-Admin Reason: No Insulin Coverage Lactic Acid (Ammonium Lactate 12 % Lotion 226 Gm Bottle) 1 appl TOPICAL DAILY [facility]; Protocol Last Admin: 06/26/23 08:24 Dose: Not Given Documented By: JAYNE Non-Maddie Reason: holding to await orders for treatment Levothyroxine Sodium (Levothyroxine Sodium 200 Mcg Tablet) 200 mcg PO DAILY@0600 [facility] Last Admin: 06/26/23 06:32 Dose: 200 mcg Documented By: OLYA Magnesium Oxide (Magnesium Oxide 400 Mg Tablet) 400 mg PO DAILY [facility] Last Admin: 06/26/23 08:22 Dose: 400 mg Documented By: JAYNE Metoprolol Tartrate (Metoprolol Tartrate 25 Mg Tablet) 25 mg PO QID [facility]; Protocol Last Admin: 06/26/23 15:07 Dose: Not Given Documented By: JAYNE Non-Admin Reason: pt sleeping and then refused Omeprazole (Omeprazole 20 Mg Capsule.) 20 mg PO DAILY@0630 [facility] Last Admin: 06/26/23 06:32 Dose: 20 mg Documented By: OLYA Ondansetron HCl (Ondansetron Hcl 4 Mg/2 Ml Vial) 4 mg IVPUSH Q8H PRN PRN Reason: Nausea and Vomiting Polyethylene Glycol (Polyethylene Glycol 3350 17 Gm Powd.Pack) 17 gm PO DAILY PRN PRN Reason: Constipation Last Admin: 06/23/23 03:06 Dose: 17 gm Documented By: CASTILLeigh Pregabalin (Pregabalin 50 Mg Capsule) 50 mg PO DAILY [facility] Last Admin: 06/26/23 08:21 Dose: 50 mg Documented By: JAYNE Risperidone (Risperidone 2 Mg Tablet) 2 mg PO BEDTIME [facility] Last Admin: 06/25/23 20:54 Dose: 2 mg Documented By: OLYA Sodium Chloride (0.9 % Sodium Chloride Flush 3 Ml Syringe) 3 ml IVFLUSH QSHIFT [facility] Last Admin: 06/26/23 08:22 Dose: 3 ml Documented By: JAYNE Thiamine HCl (Thiamine Hcl 100 Mg Tablet) 100 mg PO DAILY [facility] Last Admin: 06/26/23 08:22 Dose: 100 mg Documented By: JAYNE Vitamin D (Cholecalciferol (Vitamin D3) 25 Mcg Tablet) 25 mcg PO DAILY [facility] Last Admin: 06/26/23 08:20 Dose: 25 mcg Documented By: JAYNE Labs 06/23/23 04:57 06/27/23 04:35 Labs: Laboratory Results - last 24 hr 06/25/23 06/26/23 06/26/23 20:35 05:09 07:43 Anion Gap 17 Estim Creat Clear Calc 54.6 Estimated GFR 46 POC Glucose 160 H 124 H Random Glucose 135 H Calcium 9.4 B-Natriuretic Peptide 746 H 06/26/23 11:27 Anion Gap Estim Creat Clear Calc Estimated GFR POC Glucose 139 H Random Glucose Calcium B-Natriuretic Peptide Microbiology Microbiology Results: Microbiology 06/25/23 14:15 Urine Culture - Preliminary Urine clean catch - Clean Catch Midstream Culture in progress. Assessment and Plan (1) Bilateral lower extremity edema: Status: Acute (2) CHF (congestive heart failure): Status: Acute Plan 78-year-old male with history of hbp-weqnwzx-[id number] type 2 diabetes, history of tardive dyskinesia, bipolar disorder, hyperlipidemia, hypertension, GERD, chronic venous stasis dermatitis, and alcohol use disorder admitted for further management of mild chf exacerbation and ble weakness Mild CHF exacerbation-possible HFpEF: elevated bnp ,cxr -shows pulm congestion status post IV Lasix subsequently discontinued due to metabolic alkalosis, 2.6 L negative mild trop elevation likely due to chf. echo showed EF 50-55% indeterminate diastolic function repeat cxr (06/24/23) - showed no pulmonary congestion clear lungs repeat BNP elevated Lasix on hold due to metabolic alkalosis now on Diamox follow clinical course chronic lymphedema /chronic venous stasis dermatitis- no evidence of infection,negative DVT studies(06/23/23) knee xray showed no acute fractures mild arthritis. on Lasix 80 at a.m. and 40 pm at baseline, currently on hold hxc-egbntfc-[id number] type 2 diabetes blood sugars less than 200, continue insulin sliding scale, glipizide and metformin on hold continue diabetic diet hypertension continue metoprolol, stable blood pressure tardive dyskinesias /bipolar disorder-continue home meds Depakote and risperidone. alcohol use disorder-no evidence of acute withdrawal, monitor on [facility] continue p.o. thiamine folic acid, patient declined recovery services. generalized weakness/functional decline -going for 1.5 year as per patient son, appears more somnolent today obtain ABGs, keep O2 2 L with goal 88-90% adjust neuro depressive medications, check TSH check ammonia level PT -recomended rehab [facility] vs ckd 3: likely due to diuretics follow renal function, status post IV fluids metabolic alkalosis status post IV fluids on Diamox diuretics on hold asymptomatic pyuria : urine culture in progress, not on antibiotics DVT prophylaxis-Lovenox Full code ongoing inpatient need - CHF exacerbation requiring IV diuresis, chano on ckd -need electrolytes /renal function monitering,and will require placement to rehab per physical therapy recommendations as patient is 2 person assist with decreased mobility from baseline. Time Spent With Patient Time: Total time managing care of this patient today ____ minutes. Quality Stroke Does the patient have a stroke diagnosis?: No VTE Prior VTE?: No VTE Risk Level:: Medical - moderate - high VTE Device Contraindication: Treatment Not Indicated VTE Drug Contraindication: N/A - Med Ordered
--- NOTE | 2023-06-26 17:20 | PM.PNNEP ---
Subjective Subjective Date of Service: 06/26/23 Interval history: Not a good historian Physical Exam Vital Signs: Vital Signs: Last Vital Signs Temp 97.0 F 06/26/23 15:51 Pulse 112 H 06/26/23 15:51 Resp 21 H 06/26/23 15:51 BP 122/62 06/26/23 15:51 Pulse Ox 95 06/26/23 17:08 O2 Del Method Nasal Cannula 06/26/23 17:08 O2 Flow Rate 2 06/26/23 17:08 BMI result Body Mass Index 40.5 Const: Other: He looks well is not toxic-appearing General: cooperative Nutritional Appearance: well nourished Orientation/consciousness: patient oriented x3 HEENT: Head: Yes normal to inspection Face and sinus: Yes normal facial exam Neck: Neck: Yes normal visual inspection Chest: Chest palpation & inspection: normal inspection of the chest Resp: Effort & Inspection: normal respiratory effort Auscultation: clear to auscultation bilaterally Cardio: Jugular venous distension: no JVD Rate: regular rate Rhythm: regular rhythm GI: Inspection: Yes normal to inspection Percussion: Yes normal to percussion Skin: General skin exam: no rashes or lesions noted and elasticity normal Lesions: no lesions Rashes: no rashes Neuro: General: patient oriented x3 Cranial nerves: Yes CN's II-XII intact bilaterally Extrem: Other: Patient has 3+ edema bilaterally of the lower extreme Objective Data Labs 06/23/23 04:57 06/26/23 05:09 Labs: Laboratory Results - last 24 hr 06/25/23 06/26/23 06/26/23 20:35 05:09 07:43 Sodium 139 Potassium 3.7 Chloride 96 Carbon Dioxide 30 H Anion Gap 17 BUN 38 H Creatinine 1.48 H Estim Creat Clear Calc 54.6 Estimated GFR 46 POC Glucose 160 H 124 H Random Glucose 135 H Calcium 9.4 B-Natriuretic Peptide 746 H 06/26/23 06/26/23 11:27 16:21 Sodium Potassium Chloride Carbon Dioxide Anion Gap BUN Creatinine Estim Creat Clear Calc Estimated GFR POC Glucose 139 H 178 H Random Glucose Calcium B-Natriuretic Peptide Microbiology Microbiology Results: Microbiology 06/25/23 14:15 Urine clean catch - Clean Catch Midstream Urine Culture - Preliminary Culture in progress. Procedures Date of Service Date of Service: 06/26/23 Assessment & Plan Assessment and plan (1) LORENE (acute kidney injury): Status: Acute (2) Bilateral lower extremity edema: Status: Acute (3) CHF (congestive heart failure): Status: Acute Plan Mr. Danie Rivera is a 78-year-old gentleman with past medical history of [id number] type 2 diabetes, history of tardive dyskinesia, bipolar disorder, hyperlipidemia, hypertension, GERD, chronic venous stasis dermatitis, and alcohol use disorder who presented for increase LE edema. The patient reports chronic edema for the last year. 1. Undiagnosed CKD CKD with baseline Cr 1.2-1.3mg/dL U/A historically bland 2. Volume / HTN Chronic lymphedema no evidence of CHF 3. High bicarb ABG done 06/24/23 showed Metabolic ALK with good resp comp Plan: - continue to hold diuretics- Reassess in AM - On Diamox - No need for IVF - renal panel dialy. Time Spent With Patient Time: Total time managing care of this patient today ____ minutes. Progress Note: Quality Stroke Does the patient have a stroke diagnosis?: No
[2023-06-27] VITALS (11 sets, daily range): BP systolic 118–145; BP diastolic 66–79; PULSE 92–115; RESP 16–24; TEMP 36.1–36.8; O2SAT 90–97
[2023-06-27 05:29] LABS: Anion Gap 17 (12-20); Blood Urea Nitrogen 38 mg/dL (9-16); Calcium 9.9 mg/dL (8.4-10.2); Carbon Dioxide 30 mmol/L (22-29); Chloride 99 mmol/L (96-108); Creatinine Clr Calc Pharmacy 52.9; Estimated Glomerular Filt Rate 46; Glucose Random 168 mg/dL (60-115); Potassium 3.6 mmol/L (3.3-5.1); Sodium 142 mmol/L (135-145)
[2023-06-27 10:38] LABS: Thyroid Stimulating Hormone 2.09 uIU/mL (0.32-4.0)
--- NOTE | 2023-06-27 10:51 | MHC.CM.PN ---
PER MD ROUNDS, PT NOT YET READY FOR DC AND WILL BE PLACED ON BIPAP WHILE SLEEPING UPDATES WILL BE SENT TO [facility]N THEY ARE FOLLOWING CURRENT DCP IS STR, HHN IS PREFERRED SNF PER PT
--- NOTE | 2023-06-27 14:31 | HO.PM.IMPN ---
Subjective Subjective Date of Service: 06/27/23 Interval History: somnolent easily arousable, not complaining of pain, denies headache, no dizziness, no chest pain, no palpitation, no nausea, no vomiting, no diarrhea, no urinary symptoms, no fevers, no chills, no events overnight, noted to have intermittent tachycardia otherwise stable vitals. Review of Systems all other systems reviewed and negative. Physical Exam Vital Signs: Vital Signs: Last Vital Signs Temp 98.0 F 06/27/23 07:15 Pulse 105 H 06/27/23 13:57 Resp 20 06/27/23 12:35 BP 145/79 H 06/27/23 07:15 Pulse Ox 93 06/27/23 13:57 O2 Del Method BiPAP 06/27/23 13:57 O2 Flow Rate 2 06/27/23 07:15 BMI result Body Mass Index 40.5 Const: Other: General somnolent but arousable, and in no acute distress. Neck supple no JVD. CVS tachy regular rate rhythm, Respiratory lungs clear to auscultation, no respiratory distress, no wheeze, no rhonchi. Gastrointestinal abdomen soft,obese, non tender, bowel sounds audible, no guarding , no rigidity. Extremities bilateral ankle deformity,non pitting edema, wrinkled skin, discoloration lower extremities Neuro non focal, moving all 4 extremity ,speech clear, somnolent arousable to verbal stimuli. psych appropriate affect Objective Data Active Medications Acetaminophen (Acetaminophen 325 Mg Tablet) 650 mg PO TID PRN PRN Reason: Mild Pain (Scale Score 1-4) Acetazolamide (Acetazolamide 250 Mg Tablet) 375 mg PO BID ON LICENSE OF [facility] Last Admin: 06/27/23 08:11 Dose: 375 mg Documented By: TRISTEN Albuterol/Ipratropium (Albuterol/Iprat 2.5/0.5mg 3 Ml Ampul.Neb) 3 ml INHALE RQ4H WHILE AWAKE ON LICENSE OF [facility] Last Admin: 06/27/23 12:34 Dose: 3 ml Documented By: ADALBERTO Albuterol/Ipratropium (Albuterol/Iprat 2.5/0.5mg 3 Ml Ampul.Neb) 3 ml INHALE Q3H PRN PRN Reason: Sob Ascorbic Acid (Ascorbic Acid 500 Mg Tablet) 1,000 mg PO DAILY ON LICENSE OF [facility] Last Admin: 06/27/23 08:12 Dose: 1,000 mg Documented By: TRISTEN Atorvastatin Calcium (Atorvastatin Calcium 20 Mg Tablet) 20 mg PO BEDTIME ON LICENSE OF [facility] Last Admin: 06/26/23 20:59 Dose: 20 mg Documented By: JAYNE Cyanocobalamin (Cyanocobalamin (Vitamin B-12) 1,000 Mcg Tablet) 1,000 mcg PO DAILY ON LICENSE OF [facility] Last Admin: 06/27/23 08:12 Dose: 1,000 mcg Documented By: TRISTEN Dextrose (Dextrose 50 % 25 Gm/50 Ml Syringe) 25 gm IVPUSH Q15M PRN; Protocol PRN Reason: per Hypoglycemia Standing Ord. Docusate Sodium (Docusate Sodium 100 Mg Capsule) 100 mg PO DAILY PRN PRN Reason: Constipation Enoxaparin Sodium (Enoxaparin Sodium 40 Mg/0.4 Ml Syringe) 40 mg SUBCUT Q24H ON LICENSE OF [facility] Last Admin: 06/26/23 15:12 Dose: 40 mg Documented By: JAYNE Ferrous Sulfate (Ferrous Sulfate 324 Mg Tablet.) 324 mg PO DAILY ON LICENSE OF [facility] Last Admin: 06/27/23 08:12 Dose: 324 mg Documented By: TRISTEN Folic Acid (Folic Acid 1 Mg Tablet) 1 mg PO DAILY ON LICENSE OF [facility] Last Admin: 06/27/23 08:12 Dose: 1 mg Documented By: TRISTEN Furosemide (Furosemide 40 Mg/4 Ml Vial) 40 mg IVPUSH Q12H PRABHU; Protocol Last Admin: 06/27/23 09:40 Dose: 40 mg Documented By: TRISTEN Glucose (Glucose Gel 15 Gm Gel..Gram.) 15 gm PO Q15M PRN; Protocol PRN Reason: per Hypoglycemia Standing Ord. Insulin Human Lispro (Insulin Lispro 100 Unit/Ml 3 Ml Vial) 0 unit SUBCUT QIDACHS ON LICENSE OF [facility]; Protocol Last Admin: 06/27/23 12:00 Dose: Not Given Documented By: TRISTEN Non-Admin Reason: Physician Approved Lactic Acid (Ammonium Lactate 12 % Lotion 226 Gm Bottle) 1 appl TOPICAL DAILY ON LICENSE OF [facility]; Protocol Last Admin: 06/27/23 08:21 Dose: 1 appl Documented By: TRISTEN Levothyroxine Sodium (Levothyroxine Sodium 200 Mcg Tablet) 200 mcg PO DAILY@0600 ON LICENSE OF [facility] Last Admin: 06/27/23 05:42 Dose: 200 mcg Documented By: BENNY Magnesium Oxide (Magnesium Oxide 400 Mg Tablet) 400 mg PO DAILY ON LICENSE OF [facility] Last Admin: 06/27/23 08:11 Dose: 400 mg Documented By: TRISTEN Metoprolol Tartrate (Metoprolol Tartrate 25 Mg Tablet) 25 mg PO QID ON LICENSE OF [facility]; Protocol Last Admin: 06/27/23 14:07 Dose: Not Given Documented By: TRISTEN Non-Admin Reason: Pt too drowsy Omeprazole (Omeprazole 20 Mg Capsule.Dr) 20 mg PO DAILY@0630 ON LICENSE OF [facility] Last Admin: 06/27/23 05:42 Dose: 20 mg Documented By: BENNY Ondansetron HCl (Ondansetron Hcl 4 Mg/2 Ml Vial) 4 mg IVPUSH Q8H PRN PRN Reason: Nausea and Vomiting Polyethylene Glycol (Polyethylene Glycol 3350 17 Gm Powd.Pack) 17 gm PO DAILY PRN PRN Reason: Constipation Last Admin: 06/23/23 03:06 Dose: 17 gm Documented By: ERIN Pregabalin (Pregabalin 50 Mg Capsule) 50 mg PO DAILY ON LICENSE OF [facility] Last Admin: 06/27/23 08:11 Dose: 50 mg Documented By: TRISTEN Sodium Chloride (0.9 % Sodium Chloride Flush 3 Ml Syringe) 3 ml IVFLUSH QSHIFT ON LICENSE OF [facility] Last Admin: 06/27/23 08:10 Dose: 3 ml Documented By: TRISTEN Thiamine HCl (Thiamine Hcl 100 Mg Tablet) 100 mg PO DAILY ON LICENSE OF [facility] Last Admin: 06/27/23 08:10 Dose: 100 mg Documented By: TRISTEN Vitamin D (Cholecalciferol (Vitamin D3) 25 Mcg Tablet) 25 mcg PO DAILY ON LICENSE OF [facility] Last Admin: 06/27/23 08:12 Dose: 25 mcg Documented By: TRISTEN Labs 06/23/23 04:57 06/27/23 04:35 Labs: Laboratory Results - last 24 hr 06/26/23 06/26/23 06/26/23 16:21 17:44 19:53 Hold Purple Top O2 Saturation ABG pH at Pt Temp ABG pCO2 at Pt Temp ABG pO2 at Pt Temp ABG HCO3 ABG Base Excess (Actual) VBG pH 7.37 VBG pCO2 61 VBG pO2 116 VBG HCO3 36 H VBG O2 Saturation 99.0 VBG Base Excess 8.9 Anion Gap Estim Creat Clear Calc Estimated GFR POC Glucose 178 H 168 H Random Glucose Calcium Ammonia TSH 06/27/23 06/27/23 06/27/23 04:35 07:12 11:04 Hold Purple Top SEE NOTE O2 Saturation ABG pH at Pt Temp ABG pCO2 at Pt Temp ABG pO2 at Pt Temp ABG HCO3 ABG Base Excess (Actual) VBG pH VBG pCO2 VBG pO2 VBG HCO3 VBG O2 Saturation VBG Base Excess Anion Gap 17 Estim Creat Clear Calc 52.9 Estimated GFR 46 POC Glucose 172 H 201 H Random Glucose 168 H Calcium 9.9 Ammonia TSH 2.09 06/27/23 06/27/23 13:38 14:06 Hold Purple Top O2 Saturation 95.0 ABG pH at Pt Temp 7.37 ABG pCO2 at Pt Temp 62 H* ABG pO2 at Pt Temp 83 ABG HCO3 36 H ABG Base Excess (Actual) 8.8 VBG pH VBG pCO2 VBG pO2 VBG HCO3 VBG O2 Saturation VBG Base Excess Anion Gap Estim Creat Clear Calc Estimated GFR POC Glucose Random Glucose Calcium Ammonia 44 TSH Microbiology Microbiology Results: Microbiology 06/25/23 14:15 Urine Culture - Final Urine clean catch - Clean Catch Midstream Assessment and Plan (1) Bilateral lower extremity edema: Status: Acute (2) CHF (congestive heart failure): Status: Acute Plan 78-year-old male with history of bus-[id number]-rpewstxhy type 2 diabetes, history of tardive dyskinesia, bipolar disorder, hyperlipidemia, hypertension, GERD, chronic venous stasis dermatitis, and alcohol use disorder admitted for further management of mild chf exacerbation and ble weakness Mild CHF exacerbation-possible HFpEF: elevated bnp ,cxr -shows pulm congestion status post IV Lasix subsequently discontinued due to metabolic alkalosis, 2.6 L negative mild trop elevation likely due to chf. echo showed EF 50-55% indeterminate diastolic function repeat cxr (06/24/23) - showed no pulmonary congestion clear lungs repeat BNP elevated, persistent chronic leg edema, will resume IV Lasix as per Nephrology,on Diamox total 4 days follow clinical course worsening mental status: generalized weakness/functional decline -going for 1.5 year as per patient son, appears more somnolent in last 48 hours, no confusion, ABG showed compensated pH with elevated pCO2 of 61 treated with BiPAP with repeat ABGs unchanged continue BiPAP 08/21 for naps and at bedtime due to underlying history of obesity hypoventilation syndrome not on home CPAP CT head showed no acute stroke normal LFTs urine culture mixed bacterial jamie TSH normal, ammonia 44, will DC Depakote and risperidone, close clinical follow-up PT -recomended rehab chronic lymphedema /chronic venous stasis dermatitis- no evidence of infection,negative DVT studies(06/23/23) restarted on a IV Lasix 40mg 06/27 on Lasix 80 at a.m. and 40 pm at baseline [id number] type 2 diabetes blood sugars less than 200, continue insulin sliding scale, glipizide and metformin on hold continue diabetic diet hypertension/ intermittent tachycardia continue metoprolol 25 mg q.6 hours, stable blood pressure, changed to 50 b.i.d. at a.m. tardive dyskinesias /bipolar disorder- will hold Depakote and risperidone due to somnolence alcohol use disorder-no evidence of acute withdrawal, mild tachycardia, no tremors continue p.o. thiamine folic acid, patient declined recovery services. chano vs ckd 3: likely due to diuretics follow renal function while being diuresed, status post IV fluids, metabolic alkalosis status post IV fluids on Diamox, follow BMP DVT prophylaxis-Lovenox Full code ongoing inpatient need - CHF exacerbation requiring IV diuresis, chano on ckd , somnolence requires close renal monitoring Time Spent With Patient Time: Total time managing care of this patient today ____ minutes. Quality Stroke Does the patient have a stroke diagnosis?: No VTE Prior VTE?: No VTE Risk Level:: Medical - moderate - high VTE Device Contraindication: Treatment Not Indicated VTE Drug Contraindication: N/A - Med Ordered
--- NOTE | 2023-06-27 15:42 | P.CDIM_ITS ---
PROVIDER RESPONSE TEXT: To clarify, the appropriate diagnosis supported by the clinical indicators: Obesity Due to excess calories QUERY TEXT: PHYSICIAN'S DOCUMENTATION REQUEST Date of Query: 06/27/2023 02:28 PM EDT Patient Name: Danie Rivera Admit Date: 06/22/2023 Dear Emily Oliver, A review of the medical record indicates additional documentation may be needed. Please review below and update the documentation accordingly. Clinical Indicators: Height: ( ) 5'8 Weight: ( ) 120.8 kg BMI: ( ) 40.5 Other Clinical Notes Supporting Significance of the BMI: Per Nutritional Risk Assessment 06/25/23: on therapeutic diet If possible, please provide an associated diagnosis related to the abnormal BMI, such as: Overweight Obesity Due to excess calories Obesity Drug induced Obesity Due to other cause Specify the other cause Severe or Morbid Obesity With alveolar hypoventilation Severe or Morbid Obesity Without alveolar hypoventilation BMI is not significant Other (explain)Clinically unable to determine (explain)Thank you, Jelena Henriquez RN Use of terms such as suspected, likely, concern for, or probable (associated with a specific diagnosi s that is being evaluated, monitored, or treated as if it exists) are acceptable and can be coded in the inpatient se tting, when documented at the time of discharge. Please use your independent medical judgment in providing your response. THIS QUERY IS PART OF THE PERMANENT MEDICAL RECORD
--- NOTE | 2023-06-27 16:02 | P.PNNP_ITS ---
Subjective Subjective Date of Service: 06/27/23 Interval history: Seen and exmamined; events noted Physical Exam 2 Vital Signs: Vital Signs: Last Vital Signs Temp 96.9 F 06/27/23 15:08 Pulse 92 06/27/23 15:08 Resp 16 06/27/23 15:08 BP 127/66 06/27/23 15:08 Pulse Ox 96 06/27/23 15:08 O2 Del Method BiPAP 06/27/23 15:08 O2 Flow Rate 2 06/27/23 07:15 BMI result Body Mass Index 40.5 Const: Other: He looks well is not toxic-appearing General: cooperative Nutritional Appearance: well nourished O rientation/consciousness: patient oriented x3 HEENT: Head: Yes normal to inspection Face and sinus: Yes normal facial exam Neck: Neck: Yes normal visual inspection Chest: Chest palpation & inspection: normal inspection of the chest Resp: Effort & Inspection: normal respiratory effort Auscultation: clear to auscultation bilaterally Cardio: Jugular venous distension: no JVD Rate: regular rate Rhythm: r egular rhythm GI: Inspection: Yes normal to inspection Percussion: Yes normal to percussion Skin: General skin exam: no rashes or lesions noted and elasticity normal L esions: no lesions Rashes: no rashes Neuro: General: patient oriented x3 Cranial nerves: Yes CN's II-XII intact bilaterally Extrem: Other: Patient has 3+ edema bilaterally of the lower extreme Objective Data Labs 06/23/23 04:57 06/27/23 04:35 Labs: Laboratory Results - last 24 hr 06/26/23 06/26/23 06/26/23 16:21 17:44 19:53 Hold Purple Top O2 Saturation ABG pH at Pt Temp ABG pCO2 at Pt Temp ABG pO2 at Pt Temp ABG HCO3 ABG Base Excess (Actual) VBG pH 7.37 VBG pCO2 61 VBG pO2 116 VBG HCO3 36 H VBG O2 Saturation 99.0 VBG Base Excess 8.9 Sodium Potassium Chloride Carbon Dioxide Anion Gap BUN Creatinine Estim Creat Clear Calc Estimated GFR POC Glucose 178 H 168 H Random Glucose Calcium Ammonia TSH 06/27/23 06/27/23 06/27/23 04:35 07:12 11:04 Hold Purple Top SEE NOTE O2 Saturation ABG pH at Pt Temp ABG pCO2 at Pt Temp ABG pO2 at Pt Temp ABG HCO3 ABG Base Excess (Actual) VBG pH VBG pCO2 VBG pO2 VBG HCO3 VBG O2 Saturation VBG Base Excess Sodium 142 Potassium 3.6 Chloride 99 Carbon Dioxide 30 H Anion Gap 17 BUN 38 H Creatinine 1.50 H Estim Creat Clear Calc 52.9 Estimated GFR 46 POC Glucose 172 H 201 H Random Glucose 168 H Calcium 9.9 Ammonia TSH 2.09 06/27/23 06/27/23 13:38 14:06 Hold Purple Top O2 Saturation 95.0 ABG pH at Pt Temp 7.37 ABG pCO2 at Pt Temp 62 H* ABG pO2 at Pt Temp 83 ABG HCO3 36 H ABG Base Excess (Actual) 8.8 VBG pH VBG pCO2 VBG pO2 VBG HCO3 VBG O2 Saturation VBG Base Excess Sodium Potassium Chloride Carbon Dioxide Anion Gap BUN Creatinine Estim Creat Clear Calc Estimated GFR POC Glucose Random Glucose Calcium Ammonia 44 TSH Microbiology Microbiology Results: Microbiology 06/25/23 14:15 Urine clean catch - Clean Catch Midstream Urine Culture - Final Procedures Date of Service Date of Service: 06/27/23 Assessment & Plan Assessment and plan (1) LORENE (acute kidney injury): Status: Acute (2) Bilateral lower extremity edema: Status: Acute (3) CHF (congestive heart failure): Status: Acute Plan Mr. Danie Rivera is a 78-year-old gentleman with past medical history of [id number] type 2 diabetes, history of tardive dyskinesia, bipolar disorder, hyperlipidemia, hypertension, GERD, chronic venous stasis dermatitis, and alcohol use disorder who presented for increase LE edema. The patient reports chronic edema for the last year. 1. WRF: SCr incr BSL 1.2-1.3 to now 1.5 in assoc with diuresis 2. Volume / HTN Chronic lymphedema and ques componenet of vol overload as well goiven SOB 3. High bicarb ABG done 06/24/23 showed Metabolic ALK -- responding well to short course of diamox REC: r/s lasix and cont diamox for another 24 hrs; track renal func/UOP; avoid NTOXINS Time Spent With Patient Time: Total time managing care of this patient today ____ minutes. Progress Note: Quality Stroke Does the patient have a stroke diagnosis?: No
[2023-06-27] MEDS: Metoprolol Tartrate 25 MG TABLET PO ×2 (16:28→20:52)
[2023-06-27] MEDS: Enoxaparin Sodium 40 MG/0.4 ML SYRINGE SUBCUT (16:29)
[2023-06-27 16:43] LABS: Glucose, Whole Blood 209 mg/dL (60-115)
[2023-06-27] MEDS: Insulin Lispro 100 UNIT/ML 3 ML VIAL SUBCUT ×2 (17:08→20:53)
[2023-06-27 20:08] LABS: Glucose, Whole Blood 189 mg/dL (60-115)
[2023-06-27] MEDS: Albuterol/Iprat 2.5/0.5MG 3 ML AMPUL.NEB INHALE (20:14)
[2023-06-27] MEDS: acetaZOLAMIDE 250 MG TABLET 375 MG PO (20:52)
[2023-06-27] MEDS: Furosemide 40 MG/4 ML VIAL IVPUSH (20:52)
[2023-06-27] MEDS: Atorvastatin Calcium 20 MG TABLET PO (20:53)
[2023-06-28] VITALS (10 sets, daily range): BP systolic 122–150; BP diastolic 68–79; PULSE 75–122; RESP 18–24; TEMP 36.1–37.1; O2SAT 94–99
[2023-06-28 05:38] LABS: Hematocrit 36.4 % (42.0-52.0); Hemoglobin 11.2 g/dl (14.0-18.0); Mean Corpuscular HGB Conc 30.8 g/dl (31.0-36.0); Mean Corpuscular Hemoglobin 28.9 pg (27.0-33.0); Mean Corpuscular Volume 93.8 fL (80.0-98.0); Mean Platelet Volume 8.8 fL (9.4-12.4); Platelet Count 183 X10*3/uL (160-400); Red Blood Count 3.88 X10*6/uL (4.60-5.80); Red Cell Distribution Width 15.9 % (11.0-16.0); White Blood Count 7.3 X10*3/uL (4.8-10.8)
[2023-06-28] MEDS: Levothyroxine Sodium 200 MCG TABLET PO (05:50)
[2023-06-28] MEDS: Omeprazole 20 MG CAPSULE.DR PO (05:50)
[2023-06-28 06:01] LABS: Anion Gap 17 (12-20); Blood Urea Nitrogen 43 mg/dL (9-16); Calcium 10.3 mg/dL (8.4-10.2); Carbon Dioxide 30 mmol/L (22-29); Chloride 102 mmol/L (96-108); Creatinine Clr Calc Pharmacy 52.6; Estimated Glomerular Filt Rate 45; Glucose Random 184 mg/dL (60-115); Potassium 3.3 mmol/L (3.3-5.1); Sodium 146 mmol/L (135-145)
[2023-06-28 07:14] LABS: Glucose, Whole Blood 200 mg/dL (60-115)
[2023-06-28] MEDS: Insulin Lispro 100 UNIT/ML 3 ML VIAL SUBCUT ×3 (08:07→20:25)
[2023-06-28] MEDS: Ferrous Sulfate 324 MG TABLET.DR PO (08:31)
[2023-06-28] MEDS: Magnesium Oxide 400 MG TABLET PO (08:31)
[2023-06-28] MEDS: Thiamine HCL 100 MG TABLET PO (08:31)
[2023-06-28] MEDS: Cyanocobalamin (Vitamin B-12) 1,000 MCG TABLET 1000 MCG PO (08:31)
[2023-06-28] MEDS: Metoprolol Tartrate 25 MG TABLET PO (08:31)
[2023-06-28] MEDS: Ascorbic Acid 500 MG TABLET 1000 MG PO (08:31)
[2023-06-28] MEDS: Furosemide 40 MG/4 ML VIAL IVPUSH ×2 (08:31→20:23)
[2023-06-28] MEDS: Cholecalciferol (Vitamin D3) 25 MCG TABLET PO (08:32)
[2023-06-28] MEDS: Pregabalin 50 MG CAPSULE PO (08:40)
[2023-06-28] MEDS: Folic Acid 1 MG TABLET PO (08:45)
[2023-06-28] MEDS: acetaZOLAMIDE 250 MG TABLET 375 MG PO (09:13)
--- NOTE | 2023-06-28 10:58 | HO.PM.IMPN ---
Subjective Subjective Date of Service: 06/28/23 Interval History: He is alert, and awake, confused? baseline Physical Exam Vital Signs: Vital Signs: Last Vital Signs Temp 96.9 F 06/28/23 07:23 Pulse 97 06/28/23 07:23 Resp 20 06/28/23 07:23 BP 137/77 06/28/23 07:23 Pulse Ox 96 06/28/23 07:23 O2 Del Method BiPAP 06/28/23 07:23 O2 Flow Rate 2 06/28/23 07:23 BMI result Body Mass Index 40.5 Const: Other: General somnolent but arousable, and in no acute distress. Neck supple no JVD. CVS tachy regular rate rhythm, Respiratory lungs clear to auscultation, no respiratory distress, no wheeze, no rhonchi. Gastrointestinal abdomen soft,obese, non tender, bowel sounds audible, no guarding , no rigidity. Extremities bilateral ankle deformity,non pitting edema, wrinkled skin, discoloration lower extremities Neuro non focal, moving all 4 extremity ,speech clear, somnolent arousable to verbal stimuli. psych appropriate affect Objective Data Active Medications Acetaminophen (Acetaminophen 325 Mg Tablet) 650 mg PO TID PRN PRN Reason: Mild Pain (Scale Score 1-4) Acetazolamide (Acetazolamide 250 Mg Tablet) 375 mg PO BID [facility] Stop: 06/28/23 21:01 Last Admin: 06/28/23 09:13 Dose: 375 mg Documented By: TRISTEN Albuterol/Ipratropium (Albuterol/Iprat 2.5/0.5mg 3 Ml Ampul.Neb) 3 ml INHALE RQ4H WHILE AWAKE [facility] Last Admin: 06/28/23 07:51 Dose: Not Given Documented By: FANY Non-Admin Reason: Patient Refused Albuterol/Ipratropium (Albuterol/Iprat 2.5/0.5mg 3 Ml Ampul.Neb) 3 ml INHALE Q3H PRN PRN Reason: Sob Ascorbic Acid (Ascorbic Acid 500 Mg Tablet) 1,000 mg PO DAILY [facility] Last Admin: 06/28/23 08:31 Dose: 1,000 mg Documented By: TRISTEN Atorvastatin Calcium (Atorvastatin Calcium 20 Mg Tablet) 20 mg PO BEDTIME [facility] Last Admin: 06/27/23 20:53 Dose: 20 mg Documented By: ERIN Cyanocobalamin (Cyanocobalamin (Vitamin B-12) 1,000 Mcg Tablet) 1,000 mcg PO DAILY [facility] Last Admin: 06/28/23 08:31 Dose: 1,000 mcg Documented By: TRISTEN Dextrose (Dextrose 50 % 25 Gm/50 Ml Syringe) 25 gm IVPUSH Q15M PRN; Protocol PRN Reason: per Hypoglycemia Standing Ord. Docusate Sodium (Docusate Sodium 100 Mg Capsule) 100 mg PO DAILY PRN PRN Reason: Constipation Enoxaparin Sodium (Enoxaparin Sodium 40 Mg/0.4 Ml Syringe) 40 mg SUBCUT Q24H [facility] Last Admin: 06/27/23 16:29 Dose: 40 mg Documented By: TRISTEN Ferrous Sulfate (Ferrous Sulfate 324 Mg Tablet.Dr) 324 mg PO DAILY [facility] Last Admin: 06/28/23 08:31 Dose: 324 mg Documented By: TRISTEN Folic Acid (Folic Acid 1 Mg Tablet) 1 mg PO DAILY [facility] Last Admin: 06/28/23 08:45 Dose: 1 mg Documented By: TRISTEN Furosemide (Furosemide 40 Mg/4 Ml Vial) 40 mg IVPUSH Q12H [facility]; Protocol Last Admin: 06/28/23 08:31 Dose: 40 mg Documented By: TRISTEN Glucose (Glucose Gel 15 Gm Gel..Gram.) 15 gm PO Q15M PRN; Protocol PRN Reason: per Hypoglycemia Standing Ord. Insulin Human Lispro (Insulin Lispro 100 Unit/Ml 3 Ml Vial) 0 unit SUBCUT QIDACHS [facility]; Protocol Last Admin: 06/28/23 08:07 Dose: 2 unit Documented By: TRISTEN Lactic Acid (Ammonium Lactate 12 % Lotion 226 Gm Bottle) 1 appl TOPICAL DAILY [facility]; Protocol Last Admin: 06/28/23 09:11 Dose: 1 appl Documented By: TRISTEN Levothyroxine Sodium (Levothyroxine Sodium 200 Mcg Tablet) 200 mcg PO DAILY@0600 [facility] Last Admin: 06/28/23 05:50 Dose: 200 mcg Documented By: ERIN Magnesium Oxide (Magnesium Oxide 400 Mg Tablet) 400 mg PO DAILY [facility] Last Admin: 06/28/23 08:31 Dose: 400 mg Documented By: TRISTEN Metoprolol Tartrate (Metoprolol Tartrate 25 Mg Tablet) 25 mg PO QID [facility]; Protocol Last Admin: 06/28/23 08:31 Dose: 25 mg Documented By: TRISTEN Omeprazole (Omeprazole 20 Mg Capsule.) 20 mg PO DAILY@0630 [facility] Last Admin: 06/28/23 05:50 Dose: 20 mg Documented By: ERIN Ondansetron HCl (Ondansetron Hcl 4 Mg/2 Ml Vial) 4 mg IVPUSH Q8H PRN PRN Reason: Nausea and Vomiting Polyethylene Glycol (Polyethylene Glycol 3350 17 Gm Powd.Pack) 17 gm PO DAILY PRN PRN Reason: Constipation Last Admin: 06/23/23 03:06 Dose: 17 gm Documented By: ERIN Pregabalin (Pregabalin 50 Mg Capsule) 50 mg PO DAILY [facility] Last Admin: 06/28/23 08:40 Dose: 50 mg Documented By: TRISTEN Sodium Chloride (0.9 % Sodium Chloride Flush 3 Ml Syringe) 3 ml IVFLUSH QSHIFT [facility] Last Admin: 06/28/23 08:31 Dose: 3 ml Documented By: TRISTEN Thiamine HCl (Thiamine Hcl 100 Mg Tablet) 100 mg PO DAILY [facility] Last Admin: 06/28/23 08:31 Dose: 100 mg Documented By: TRISTEN Vitamin D (Cholecalciferol (Vitamin D3) 25 Mcg Tablet) 25 mcg PO DAILY [facility] Last Admin: 06/28/23 08:32 Dose: 25 mcg Documented By: TRISTEN Labs 06/28/23 04:07 06/28/23 04:07 Labs: Laboratory Results - last 24 hr 06/27/23 06/27/23 06/27/23 11:04 13:38 14:06 MCV MCH MCHC RDW Plt Count MPV Absolute Nucleated RBC Nucleated RBC % (auto) O2 Saturation 95.0 ABG pH at Pt Temp 7.37 ABG pCO2 at Pt Temp 62 H* ABG pO2 at Pt Temp 83 ABG HCO3 36 H ABG Base Excess (Actual) 8.8 Anion Gap Estim Creat Clear Calc Estimated GFR POC Glucose 201 H Random Glucose Calcium Ammonia 44 06/27/23 06/27/23 06/28/23 16:40 20:05 04:07 MCV 93.8 MCH 28.9 MCHC 30.8 L RDW 15.9 Plt Count 183 D MPV 8.8 L Absolute Nucleated RBC 0.000 Nucleated RBC % (auto) 0.0 O2 Saturation ABG pH at Pt Temp ABG pCO2 at Pt Temp ABG pO2 at Pt Temp ABG HCO3 ABG Base Excess (Actual) Anion Gap 17 Estim Creat Clear Calc 52.6 Estimated GFR 45 POC Glucose 209 H 189 H Random Glucose 184 H Calcium 10.3 H Ammonia 06/28/23 07:08 MCV MCH MCHC RDW Plt Count MPV Absolute Nucleated RBC Nucleated RBC % (auto) O2 Saturation ABG pH at Pt Temp ABG pCO2 at Pt Temp ABG pO2 at Pt Temp ABG HCO3 ABG Base Excess (Actual) Anion Gap Estim Creat Clear Calc Estimated GFR POC Glucose 200 H Random Glucose Calcium Ammonia Microbiology Microbiology Results: Microbiology 06/25/23 14:15 Urine Culture - Final Urine clean catch - Clean Catch Midstream Assessment and Plan (1) Bilateral lower extremity edema: Status: Acute (2) CHF (congestive heart failure): Status: Acute Plan 78-year-old male with history of [id number] type 2 diabetes, history of tardive dyskinesia, bipolar disorder, hyperlipidemia, hypertension, GERD, chronic venous stasis dermatitis, and alcohol use disorder admitted for further management of mild chf exacerbation and ble weakness Mild CHF exacerbation-possible HFpEF: On IV Lasix, neg 4 L, persistent swelling in the legs, Creatine is holding steady, continue IV Lasix, Diamox for 4 days. worsening mental status/metabolic encephalopath: ongoing issue for over a year per son, cannot rule out underlying demenia, more somnolence could be related to hypovention, he's more alert this morning, to use BiPAP PRN during the day for naps. W/u has included CT negaive for stroke, ammonia of 44. Depakote and risperideone were stopped as maybe cntributing to somnlence. TSH normal. Ultimately will need rehab chronic lymphedema /chronic venous stasis dermatitis- no evidence of infection,negative DVT studies(06/23/23) restarted on a IV Lasix 40mg 06/27 on Lasix 80 at a.m. and 40 pm at baseline [id number] type 2 diabetes blood sugars less than 200, continue insulin sliding scale, glipizide and metformin on hold continue diabetic diet hypertension/ intermittent tachycardia continue metoprolol 25 mg q.6 hours, stable blood pressure, changed to 50 b.i.d. at a.m. tardive dyskinesias /bipolar disorder- will hold Depakote and risperidone due to somnolence alcohol use disorder-no evidence of acute withdrawal, mild tachycardia, no tremors continue p.o. thiamine folic acid, patient declined recovery services. chano vs ckd 3: Creatine stable, likely CKD, monitor while on diuretics. metabolic alkalosis status post IV fluids on Diamox, follow BMP DVT prophylaxis-Lovenox Full code ongoing inpatient need - CHF exacerbation requiring IV diuresis, chano on ckd , somnolence requires close renal monitoring Time Spent With Patient Time: Total time managing care of this patient today ____ minutes. Quality Stroke Does the patient have a stroke diagnosis?: No VTE Prior VTE?: No VTE Risk Level:: Medical - moderate - high VTE Device Contraindication: Treatment Not Indicated VTE Drug Contraindication: N/A - Med Ordered
[2023-06-28 11:10] LABS: Glucose, Whole Blood 253 mg/dL (60-115)
[2023-06-28] MEDS: Enoxaparin Sodium 40 MG/0.4 ML SYRINGE SUBCUT (14:57)
--- NOTE | 2023-06-28 15:32 | ECG_ITS ---
Test Reason : tachycardia Blood Pressure : / mmHG Vent. Rate : 117 BPM Atrial Rate : 117 BPM P-R Int : 174 ms QRS Dur : 102 ms QT Int : 334 ms P-R-T Axes : 034 -49 046 degrees QTc Int : 465 ms Sinus tachycardia with occasional Premature ventricular complexes Left anterior fascicular block Intra-ventricular conduction delay Abnormal ECG When compared with ECG of 23-JUN-2023 11:21, No significant change was found Referred By: Jonas Gomez Electronically Signed By:GAY CASTELAN MD
[2023-06-28 16:23] LABS: Glucose, Whole Blood 246 mg/dL (60-115)
[2023-06-28] MEDS: Albuterol/Iprat 2.5/0.5MG 3 ML AMPUL.NEB INHALE ×2 (16:26→20:32)
[2023-06-28 17:45] LABS: ABG Base Excess 10.6 mmol/L; ABG HCO3 38 mmol/L (22-26); ABG pCO2 64 mmHg (32-45); ABG pH 7.38 (7.35-7.45); ABG pO2 87 mmHg (83-108)
--- NOTE | 2023-06-28 18:01 | PC.NURSE ---
Pt continues to be somnolent. However improver since 05/28. Pt arousable to calling name loudly, or shake. Will open eyes half way and respond appropriately to questions and will remain that way while conversing. However will quickly dose off after. Pt HR continues to be tachy 100-120s. aware. Metoprolol adjusted to 50mg BID. ECG performed performed @ 15:30. No changes from past ECGs. ABG drawn per MD @ aprox 17:20. PH 7.38, CO2 64, CO3 38. CO2 same as last ABF 06/27. MD Polo aware.
--- NOTE | 2023-06-28 18:09 | MHC.SL.SWA ---
Speech Pathologist Impression: Risk of Aspiration Due to: Medically Fragile Reduced Cognition Dysphasia Diet Status: Liquid Consistency and Strategies for Safe Swallow: Liquid Intake Recommendation: [place] Thick Liquid Intake Strategies: Small Sips No Straws Solid Food Consistency: Dietary Recommendations: Grnd/Mech Altered (NDD2) Additional Modifications to Solid Foods: Patient will require full assist/one to one feed. Do not attempt if patient is lethargic, not engaged in meal. Alternate liquids and solids. Liquids by controlled cup sip. Discontiue if patient is pocketing food. Oral Medication Intake: Crushed with Puree Please contact the pharmacy regarding appropriate crushable or liquid drug formulations that are available whenever modified delivery is recommended. Compensatory Strategies and Precautions to be Taken for Safe Swallow: Sitting Upright (90 deg) No Straw Liquids from Cup Small Bites and Sips Alternate Liquids/Solids Oral Check Supervision While Eating and Drinking for Safe Swallow: Total Assistance (1:1) Foods to Avoid: Mixed consistencies, difficult to chew solids. Swallowing Recommended Treatments: Compens. Strategy Educat. Recommendation for Speech: Inpatient Speech Therapy Comment: Patient presents with waxing/waning level of alertness, confusion, moderate oral pharyngeal dysphagia characterized by slow initiation of oral phase, delay of swallow, clinical signs of aspiration on thin liquids. Recommend DOWNGRADE to Chopped Advanced (NDD3) with NECTAR THICK liquids by controlled cup sip or tsp, and pills crushed in puree. MD RD notified by secure text of recommendations, RN in person. FILM MOUNTER will continue to follow. Frequency/Duration: M-F while inpatient. Date Range for Service Req: Timeline to reassess: Arts Administrator Clinican/Clinical Fellow: No Supervisory Statement: I have reviewed and agree with the student/clinical fellow's documentation: N/A Speech Language Pathologist: Kasia Saucedo M.A., CCC-FILM MOUNTER
[2023-06-28 20:00] LABS: Glucose, Whole Blood 223 mg/dL (60-115)
--- NOTE | 2023-06-28 20:18 | P.PNNP_ITS ---
Subjective Subjective Date of Service: 06/28/23 Interval history: Seen and examined, events noted Physical Exam 2 Vital Signs: Vital Signs: Last Vital Signs Temp 97.7 F 06/28/23 19:20 Pulse 105 H 06/28/23 19:20 Resp 18 06/28/23 19:20 BP 150/68 H 06/28/23 19:20 Pulse Ox 94 06/28/23 19:20 O2 Del Method Nasal Cannula 06/28/23 19:20 O2 Flow Rate 2 06/28/23 19:20 BMI result Body Mass Index 40.5 Const: Other: He looks well is not toxic-appearing General: cooperative Nutritional Appearance: well nourished O rientation/consciousness: patient oriented x3 HEENT: Head: Yes normal to inspection Face and sinus: Yes normal facial exam Neck: Neck: Yes normal visual inspection Chest: Chest palpation & inspection: normal inspection of the chest Resp: Effort & Inspection: normal respiratory effort Auscultation: clear to auscultation bilaterally Cardio: Jugular venous distension: no JVD Rate: regular rate Rhythm: r egular rhythm GI: Inspection: Yes normal to inspection Percussion: Yes normal to percussion Skin: General skin exam: no rashes or lesions noted and elasticity normal L esions: no lesions Rashes: no rashes Neuro: General: patient oriented x3 Cranial nerves: Yes CN's II-XII intact bilaterally Extrem: Other: Patient has 3+ edema bilaterally of the lower extreme Objective Data Labs 06/28/23 04:07 06/28/23 04:07 Labs: Laboratory Results - last 24 hr 06/28/23 06/28/23 06/28/23 04:07 07:08 11:03 WBC 7.3 RBC 3.88 L Hgb 11.2 L Hct 36.4 L MCV 93.8 MCH 28.9 MCHC 30.8 L RDW 15.9 Plt Count 183 D MPV 8.8 L Absolute Nucleated RBC 0.000 Nucleated RBC % (auto) 0.0 O2 Saturation ABG pH at Pt Temp ABG pCO2 at Pt Temp ABG pO2 at Pt Temp ABG HCO3 ABG Base Excess (Actual) Sodium 146 H Potassium 3.3 Chloride 102 Carbon Dioxide 30 H Anion Gap 17 BUN 43 H Creatinine 1.51 H Estim Creat Clear Calc 52.6 Estimated GFR 45 POC Glucose 200 H 253 H Random Glucose 184 H Calcium 10.3 H 06/28/23 06/28/23 06/28/23 16:19 17:40 19:56 WBC RBC Hgb Hct MCV MCH MCHC RDW Plt Count MPV Absolute Nucleated RBC Nucleated RBC % (auto) O2 Saturation 95.0 ABG pH at Pt Temp 7.38 ABG pCO2 at Pt Temp 64 H* ABG pO2 at Pt Temp 87 ABG HCO3 38 H ABG Base Excess (Actual) 10.6 Sodium Potassium Chloride Carbon Dioxide Anion Gap BUN Creatinine Estim Creat Clear Calc Estimated GFR POC Glucose 246 H 223 H Random Glucose Calcium Microbiology Microbiology Results: Microbiology 06/25/23 14:15 Urine clean catch - Clean Catch Midstream Urine Culture - Final Procedures Date of Service Date of Service: 06/28/23 Assessment & Plan Assessment and plan (1) LORENE (acute kidney injury): Status: Acute (2) Bilateral lower extremity edema: Status: Acute (3) CHF (congestive heart failure): Status: Acute Plan Mr. Danie Rivera is a 78-year-old gentleman with past medical history of [id number] type 2 diabetes, history of tardive dyskinesia, bipolar disorder, hyperlipidemia, hypertension, GERD, chronic venous stasis dermatitis, and alcohol use disorder who presented for increase LE edema. The patient reports chronic edema for the last year. 1. WRF: SCr incr BSL 1.2-1.3 to now stable at 1.5 in assoc with diuresis 2. Volume / HTN Chronic lymphedema and ques componenet of vol overload as well goiven SOB 3. High bicarb ABG done 06/24/23 showed Metabolic ALK -- responding well to short course of diamox REC: r/s lasix and d/c diamox tonitght ; track renal func/UOP; avoid NTOXINS will follow w team Time Spent With Patient Time: Total time managing care of this patient today ____ minutes. Progress Note: Quality Stroke Does the patient have a stroke diagnosis?: No
[2023-06-28] MEDS: Atorvastatin Calcium 20 MG TABLET PO (20:26)
[2023-06-28] MEDS: Metoprolol Tartrate 50 MG TABLET PO (20:26)
[2023-06-29] VITALS (11 sets, daily range): BP systolic 121–141; BP diastolic 65–78; PULSE 71–106; RESP 18–24; TEMP 36.4–37.9; O2SAT 93–96
[2023-06-29] MEDS: Levothyroxine Sodium 200 MCG TABLET PO (05:34)
[2023-06-29] MEDS: Omeprazole 20 MG CAPSULE.DR PO (05:34)
[2023-06-29 07:18] LABS: Glucose, Whole Blood 201 mg/dL (60-115)
[2023-06-29] MEDS: Albuterol/Iprat 2.5/0.5MG 3 ML AMPUL.NEB INHALE ×3 (07:55→19:21)
[2023-06-29] MEDS: Insulin Lispro 100 UNIT/ML 3 ML VIAL SUBCUT ×4 (08:22→22:00)
[2023-06-29] MEDS: Metoprolol Tartrate 50 MG TABLET PO ×2 (09:17→21:59)
[2023-06-29] MEDS: Pregabalin 50 MG CAPSULE PO (09:17)
[2023-06-29] MEDS: Thiamine HCL 100 MG TABLET PO (09:21)
[2023-06-29] MEDS: Cholecalciferol (Vitamin D3) 25 MCG TABLET PO (09:21)
[2023-06-29] MEDS: Ferrous Sulfate 324 MG TABLET.DR PO (09:21)
[2023-06-29] MEDS: Folic Acid 1 MG TABLET PO (09:21)
[2023-06-29] MEDS: Cyanocobalamin (Vitamin B-12) 1,000 MCG TABLET 1000 MCG PO (09:21)
[2023-06-29] MEDS: Magnesium Oxide 400 MG TABLET PO (09:21)
[2023-06-29] MEDS: Ascorbic Acid 500 MG TABLET 1000 MG PO (09:21)
[2023-06-29] MEDS: Furosemide 40 MG/4 ML VIAL IVPUSH ×2 (09:22→22:00)
[2023-06-29] MEDS: polyethylene glycoL 3350 17 GM POWD.PACK PO (09:41)
--- NOTE | 2023-06-29 10:25 | MHC.SL.SWA ---
Speech Pathologist Impression:Risk of aspiration, oropharyngeal dysphagia Risk of Aspiration Due to: Medically Fragile Reduced Cognition Dysphasia Diet Status: No changes at this time Liquid Consistency and Strategies for Safe Swallow: Liquid Intake Recommendation: [place] Thick Liquid Intake Strategies: Small Sips No Straws Solid Food Consistency: Dietary Recommendations: Grnd/Mech Altered (NDD2) Additional Modifications to Solid Foods: Patient will require full assist/one to one feed. Do not attempt if patient is lethargic, not engaged in meal. Alternate liquids and solids. Liquids by controlled cup sip. Discontiue if patient is pocketing food. Oral Medication Intake: Crushed with Puree Please contact the pharmacy regarding appropriate crushable or liquid drug formulations that are available whenever modified delivery is recommended. Compensatory Strategies and Precautions to be Taken for Safe Swallow: Sitting Upright (90 deg) No Straw Liquids from Cup Liquids from Spoon Small Bites and Sips Rate of Ingestion Change Oral Check Avoid Specific Foods Supervision While Eating and Drinking for Safe Swallow: Total Assistance (1:1) Foods to Avoid: Mixed consistencies, difficult to chew solids. Swallowing Recommended Treatments: Compens. Strategy Educat. Recommendation for Speech: Inpatient Speech Therapy Frequency/Duration: M-F while inpatient. Date Range for Service Req: Timeline to reassess: Cocktail Waitress Clinican/Clinical Fellow: No Supervisory Statement: I have reviewed and agree with the student/clinical fellow's documentation: N/A Speech Language Pathologist: Che Agustin M.A., CCC-ELECTRON BEAM MACHINE WELDER SETTER
--- NOTE | 2023-06-29 10:30 | P.PNIM_ITS ---
Subjective Subjective Date of Service: 06/29/23 Interval History: No significant change from yesterday, abg, chronically elevated co2, compensated Physical Exam 2 Vital Signs: Vital Signs: Last Vital Signs Temp 97.5 F 06/29/23 07:42 Pulse 106 H 06/29/23 08:02 Resp 22 H 06/29/23 08:02 BP 130/71 06/29/23 07:42 Pulse Ox 96 06/29/23 07:42 O2 Del Method CPAP 06/29/23 07:42 O2 Flow Rate 2 06/29/23 07:42 BMI result Body Mass Index 40.5 Const: Other: General somnolent but arousable, and in no acute distress. Neck supple no JVD. CVS tachy regular rate rhythm, Respiratory lungs clear to auscultation, no respiratory distress, no wheeze, no rhonchi. Gastrointestinal abdomen soft,obese, non tender, bowel sounds audible, no guarding , no rigidity. Extremities bilateral ankle deformity,non pitting edema, wrinkled skin, discoloration lower extremities Neuro non focal, moving all 4 extremity ,speech clear, somnolent arousable to verbal stimuli. psych appropriate affect Objective Data Active Medications Acetaminophen (Acetaminophen 325 Mg Tablet) 650 mg PO TID PRN PRN Reason: Mild Pain (Scale Score 1-4) Albuterol/Ipratropium (Albuterol/Iprat 2.5/0.5mg 3 Ml Ampul.Neb) 3 ml INHALE RQ4H WHILE AWAKE [facility] Last Admin: 06/29/23 07:55 Dose: 3 ml Documented By: LIANET Albuterol/Ipratropium (Albuterol/Iprat 2.5/0.5mg 3 Ml Ampul.Neb) 3 ml INHALE Q3H PRN PRN Reason: Sob Ascorbic Acid (Ascorbic Acid 500 Mg Tablet) 1,000 mg PO DAILY [facility] Last Admin: 06/29/23 09:21 Dose: 1,000 mg Documented By: ARTHUR Atorvastatin Calcium (Atorvastatin Calcium 20 Mg Tablet) 20 mg PO BEDTIME [facility] Last Admin: 06/28/23 20:26 Dose: 20 mg Documented By: ERIN Cyanocobalamin (Cyanocobalamin (Vitamin B-12) 1,000 Mcg Tablet) 1,000 mcg PO DAILY [facility] Last Admin: 06/29/23 09:21 Dose: 1,000 mcg Documented By: ARTHUR Dextrose (Dextrose 50 % 25 Gm/50 Ml Syringe) 25 gm IVPUSH Q15M PRN; Protocol PRN Reason: per Hypoglycemia Standing Ord. Docusate Sodium (Docusate Sodium 100 Mg Capsule) 100 mg PO DAILY PRN PRN Reason: Constipation Enoxaparin Sodium (Enoxaparin Sodium 40 Mg/0.4 Ml Syringe) 40 mg SUBCUT Q24H [facility] Last Admin: 06/28/23 14:57 Dose: 40 mg Documented By: TRISTEN Ferrous Sulfate (Ferrous Sulfate 324 Mg Tablet.) 324 mg PO DAILY [facility] Last Admin: 06/29/23 09:21 Dose: 324 mg Documented By: ARTHUR Folic Acid (Folic Acid 1 Mg Tablet) 1 mg PO DAILY [facility] Last Admin: 06/29/23 09:21 Dose: 1 mg Documented By: ARTHUR Furosemide (Furosemide 40 Mg/4 Ml Vial) 40 mg IVPUSH Q12H [facility]; Protocol Last Admin: 06/29/23 09:22 Dose: 40 mg Documented By: ARTHUR Glucose (Glucose Gel 15 Gm Gel..Gram.) 15 gm PO Q15M PRN; Protocol PRN Reason: per Hypoglycemia Standing Ord. Insulin Human Lispro (Insulin Lispro 100 Unit/Ml 3 Ml Vial) 0 unit SUBCUT QIDACHS [facility]; Protocol Last Admin: 06/29/23 08:22 Dose: 4 unit Documented By: ARTHUR Comments: lower right quadrant Lactic Acid (Ammonium Lactate 12 % Lotion 226 Gm Bottle) 1 appl TOPICAL DAILY [facility]; Protocol Last Admin: 06/29/23 09:41 Dose: 1 appl Documented By: ARTHUR Levothyroxine Sodium (Levothyroxine Sodium 200 Mcg Tablet) 200 mcg PO DAILY@0600 [facility] Last Admin: 06/29/23 05:34 Dose: 200 mcg Documented By: CASTILLeigh Magnesium Oxide (Magnesium Oxide 400 Mg Tablet) 400 mg PO DAILY [facility] Last Admin: 06/29/23 09:21 Dose: 400 mg Documented By: ARTHUR Metoprolol Tartrate (Metoprolol Tartrate 50 Mg Tablet) 50 mg PO BID [facility]; Protocol Last Admin: 06/29/23 09:17 Dose: 50 mg Documented By: ARTHUR Omeprazole (Omeprazole 20 Mg Capsule.) 20 mg PO DAILY@0630 [facility] Last Admin: 06/29/23 05:34 Dose: 20 mg Documented By: ERIN Ondansetron HCl (Ondansetron Hcl 4 Mg/2 Ml Vial) 4 mg IVPUSH Q8H PRN PRN Reason: Nausea and Vomiting Polyethylene Glycol (Polyethylene Glycol 3350 17 Gm Powd.Pack) 17 gm PO DAILY PRN PRN Reason: Constipation Last Admin: 06/29/23 09:41 Dose: 17 gm Documented By: ARTHUR Pregabalin (Pregabalin 50 Mg Capsule) 50 mg PO DAILY [facility] Last Admin: 06/29/23 09:17 Dose: 50 mg Documented By: ARTHUR Sodium Chloride (0.9 % Sodium Chloride Flush 3 Ml Syringe) 3 ml IVFLUSH QSHIFT [facility] Last Admin: 06/29/23 08:25 Dose: 3 ml Documented By: ARTHUR Thiamine HCl (Thiamine Hcl 100 Mg Tablet) 100 mg PO DAILY [facility] Last Admin: 06/29/23 09:21 Dose: 100 mg Documented By: ARTHUR Vitamin D (Cholecalciferol (Vitamin D3) 25 Mcg Tablet) 25 mcg PO DAILY [facility] Last Admin: 06/29/23 09:21 Dose: 25 mcg Documented By: ARTHUR Labs 06/28/23 04:07 06/28/23 04:07 Labs: Laboratory Results - last 24 hr 06/28/23 06/28/23 06/28/23 11:03 16:19 17:40 O2 Saturation 95.0 ABG pH at Pt Temp 7.38 ABG pCO2 at Pt Temp 64 H* ABG pO2 at Pt Temp 87 ABG HCO3 38 H ABG Base Excess (Actual) 10.6 POC Glucose 253 H 246 H 06/28/23 06/29/23 19:56 07:14 O2 Saturation ABG pH at Pt Temp ABG pCO2 at Pt Temp ABG pO2 at Pt Temp ABG HCO3 ABG Base Excess (Actual) POC Glucose 223 H 201 H Assessment and Plan (1) Bilateral lower extremity edema: Status: Acute (2) CHF (congestive heart failure): Status: Acute Plan 78-year-old male with history of fqy-konxawz-lzasbcoip type 2 diabetes, history of tardive dyskinesia, bipolar disorder, hyperlipidemia, hypertension, GERD, chronic venous stasis dermatitis, and alcohol use disorder admitted for further management of mild chf exacerbation and ble weakness exacerbation of HFpEF: On IV Lasix, neg 6 L thus far, swelling is better but still significant, monitor renal function; he has completed 4 days of diamox worsening mental status/metabolic encephalopathy: ongoing issue for over a year per son, cannot rule out underlying dementia, more somnolence likely related to hypovention, he's more alert this morning, to use BiPAP PRN during the day for naps. W/u has included CT negative for stroke, ammonia of 44. Depakote and risperideone were stopped as maybe cntributing to somnlence. TSH normal. Ultimately will need rehab chronic lymphedema /chronic venous stasis dermatitis- no evidence of infection,negative DVT studies(06/23/23) IV Lasix as above on Lasix 80 at a.m. and 40 pm at baseline exd-jppskxh-[id number] type 2 diabetes blood sugars less than 200, continue insulin sliding scale, glipizide and metformin on hold continue diabetic diet hypertension/ intermittent tachycardia continue metoprolol 25 mg q.6 hours, stable blood pressure, changed to 50 b.i.d. at a.m. tardive dyskinesias /bipolar disorder- will hold Depakote and risperidone due to somnolence alcohol use disorder-no evidence of acute withdrawal, mild tachycardia, no tremors continue p.o. thiamine folic acid, patient declined recovery services. chano vs ckd 3: Creatine stable, likely CKD, monitor while on diuretics. diet: speech recom chopped + nectar thic liquid metabolic alkalosis status post IV fluids on Diamox, follow BMP DVT prophylaxis-Lovenox Full code ongoing inpatient need - CHF exacerbation requiring IV diuresis, chano on ckd , somnolence requires close renal monitoring will discuss goals of care with son Time Spent With Patient Time: Total time managing care of this patient today ____ minutes. Quality Stroke Does the patient have a stroke diagnosis?: No VTE Prior VTE?: No VTE Risk Level:: Medical - moderate - high VTE Device Contraindication: Treatment Not Indicated VTE Drug Contraindication: N/A - Med Ordered
[2023-06-29 11:22] LABS: Anion Gap 15 (12-20); Blood Urea Nitrogen 51 mg/dL (9-16); Calcium 10.9 mg/dL (8.4-10.2); Carbon Dioxide 32 mmol/L (22-29); Chloride 105 mmol/L (96-108); Creatinine Clr Calc Pharmacy 49.9; Estimated Glomerular Filt Rate 43; Glucose Random 286 mg/dL (60-115); Potassium 3.3 mmol/L (3.3-5.1); Sodium 149 mmol/L (135-145)
[2023-06-29] MEDS: Acetaminophen 325 MG TABLET 650 MG PO ×2 (11:25→19:58)
[2023-06-29 11:36] LABS: Glucose, Whole Blood 251 mg/dL (60-115)
--- NOTE | 2023-06-29 11:51 | MHC.CM.PN ---
PER MD ROUNDS, PT NOT CLEARED FOR DC AND EXPECTED TO REMAIN INPT THROUGH THE WEEKEND DCP REMAINS STR, [facility] IS [facility], THEY ARE FOLLOWING
[2023-06-29] MEDS: Enoxaparin Sodium 40 MG/0.4 ML SYRINGE SUBCUT (13:50)
[2023-06-29 16:17] LABS: Glucose, Whole Blood 228 mg/dL (60-115)
--- NOTE | 2023-06-29 19:42 | P.PNNP_ITS ---
Subjective Subjective Date of Service: 06/29/23 Interval history: Seen and examind, events noted Physical Exam 2 Vital Signs: Vital Signs: Last Vital Signs Temp 99.4 F 06/29/23 18:18 Pulse 94 06/29/23 19:22 Resp 22 H 06/29/23 19:22 BP 121/65 06/29/23 15:32 Pulse Ox 94 06/29/23 15:32 O2 Del Method Nasal Cannula 06/29/23 15:32 O2 Flow Rate 2 06/29/23 15:32 BMI result Body Mass Index 40.5 Const: Other: He looks well is not toxic-appearing General: cooperative Nutritional Appearance: well nourished O rientation/consciousness: patient oriented x3 HEENT: Head: Yes normal to inspection Face and sinus: Yes normal facial exam Neck: Neck: Yes normal visual inspection Chest: Chest palpation & inspection: normal inspection of the chest Resp: Effort & Inspection: normal respiratory effort Auscultation: clear to auscultation bilaterally Cardio: Jugular venous distension: no JVD Rate: regular rate Rhythm: r egular rhythm GI: Inspection: Yes normal to inspection Percussion: Yes normal to percussion Skin: General skin exam: no rashes or lesions noted and elasticity normal L esions: no lesions Rashes: no rashes Neuro: General: patient oriented x3 Cranial nerves: Yes CN's II-XII intact bilaterally Extrem: Other: Patient has 3+ edema bilaterally of the lower extreme Objective Data Labs 06/28/23 04:07 06/29/23 10:57 Labs: Laboratory Results - last 24 hr 06/28/23 06/29/23 06/29/23 19:56 07:14 10:57 Sodium 149 H Potassium 3.3 Chloride 105 Carbon Dioxide 32 H Anion Gap 15 BUN 51 H Creatinine 1.59 H Estim Creat Clear Calc 49.9 Estimated GFR 43 POC Glucose 223 H 201 H Random Glucose 286 H Calcium 10.9 H 06/29/23 06/29/23 11:32 16:13 Sodium Potassium Chloride Carbon Dioxide Anion Gap BUN Creatinine Estim Creat Clear Calc Estimated GFR POC Glucose 251 H 228 H Random Glucose Calcium Microbiology Microbiology Results: Microbiology 06/25/23 14:15 Urine clean catch - Clean Catch Midstream Urine Culture - Final Procedures Date of Service Date of Service: 06/29/23 Assessment & Plan Assessment and plan (1) LORENE (acute kidney injury): Status: Acute (2) Bilateral lower extremity edema: Status: Acute (3) CHF (congestive heart failure): Status: Acute Plan Mr. Danie Rivera is a 78-year-old gentleman with past medical history of [id number]-mxardvkkq type 2 diabetes, history of tardive dyskinesia, bipolar disorder, hyperlipidemia, hypertension, GERD, chronic venous stasis dermatitis, and alcohol use disorder who presented for increase LE edema. The patient reports chronic edema for the last year. 1. WRF: SCr incr BSL 1.2-1.3 to now stable at 1.5 in assoc with diuresis 2. Volume / HTN Chronic lymphedema and ques componenet of vol overload as well goiven SOB 3. High bicarb ABG done 06/24/23 showed Metabolic ALK -- responding well to short course of diamox REC: cont lasix ; track renal func/UOP; avoid NTOXINS will follow w team Time Spent With Patient Time: Total time managing care of this patient today ____ minutes. Progress Note: Quality Stroke Does the patient have a stroke diagnosis?: No
[2023-06-29 20:12] LABS: Glucose, Whole Blood 221 mg/dL (60-115)
[2023-06-29] MEDS: Atorvastatin Calcium 20 MG TABLET PO (22:00)
[2023-06-30] VITALS (7 sets, daily range): BP systolic 123–145; BP diastolic 61–80; PULSE 83–106; RESP 18–22; TEMP 36.3–38.1; O2SAT 93–95
[2023-06-30] MEDS: Omeprazole 20 MG CAPSULE.DR PO (05:44)
[2023-06-30] MEDS: Levothyroxine Sodium 200 MCG TABLET PO (05:44)
[2023-06-30 08:14] LABS: Glucose, Whole Blood 214 mg/dL (60-115)
[2023-06-30] MEDS: Thiamine HCL 100 MG TABLET PO (09:08)
[2023-06-30] MEDS: Pregabalin 50 MG CAPSULE PO (09:08)
[2023-06-30] MEDS: Ferrous Sulfate 324 MG TABLET.DR PO (09:09)
[2023-06-30] MEDS: Cyanocobalamin (Vitamin B-12) 1,000 MCG TABLET 1000 MCG PO (09:09)
[2023-06-30] MEDS: Metoprolol Tartrate 50 MG TABLET PO ×2 (09:09→20:17)
[2023-06-30] MEDS: Cholecalciferol (Vitamin D3) 25 MCG TABLET PO (09:09)
[2023-06-30] MEDS: Ascorbic Acid 500 MG TABLET 1000 MG PO (09:09)
[2023-06-30] MEDS: Folic Acid 1 MG TABLET PO (09:10)
[2023-06-30] MEDS: Magnesium Oxide 400 MG TABLET PO (09:10)
[2023-06-30] MEDS: Insulin Lispro 100 UNIT/ML 3 ML VIAL SUBCUT ×4 (09:21→21:12)
[2023-06-30 09:22] LABS: Anion Gap 16 (12-20); Blood Urea Nitrogen 54 mg/dL (9-16); Calcium 10.8 mg/dL (8.4-10.2); Carbon Dioxide 32 mmol/L (22-29); Chloride 110 mmol/L (96-108); Creatinine Clr Calc Pharmacy 56.7; Estimated Glomerular Filt Rate 49; Glucose Random 233 mg/dL (60-115); Potassium 3.4 mmol/L (3.3-5.1); Sodium 155 mmol/L (135-145)
--- NOTE | 2023-06-30 10:22 | P.PNIM_ITS ---
Subjective Subjective Date of Service: 06/30/23 Interval History: He's more awake this morning, sodium is going up to 155, Lasix stopped and will give IV water Physical Exam 2 Vital Signs: Vital Signs: Last Vital Signs Temp 99.6 F 06/30/23 09:34 Pulse 106 H 06/30/23 07:57 Resp 22 H 06/30/23 07:57 BP 129/80 06/30/23 07:57 Pulse Ox 94 06/30/23 07:57 O2 Del Method Nasal Cannula 06/30/23 07:57 O2 Flow Rate 3 06/30/23 07:57 BMI result Body Mass Index 40.5 Const: Other: General more awake this morning Neck supple no JVD. CVS tachy regular rate rhythm, Respiratory lungs clear to auscultation, no respiratory distress, no wheeze, no rhonchi. Gastrointestinal abdomen soft,obese, non tender, bowel sounds audible, no guarding , no rigidity. Extremities bilateral ankle deformity,non pitting edema, wrinkled skin, discoloration lower extremities Neuro non focal, moving all 4 extremity ,speech clear, easily aroused psych flat affect Objective Data Active Medications Acetaminophen (Acetaminophen 325 Mg Tablet) 650 mg PO TID PRN PRN Reason: Mild Pain (Scale Score 1-4) Last Admin: 06/29/23 19:58 Dose: 650 mg Documented By: RAHEEM Albuterol/Ipratropium (Albuterol/Iprat 2.5/0.5mg 3 Ml Ampul.Neb) 3 ml INHALE RQ4H WHILE AWAKE [facility] Last Admin: 06/30/23 08:14 Dose: Not Given Documented By: PITA Non-Admin Reason: Patient Asleep Albuterol/Ipratropium (Albuterol/Iprat 2.5/0.5mg 3 Ml Ampul.Neb) 3 ml INHALE Q3H PRN PRN Reason: Sob Ascorbic Acid (Ascorbic Acid 500 Mg Tablet) 1,000 mg PO DAILY [facility] Last Admin: 06/30/23 09:09 Dose: 1,000 mg Documented By: MAICOL Atorvastatin Calcium (Atorvastatin Calcium 20 Mg Tablet) 20 mg PO BEDTIME [facility] Last Admin: 06/29/23 22:00 Dose: 20 mg Documented By: RAHEEM Cyanocobalamin (Cyanocobalamin (Vitamin B-12) 1,000 Mcg Tablet) 1,000 mcg PO DAILY [facility] Last Admin: 06/30/23 09:09 Dose: 1,000 mcg Documented By: MAICOL Dextrose (Dextrose 50 % 25 Gm/50 Ml Syringe) 25 gm IVPUSH Q15M PRN; Protocol PRN Reason: per Hypoglycemia Standing Ord. Docusate Sodium (Docusate Sodium 100 Mg Capsule) 100 mg PO DAILY PRN PRN Reason: Constipation Enoxaparin Sodium (Enoxaparin Sodium 40 Mg/0.4 Ml Syringe) 40 mg SUBCUT Q24H [facility] Last Admin: 06/29/23 13:50 Dose: 40 mg Documented By: JESSICA Ferrous Sulfate (Ferrous Sulfate 324 Mg Tablet.) 324 mg PO DAILY [facility] Last Admin: 06/30/23 09:09 Dose: 324 mg Documented By: MAICOL Folic Acid (Folic Acid 1 Mg Tablet) 1 mg PO DAILY [facility] Last Admin: 06/30/23 09:10 Dose: 1 mg Documented By: MAICOL Glucose (Glucose Gel 15 Gm Gel..Gram.) 15 gm PO Q15M PRN; Protocol PRN Reason: per Hypoglycemia Standing Ord. Insulin Human Lispro (Insulin Lispro 100 Unit/Ml 3 Ml Vial) 0 unit SUBCUT QIDACHS [facility]; Protocol Last Admin: 06/30/23 09:21 Dose: 4 unit Documented By: MAICOL Lactic Acid (Ammonium Lactate 12 % Lotion 226 Gm Bottle) 1 appl TOPICAL DAILY [facility]; Protocol Last Admin: 06/30/23 10:15 Dose: 1 appl Documented By: MAICOL Levothyroxine Sodium (Levothyroxine Sodium 200 Mcg Tablet) 200 mcg PO DAILY@0600 [facility] Last Admin: 06/30/23 05:44 Dose: 200 mcg Documented By: RAHEEM Magnesium Oxide (Magnesium Oxide 400 Mg Tablet) 400 mg PO DAILY [facility] Last Admin: 06/30/23 09:10 Dose: 400 mg Documented By: MAICOL Metoprolol Tartrate (Metoprolol Tartrate 50 Mg Tablet) 50 mg PO BID [facility]; Protocol Last Admin: 06/30/23 09:09 Dose: 50 mg Documented By: MAICOL Omeprazole (Omeprazole 20 Mg Capsule.) 20 mg PO DAILY@0630 [facility] Last Admin: 06/30/23 05:44 Dose: 20 mg Documented By: RAHEEM Ondansetron HCl (Ondansetron Hcl 4 Mg/2 Ml Vial) 4 mg IVPUSH Q8H PRN PRN Reason: Nausea and Vomiting Polyethylene Glycol (Polyethylene Glycol 3350 17 Gm Powd.Pack) 17 gm PO DAILY PRN PRN Reason: Constipation Last Admin: 06/29/23 09:41 Dose: 17 gm Documented By: GEORGI-DEM Pregabalin (Pregabalin 50 Mg Capsule) 50 mg PO DAILY [facility] Last Admin: 06/30/23 09:08 Dose: 50 mg Documented By: MAICOL Sodium Chloride (0.9 % Sodium Chloride Flush 3 Ml Syringe) 3 ml IVFLUSH QSHIFT [facility] Last Admin: 06/30/23 09:22 Dose: 3 ml Documented By: MAICOL Thiamine HCl (Thiamine Hcl 100 Mg Tablet) 100 mg PO DAILY [facility] Last Admin: 06/30/23 09:08 Dose: 100 mg Documented By: MAICOL Vitamin D (Cholecalciferol (Vitamin D3) 25 Mcg Tablet) 25 mcg PO DAILY [facility] Last Admin: 06/30/23 09:09 Dose: 25 mcg Documented By: MAICOL Labs 06/28/23 04:07 06/30/23 08:43 Labs: Laboratory Results - last 24 hr 06/29/23 06/29/23 06/29/23 10:57 11:32 16:13 Hold Purple Top Anion Gap 15 Estim Creat Clear Calc 49.9 Estimated GFR 43 POC Glucose 251 H 228 H Random Glucose 286 H Calcium 10.9 H 06/29/23 06/30/23 06/30/23 19:59 07:55 08:43 Hold Purple Top SEE NOTE Anion Gap 16 Estim Creat Clear Calc 56.7 Estimated GFR 49 POC Glucose 221 H 214 H Random Glucose 233 H Calcium 10.8 H Assessment and Plan (1) Bilateral lower extremity edema: Status: Acute (2) CHF (congestive heart failure): Status: Acute Plan 78-year-old male with history of izi-dcyrgpd-[id number] type 2 diabetes, history of tardive dyskinesia, bipolar disorder, hyperlipidemia, hypertension, GERD, chronic venous stasis dermatitis, and alcohol use disorder admitted for further management of mild chf exacerbation and ble weakness exacerbation of HFpEF: On IV Lasix, neg 7.2 L thus far, swelling is better, stop lasix d/t Hypernatremia Altered mental status/metabolic encephalopathy: ongoing issue for over a year per son, cannot rule out underlying dementia, intermittent somnolence likely related to hypovention, he's more alert this morning, to use BiPAP PRN during the day for naps. W/u has included CT negative for stroke, ammonia of 44. Depakote and risperideone were stopped as maybe contributing to somnolence. TSH normal. Ultimately will need rehab chronic lymphedema /chronic venous stasis dermatitis- no evidence of infection,negative DVT studies(06/23/23) Lasix as above on Lasix 80 at a.m. and 40 pm at baseline HypERnatremia from overdiuresse exy-wwrjefc-uskyimmvd type 2 diabetes blood sugars less than 200, continue insulin sliding scale, glipizide and metformin on hold continue diabetic diet hypeERtension/ intermittent tachycardia continue metoprolol 25 mg q.6 hours, stable blood pressure, changed to 50 b.i.d. at a.m. tardive dyskinesias /bipolar disorder- will hold Depakote and risperidone due to somnolence alcohol use disorder-no evidence of acute withdrawal, mild tachycardia, no tremors continue p.o. thiamine folic acid, patient declined recovery services. chano vs ckd 3: Creatine stable, likely CKD, monitor while on diuretics. diet: speech recom chopped + nectar thic liquid metabolic alkalosis status post IV fluids on Diamox, follow BMP DVT prophylaxis-Lovenox Full code ongoing inpatient need - CHF exacerbation requiring IV diuresis, chano on ckd , somnolence requires close renal monitoring will discuss goals of care with son Time Spent With Patient Time: Total time managing care of this patient today ____ minutes. Quality Stroke Does the patient have a stroke diagnosis?: No VTE Prior VTE?: No VTE Risk Level:: Medical - moderate - high VTE Device Contraindication: Treatment Not Indicated VTE Drug Contraindication: N/A - Med Ordered
[2023-06-30] MEDS: Dextrose 5 % 1,000 ML 100 ML IVCONT ×2 (11:10→21:14)
[2023-06-30 11:23] LABS: Glucose, Whole Blood 285 mg/dL (60-115)
[2023-06-30] MEDS: Enoxaparin Sodium 40 MG/0.4 ML SYRINGE SUBCUT (12:20)
[2023-06-30 16:09] LABS: Glucose, Whole Blood 304 mg/dL (60-115)
--- NOTE | 2023-06-30 18:29 | P.PNNP_ITS ---
Subjective Subjective Date of Service: 06/30/23 Interval history: Sunshine nd exaend, events noted very thirsty Physical Exam 2 Vital Signs: Vital Signs: Last Vital Signs Temp 98.5 F 06/30/23 15:32 Pulse 94 06/30/23 15:32 Resp 22 H 06/30/23 15:32 BP 127/68 06/30/23 15:32 Pulse Ox 95 06/30/23 15:32 O2 Del Method Nasal Cannula 06/30/23 15:32 O2 Flow Rate 3 06/30/23 15:32 BMI result Body Mass Index 40.5 Const: Other: He looks well is not toxic-appearing General: cooperative Nutritional Appearance: well nourished O rientation/consciousness: patient oriented x3 HEENT: Head: Yes normal to inspection Face and sinus: Yes normal facial exam Neck: Neck: Yes normal visual inspection Chest: Chest palpation & inspection: normal inspection of the chest Resp: Effort & Inspection: normal respiratory effort Auscultation: clear to auscultation bilaterally Cardio: Jugular venous distension: no JVD Rate: regular rate Rhythm: r egular rhythm GI: Inspection: Yes normal to inspection Percussion: Yes normal to percussion Skin: General skin exam: no rashes or lesions noted and elasticity normal L esions: no lesions Rashes: no rashes Neuro: General: patient oriented x3 Cranial nerves: Yes CN's II-XII intact bilaterally Extrem: Other: Patient has 3+ edema bilaterally of the lower extreme Objective Data Labs 06/28/23 04:07 06/30/23 08:43 Labs: Laboratory Results - last 24 hr 06/29/23 06/30/23 06/30/23 19:59 07:55 08:43 Hold Purple Top SEE NOTE Sodium 155 H Potassium 3.4 Chloride 110 H Carbon Dioxide 32 H Anion Gap 16 BUN 54 H Creatinine 1.40 Estim Creat Clear Calc 56.7 Estimated GFR 49 POC Glucose 221 H 214 H Random Glucose 233 H Calcium 10.8 H 06/30/23 06/30/23 11:19 16:03 Hold Purple Top Sodium Potassium Chloride Carbon Dioxide Anion Gap BUN Creatinine Estim Creat Clear Calc Estimated GFR POC Glucose 285 H 304 H Random Glucose Calcium Microbiology Microbiology Results: Microbiology 06/25/23 14:15 Urine clean catch - Clean Catch Midstream Urine Culture - Final Procedures Date of Service Date of Service: 06/30/23 Assessment & Plan Assessment and plan (1) LORENE (acute kidney injury): Status: Acute (2) Bilateral lower extremity edema: Status: Acute (3) CHF (congestive heart failure): Status: Acute Plan Mr. Danie Rivera is a 78-year-old gentleman with past medical history of kqi-efdiilp-fpgiekptl type 2 diabetes, history of tardive dyskinesia, bipolar disorder, hyperlipidemia, hypertension, GERD, chronic venous stasis dermatitis, and alcohol use disorder who presented for increase LE edema. The patient reports chronic edema for the last year. 1. WRF: SCr incr BSL 1.2-1.3 to now stable at 1.5 in assoc with diuresis 2. Volume / HTN Chronic lymphedema and ques componenet of vol overload as well goiven SOB 3. High bicarb ABG done 06/24/23 showed Metabolic ALK -- responding well to short course of diamox 4. HyperNa REC: replace FW with IV hypotonic fluids and PO; track renal func/UOP; avoid NTOXINS will follow w team Time Spent With Patient Time: Total time managing care of this patient today ____ minutes. Progress Note: Quality Stroke Does the patient have a stroke diagnosis?: No
[2023-06-30] MEDS: Albuterol/Iprat 2.5/0.5MG 3 ML AMPUL.NEB INHALE (19:45)
[2023-06-30] MEDS: Atorvastatin Calcium 20 MG TABLET PO (20:17)
[2023-06-30 21:07] LABS: Glucose, Whole Blood 270 mg/dL (60-115)
[2023-07-01 03:17] VITALS: BP 138/85; PULSE 92; RESP 18; TEMP 36.7; O2SAT 92
[2023-07-01] MEDS: polyethylene glycoL 3350 17 GM POWD.PACK PO (06:05)
[2023-07-01] MEDS: Levothyroxine Sodium 200 MCG TABLET PO (06:05)
[2023-07-01] MEDS: Omeprazole 20 MG CAPSULE.DR PO (06:05)
[2023-07-01 06:18] LABS: Anion Gap 17 (12-20); Blood Urea Nitrogen 45 mg/dL (9-16); Calcium 10.7 mg/dL (8.4-10.2); Carbon Dioxide 31 mmol/L (22-29); Chloride 107 mmol/L (96-108); Creatinine Clr Calc Pharmacy 60.6; Estimated Glomerular Filt Rate 53; Glucose Random 315 mg/dL (60-115); Potassium 3.7 mmol/L (3.3-5.1); Sodium 151 mmol/L (135-145)
[2023-07-01] MEDS: Dextrose 5 % 1,000 ML 100 ML IVCONT ×3 (06:20→20:34)
[2023-07-01 07:38] LABS: Glucose, Whole Blood 287 mg/dL (60-115)
[2023-07-01] MEDS: Thiamine HCL 100 MG TABLET PO (07:52)
[2023-07-01 07:53] VITALS: BP 147/66; PULSE 60; RESP 18; TEMP 36.3; O2SAT 95
[2023-07-01] MEDS: Cholecalciferol (Vitamin D3) 25 MCG TABLET PO (07:53)
[2023-07-01] MEDS: Cyanocobalamin (Vitamin B-12) 1,000 MCG TABLET 1000 MCG PO (07:53)
[2023-07-01] MEDS: Ascorbic Acid 500 MG TABLET 1000 MG PO (07:53)
[2023-07-01] MEDS: Magnesium Oxide 400 MG TABLET PO (07:53)
[2023-07-01] MEDS: Ferrous Sulfate 324 MG TABLET.DR PO (07:53)
[2023-07-01] MEDS: Pregabalin 50 MG CAPSULE PO (07:53)
[2023-07-01] MEDS: Folic Acid 1 MG TABLET PO (07:53)
[2023-07-01] MEDS: Metoprolol Tartrate 50 MG TABLET PO ×2 (07:54→20:35)
[2023-07-01] MEDS: Albuterol/Iprat 2.5/0.5MG 3 ML AMPUL.NEB INHALE ×2 (08:08→11:19)
[2023-07-01] MEDS: Insulin Lispro 100 UNIT/ML 3 ML VIAL SUBCUT ×4 (08:09→20:44)
[2023-07-01 08:17] VITALS: PULSE 102; RESP 20; O2SAT 94
--- NOTE | 2023-07-01 10:25 | P.PNIM_ITS ---
Subjective Subjective Date of Service: 07/01/23 Interval History: Fully alert, asking for water Physical Exam 2 Vital Signs: Vital Signs: Last Vital Signs Temp 97.4 F 07/01/23 07:53 Pulse 102 H 07/01/23 08:17 Resp 20 07/01/23 08:17 BP 147/66 H 07/01/23 07:53 Pulse Ox 95 07/01/23 07:53 O2 Del Method Nasal Cannula 07/01/23 07:53 O2 Flow Rate 3 07/01/23 07:53 BMI result Body Mass Index 40.5 Const: Other: General more awake this morning Neck supple no JVD. CVS tachy regular rate rhythm, Respiratory lungs clear to auscultation, no respiratory distress, no wheeze, no rhonchi. Gastrointestinal abdomen soft,obese, non tender, bowel sounds audible, no guarding , no rigidity. Extremities bilateral ankle deformity,non pitting edema, wrinkled skin, discoloration lower extremities Neuro non focal, moving all 4 extremity ,speech clear, easily aroused psych flat affect Objective Data Active Medications Acetaminophen (Acetaminophen 325 Mg Tablet) 650 mg PO TID PRN PRN Reason: Mild Pain (Scale Score 1-4) Last Admin: 06/29/23 19:58 Dose: 650 mg Documented By: RAHEEM Albuterol/Ipratropium (Albuterol/Iprat 2.5/0.5mg 3 Ml Ampul.Neb) 3 ml INHALE RQ4H WHILE AWAKE [facility] Last Admin: 07/01/23 08:08 Dose: 3 ml Documented By: HOUSTON Albuterol/Ipratropium (Albuterol/Iprat 2.5/0.5mg 3 Ml Ampul.Neb) 3 ml INHALE Q3H PRN PRN Reason: Sob Ascorbic Acid (Ascorbic Acid 500 Mg Tablet) 1,000 mg PO DAILY [facility] Last Admin: 07/01/23 07:53 Dose: 1,000 mg Documented By: MAICOL Atorvastatin Calcium (Atorvastatin Calcium 20 Mg Tablet) 20 mg PO BEDTIME [facility] Last Admin: 06/30/23 20:17 Dose: 20 mg Documented By: RAHEEM Cyanocobalamin (Cyanocobalamin (Vitamin B-12) 1,000 Mcg Tablet) 1,000 mcg PO DAILY [facility] Last Admin: 07/01/23 07:53 Dose: 1,000 mcg Documented By: MAICOL Dextrose (Dextrose 50 % 25 Gm/50 Ml Syringe) 25 gm IVPUSH Q15M PRN; Protocol PRN Reason: per Hypoglycemia Standing Ord. Docusate Sodium (Docusate Sodium 100 Mg Capsule) 100 mg PO DAILY PRN PRN Reason: Constipation Enoxaparin Sodium (Enoxaparin Sodium 40 Mg/0.4 Ml Syringe) 40 mg SUBCUT Q24H [facility] Last Admin: 06/30/23 12:20 Dose: 40 mg Documented By: MAICOL Ferrous Sulfate (Ferrous Sulfate 324 Mg Tablet.Dr) 324 mg PO DAILY [facility] Last Admin: 07/01/23 07:53 Dose: 324 mg Documented By: MAICOL Folic Acid (Folic Acid 1 Mg Tablet) 1 mg PO DAILY [facility] Last Admin: 07/01/23 07:53 Dose: 1 mg Documented By: MAICOL Glucose (Glucose Gel 15 Gm Gel..Gram.) 15 gm PO Q15M PRN; Protocol PRN Reason: per Hypoglycemia Standing Ord. Dextrose (D5w) 1,000 mls @ 150 mls/hr IVCONT .Q6H40M [facility] Last Admin: 07/01/23 06:20 Dose: 100 mls/hr Documented By: RAHEEM Insulin Human Lispro (Insulin Lispro 100 Unit/Ml 3 Ml Vial) 0 unit SUBCUT QIDACHS [facility]; Protocol Last Admin: 07/01/23 08:09 Dose: 6 unit Documented By: MAICOL Lactic Acid (Ammonium Lactate 12 % Lotion 226 Gm Bottle) 1 appl TOPICAL DAILY [facility]; Protocol Last Admin: 06/30/23 10:15 Dose: 1 appl Documented By: MAICOL Levothyroxine Sodium (Levothyroxine Sodium 200 Mcg Tablet) 200 mcg PO DAILY@0600 [facility] Last Admin: 07/01/23 06:05 Dose: 200 mcg Documented By: RAHEEM Magnesium Oxide (Magnesium Oxide 400 Mg Tablet) 400 mg PO DAILY [facility] Last Admin: 07/01/23 07:53 Dose: 400 mg Documented By: MAICOL Metoprolol Tartrate (Metoprolol Tartrate 50 Mg Tablet) 50 mg PO BID [facility]; Protocol Last Admin: 07/01/23 07:54 Dose: 50 mg Documented By: MAICOL Omeprazole (Omeprazole 20 Mg Capsule.) 20 mg PO DAILY@0630 [facility] Last Admin: 07/01/23 06:05 Dose: 20 mg Documented By: RAHEEM Ondansetron HCl (Ondansetron Hcl 4 Mg/2 Ml Vial) 4 mg IVPUSH Q8H PRN PRN Reason: Nausea and Vomiting Polyethylene Glycol (Polyethylene Glycol 3350 17 Gm Powd.Pack) 17 gm PO DAILY PRN PRN Reason: Constipation Last Admin: 07/01/23 06:05 Dose: 17 gm Documented By: RAHEEM Pregabalin (Pregabalin 50 Mg Capsule) 50 mg PO DAILY [facility] Last Admin: 07/01/23 07:53 Dose: 50 mg Documented By: MAICOL Sodium Chloride (0.9 % Sodium Chloride Flush 3 Ml Syringe) 3 ml IVFLUSH QSHIFT [facility] Last Admin: 07/01/23 09:51 Dose: Not Given Documented By: MAICOL Non-Admin Reason: IV Running Thiamine HCl (Thiamine Hcl 100 Mg Tablet) 100 mg PO DAILY [facility] Last Admin: 07/01/23 07:52 Dose: 100 mg Documented By: MAICOL Vitamin D (Cholecalciferol (Vitamin D3) 25 Mcg Tablet) 25 mcg PO DAILY [facility] Last Admin: 07/01/23 07:53 Dose: 25 mcg Documented By: MAICOL Labs 06/28/23 04:07 07/01/23 06:00 Labs: Laboratory Results - last 24 hr 06/30/23 06/30/23 06/30/23 11:19 16:03 20:53 Anion Gap Estim Creat Clear Calc Estimated GFR POC Glucose 285 H 304 H 270 H Random Glucose Calcium 07/01/23 07/01/23 06:00 07:11 Anion Gap 17 Estim Creat Clear Calc 60.6 Estimated GFR 53 POC Glucose 287 H Random Glucose 315 H Calcium 10.7 H Assessment and Plan (1) Bilateral lower extremity edema: Status: Acute (2) CHF (congestive heart failure): Status: Acute Plan 78-year-old male with history of [id number]-jidfypjrq type 2 diabetes, history of tardive dyskinesia, bipolar disorder, hyperlipidemia, hypertension, GERD, chronic venous stasis dermatitis, and alcohol use disorder admitted for further management of mild chf exacerbation and ble weakness exacerbation of HFpEF: On IV Lasix, neg 6.2 L thus far, swelling is better, stop lasix d/t Hypernatremia Altered mental status/metabolic encephalopathy: ongoing issue for over a year per son, cannot rule out underlying dementia, intermittent somnolence likely related to hypovention, he's more alert this morning, to use BiPAP PRN during the day for naps. W/u has included CT negative for stroke, ammonia of 44. Depakote and risperideone were stopped as maybe contributing to somnolence. TSH normal. Ultimately will need rehab chronic lymphedema /chronic venous stasis dermatitis- no evidence of infection,negative DVT studies(06/23/23) Lasix as above on Lasix 80 at a.m. and 40 pm at baseline HypERnatremia from overdiuresse, and lack of PO water, now that he's more awake, bed side swallow and if does ok, encourage to drink water, IV water for now and follow sodium level fiz-xxogolu-ojpmmsfiq type 2 diabetes blood sugars less than 200, continue insulin sliding scale, glipizide and metformin on hold continue diabetic diet hypertension/ intermittent tachycardia continue metoprolol 25 mg q.6 hours, stable blood pressure, changed to 50 b.i.d. at a.m. tardive dyskinesias /bipolar disorder- will hold Depakote and risperidone due to somnolence alcohol use disorder-no evidence of acute withdrawal, mild tachycardia, no tremors continue p.o. thiamine folic acid, patient declined recovery services. chano on ckd 3: Creatine stable, likely CKD, monitor while on diuretics. diet: speech recom chopped + nectar thic liquid metabolic alkalosis status post IV fluids on Diamox, follow BMP DVT prophylaxis-Lovenox Full code ongoing inpatient need - CHF exacerbation requiring IV diuresis, chano on ckd , somnolence requires close renal monitoring will discuss goals of care with son Time Spent With Patient Time: Total time managing care of this patient today ____ minutes. Quality Stroke Does the patient have a stroke diagnosis?: No VTE Prior VTE?: No VTE Risk Level:: Medical - moderate - high VTE Device Contraindication: Treatment Not Indicated VTE Drug Contraindication: N/A - Med Ordered
[2023-07-01 11:22] VITALS: PULSE 92; RESP 20
[2023-07-01 11:36] LABS: Glucose, Whole Blood 325 mg/dL (60-115)
[2023-07-01] MEDS: Enoxaparin Sodium 40 MG/0.4 ML SYRINGE SUBCUT (12:12)
--- NOTE | 2023-07-01 14:38 | P.PNNP_ITS ---
Subjective Subjective Date of Service: 07/01/23 Interval history: Sen and examined, events noted, thirsty Physical Exam 2 Vital Signs: Vital Signs: Last Vital Signs Temp 97.4 F 07/01/23 07:53 Pulse 92 07/01/23 11:22 Resp 20 07/01/23 11:22 BP 147/66 H 07/01/23 07:53 Pulse Ox 95 07/01/23 07:53 O2 Del Method Nasal Cannula 07/01/23 07:53 O2 Flow Rate 3 07/01/23 07:53 BMI result Body Mass Index 40.5 Const: Other: He looks well is not toxic-appearing General: cooperative Nutritional Appearance: well nourished O rientation/consciousness: patient oriented x3 HEENT: Head: Yes normal to inspection Face and sinus: Yes normal facial exam Neck: Neck: Yes normal visual inspection Chest: Chest palpation & inspection: normal inspection of the chest Resp: Effort & Inspection: normal respiratory effort Auscultation: clear to auscultation bilaterally Cardio: Jugular venous distension: no JVD Rate: regular rate Rhythm: r egular rhythm GI: Inspection: Yes normal to inspection Percussion: Yes normal to percussion Skin: General skin exam: no rashes or lesions noted and elasticity normal L esions: no lesions Rashes: no rashes Neuro: General: patient oriented x3 Cranial nerves: Yes CN's II-XII intact bilaterally Extrem: Other: Patient has 3+ edema bilaterally of the lower extreme Objective Data Labs 06/28/23 04:07 07/01/23 06:00 Labs: Laboratory Results - last 24 hr 06/30/23 06/30/23 07/01/23 16:03 20:53 06:00 Sodium 151 H Potassium 3.7 Chloride 107 Carbon Dioxide 31 H Anion Gap 17 BUN 45 H Creatinine 1.31 Estim Creat Clear Calc 60.6 Estimated GFR 53 POC Glucose 304 H 270 H Random Glucose 315 H Calcium 10.7 H 07/01/23 07/01/23 07:11 11:25 Sodium Potassium Chloride Carbon Dioxide Anion Gap BUN Creatinine Estim Creat Clear Calc Estimated GFR POC Glucose 287 H 325 H Random Glucose Calcium Microbiology Microbiology Results: Microbiology 06/25/23 14:15 Urine clean catch - Clean Catch Midstream Urine Culture - Final Procedures Date of Service Date of Service: 07/01/23 Assessment & Plan Assessment and plan (1) LORENE (acute kidney injury): Status: Acute (2) Bilateral lower extremity edema: Status: Acute (3) CHF (congestive heart failure): Status: Acute Plan Mr. Danie Rivera is a 78-year-old gentleman with past medical history of mcp-lfljdch-ahlhnwquk type 2 diabetes, history of tardive dyskinesia, bipolar disorder, hyperlipidemia, hypertension, GERD, chronic venous stasis dermatitis, and alcohol use disorder who presented for increase LE edema. The patient reports chronic edema for the last year. 1. WRF: SCr incr BSL 1.2-1.3 to now stable and close to BSL even with diuresis 2. Volume / HTN Chronic lymphedema and ques componenet of vol overload as well given SOB 3. High bicarb ABG done 06/24/23 showed Metabolic ALK -- responding well to short course of diamox 4. HyperNa: cont w FWater replacement REC: replace FW with IV hypotonic fluids and PO; track renal func/UOP; avoid NTOXINS will follow w team Time Spent With Patient Time: Total time managing care of this patient today ____ minutes. Progress Note: Quality Stroke Does the patient have a stroke diagnosis?: No
[2023-07-01 16:00] VITALS: BP 122/81; PULSE 94; RESP 16; TEMP 36.1; O2SAT 96
[2023-07-01 16:35] LABS: Glucose, Whole Blood 284 mg/dL (60-115)
[2023-07-01 20:00] VITALS: BP 134/87; PULSE 92; TEMP 36.4; O2SAT 95
[2023-07-01] MEDS: Atorvastatin Calcium 20 MG TABLET PO (20:36)
[2023-07-01 20:42] LABS: Glucose, Whole Blood 314 mg/dL (60-115)
--- NOTE | 2023-07-01 22:49 | PC.RT ---
Pt refusing Bipap at this time
[2023-07-02] MEDS: Dextrose 5 % 1,000 ML 100 ML IVCONT (02:15)
[2023-07-02 04:00] VITALS: BP 139/75; PULSE 90; RESP 17; TEMP 36.3; O2SAT 95
[2023-07-02] MEDS: Omeprazole 20 MG CAPSULE.DR PO (05:56)
[2023-07-02] MEDS: Levothyroxine Sodium 200 MCG TABLET PO (05:56)
[2023-07-02 07:17] LABS: Anion Gap 15 (12-20); Blood Urea Nitrogen 35 mg/dL (9-16); Calcium 9.9 mg/dL (8.4-10.2); Carbon Dioxide 30 mmol/L (22-29); Chloride 99 mmol/L (96-108); Creatinine Clr Calc Pharmacy 63.5; Estimated Glomerular Filt Rate 56; Glucose Random 337 mg/dL (60-115); Potassium 3.8 mmol/L (3.3-5.1); Sodium 140 mmol/L (135-145)
[2023-07-02 07:24] VITALS: BP 146/83; PULSE 80; RESP 20; TEMP 36.8; O2SAT 97
[2023-07-02 07:26] LABS: Glucose, Whole Blood 358 mg/dL (60-115)
[2023-07-02] MEDS: Thiamine HCL 100 MG TABLET PO (08:21)
[2023-07-02] MEDS: Cyanocobalamin (Vitamin B-12) 1,000 MCG TABLET 1000 MCG PO (08:21)
[2023-07-02] MEDS: Pregabalin 50 MG CAPSULE PO (08:21)
[2023-07-02] MEDS: Magnesium Oxide 400 MG TABLET PO (08:21)
[2023-07-02] MEDS: Acetaminophen 325 MG TABLET 650 MG PO (08:21)
[2023-07-02] MEDS: Insulin Lispro 100 UNIT/ML 3 ML VIAL SUBCUT ×4 (08:21→20:01)
[2023-07-02] MEDS: Ferrous Sulfate 324 MG TABLET.DR PO (08:21)
[2023-07-02] MEDS: Folic Acid 1 MG TABLET PO (08:21)
[2023-07-02] MEDS: Ascorbic Acid 500 MG TABLET 1000 MG PO (08:21)
[2023-07-02] MEDS: Metoprolol Tartrate 50 MG TABLET PO ×2 (08:21→20:01)
[2023-07-02] MEDS: Cholecalciferol (Vitamin D3) 25 MCG TABLET PO (08:22)
--- NOTE | 2023-07-02 09:47 | P.PNIM_ITS ---
Subjective Subjective Date of Service: 07/02/23 Interval History: Very alert, renal failure and hypernatremia resolved. Physical Exam 2 Vital Signs: Vital Signs: Last Vital Signs Temp 98.2 F 07/02/23 07:24 Pulse 80 07/02/23 07:24 Resp 20 07/02/23 07:24 BP 146/83 H 07/02/23 07:24 Pulse Ox 97 07/02/23 07:24 O2 Del Method Nasal Cannula 07/02/23 07:24 O2 Flow Rate 3 07/02/23 07:24 BMI result Body Mass Index 40.5 Const: Other: Awake Neck supple no JVD. CVS tachy regular rate rhythm, Respiratory lungs clear to auscultation, no respiratory distress, no wheeze, no rhonchi. Gastrointestinal abdomen soft,obese, non tender, bowel sounds audible, no guarding , no rigidity. Extremities bilateral ankle deformity,non pitting edema, wrinkled skin, discoloration lower extremities Neuro non focal, moving all 4 extremity ,speech clear, easily aroused psych flat affect Objective Data Active Medications Acetaminophen (Acetaminophen 325 Mg Tablet) 650 mg PO TID PRN PRN Reason: Mild Pain (Scale Score 1-4) Last Admin: 07/02/23 08:21 Dose: 650 mg Documented By: COTEMA Ascorbic Acid (Ascorbic Acid 500 Mg Tablet) 1,000 mg PO DAILY [facility] Last Admin: 07/02/23 08:21 Dose: 1,000 mg Documented By: COTEMA Atorvastatin Calcium (Atorvastatin Calcium 20 Mg Tablet) 20 mg PO BEDTIME [facility] Last Admin: 07/01/23 20:36 Dose: 20 mg Documented By: OZORALB Cyanocobalamin (Cyanocobalamin (Vitamin B-12) 1,000 Mcg Tablet) 1,000 mcg PO DAILY [facility] Last Admin: 07/02/23 08:21 Dose: 1,000 mcg Documented By: COTEMA Dextrose (Dextrose 50 % 25 Gm/50 Ml Syringe) 25 gm IVPUSH Q15M PRN; Protocol PRN Reason: per Hypoglycemia Standing Ord. Docusate Sodium (Docusate Sodium 100 Mg Capsule) 100 mg PO DAILY PRN PRN Reason: Constipation Enoxaparin Sodium (Enoxaparin Sodium 40 Mg/0.4 Ml Syringe) 40 mg SUBCUT Q24H [facility] Last Admin: 07/01/23 12:12 Dose: 40 mg Documented By: MAICOL Ferrous Sulfate (Ferrous Sulfate 324 Mg Tablet.) 324 mg PO DAILY [facility] Last Admin: 07/02/23 08:21 Dose: 324 mg Documented By: COTEMA Folic Acid (Folic Acid 1 Mg Tablet) 1 mg PO DAILY [facility] Last Admin: 07/02/23 08:21 Dose: 1 mg Documented By: COTEMA Glucose (Glucose Gel 15 Gm Gel..Gram.) 15 gm PO Q15M PRN; Protocol PRN Reason: per Hypoglycemia Standing Ord. Insulin Human Lispro (Insulin Lispro 100 Unit/Ml 3 Ml Vial) 0 unit SUBCUT QIDACHS [facility]; Protocol Last Admin: 07/02/23 08:21 Dose: 10 unit Documented By: FLOREMA Lactic Acid (Ammonium Lactate 12 % Lotion 226 Gm Bottle) 1 appl TOPICAL DAILY [facility]; Protocol Last Admin: 07/02/23 08:22 Dose: 1 appl Documented By: CRISTHIAN Levothyroxine Sodium (Levothyroxine Sodium 200 Mcg Tablet) 200 mcg PO DAILY@0600 [facility] Last Admin: 07/02/23 05:56 Dose: 200 mcg Documented By: JADEN Magnesium Oxide (Magnesium Oxide 400 Mg Tablet) 400 mg PO DAILY [facility] Last Admin: 07/02/23 08:21 Dose: 400 mg Documented By: CRISTHIAN Metoprolol Tartrate (Metoprolol Tartrate 50 Mg Tablet) 50 mg PO BID [facility]; Protocol Last Admin: 07/02/23 08:21 Dose: 50 mg Documented By: CRISTHIAN Omeprazole (Omeprazole 20 Mg Capsule.) 20 mg PO DAILY@0630 [facility] Last Admin: 07/02/23 05:56 Dose: 20 mg Documented By: JADEN Ondansetron HCl (Ondansetron Hcl 4 Mg/2 Ml Vial) 4 mg IVPUSH Q8H PRN PRN Reason: Nausea and Vomiting Polyethylene Glycol (Polyethylene Glycol 3350 17 Gm Powd.Pack) 17 gm PO DAILY PRN PRN Reason: Constipation Last Admin: 07/01/23 06:05 Dose: 17 gm Documented By: ELIZABETHFOKal Pregabalin (Pregabalin 50 Mg Capsule) 50 mg PO DAILY [facility] Last Admin: 07/02/23 08:21 Dose: 50 mg Documented By: HO.COTEMA Sodium Chloride (0.9 % Sodium Chloride Flush 3 Ml Syringe) 3 ml IVFLUSH QSHIFT [facility] Last Admin: 07/02/23 08:05 Dose: Not Given Documented By: COTEMA Non-Admin Reason: IV Running Thiamine HCl (Thiamine Hcl 100 Mg Tablet) 100 mg PO DAILY [facility] Last Admin: 07/02/23 08:21 Dose: 100 mg Documented By: COTEMA Vitamin D (Cholecalciferol (Vitamin D3) 25 Mcg Tablet) 25 mcg PO DAILY [facility] Last Admin: 07/02/23 08:22 Dose: 25 mcg Documented By: COTEMA Labs 06/28/23 04:07 07/02/23 05:29 Labs: Laboratory Results - last 24 hr 07/01/23 07/01/23 07/01/23 11:25 16:23 20:33 Hold Purple Top Anion Gap Estim Creat Clear Calc Estimated GFR POC Glucose 325 H 284 H 314 H Random Glucose Calcium 07/02/23 07/02/23 05:29 07:23 Hold Purple Top SEE NOTE Anion Gap 15 Estim Creat Clear Calc 63.5 Estimated GFR 56 POC Glucose 358 H* Random Glucose 337 H Calcium 9.9 D Assessment and Plan (1) Bilateral lower extremity edema: Status: Acute (2) CHF (congestive heart failure): Status: Acute Plan 78-year-old male with history of afn-lfnuxuz-mgdltxdnn type 2 diabetes, history of tardive dyskinesia, bipolar disorder, hyperlipidemia, hypertension, GERD, chronic venous stasis dermatitis, and alcohol use disorder admitted for further management of mild chf exacerbation and ble weakness exacerbation of HFpEF: Treated with lasix, now stopped d/t hyperkalemia Altered mental status/metabolic encephalopathy: ongoing issue for over a year per son, cannot rule out underlying dementia, intermittent somnolence likely related to hypovention, he's more alert this morning, to use BiPAP PRN during the day for naps. W/u has included CT negative for stroke, ammonia of 44. Depakote and risperideone were stopped as maybe contributing to somnolence. TSH normal. Ultimately will need rehab. He is overall much better chronic lymphedema /chronic venous stasis dermatitis- no evidence of infection,negative DVT studies(06/23/23) Lasix as above to resume HypERnatremia from overdiuresse, and lack of PO water, now that he's more awake, bed side swallow and if does ok, resolved with water replacment qvk-yzyoawl-wqlzxgimb type 2 diabetes blood sugars less than 200, continue insulin sliding scale, glipizide and metformin on hold continue diabetic diet hypertension/ intermittent tachycardia continue metoprolol 25 mg q.6 hours, stable blood pressure, changed to 50 b.i.d. at a.m. tardive dyskinesias /bipolar disorder- will hold Depakote and risperidone due to somnolence alcohol use disorder-no evidence of acute withdrawal, mild tachycardia, no tremors continue p.o. thiamine folic acid, patient declined recovery services. chano on ckd 3: Creatine now within normal range diet: speech recom chopped + nectar thic liquid metabolic alkalosis status post IV fluids on Diamox, follow BMP DVT prophylaxis-Lovenox Full code ongoing inpatient need - CHF exacerbation requiring IV diuresis, chano on ckd , somnolence requires close renal monitoring likely to rehab will discuss goals of care with son Time Spent With Patient Time: Total time managing care of this patient today ____ minutes. Quality Stroke Does the patient have a stroke diagnosis?: No VTE Prior VTE?: No VTE Risk Level:: Medical - moderate - high VTE Device Contraindication: Treatment Not Indicated VTE Drug Contraindication: N/A - Med Ordered
--- NOTE | 2023-07-02 11:14 | MHC.SL.SWA ---
Speech Pathologist Impression: Risk of aspiration, oropharyngeal dysphagia Risk of Aspiration Due to: Medically Fragile Reduced Cognition Dysphasia Diet Status: Upgrade liquids from NTL to THIN Liquid Consistency and Strategies for Safe Swallow: Liquid Intake Recommendation: Thin Liquid Intake Strategies: Small Sips No Straws Liquids by Teaspoon Only Solid Food Consistency: Dietary Recommendations: Chopped/Advanced (NDD3) Additional Modifications to Solid Foods: Recommend continue with CHOPPED/ADVANCED (NDD3) diet and UPGRADE to THIN liquids by TEASPOON or INDIVIDUAL SIPS BY CONTROLLED CUP, pills CRUSHED in PUREE. Pt will need TOTAL 1:1 SUPERVISION with close monitoring of tolerance d/t recent upgrade, provide 1:1 assistance feeding, ensure strict aspiration precautions. Hold tray if pt is lethargic, not engaging in meal, or demonstrates any clinical signs of aspiration. Diet order updated by SEXER, notified team (MD, RN, RD) via [employer] Message. SEXER will continue to follow. Oral Medication Intake: Crushed with Puree Please contact the pharmacy regarding appropriate crushable or liquid drug formulations that are available whenever modified delivery is recommended. Compensatory Strategies and Precautions to be Taken for Safe Swallow: Sitting Upright (90 deg) No Straw Liquids from Cup Liquids from Spoon Small Bites and Sips Rate of Ingestion Change Oral Check Avoid Specific Foods Supervision While Eating and Drinking for Safe Swallow: Total Assistance (1:1) Foods to Avoid: Mixed consistencies, difficult to chew solids. Swallowing Recommended Treatments: Compens. Strategy Educat. Recommendation for Speech: Inpatient Speech Therapy Frequency/Duration: M-F while inpatient. Pot Liner Clinican/Clinical Fellow: No Supervisory Statement: I have reviewed and agree with the student/clinical fellow's documentation: N/A Speech Language Pathologist: Che Agustin M.A., CCC-[facility]XER
[2023-07-02 12:05] LABS: Glucose, Whole Blood 392 mg/dL (60-115)
[2023-07-02 13:12] VITALS: BP 146/83; PULSE 80; O2SAT 97
--- NOTE | 2023-07-02 13:32 | MHC.CLN ---
NUTRITION CONSULT FOR POOR PO AND SKIN INTEGRITY. POOR PO, USUALLY 0-25% X APPROX 6 DAYS. SKIN WITH REDNESS TO BUTTOCKS. RECOMMEND LIBERALIZE DIET FROM DM 1800 KCAL TO REGULAR TO PROMOTE PO INTAKE. DIET=REGULAR, NDD3, THIN LIQUIDS. PER SELVAGE MACHINE OPERATOR, 1:1 FEED. ADDING FORTIFIED ICE CREAM TID TO INCREASE NUTRITIONAL INTAKE. PROVIDES 870 KCALS, 27 G PROTEIN. SEE CLINICAL NUTRITION ASSESSMENT 07/02/23.
[2023-07-02] MEDS: Enoxaparin Sodium 40 MG/0.4 ML SYRINGE SUBCUT (13:33)
[2023-07-02 13:37] VITALS: BMI 40.5
--- NOTE | 2023-07-02 14:46 | P.CDIM_ITS ---
PROVIDER RESPONSE TEXT: To clarify, the appropriate diagnosis supported by the clinical indicators: NIDDM with hyperglycemia QUERY TEXT: PHYSICIAN'S DOCUMENTATION REQUEST Date of Query: 07/02/2023 08:27 AM EDT Patient Name: Danie Rivera Admit Date: 06/22/2023 Dear Jonas Gomez, A review of the medical record indicates additional documentation may be needed. Please review below and update the documentation accordingly. Clinical Indicators: POC Glucose on 07/01/23: 314 POC Glucose on 11/30/22: 358 The following diagnoses or signs and symptoms were noted in the patient record: Per Hospitalist Progress Note 07/01/23: yat-cphctdb-uxmeopyos type 2 diabetes blood sugars less than 200, continue insulin sliding scale, glipizide and metformin on hold continue diabetic diet Based on the above, could you clarify the appropriate diagnosis, if significant, that supports the ab ove abnormalities and additional evaluation, monitoring, and/or treatment rendered: NIDDM with hyperglycemia Labs indicate a diagnosis of (please specify) Other (explain)Clinically unable to determine (explain)Thank you, Jelena Henriquez RN Use of terms such as suspected, likely, concern for, or probable (associated with a specific diagnosi s that is being evaluated, monitored, or treated as if it exists) are acceptable and can be coded in the inpatient se tting, when documented at the time of discharge. Please use your independent medical judgment in providing your response. THIS QUERY IS PART OF THE PERMANENT MEDICAL RECORD
[2023-07-02 15:17] VITALS: BP 125/79; PULSE 88; RESP 22; TEMP 36.6; O2SAT 97
[2023-07-02 16:02] LABS: Glucose, Whole Blood 226 mg/dL (60-115)
[2023-07-02 19:34] VITALS: BP 121/83; PULSE 78; RESP 24; TEMP 36.6; O2SAT 96
[2023-07-02 19:35] LABS: Glucose, Whole Blood 292 mg/dL (60-115)
[2023-07-02] MEDS: Atorvastatin Calcium 20 MG TABLET PO (20:01)
--- NOTE | 2023-07-02 21:12 | P.PNNP_ITS ---
Subjective Subjective Date of Service: 07/02/23 Interval history: Seen and examined, events ntoed Physical Exam 2 Vital Signs: Vital Signs: Last Vital Signs Temp 98 F 07/02/23 19:34 Pulse 78 07/02/23 19:34 Resp 24 H 07/02/23 19:34 BP 121/83 07/02/23 19:34 Pulse Ox 96 07/02/23 19:34 O2 Del Method Nasal Cannula 07/02/23 19:34 O2 Flow Rate 3 07/02/23 19:34 BMI result Body Mass Index 40.5 Const: Other: He looks well is not toxic-appearing General: cooperative Nutritional Appearance: well nourished O rientation/consciousness: patient oriented x3 HEENT: Head: Yes normal to inspection Face and sinus: Yes normal facial exam Neck: Neck: Yes normal visual inspection Chest: Chest palpation & inspection: normal inspection of the chest Resp: Effort & Inspection: normal respiratory effort Auscultation: clear to auscultation bilaterally Cardio: Jugular venous distension: no JVD Rate: regular rate Rhythm: r egular rhythm GI: Inspection: Yes normal to inspection Percussion: Yes normal to percussion Skin: General skin exam: no rashes or lesions noted and elasticity normal L esions: no lesions Rashes: no rashes Neuro: General: patient oriented x3 Cranial nerves: Yes CN's II-XII intact bilaterally Extrem: Other: Patient has 3+ edema bilaterally of the lower extreme Objective Data Labs 06/28/23 04:07 07/02/23 05:29 Labs: Laboratory Results - last 24 hr 07/02/23 07/02/23 07/02/23 05:29 07:23 11:28 Hold Purple Top SEE NOTE Sodium 140 Potassium 3.8 Chloride 99 Carbon Dioxide 30 H Anion Gap 15 BUN 35 H Creatinine 1.25 Estim Creat Clear Calc 63.5 Estimated GFR 56 POC Glucose 358 H* 392 H* Random Glucose 337 H Calcium 9.9 D 07/02/23 07/02/23 15:59 19:32 Hold Purple Top Sodium Potassium Chloride Carbon Dioxide Anion Gap BUN Creatinine Estim Creat Clear Calc Estimated GFR POC Glucose 226 H 292 H Random Glucose Calcium Microbiology Microbiology Results: Microbiology 06/25/23 14:15 Urine clean catch - Clean Catch Midstream Urine Culture - Final Procedures Date of Service Date of Service: 07/02/23 Assessment & Plan Assessment and plan (1) LORENE (acute kidney injury): Status: Acute (2) Bilateral lower extremity edema: Status: Acute (3) CHF (congestive heart failure): Status: Acute Plan Mr. Danie Rivera is a 78-year-old gentleman with past medical history of dpu-[id number] type 2 diabetes, history of tardive dyskinesia, bipolar disorder, hyperlipidemia, hypertension, GERD, chronic venous stasis dermatitis, and alcohol use disorder who presented for increase LE edema. The patient reports chronic edema for the last year. 1. WRF: SCr incr BSL 1.2-1.3 to now stable and close to BSL even with diuresis 2. Volume / HTN Chronic lymphedema and ques componenet of vol overload as well given SOB 3. High bicarb ABG done 06/24/23 showed Metabolic ALK -- responding well to short course of diamox 4. HyperNa: resolving w FWater replacement REC: no new recs; track renal func/UOP; avoid NTOXINS will follow w team Time Spent With Patient Time: Total time managing care of this patient today ____ minutes. Progress Note: Quality Stroke Does the patient have a stroke diagnosis?: No
--- NOTE | 2023-07-02 23:35 | PC.RT ---
Pt refused at this time
[2023-07-03 02:39] VITALS: BP 122/79; PULSE 100; RESP 22; TEMP 36.2; O2SAT 94
[2023-07-03] MEDS: Levothyroxine Sodium 200 MCG TABLET PO (05:36)
[2023-07-03] MEDS: Omeprazole 20 MG CAPSULE.DR PO (05:36)
[2023-07-03 06:42] LABS: Anion Gap 15 (12-20); Blood Urea Nitrogen 29 mg/dL (9-16); Carbon Dioxide 28 mmol/L (22-29); Chloride 100 mmol/L (96-108); Creatinine Clr Calc Pharmacy 77.1; Estimated Glomerular Filt Rate > 60; Glucose Random 216 mg/dL (60-115); Sodium 139 mmol/L (135-145)
[2023-07-03 07:16] LABS: Glucose, Whole Blood 185 mg/dL (60-115)
[2023-07-03 07:28] VITALS: BP 129/71; PULSE 97; RESP 18; TEMP 36.5; O2SAT 98
[2023-07-03] MEDS: Insulin Lispro 100 UNIT/ML 3 ML VIAL SUBCUT ×4 (07:45→21:48)
[2023-07-03] MEDS: Folic Acid 1 MG TABLET PO (07:45)
[2023-07-03] MEDS: Metoprolol Tartrate 50 MG TABLET PO ×2 (07:45→21:48)
[2023-07-03] MEDS: Magnesium Oxide 400 MG TABLET PO (07:45)
[2023-07-03] MEDS: Cholecalciferol (Vitamin D3) 25 MCG TABLET PO (07:45)
[2023-07-03] MEDS: Ferrous Sulfate 324 MG TABLET.DR PO (07:46)
[2023-07-03] MEDS: Ascorbic Acid 500 MG TABLET 1000 MG PO (07:46)
[2023-07-03] MEDS: Thiamine HCL 100 MG TABLET PO (07:46)
[2023-07-03] MEDS: Pregabalin 50 MG CAPSULE PO (07:46)
[2023-07-03] MEDS: Cyanocobalamin (Vitamin B-12) 1,000 MCG TABLET 1000 MCG PO (07:46)
--- NOTE | 2023-07-03 09:21 | MHC.SLORD ---
Speech Language Pathology Order Status: Attempted to see patient at Breakfast which had concluded. Patient was upgraded to thin liquids yesterday. Per BODY RECALL INSTRUCTOR who fed patient this a.m. and patient's own report, having no difficulty with liquids, and this morning preferred Magic Cup to other food offerings this a.m., which was consumed without difficulty. ELEVATOR EXAMINER AND ADJUSTER will continue to follow.
[2023-07-03 09:53] VITALS: BP 129/71; PULSE 97; O2SAT 98
--- NOTE | 2023-07-03 10:17 | HO.PM.IMPN ---
Subjective Subjective Date of Service: 07/03/23 Interval History: Doing well, no new issues, Physical Exam Vital Signs: Vital Signs: Last Vital Signs Temp 97.7 F 07/03/23 07:28 Pulse 97 07/03/23 09:53 Resp 18 07/03/23 07:28 BP 129/71 07/03/23 09:53 Pulse Ox 98 07/03/23 09:53 O2 Del Method Nasal Cannula 07/03/23 07:28 O2 Flow Rate 3 07/03/23 07:28 BMI result Body Mass Index 40.5 Const: Other: Awake Neck supple no JVD. CVS tachy regular rate rhythm, Respiratory lungs clear to auscultation, no respiratory distress, no wheeze, no rhonchi. Gastrointestinal abdomen soft,obese, non tender, bowel sounds audible, no guarding , no rigidity. Extremities bilateral ankle deformity,non pitting edema, wrinkled skin, discoloration lower extremities Neuro non focal, moving all 4 extremity ,speech clear, easily aroused psych flat affect Objective Data Active Medications Acetaminophen (Acetaminophen 325 Mg Tablet) 650 mg PO TID PRN PRN Reason: Mild Pain (Scale Score 1-4) Last Admin: 07/02/23 08:21 Dose: 650 mg Documented By: COTEMA Ascorbic Acid (Ascorbic Acid 500 Mg Tablet) 1,000 mg PO DAILY [facility] Last Admin: 07/03/23 07:46 Dose: 1,000 mg Documented By: TRISTEN Atorvastatin Calcium (Atorvastatin Calcium 20 Mg Tablet) 20 mg PO BEDTIME [facility] Last Admin: 07/02/23 20:01 Dose: 20 mg Documented By: VIRGINIAORALTodd Cyanocobalamin (Cyanocobalamin (Vitamin B-12) 1,000 Mcg Tablet) 1,000 mcg PO DAILY [facility] Last Admin: 07/03/23 07:46 Dose: 1,000 mcg Documented By: TRISTEN Dextrose (Dextrose 50 % 25 Gm/50 Ml Syringe) 25 gm IVPUSH Q15M PRN; Protocol PRN Reason: per Hypoglycemia Standing Ord. Docusate Sodium (Docusate Sodium 100 Mg Capsule) 100 mg PO DAILY PRN PRN Reason: Constipation Enoxaparin Sodium (Enoxaparin Sodium 40 Mg/0.4 Ml Syringe) 40 mg SUBCUT Q24H [facility] Last Admin: 07/02/23 13:33 Dose: 40 mg Documented By: CRISTHIAN Ferrous Sulfate (Ferrous Sulfate 324 Mg Tablet.) 324 mg PO DAILY [facility] Last Admin: 07/03/23 07:46 Dose: 324 mg Documented By: TRISTEN Folic Acid (Folic Acid 1 Mg Tablet) 1 mg PO DAILY [facility] Last Admin: 07/03/23 07:45 Dose: 1 mg Documented By: TRISTEN Glucose (Glucose Gel 15 Gm Gel..Gram.) 15 gm PO Q15M PRN; Protocol PRN Reason: per Hypoglycemia Standing Ord. Insulin Human Lispro (Insulin Lispro 100 Unit/Ml 3 Ml Vial) 0 unit SUBCUT QIDACHS [facility]; Protocol Last Admin: 07/03/23 07:45 Dose: 2 unit Documented By: TRISTEN Lactic Acid (Ammonium Lactate 12 % Lotion 226 Gm Bottle) 1 appl TOPICAL DAILY [facility]; Protocol Last Admin: 07/03/23 07:57 Dose: 1 appl Documented By: TRISTEN Levothyroxine Sodium (Levothyroxine Sodium 200 Mcg Tablet) 200 mcg PO DAILY@0600 [facility] Last Admin: 07/03/23 05:36 Dose: 200 mcg Documented By: JADEN Magnesium Oxide (Magnesium Oxide 400 Mg Tablet) 400 mg PO DAILY [facility] Last Admin: 07/03/23 07:45 Dose: 400 mg Documented By: TRISTEN Metoprolol Tartrate (Metoprolol Tartrate 50 Mg Tablet) 50 mg PO BID [facility]; Protocol Last Admin: 07/03/23 07:45 Dose: 50 mg Documented By: TRISTEN Omeprazole (Omeprazole 20 Mg Capsule.) 20 mg PO DAILY@0630 [facility] Last Admin: 07/03/23 05:36 Dose: 20 mg Documented By: JADEN Ondansetron HCl (Ondansetron Hcl 4 Mg/2 Ml Vial) 4 mg IVPUSH Q8H PRN PRN Reason: Nausea and Vomiting Polyethylene Glycol (Polyethylene Glycol 3350 17 Gm Powd.Pack) 17 gm PO DAILY PRN PRN Reason: Constipation Last Admin: 07/01/23 06:05 Dose: 17 gm Documented By: RAHEEM Pregabalin (Pregabalin 50 Mg Capsule) 50 mg PO DAILY [facility] Last Admin: 07/03/23 07:46 Dose: 50 mg Documented By: TRISTEN Sodium Chloride (0.9 % Sodium Chloride Flush 3 Ml Syringe) 3 ml IVFLUSH QSHIFT [facility] Last Admin: 07/03/23 07:57 Dose: 3 ml Documented By: TRISTEN Thiamine HCl (Thiamine Hcl 100 Mg Tablet) 100 mg PO DAILY [facility] Last Admin: 07/03/23 07:46 Dose: 100 mg Documented By: TRISTEN Vitamin D (Cholecalciferol (Vitamin D3) 25 Mcg Tablet) 25 mcg PO DAILY [facility] Last Admin: 07/03/23 07:45 Dose: 25 mcg Documented By: TRISTEN Labs 06/28/23 04:07 07/03/23 05:12 Labs: Laboratory Results - last 24 hr 07/02/23 07/02/23 07/02/23 11:28 15:59 19:32 Hold Purple Top Anion Gap Estim Creat Clear Calc Estimated GFR POC Glucose 392 H* 226 H 292 H Random Glucose Calcium 07/03/23 07/03/23 05:12 07:12 Hold Purple Top SEE NOTE Anion Gap 15 Estim Creat Clear Calc 77.1 Estimated GFR > 60 POC Glucose 185 H Random Glucose 216 H Calcium 10.0 Assessment and Plan (1) Bilateral lower extremity edema: Status: Acute (2) CHF (congestive heart failure): Status: Acute Plan 78-year-old male with history of lrf-kdthral-ihgkuiwjz type 2 diabetes, history of tardive dyskinesia, bipolar disorder, hyperlipidemia, hypertension, GERD, chronic venous stasis dermatitis, and alcohol use disorder admitted for further management of mild chf exacerbation and ble weakness exacerbation of HFpEF: Treated with lasix, now stopped d/t hyperkalemia Altered mental status/metabolic encephalopathy: ongoing issue for over a year per son, cannot rule out underlying dementia, intermittent somnolence likely related to hypovention, he's more alert this morning, to use BiPAP PRN during the day for naps. W/u has included CT negative for stroke, ammonia of 44. Depakote and risperideone were stopped as maybe contributing to somnolence. TSH normal. Ultimately will need rehab. He is overall much better chronic lymphedema /chronic venous stasis dermatitis- no evidence of infection,negative DVT studies(06/23/23) resume lasix with 40 mg po daily HypERnatremia from overdiuresse, and lack of PO water, now that he's more awake, bed side swallow and if does ok, resolved with water replacment ppg-bovupxu-gxaxxaaqi type 2 diabetes with hypergelycemia continue insulin sliding scale, resume glipizide; metformin on hold continue diabetic diet hypertension/ intermittent tachycardia continue metoprolol tardive dyskinesias /bipolar disorder- will hold Depakote and risperidone due to somnolence alcohol use disorder-no evidence of acute withdrawal, mild tachycardia, no tremors continue p.o. thiamine folic acid, patient declined recovery services. chano on ckd 3: Creatine now within normal range diet: speech recom chopped + nectar thic liquid metabolic alkalosis status post IV fluids on Diamox, follow BMP DVT prophylaxis-Lovenox Full code ongoing inpatient need - CHF exacerbation requiring IV diuresis, chano on ckd , somnolence requires close renal monitoring likely to rehab Time Spent With Patient Time: Total time managing care of this patient today ____ minutes. Quality Stroke Does the patient have a stroke diagnosis?: No VTE Prior VTE?: No VTE Risk Level:: Medical - moderate - high VTE Device Contraindication: Treatment Not Indicated VTE Drug Contraindication: N/A - Med Ordered
[2023-07-03 11:25] LABS: Glucose, Whole Blood 277 mg/dL (60-115)
[2023-07-03] MEDS: Furosemide 40 MG TABLET PO (11:39)
[2023-07-03] MEDS: glipiZIDE 5 MG TABLET PO (11:39)
[2023-07-03] MEDS: Enoxaparin Sodium 40 MG/0.4 ML SYRINGE SUBCUT (12:51)
--- NOTE | 2023-07-03 15:30 | MHC.CM.PN ---
Pt not ready for DC yet, referrals and updates sent to [facility] (formerly called [facility]) via email, for STR. ELISABETH to continue to follow.
[2023-07-03 15:41] VITALS: BP 168/80; PULSE 90; RESP 18; TEMP 36.3; O2SAT 96
[2023-07-03 16:24] LABS: Glucose, Whole Blood 187 mg/dL (60-115)
[2023-07-03] MEDS: Magnesium Hydrox/Alum Hydrox 30 ML ORAL.SUSP PO (17:36)
[2023-07-03 20:00] VITALS: BP 140/75; PULSE 100; RESP 18; TEMP 36.9; O2SAT 95
[2023-07-03 21:40] LABS: Glucose, Whole Blood 214 mg/dL (60-115)
[2023-07-03] MEDS: Atorvastatin Calcium 20 MG TABLET PO (21:48)
[2023-07-04 04:00] VITALS: BP 130/80; PULSE 100; RESP 20; TEMP 36.7; O2SAT 98
[2023-07-04] MEDS: Omeprazole 20 MG CAPSULE.DR PO (05:53)
[2023-07-04] MEDS: Levothyroxine Sodium 200 MCG TABLET PO (05:53)
[2023-07-04 07:40] VITALS: BP 110/87; PULSE 90; RESP 18; TEMP 36.7; O2SAT 97
[2023-07-04 07:42] LABS: Glucose, Whole Blood 283 mg/dL (60-115)
[2023-07-04] MEDS: Insulin Lispro 100 UNIT/ML 3 ML VIAL SUBCUT ×3 (08:19→16:50)
[2023-07-04] MEDS: Metoprolol Tartrate 50 MG TABLET PO (08:20)
[2023-07-04] MEDS: Magnesium Oxide 400 MG TABLET PO (08:20)
[2023-07-04] MEDS: Pregabalin 50 MG CAPSULE PO (08:20)
[2023-07-04] MEDS: Cyanocobalamin (Vitamin B-12) 1,000 MCG TABLET 1000 MCG PO (08:20)
[2023-07-04] MEDS: Ascorbic Acid 500 MG TABLET 1000 MG PO (08:20)
[2023-07-04] MEDS: Cholecalciferol (Vitamin D3) 25 MCG TABLET PO (08:20)
[2023-07-04] MEDS: glipiZIDE 5 MG TABLET PO (08:20)
[2023-07-04] MEDS: Folic Acid 1 MG TABLET PO (08:20)
[2023-07-04] MEDS: Furosemide 40 MG TABLET PO (08:20)
[2023-07-04] MEDS: Thiamine HCL 100 MG TABLET PO (08:20)
[2023-07-04] MEDS: Ferrous Sulfate 324 MG TABLET.DR PO (08:27)
--- NOTE | 2023-07-04 09:38 | MHC.SL.SWA ---
Speech Pathologist Impression: Risk of aspiration Risk of Aspiration Due to: Medically Fragile Reduced Cognition Dysphasia Diet Status: No change Liquid Consistency and Strategies for Safe Swallow: Liquid Intake Recommendation: Thin Liquid Intake Strategies: Small Sips Solid Food Consistency: Dietary Recommendations: Chopped/Advanced (NDD3) Additional Modifications to Solid Foods: Recommend continue with CHOPPED/ADVANCED (NDD3) diet and THIN liquids (SMALL, INDIVIDUAL SIPS), pills CRUSHED in PUREE. Pt will need TOTAL 1:1 SUPERVISION with close monitoring of tolerance d/t recent upgrade and ensure strict aspiration precautions. Hold tray if pt is lethargic, not engaging in meal, or demonstrates any clinical signs of aspiration. Oral Medication Intake: Crushed with Puree Please contact the pharmacy regarding appropriate crushable or liquid drug formulations that are available whenever modified delivery is recommended. Compensatory Strategies and Precautions to be Taken for Safe Swallow: Sitting Upright (90 deg) Liquids from Cup Liquids from Spoon Small Bites and Sips Rate of Ingestion Change Oral Check Avoid Specific Foods Supervision While Eating and Drinking for Safe Swallow: Total Supervision (1:1) Foods to Avoid: Mixed consistencies, difficult to chew solids. Swallowing Recommended Treatments: Compens. Strategy Educat. Recommendation for Speech: 1 f/u Svp Marketing Clinican/Clinical Fellow: No Supervisory Statement: I have reviewed and agree with the student/clinical fellow's documentation: N/A Speech Language Pathologist: Che Agustin M.A., CCC-DOG WARDEN
--- NOTE | 2023-07-04 09:48 | P.PNIM_ITS ---
Subjective Subjective Date of Service: 07/04/23 Interval History: No new complaint, Physical Exam 2 Vital Signs: Vital Signs: Last Vital Signs Temp 98.0 F 07/04/23 07:40 Pulse 90 07/04/23 07:40 Resp 18 07/04/23 07:40 BP 110/87 07/04/23 07:40 Pulse Ox 97 07/04/23 07:40 O2 Del Method Nasal Cannula 07/04/23 07:40 O2 Flow Rate 3 07/04/23 07:40 BMI result Body Mass Index 40.5 Const: Other: Awake Neck supple no JVD. CVS tachy regular rate rhythm, Respiratory lungs clear to auscultation, no respiratory distress, no wheeze, no rhonchi. Gastrointestinal abdomen soft,obese, non tender, bowel sounds audible, no guarding , no rigidity. Extremities bilateral ankle deformity,non pitting edema, wrinkled skin, discoloration lower extremities Neuro non focal, moving all 4 extremity ,speech clear, easily aroused psych flat affect Objective Data Active Medications Acetaminophen (Acetaminophen 325 Mg Tablet) 650 mg PO TID PRN PRN Reason: Mild Pain (Scale Score 1-4) Last Admin: 07/02/23 08:21 Dose: 650 mg Documented By: CRISTHIAN Al Hydroxide/Mg Hydroxide (Magnesium Hydrox/Alum Hydrox 30 Ml Oral.Susp) 30 ml PO Q6H PRN PRN Reason: Indigestion Last Admin: 07/03/23 17:36 Dose: 30 ml Documented By: TRISTEN Ascorbic Acid (Ascorbic Acid 500 Mg Tablet) 1,000 mg PO DAILY [facility] Last Admin: 07/04/23 08:20 Dose: 1,000 mg Documented By: TRISTEN Atorvastatin Calcium (Atorvastatin Calcium 20 Mg Tablet) 20 mg PO BEDTIME [facility] Last Admin: 07/03/23 21:48 Dose: 20 mg Documented By: BENNY Cyanocobalamin (Cyanocobalamin (Vitamin B-12) 1,000 Mcg Tablet) 1,000 mcg PO DAILY [facility] Last Admin: 07/04/23 08:20 Dose: 1,000 mcg Documented By: TRISTEN Dextrose (Dextrose 50 % 25 Gm/50 Ml Syringe) 25 gm IVPUSH Q15M PRN; Protocol PRN Reason: per Hypoglycemia Standing Ord. Docusate Sodium (Docusate Sodium 100 Mg Capsule) 100 mg PO DAILY PRN PRN Reason: Constipation Enoxaparin Sodium (Enoxaparin Sodium 40 Mg/0.4 Ml Syringe) 40 mg SUBCUT Q24H [facility] Last Admin: 07/03/23 12:51 Dose: 40 mg Documented By: TRISTEN Ferrous Sulfate (Ferrous Sulfate 324 Mg Tablet.) 324 mg PO DAILY [facility] Last Admin: 07/04/23 08:27 Dose: 324 mg Documented By: TRISTEN Folic Acid (Folic Acid 1 Mg Tablet) 1 mg PO DAILY [facility] Last Admin: 07/04/23 08:20 Dose: 1 mg Documented By: TRISTEN Furosemide (Furosemide 40 Mg Tablet) 40 mg PO DAILY [facility]; Protocol Last Admin: 07/04/23 08:20 Dose: 40 mg Documented By: TRISTEN Glipizide (Glipizide 5 Mg Tablet) 5 mg PO DAILY [facility] Last Admin: 07/04/23 08:20 Dose: 5 mg Documented By: TRISTEN Glucose (Glucose Gel 15 Gm Gel..Gram.) 15 gm PO Q15M PRN; Protocol PRN Reason: per Hypoglycemia Standing Ord. Insulin Human Lispro (Insulin Lispro 100 Unit/Ml 3 Ml Vial) 0 unit SUBCUT QIDACHS [facility]; Protocol Last Admin: 07/04/23 08:19 Dose: 6 unit Documented By: TRISTEN Lactic Acid (Ammonium Lactate 12 % Lotion 226 Gm Bottle) 1 appl TOPICAL DAILY [facility]; Protocol Last Admin: 07/04/23 08:21 Dose: 1 appl Documented By: TRISTEN Levothyroxine Sodium (Levothyroxine Sodium 200 Mcg Tablet) 200 mcg PO DAILY@0600 [facility] Last Admin: 07/04/23 05:53 Dose: 200 mcg Documented By: BENNY Magnesium Oxide (Magnesium Oxide 400 Mg Tablet) 400 mg PO DAILY [facility] Last Admin: 07/04/23 08:20 Dose: 400 mg Documented By: TRISTEN Metoprolol Tartrate (Metoprolol Tartrate 50 Mg Tablet) 50 mg PO BID [facility]; Protocol Last Admin: 07/04/23 08:20 Dose: 50 mg Documented By: TRISTEN Omeprazole (Omeprazole 20 Mg Capsule.) 20 mg PO DAILY@0630 [facility] Last Admin: 07/04/23 05:53 Dose: 20 mg Documented By: BENNY Ondansetron HCl (Ondansetron Hcl 4 Mg/2 Ml Vial) 4 mg IVPUSH Q8H PRN PRN Reason: Nausea and Vomiting Polyethylene Glycol (Polyethylene Glycol 3350 17 Gm Powd.Pack) 17 gm PO DAILY PRN PRN Reason: Constipation Last Admin: 07/01/23 06:05 Dose: 17 gm Documented By: RAHEEM Pregabalin (Pregabalin 50 Mg Capsule) 50 mg PO DAILY [facility] Last Admin: 07/04/23 08:20 Dose: 50 mg Documented By: TRISTEN Sodium Chloride (0.9 % Sodium Chloride Flush 3 Ml Syringe) 3 ml IVFLUSH QSHIFT [facility] Last Admin: 07/04/23 08:21 Dose: 3 ml Documented By: TRISTEN Thiamine HCl (Thiamine Hcl 100 Mg Tablet) 100 mg PO DAILY [facility] Last Admin: 07/04/23 08:20 Dose: 100 mg Documented By: TRISTEN Vitamin D (Cholecalciferol (Vitamin D3) 25 Mcg Tablet) 25 mcg PO DAILY [facility] Last Admin: 07/04/23 08:20 Dose: 25 mcg Documented By: TRISTEN Labs 06/28/23 04:07 07/03/23 05:12 Labs: Laboratory Results - last 24 hr 07/03/23 07/03/23 07/03/23 11:15 16:20 21:35 POC Glucose 277 H 187 H 214 H 07/04/23 07:38 POC Glucose 283 H Assessment and Plan (1) Bilateral lower extremity edema: Status: Acute (2) CHF (congestive heart failure): Status: Acute Plan 78-year-old male with history of lcv-fkapyzi-[id number] type 2 diabetes, history of tardive dyskinesia, bipolar disorder, hyperlipidemia, hypertension, GERD, chronic venous stasis dermatitis, and alcohol use disorder admitted for further management of mild chf exacerbation and ble weakness exacerbation of HFpEF: now compensated, continue oral Lasix Altered mental status/metabolic encephalopathy: ongoing issue for over a year per son, cannot rule out underlying dementia, intermittent somnolence likely related to hypovention, he's more alert this morning, to use BiPAP PRN during the day for naps. W/u has included CT negative for stroke, ammonia of 44. Depakote and risperideone were stopped as maybe contributing to somnolence. TSH normal. Ultimately will need rehab. He is overall much better chronic lymphedema /chronic venous stasis dermatitis- no evidence of infection,negative DVT studies(06/23/23) resume lasix with 40 mg po daily HypERnatremia from overdiuresse, and lack of PO water, now that he's more awake, bed side swallow and if does ok, resolved with water replacement exs-ecljrmd-jpaqalfhn type 2 diabetes with hypergelycemia continue insulin sliding scale, resume glipizide; metformin on hold continue diabetic diet hypertension/ intermittent tachycardia continue metoprolol tardive dyskinesias /bipolar disorder- will hold Depakote and risperidone due to somnolence alcohol use disorder-no evidence of acute withdrawal, mild tachycardia, no tremors continue p.o. thiamine folic acid, patient declined recovery services. chano on ckd 3: Creatine now within normal range diet: speech recom chopped + nectar thic liquid metabolic alkalosis status post IV fluids on Diamox, follow BMP DVT prophylaxis-Lovenox Full code ongoing inpatient need - CHF exacerbation requiring IV diuresis, chano on ckd , somnolence requires close renal monitoring likely to rehab when bed available Time Spent With Patient Time: Total time managing care of this patient today ____ minutes. Quality Stroke Does the patient have a stroke diagnosis?: No VTE Prior VTE?: No VTE Risk Level:: Medical - moderate - high VTE Device Contraindication: Treatment Not Indicated VTE Drug Contraindication: N/A - Med Ordered
--- NOTE | 2023-07-04 10:14 | MHC.CLN ---
F/U CONTINUES WITH POOR PO, USUALLY 0-25%. SKIN WITH REDNESS TO BUTTOCKS. DIET LIBERALIZED FROM DM TO REGULAR TO PROMOTE PO INTAKE. DIET=REGULAR, NDD3, THIN LIQUIDS. PER HYBRID CORN BREEDER, 1:1 FEED. FORTIFIED ICE CREAM TID TO INCREASE NUTRITIONAL INTAKE. PROVIDES 870 KCALS, 27 G PROTEIN. FOLLOW FOR INTAKE AND SKIN INTEGRITY.
--- NOTE | 2023-07-04 10:20 | PC.RT ---
pt refusing to wear cpap for the past 3 nights. Therefore the cpap will be pulled form patients room.
[2023-07-04 11:30] LABS: Glucose, Whole Blood 283 mg/dL (60-115)
[2023-07-04] MEDS: Enoxaparin Sodium 40 MG/0.4 ML SYRINGE SUBCUT (13:48)
[2023-07-04] MEDS: Magnesium Hydrox/Alum Hydrox 30 ML ORAL.SUSP PO (13:51)
--- NOTE | 2023-07-04 14:47 | PM.DS ---
DS: Providers Provider Date of Service: 07/04/23 Date of admission: 06/22/23 13:51 Primary care physician: Anatoly Palacios MD Consults: 06/22/23 14:21 Addiction Medicine Routine Consulting Provider: Addiction Covering Reason for consultation: etoh use disorder 06/24/23 07:48 Consult to Nephrology Routine Consulting Provider: Aki Younger Reason for consultation: John on ckd in setting of chf Has provider been notified: No 06/24/23 11:25 Consult to Pulmonology Routine Consulting Provider: [facility] Pulmonology Services Reason for consultation: Sob ?copd undiagnosed DS: Diagnosis Discharge Diagnosis (1) Bilateral lower extremity edema: Status: Acute (2) CHF (congestive heart failure): Status: Acute DS: Summary Hospital Course Hospital Course: Chief Complaint: ble edema 78-year-old male with history of [id number] type 2 diabetes, history of tardive dyskinesia, bipolar disorder, hyperlipidemia, hypertension, GERD, chronic venous stasis dermatitis, and alcohol use disorder presented to the ED yesterday at the recommendation of [facility] for evaluation of increased BLE edema with decreased mobility. The patient reports he has had longstanding BLE edema >1 year but has had some increase in the last few weeks. Denies any reina, sob at rest, orthopnea, PND, or chest pain. He has noted decreased ability to ambulate and transfer independently for several weeks due to weakness in the BLE. Ambulates with a walker at home. Reports compliane with PO lasix. In the ED, patient tachycardic ranging 102-126, vitals otherwise stable. No hypoxia. There is no leukocytosis. Has a stable normocytic anemia. Renal function baseline, electrolyte levels normal except CO2 of 31, consistent with baseline. Troponins elevated but flat at 82.7 and 85. CRP 1.66. BNP 181. Repeat labs pending. CXR showed mild cardiomegaly with pulmonary vascular congestion. Has had multiple venous duplex studies of the bilateral lower extremities which have been negative for DVT, most recently 05/25. He has never undergone echocardiogram. In the ED, IV Lasix was recommended but patient refused and was instead continued on p.o. and recommended for short-term rehab. Unfortunately, after PT evaluation, patient is a 2 person assist with recommendation for acute rehab and requires inpatient admission for further evaluation and treatment for mild CHF exacerbation. Hospital course:Patient was admitted for management on increasing leg dedam and heart failure and during hospitalization shows sings of metabolic encephalopathy, renal failurey, hypernatremia. Acute diastolic Heart failure was treated with intravenous Lasix but ultimately this resulted in renal failure with creatinine going up to 1.5 and once lasix was stopped renal function gradually improved. Presently, heart failure is well compensated and he has been reinitiated on oral lasix presently 40 mg but will increase to 80 mg daily. Patient normally took total of 120 mg at home. Metabolic Encephalopathy Altered mental status/metabolic encephalopathy: ongoing issue for over a year according to the son, cannot rule out underlying dementia, intermittent somnolence likely related to hypovention. He required BiPAP at time due to high CO2 on ABG. Additionally Depakaote and risperidone were discontiune and these appear to contribute to his change in mentation. At the present time, he appears to be at his baseline. Ammonia level was 44, TSH was normal. ' Chronic lymphedema /chronic venous stasis dermatitis- no evidence of infection,negative DVT studies(06/23/23) Continue Lasix as above HypERnatremia from overdiuresse, and lack of PO water. He was given IV water and oral water and sodium level corrected dhe-[id number] type 2 diabetes with hypergelycemia continue insulin sliding scale, resume glipizide and metformin hypertension/ intermittent tachycardia continue metoprolol tardive dyskinesias /bipolar disorder--resume Depakoe but hold risperidone alcohol use disorder-no evidence of acute withdrawal, mild tachycardia, no tremors continue p.o. thiamine folic acid, patient declined recovery services. john on ckd 3: Creatine now within normal range at 1.07 as of 07/03 diet: speech recom chopped + nectar thic liquid Dispo: To short term rehb for less than 30 days Time Spent with Patient Time attestation: Total time managing care of this patient today ____ minutes. Discharge coordination time: Greater than 30 minutes Quality: Safe Use of Opioids Does Pt have an Active Cancer Diagnosis on the Problem List?: No Quality: Stroke Does the patient have a stroke diagnosis?: No Physical Exam Vital Signs: Vital Signs: Last Vital Signs Temp 98.0 F 07/04/23 07:40 Pulse 90 07/04/23 07:40 Resp 18 07/04/23 07:40 BP 110/87 07/04/23 07:40 Pulse Ox 97 07/04/23 07:40 O2 Del Method Nasal Cannula 07/04/23 07:40 O2 Flow Rate 3 07/04/23 07:40 BMI result Body Mass Index 40.5 DS: Data Data Completed and Pending Labs on day of discharge: Laboratory Results - last 24 hr 07/03/23 07/03/23 07/04/23 16:20 21:35 07:38 POC Glucose 187 H 214 H 283 H 07/04/23 11:10 POC Glucose 283 H Discharge Plan Discharge Anticipated Discharge Date/Time: 07/04/23 14:33 Patient Disposition: Xfer SNF Discharge Diagnosis: Hear failure, renal failure, metabolic encephalopathy Referrals: [facility] [Outside] - 1 Week Physician,None [Physician] - 1 Week Discharge Medications: New insulin lispro [Humalog U-100 Insulin] 100 unit/mL Solution See Protocol subcut QIDACHS Qty: 30 0RF Protocol: Insulin Correction Scale Less than or equal to 110 ---- Give (units): 0 111 to 150 Give (units): 0 151 to 200 Give (units): 2 201 to 250 Give (units): 4 251 to 300 Give (units): 6 301 to 350 Give (units): 8 Greater than 350 Give (units): 10 Call MD if Blood Glucose > : 350 Continued atorvastatin 20 mg tablet 20 mg PO BEDTIME metformin 1,000 mg tablet 1,000 mg PO BID divalproex 500 mg tablet extended release 24 hr 1,500 mg PO BEDTIME omeprazole 20 mg capsule,delayed release(DR/EC) 20 mg PO DAILY@0630 cholecalciferol (vitamin D3) 25 mcg (1,000 unit) Tablet 25 mcg PO DAILY ferrous sulfate 324 mg (65 mg iron) Tablet,Delayed Release (Dr/Ec) 324 mg PO DAILY furosemide 40 mg tablet 80 mg PO DAILY ascorbic acid (vitamin C) 1,000 mg Tablet 1,000 mg PO DAILY ammonium lactate 12 % Lotion 1 appl TOPICAL DAILY polyethylene glycol 3350 [Miralax] 17 gram Powder In Packet 17 g PO DAILY PRN (Reason: Constipation) metoprolol succinate 50 mg tablet extended release 24 hr 50 mg PO DAILY glipizide 5 mg tablet extended release 24hr 5 mg PO DAILY acetaminophen 500 mg Tablet 1,000 mg PO TID PRN (Reason: Mild Pain (Scale Score 1-4)) levothyroxine 200 mcg tablet 200 mcg PO DAILY magnesium oxide 400 mg magnesium Tablet 400 mg PO DAILY mecobalamin (vitamin B12) 1,000 mcg Tablet,Chewable 1,000 mcg PO DAILY Discontinued risperidone 2 mg tablet 2 mg PO BEDTIME furosemide [Lasix] 40 mg tablet 40 mg PO DAILY@1400 Discharge Orders: Discharge Order (Routine); Ordered 07/04/23 Ordered By: Jonas Gomez Diet: Diabetic diet Activity on Discharge: As tolerated Stand Alone Forms: Patient Portal Discharge page Care Plan Goals: Recovery from hear failure and renal failure and metabolic Health Concerns: Chronic fluid overload chronic lower extremity edema acute on chronic reanl failure metabolic encephalopath Plan of Treatment: Take all medication as recommended, please note risperidone and depakoate have been discontinued Dispo: To short term rehb for less than 30 days Assessment: as above Discharge Date/Time: 07/04/23 19:01
[2023-07-04 15:45] VITALS: BP 148/84; PULSE 73; RESP 17; TEMP 36.7; O2SAT 95
[2023-07-04 16:18] LABS: Glucose, Whole Blood 272 mg/dL (60-115)
--- NOTE | 2023-07-04 16:40 | MHC.CM.PN ---
IMM 07/04/23 Pt has been medically cleared for DC. He will go by ambulance to [facility] rehab and nursing.
== END 2023-07-04 19:01 | disposition skilled nursing facility (03) | DRG 291 ==
LOC: HO.ED 21:06 → HO.EDOVER 06-22 14:00 → HO.S3 06-22 15:04
PROVIDERS: Hospitalist; Internal Medicine; Admitting Provider Physician Assistant; Emergency Provider Emergency Medicine; PCP Internal Medicine; Visit Provider Internal Medicine
DX: I13.0 Hypertensive heart and chronic kidney disease with heart failure and stage 1 through stage 4 chronic kidney disease, or unspecified chronic kidney disease (principal); G93.41 Metabolic encephalopathy; I50.31 Acute diastolic (congestive) heart failure; N17.9 Acute kidney failure, unspecified; Z68.41 Body mass index [BMI] 40.0-44.9, adult; E87.3 Alkalosis; E87.0 Hyperosmolality and hypernatremia; E66.2 Morbid (severe) obesity with alveolar hypoventilation; F31.9 Bipolar disorder, unspecified; I87.303 Chronic venous hypertension (idiopathic) without complications of bilateral lower extremity; N18.30 Chronic kidney disease, stage 3 unspecified; E11.22 Type 2 diabetes mellitus with diabetic chronic kidney disease; R00.0 Tachycardia, unspecified; G24.01 Drug induced subacute dyskinesia; F10.90 Alcohol use, unspecified, uncomplicated; E11.65 Type 2 diabetes mellitus with hyperglycemia; Z20.822 Contact with and (suspected) exposure to COVID-19; Z91.148 Patient's other noncompliance with medication regimen for other reason; Z79.4 Long term (current) use of insulin; Z79.84 Long term (current) use of oral hypoglycemic drugs; Z79.890 Hormone replacement therapy; Z79.899 Other long term (current) drug therapy
CPT/HCPCS: 36415; 36600; 70450; 71045; 73560; 80048; 80053; 81001; 82140; 82436; 82803; 82947; 83735; 83880; 84133; 84300; 84443; 84484; 85025; 85027; 86140; 87086; 87635; 92526; 92610; 93005; 93306; 93970; 94640; 94660; 97161; 97162; 97530; 99285; J1650; J1940; Q9957

== ENCOUNTER 2023-06-22 13:51 | Outpatient (BNV) | payer MEDICARE, SELFPAY | END 2023-06-22 14:11 | PROVIDERS: Admitting Provider Physician Assistant; Emergency Provider Emergency Medicine; Visit Provider Internal Medicine | DX: I50.9 Heart failure, unspecified (principal) | CPT/HCPCS: 93306 ==

== ENCOUNTER → 2023-06-22 13:51 | Outpatient (BNV) | payer MEDICARE, SELFPAY | PROVIDERS: Admitting Provider Physician Assistant; Emergency Provider Emergency Medicine; Visit Provider Internal Medicine Pulmonary Disease | DX: I50.33 Acute on chronic diastolic (congestive) heart failure (principal); E66.2 Morbid (severe) obesity with alveolar hypoventilation | CPT/HCPCS: 99232 ==

== ENCOUNTER → 2023-06-22 13:51 | Outpatient (BNV) | payer MEDICARE, SELFPAY | PROVIDERS: Admitting Provider Physician Assistant; Emergency Provider Emergency Medicine; Visit Provider Physician Assistant | DX: R60.0 Localized edema (principal); I50.9 Heart failure, unspecified | CPT/HCPCS: 99223; 99232; 99233; 99239 ==

== ENCOUNTER 2023-07-26 12:03 | Emergency (ER) | payer MEDICARE, SELFPAY ==
[2023-07-26] VITALS (7 sets, daily range): BP systolic 110–129; BP diastolic 66–87; PULSE 85–116; RESP 15–17; TEMP 36.5–38.3; O2SAT 93–100; BMI 33.8
--- NOTE | ~2023-07-26 | XR_ITS ---
EXAMINATION: XR WRIST, RIGHT CLINICAL INFORMATION: Pain and deformity. COMPARISON: None available. TECHNIQUE: Four views of the right wrist. FINDINGS: The bones and soft tissues are normal. No fracture. Alignment is anatomic with normal joint spaces. No erosions or abnormal soft tissue calcifications. XR/XR wrist RT min 3V IMPRESSION: Normal right wrist.
--- NOTE | ~2023-07-26 | CT_ITS ---
EXAMINATION: CT HEAD WITHOUT CONTRAST CLINICAL INFORMATION: Left-sided facial droop for 3 days COMPARISON: CT head June 27, 2023 TECHNIQUE: Contiguous axial imaging was performed from the skull base to vertex without intravenous administration of contrast. Coronal and sagittal reformatted images are performed at the CT scanner. [This CT examination was performed using dose optimization techniques as appropriate, variously including the following: *Automated exposure control *Adjustment of mA and/or kV according to patient size (this includes techniques or standardized protocols for targeted exams where dose is matched to indication/reason for exam; i.e. extremities or head) *Use of iterative reconstruction technique] DLP: 796 mGy-cm. FINDINGS: There is no evidence of acute intracranial hemorrhage or territorial infarction. No abnormal mass-effect or midline shift is seen. [place] to white matter differentiation is well preserved. No extra-axial fluid collections are identified. There is generalized global volume loss. There is moderate prominence of the ventricles and the sulci . There is mild hypodensity of the periventricular white matter due to chronic small vessel ischemic disease. There are vascular calcifications of the internal carotid arteries bilaterally. There is no osseous abnormality. The mastoid air cells and visualized portions of the paranasal sinuses are well-aerated. CT/CT head/brain wo IV con IMPRESSION: No acute intracranial pathology.
--- NOTE | 2023-07-26 12:20 | ECG_ITS ---
Test Reason : CHF Blood Pressure : / mmHG Vent. Rate : 109 BPM Atrial Rate : 109 BPM P-R Int : 156 ms QRS Dur : 102 ms QT Int : 368 ms P-R-T Axes : 040 -63 020 degrees QTc Int : 495 ms Sinus tachycardia with frequent , and consecutive Premature ventricular complexes Left anterior fascicular block Possible Anterior infarct , age undetermined Abnormal ECG When compared with ECG of 28-JUN-2023 15:44, No significant change was found Referred By: Ginny Ricardo Electronically Signed By:GAY CASTELAN MD
--- NOTE | 2023-07-26 12:27 | PC.NURSE ---
Patient alert and oriented reports right hand pain, right had red, swollen and tender to touch- states started 3 days ago. Per ems was sent for eval from [facility] because of left sided facila droop. 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 Denies sob or chest pain States that he has been bed ridden and is working with therapy at [facility]
[2023-07-26 14:02] LABS: MANUAL DIFF FLAG NO
[2023-07-26 14:04] LABS: Basophils Percent Auto 0.3 % (0-2); Eosinophils Absolute Auto 0.4 X10*3/uL (0.0-0.4); Eosinophils Percent Auto 5.1 % (0-4); Hematocrit 39.3 % (42.0-52.0); Hemoglobin 12.9 g/dl (14.0-18.0); Imm Gran Abs Auto 0.13 X10*3/uL (0.00-0.03); Imm Gran Pct Auto 1.7 % (0.0-0.4); Lymphocytes Absolute Auto 1.2 X10*3/uL (1.2-4.9); Lymphocytes Percent Auto 14.9 % (20-40); Mean Corpuscular HGB Conc 32.8 g/dl (31.0-36.0); Mean Corpuscular Hemoglobin 27.9 pg (27.0-33.0); Mean Corpuscular Volume 85.1 fL (80.0-98.0); Mean Platelet Volume 8.8 fL (9.4-12.4); Monocytes Absolute Auto 0.8 X10*3/uL (0.1-1.2); Monocytes Percent Auto 9.6 % (2-11); Neutrophils Absolute Auto 5.3 x10*3/uL (2.0-8.3); Neutrophils Percent Auto 68.4 % (45-73); Platelet Count 147 X10*3/uL (160-400); Red Blood Count 4.62 X10*6/uL (4.60-5.80); Red Cell Distribution Width 15.1 % (11.0-16.0); White Blood Count 7.8 X10*3/uL (4.8-10.8)
[2023-07-26 14:11] LABS: INTERNATIONAL NORM RATIO 1.3 (0.9-1.1); Prothrombin Time 15.5 SEC (11.1-13.3)
[2023-07-26 14:17] LABS: Alanine Aminotransferase 7 U/L (0-40); Alkaline Phosphatase 60 U/L (39-117); Anion Gap 14 (12-20); Aspartate Amino Transferase 13 U/L (5-37); Bilirubin Total 0.4 mg/dL (0.0-1.0); Blood Urea Nitrogen 11 mg/dL (9-16); Carbon Dioxide 38 mmol/L (22-29); Chloride 88 mmol/L (96-108); Creatinine Clr Calc Pharmacy 66.3; Estimated Glomerular Filt Rate > 60; Glucose Random 153 mg/dL (60-115); Potassium 3.4 mmol/L (3.3-5.1); Sodium 137 mmol/L (135-145); Total Protein 6.4 g/dL (6.5-8.0)
--- NOTE | 2023-07-26 14:21 | ED_ITS ---
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 Patient states he has no acute complaints other than right hand pain that he denies any falls, nausea, vomiting. Patient also denies any shortness of breath or chest pain/palpitations. Related Data Home Medications Medication Instructions Recorded Confirmed atorvastatin 20 mg tablet 20 mg PO BEDTIME 08/22/22 06/21/23 cholecalciferol (vitamin D3) 25 25 mcg PO DAILY 08/22/22 06/21/23 mcg (1,000 unit) tablet divalproex 500 mg tablet,extended 1,500 mg PO BEDTIME 08/22/22 06/21/23 release 24 hr ferrous sulfate 324 mg (65 mg 324 mg PO DAILY 08/22/22 06/21/23 iron) tablet,delayed release metformin 1,000 mg tablet 1,000 mg PO BID 08/22/22 06/21/23 omeprazole 20 mg capsule,delayed 20 mg PO DAILY@0630 08/22/22 06/21/23 release acetaminophen 500 mg tablet 1,000 mg PO TID PRN Mild Pain 06/21/23 06/21/23 (Scale Score 1-4) ammonium lactate 12 % lotion 1 appl topical DAILY 06/21/23 06/21/23 ascorbic acid (vitamin C) 1,000 mg 1,000 mg PO DAILY 06/21/23 06/21/23 tablet furosemide 40 mg tablet 80 mg PO DAILY 06/21/23 06/21/23 glipizide 5 mg tablet, extended 5 mg PO DAILY 06/21/23 06/21/23 release 24 hr levothyroxine 200 mcg tablet 200 mcg PO DAILY 06/21/23 06/21/23 magnesium oxide 400 mg PO DAILY 06/21/23 06/21/23 mecobalamin (vitamin B12) 1,000 1,000 mcg PO DAILY 06/21/23 06/21/23 mcg chewable tablet metoprolol succinate 50 mg 50 mg PO DAILY 06/21/23 06/21/23 tablet,extended release 24 hr polyethylene glycol 3350 17 gram 17 g PO DAILY PRN Constipation 06/21/23 06/21/23 oral powder packet (Miralax) Previous Rx's Medication Instructions Recorded insulin lispro 100 unit/mL See Protocol subcut QIDACHS #30 mL 07/04/23 subcutaneous solution (Humalog U-100 Insulin) Allergies Allergy/AdvReac Type Severity Reaction Status Date / Time No Known Allergies Allergy Verified 06/21/23 19:53 Review of Systems 2 Review of Systems: Pertinent positives and negatives as stated in HPI [facility] Past Medical History Source: nursing notes reviewed Medical History LORENE (acute kidney injury) Diastolic CHF, acute on chronic Bilateral lower extremity edema CHF (congestive heart failure) Edema, peripheral Chronic venous stasis dermatitis Diabetes mellitus type II, non insulin dependent Tardive dyskinesia Bipolar 1 disorder HLD (hyperlipidemia) HTN (hypertension) GERD (gastroesophageal reflux disease) Family History Family History Father Diabetes Maternal Grandmother Heart problem Social History Social History Household Members: None Housing: House Housing Other:: [facility] housing [facility] Do you presently have visiting nurse or other home services: No ([facility] 3x week house clearing) Alcohol intake: former Patient Tobacco Use Status: Never used Tobacco Smoked in Last 30 Days: No e-Cigarette/Vaping Use: Never Used Second Hand Smoke Exposure: No Use of substances other than those prescribed or required for medical reasons: No Advance Directives: Yes Advance Directives on File: Yes Advance Directives Date on File: 08/25/22 service: No Current occupational status: retired Physical Exam 2 Vital Signs: Vital Signs: Last Vital Signs Temp 100.9 F H 07/26/23 12:29 Pulse 113 H 07/26/23 14:22 Resp 16 07/26/23 14:22 BP 112/76 07/26/23 14:22 Pulse Ox 98 07/26/23 14:22 O2 Del Method Nasal Cannula 07/26/23 14:22 O2 Flow Rate 3 07/26/23 14:22 BMI result Body Mass Index 33.8 VITAL SIGNS: Reviewed. GENERAL: Chronically ill, in no acute distress. HEAD: Normocephalic/atraumatic EYES: PERRLA, EOMI EARS: Ext canals without abnormality NOSE: Nares patent bilateral OROPHARYNX: no oral lesions noted, posterior pharynx clear NECK: Supple, no adenopathy LUNGS: Normal breath sounds. No adventitious sounds or accessory muscle use. SpO2<98> on 3 L nasal cannula CARDIOVASCULAR: Regular rate and rhythm without noted murmurs, no JVD or lower extremity edema. ABDOMEN: Soft, non-tender, non-distended with bowel sounds. MUSCULOSKELETAL: No tenderness, deformities, or effusions noted on gross inspection. EXTREMITIES: No cyanosis, clubbing or edema. RIGHT HAND: Erythematous, mildly swollen SKIN: Inspection of the skin reveals no rashes NEUROLOGIC: Alert and oriented x 2. Strength and sensation to light touch were grossly intact x 4, facial asymmetry. Medications Administered Discontinued Medications Generic Name Dose Route Start Last Admin Trade Name Freq PRN Reason Stop Dose Admin Acetaminophen 975 mg 07/26/23 14:17 07/26/23 15:00 Acetaminophen 325 Mg Tablet PO 07/26/23 14:18 975 mg ONCE ONE Administration Medical Decision Making Medical Decision Making MDM Narrative: 78-year-old male with history and clinical presentation, DDX: Viral syndrome, intracranial pathology, bacterial infection, hand injury. Patient is noted to be febrile. I reviewed all investigations and hematologic indices are negative for leukocytosis or left shift, there is a chronic thrombocytopenia as well as a stable normocytic anemia. Coagulation studies a mildly elevated. Chemistry indices do not demonstrate an LORENE and there are no electrolyte derangement. High sensitivity troponin is elevated but this appears to be a chronic elevation. Viral testing is negative for COVID-19/influenza. Head CT does not demonstrate any acute pathology, no intracranial bleed and otherwise my interpretation is in agreement with radiology's impression. Right wrist x-ray negative for fracture/dislocation or evidence extraneous fluid. Signed out to Dr Guadarrama - BNP, Trop #2, UA/Rt hand cellulitis It is my opinion that patient does not have any neurologic issue, these findings appear to be chronic in nature however he was found to be febrile and awaiting urinalysis. If urinalysis is negative suspect right hand cellulitis as opposed to a pseudogout for right hand findings. Lab Data 07/26/23 13:59 07/26/23 13:59 Labs: Lab Results 07/26/23 07/26/23 Range/Units 13:59 14:24 WBC 7.8 (4.8-10.8) X10*3/uL RBC 4.62 (4.60-5.80) X10*6/uL Hgb 12.9 L (14.0-18.0) g/dl Hct 39.3 L (42.0-52.0) % MCV 85.1 (80.0-98.0) fL MCH 27.9 (27.0-33.0) pg MCHC 32.8 (31.0-36.0) g/dl RDW 15.1 (11.0-16.0) % Plt Count 147 L (160-400) X10*3/uL MPV 8.8 L (9.4-12.4) fL Immature Gran % (Auto) 1.7 H (0.0-0.4) % Neut % (Auto) 68.4 (45-73) % Lymph % (Auto) 14.9 L (20-40) % [place] % (Auto) 9.6 (2-11) % Eos % (Auto) 5.1 H (0-4) % Baso % (Auto) 0.3 (0-2) % Lymph # (Auto) 1.2 (1.2-4.9) X10*3/uL [place] # (Auto) 0.8 (0.1-1.2) X10*3/uL Eos # (Auto) 0.4 (0.0-0.4) X10*3/uL Baso # (Auto) 0.0 (0.0-0.2) X10*3/uL Abs Immat Gran (auto) 0.13 H (0.00-0.03) X10*3/uL Absolute Neuts (auto) 5.3 (2.0-8.3) x10*3/uL Absolute Nucleated RBC 0.000 (0.0-0.012) X10*3/uL Nucleated RBC % (auto) 0.0 (0.0-0.2) /100WBC PT 15.5 H (11.1-13.3) SEC INR 1.3 H (0.9-1.1) Sodium 137 (135-145) mmol/L Potassium 3.4 (3.3-5.1) mmol/L Chloride 88 L (96-108) mmol/L Carbon Dioxide 38 H (22-29) mmol/L Anion Gap 14 (12-20) BUN 11 (9-16) mg/dL Creatinine 1.09 (0.5-1.4) mg/dL Estim Creat Clear Calc 66.3 Estimated GFR > 60 Random Glucose 153 H (60-115) mg/dL Calcium 9.0 D (8.4-10.2) mg/dL Total Bilirubin 0.4 (0.0-1.0) mg/dL AST 13 (5-37) U/L ALT 7 (0-40) U/L Alkaline Phosphatase 60 (39-117) U/L Troponin I High Sens 60.5 H (<3.5-35.0) ng/L Total Protein 6.4 L (6.5-8.0) g/dL Albumin 3.0 L (3.5-5.0) g/dL COVID-19 (ROMÁN) Negative (Negative) COVID-19 Clin Com See Note Influenza Type A (BLANCA) Negative (Negative) Influenza Type B (BLANCA) Negative (Negative) Influenza A & B Note See Note Independent Interpretation I performed an independent interpretation of an: EKG Interpretation: Sinus tachycardia, HR-109, no STEMI, NC within normal limits, QRS-102, QTC-495. Discharge Plan Discharge Clinical Impression: Hand erythema Patient Disposition: Still a Patient Prescriptions: No Action atorvastatin 20 mg tablet 20 mg PO BEDTIME metformin 1,000 mg tablet 1,000 mg PO BID divalproex 500 mg tablet extended release 24 hr 1,500 mg PO BEDTIME omeprazole 20 mg capsule,delayed release(DR/EC) 20 mg PO DAILY@0630 cholecalciferol (vitamin D3) 25 mcg (1,000 unit) Tablet 25 mcg PO DAILY ferrous sulfate 324 mg (65 mg iron) Tablet,Delayed Release (Dr/Ec) 324 mg PO DAILY furosemide 40 mg tablet 80 mg PO DAILY ascorbic acid (vitamin C) 1,000 mg Tablet 1,000 mg PO DAILY ammonium lactate 12 % Lotion 1 appl TOPICAL DAILY polyethylene glycol 3350 [Miralax] 17 gram Powder In Packet 17 g PO DAILY PRN (Reason: Constipation) metoprolol succinate 50 mg tablet extended release 24 hr 50 mg PO DAILY glipizide 5 mg tablet extended release 24hr 5 mg PO DAILY acetaminophen 500 mg Tablet 1,000 mg PO TID PRN (Reason: Mild Pain (Scale Score 1-4)) levothyroxine 200 mcg tablet 200 mcg PO DAILY magnesium oxide 400 mg magnesium Tablet 400 mg PO DAILY mecobalamin (vitamin B12) 1,000 mcg Tablet,Chewable 1,000 mcg PO DAILY insulin lispro [Humalog U-100 Insulin] 100 unit/mL Solution See Protocol subcut [facility] Qty: 30 0RF Protocol: Insulin Correction Scale Less than or equal to 110 ---- Give (units): 0 111 to 150 Give (units): 0 151 to 200 Give (units): 2 201 to 250 Give (units): 4 251 to 300 Give (units): 6 301 to 350 Give (units): 8 Greater than 350 Give (units): 10 Call MD if Blood Glucose > : 350
[2023-07-26 14:24] LABS: Troponin-I High Sensitivity 60.5 ng/L (<3.5-35.0)
[2023-07-26 14:44] LABS: COVID-19 Test Negative (Negative); IDNOW Serial# 58CA691E
[2023-07-26 14:52] LABS: IDNOW Serial# 9DB6401D; Influenza A Negative (Negative); Influenza B2 Negative (Negative)
[2023-07-26] MEDS: Acetaminophen 325 MG TABLET 975 MG PO (15:00)
[2023-07-26 16:53] LABS: B Type Natriuretic Peptide 113 pg/mL (<100)
[2023-07-26 16:53] LABS: Troponin-I High Sensitivity 64.2 ng/L (<3.5-35.0)
[2023-07-26 19:01] LABS: Appearance Urine Clear; Color Urine Yellow; Glucose Urine UA Negative (Negative); Leukocyte Esterase Urine Negative (Negative); Nitrite Urine Positive (Negative); PH 6.5 (5.0-9.0); Specific Gravity - Urine <= 1.005 (1.005-1.025); UMIC TRIGGER UACC YES; Urine Blood Trace (Negative); Urine Ketones Negative (Negative); Urine Protein 30 (1+) mg/dL (Neg-Trace)
[2023-07-26 19:12] LABS: Bacteria Urine 2+ (None Seen); UACC Culture Trigger YES; WBC Urine 0-5 /HPF (0-5)
--- NOTE | 2023-07-26 19:49 | MHC.EDTECH ---
Patient ate 100 % of meal ,drank 480 ml fluids ,Pt comfortable and is watching television ,No apparent distress noted ,Call workman within Pt reach .
--- NOTE | 2023-07-26 21:10 | PC.NURSE ---
pt assessed, sleeping, equal chest rise
--- NOTE | 2023-07-26 22:27 | PC.NURSE ---
verbal report given to Nursing staff at [facility]
== END 2023-07-26 23:39 | disposition home or self-care (01) ==
PROVIDERS: Student in an Organized Health Care Education/Training Program; Emergency Provider Emergency Medicine; PCP Hospitalist
DX: L03.113 Cellulitis of right upper limb (principal); M79.641 Pain in right hand; R50.9 Fever, unspecified; R00.0 Tachycardia, unspecified; D69.6 Thrombocytopenia, unspecified; D64.9 Anemia, unspecified; Z11.52 Encounter for screening for COVID-19; E11.9 Type 2 diabetes mellitus without complications; I11.0 Hypertensive heart disease with heart failure; I50.9 Heart failure, unspecified; Z79.84 Long term (current) use of oral hypoglycemic drugs; Z79.899 Other long term (current) drug therapy
CPT/HCPCS: 36415; 70450; 73110; 80053; 81001; 81003; 83880; 84484; 85025; 85610; 87086; 87502; 87635; 93005; 99284; 99285